=== PATIENT | male | born 1945 | race Caucasian/White ===

== ENCOUNTER 2023-01-01 09:47 | Outpatient (OUT) | payer MEDICARE, BC, SELFPAY ==
[2023-01-01 11:04] LABS: Estimated Average Glucose 189 mg/dL; Glycohemoglobin A1C 8.2 % (4.5-6.2)
== END 2023-01-01 09:48 | disposition home or self-care (01) ==
PROVIDERS: PCP Family Medicine; Visit Provider Family Medicine
DX: E11.65 Type 2 diabetes mellitus with hyperglycemia (principal)
CPT/HCPCS: 36415; 83036

== ENCOUNTER 2023-12-22 09:24 | Outpatient (OUT) | payer MEDICARE, BC, SELFPAY ==
[2023-12-22 10:10] LABS: Alanine Aminotransferase 32 U/L (16-63); Albumin Globulin Ratio 1.3; Albumin Level 3.8 g/dL (3.4-5.0); Alkaline Phosphatase 63 U/L (46-116); Anion Gap 9.4; Aspartate Amino Transferase 16 U/L (15-37); BUN Creatinine Ratio 19.5; Bilirubin Total 0.4 mg/dL (0.2-1.0); Calcium 9.7 mg/dL (8.5-10.1); Carbon Dioxide 29.4 mmol/L (21.0-32.0); Chloride 102 mmol/L (98-107); Chol HDL Ratio 2.7; Cholesterol 82 mg/dL (<=200); Estimated GFR (African America >60 (>=60); Estimated GFR (Non-African Ame >60 (>=60); Globulin 2.9 g/dL; Glucose 110 mg/dL (74-106); HDL Cholesterol 30 mg/dL (40-60); Potassium 4.8 mmol/L (3.5-5.1); Sodium 136 mmol/L (136-145); Total Protein 6.7 g/dL (6.4-8.2); Triglycerides 41 mg/dL (<=150); VLDL CHOLESTEROL 8.2 mg/dL
[2023-12-23 10:14] LABS: Vitamin B12 183 pg/mL (232-1245)
== END 2023-12-22 09:25 | disposition home or self-care (01) ==
LOC: LAB 09:26
PROVIDERS: PCP Family Medicine; Visit Provider Nurse Practitioner Family
DX: E11.65 Type 2 diabetes mellitus with hyperglycemia (principal); I10 Essential (primary) hypertension; E55.9 Vitamin D deficiency, unspecified; E11.42 Type 2 diabetes mellitus with diabetic polyneuropathy
CPT/HCPCS: 36415; 80053; 80061; 82306; 82607

== ENCOUNTER 2024-11-24 10:09 | Outpatient (OUT) | payer MEDICARE, BC, SELFPAY ==
--- OUTSIDE RECORDS SUMMARY | 2024-11-23 06:10 | XMS_ITS | Continuity of Care Document ---
Author Organization [facility] Address [address] [place] [phone] Phone Care Team Providers Care Health Administration Teacher Name Role Phone Dasha Hanna MD Primary Care Provider Ragini Mar APRN Attending Provider Dasha Hanna MD Attending Provider Angel Palencia APRN Attending Provider Care Teams Patient Care Team Team Status: Active Member Role Status Dates Dasha Hanna MD Primary Care Provider Active Visit Care Team Team Status: Inactive Member Role Status Dates Dasha Hanna MD Primary Care Provider Active Start: August 25, 2024 End: August 25, 2024 Ragini Mar APRN Attending Provider Active Start: August 25, 2024 End: August 25, 2024 Visit Care Team Team Status: Inactive Member Role Status Dates Dasha Hanna MD Primary Care Provider Active Start: September 17, 2024 End: September 17, 2024 Dasha Hanna MD Attending Provider Active St art: September 17, 2024 End: September 17, 2024 Visit Care Team Team Status: Inactive Member Role Status Dates Dasha Hanna MD Primary Care Provider Active Start: October 05, 2024 End: October 05, 2024 Angel Palencia APRN Attending Provider Active Start: October 05, 2024 End: October 05, 2024 Visit Care Team Team Status: Inactive Member Role Status Dates Dasha Hanna MD Primary Care Provider Active Start: October 27, 2024 End: October 27, 2024 Dasha Hanna MD Attending Provider Active St art: October 27, 2024 End: October 27, 2024 Patient Care Team Team Status: Inactive Member Role Status Dates Dasha Hanna MD Primary Care Provider Active Start: November 23, 2024 End: November 23, 2024 Angel Palencia APRN Attending Provider Active Start: November 23, 2024 End: November 23, 2024 Chief Complaint and Reason for Visit Chief Complaint Admit Date DM 3 month and August 25, 2024 10:19 am Sore Feet/Wants Diabetic Shoes August 11:14am 1 year follow up / Gerd October 05, 2024 9 :23am 3 mo f/u October 27, 2024 9:25 am 7wk Constipation/gerd November 23, 2024 9:38am Reason for Visit Admit Date BMI 25.0-25.9,adult August 25, 2024 10:19 am Dietary counseling and surveillance August 25, 2024 10:19am Essential (primary) hypertension July 10:19am Neuropathy August 25, 2024 10:19 am Type 2 diabetes mellitus with hyperglyce tana August 25, 2024 10:19am Vitamin D deficiency, unspecified August 252024 10:19am Vitamin B 12 deficiency August 25, 2024 1 0:19am Type 2 diabetes mellitus with diabetic p olyneuropathy September 17, 2024 11:14am Constipation October 05, 2024 9:23a m GERD (gastroesophageal reflux disease) J sabina 2024 9:23am Essential (primary) hypertension October 272024 9:25am Type 2 diabetes mellitus with diabetic p olyneuropathy October 27, 2024 9:25am Type 2 diabetes mellitus wit h other circulatory complications October 27, 2024 9:25am Type 2 diabetes mellitus with other spec ified complication October 27, 2024 9:25am Constipation November 23, 2024 9: 38am GERD (gastroesophageal reflux disease) A ugust 2024 9:38am Allergies, Adverse Reactions, Alerts Allergen Type Severity Reaction Last Updated Verified Status No Known Allergies Allergy Unknown October 27, 2024 9:35a m Yes Active Social History Smoking Status Status Start Date End Date Date of Observa tion Ex-smoker (finding) January 01, 2024 9:49am Observation Status Observation Response Date of Response Legal Sex Male (finding) Sex Assigned At Male [id number] Family History Relationship Condition Age at Onset Recorded Date/T [place] father Unknown Malignant neoplasm of brain Unknown Malignant neoplasm of stomach Unknown mother Diabetes mellitus Unknown Unknown Myocardial infarction Unknown Cerebrovascular accident (CVA) Unknown Hypertension Unknown brother Diabetes mellitus Unknown Problems Active Problems Medical Problem Onset Date Status Esophageal abnormality Unknown Active Finger dysfunction Unknown Active Arthritis of finger Unknown Active COVID-19 Unknown Active Medicare annual wellness visit, subsequent Unkno wn Active Trigger finger, right middle finger Unknown Active Trigger finger, right index finger Unknown Active Trigger finger, left index finger Unknown Active Type 2 diabetes mellitus with hyperglycemia Unkn own Active Type 2 diabetes mellitus with other specified co mplication Unknown Active Type 2 diabetes mellitus with diabetic polyneuro elo Unknown Active Diabetes Unknown Active Dietary counseling and surveillance Unknown Active Claudication Unknown Active Neuropathic pain of both feet Unknown Ac tive Neuropathy Unknown Active Essential (primary) hypertension Unknown Active Raynaud's syndrome without gangrene Unknown Active BMI 25.0-25.9,adult Unknown Active Type 2 diabetes mellitus with other circulatory complications Unknown Active Bilateral swelling of feet Unknown Activ e GERD (gastroesophageal reflux disease) Unknown Active Constipation Unknown Active Vitamin D deficiency, unspecified Unknown Active Medications Medication Status Dose Units Route Directions Qty Days St art Date Stop Date End Date Instructions Adherence Blood Sugar Diagnostic strip Active 0 .ROUTE .[facility] 100 July 29, 2023 4:46pm Glucose check one time daily Lancets mis [facility] July 30, 2023 4:31pm as directed, 1 x daily, defer to insurance preferred Blood-Gluco se Meter misc Active 0 .ROUTE .[facility] July 31, 2023 12:10p m as directed, defer to insurance preferred Gabapentin 600 mg tablet Discont inued 0 .ROUTE .COM[facility]X 180 August 13, 2023 12:38p m October 15, 2023 2:18p m TAKE 1 TABLET BY MOUTH TWICE DAILY Amlodipine 5 mg tablet Discont inued 5 MG PO Daily August 19, 2023 12:43p m June 23, 2024 10:07 am Atorvastati n 80 mg tablet Discont inued 80 MG PO Daily August 19, 2023 12:43p m June 23, 2024 10:07 am Gabapentin 600 mg tablet Discont inued 0 .ROUTE .COMPLEX 180 October 15, 2023 2:17pm Octob er 2023 12:39 pm TAKE 1 TABLET BY MOUTH TWICE DAILY Glipizide 10 mg tablet Discont inued 0 .ROUTE .COMPLEX 90 2023 1:20pm Septe mber 2023 8:00a m TAKE 1 TABLET BY MOUTH EVERY DAY Glipizide 5 mg tablet Discont inued 5 MG PO Daily Septem jeronimo 2023 12:00a m Octob er 2023 5:18p m Glipizide 5 mg tablet Discont inued 5 MG PO Daily Octobe r 2023 9:00am Octob er 2023 10:34 am Glipizide 5 mg tablet Discont inued 0 .ROUTE .COMPLEX 90 Octobe r 2023 10:34a m Octob er 2023 9:18a m TAKE 1 TABLET BY MOUTH DAILY Sitagliptin Phosphate (Januvia) 100 mg tablet Discont inued 100 MG .ROUTE .COMPLEX 90 Octobe r 2023 11:41a m Octob er 2023 12:38 pm once daily Sitagliptin Phosphate (Januvia) 100 mg tablet Discont inued 100 MG .ROUTE .COMPLEX 90 Octobe r 2023 12:37p m Febru [email or web address] 11:29 am once daily Empaglifloz in 25 mg tablet Discont inued 25 [facility] 8:[facility] Febru 2024 2:57p m Sitagliptin Phos-Metfor min (Janumet) 50-1,000 mg tablet Discont inued 1 TAB PO Twice daily June 16, 2024 5:01pm August 27, 2024 3:24p m Amlodipine 5 mg tablet Active 5 MG PO Daily June 23, 2024 10:07a m Complies with drug therapy Atorvastati n 80 mg tablet Active 80 MG PO Daily June 23, 2024 10:07a m Complies with drug therapy Gabapentin 800 mg tablet Active 800 MG PO Twice daily November 05, 2024 8:24am Complies with drug therapy Omeprazole 40 mg capsule,del ayed release(DR/ EC) Discont inued 40 MG PO Twice daily 60 August 21, 2023 12:00a m Janua ry 2024 10:09 am Amlodipine 5 mg tablet Discont inued 5 MG PO Daily July 01, 2023 12:00a m August 19, 2023 12:43 pm Gabapentin 600 mg tablet Discont inued 600 MG PO Twice daily July 01, 2023 12:00a m August 13, 2023 12:38 pm Glipizide 10 mg tablet Discont inued 10 MG PO Daily July 01, 2023 12:00a m October 21, 2023 7:48a m Sitagliptin Phos-Metfor min 50-1,000 mg tablet Discont inued 1 TAB PO Twice daily July 01, 2023 12:00a m October 21, 2023 7:48a m Latanoprost 0.005 % drops Active 1 DROPS OPHTHA LMIC Daily July 01, 2023 12:00a m Complies with drug therapy Losartan 50 mg tablet Active 50 MG PO Daily July 01, 2023 12:00a m Complies with drug therapy Glipizide 5 mg tablet Discont inued 10 MG .ROUTE .COMPLEX Octobe r 2023 9:17am Marua ry 2024 10:09 am 10 mg; Gabapentin 800 mg tablet Discont inued 800 MG PO Twice daily 180 Octobe r 2023 12:39p m Augus t 2024 8:24a m Atorvastati n 80 mg tablet Discont inued 80 MG PO Daily July 28, 2023 12:00a m August 19, 2023 12:43 pm Aspirin (Adult Aspirin Regimen) 81 mg tablet,robert yed release (DR/EC) Active 81 MG PO Daily July 28, 2023 12:00a m Complies with drug therapy Empaglifloz in (Jardiance) 10 mg tablet Discont inued 10 MG PO Every morning 90 90 July 28, 2023 12:00a m October 21, 2023 7:48a m Blood Sugar Diagnostic strip Discont inued 0 .ROUTE .[facility] 300 July 28, 2023 12:00a m July 29, 2023 4:47p m Glucose checks three times daily Lancets misc Discont inued 0 .ROUTE .[facility] 300 July 28, 2023 12:00a m July 30, 2023 4:33p m as directed, 3x day, defer to insurance preferred Blood-Gluco se Meter misc Discont inued 0 .ROUTE .[facility] 1 July 28, 2023 12:00a m July 31, 2023 12:10 pm as directed, defer to insurance preferred Glipizide 10 mg tablet Discont inued MG PO Novemb er 2023 1:00am 2024 11:40 am Glipizide 10 mg tablet Discont inued 5 MG PO .COMPLEX 2024 11:39a m 2024 11:43 am 5 mg orally with breakfast and 10mg daily with Supper; Glipizide 10 mg tablet Active 5 MG PO .COMPLEX 270 2024 11:40a m 5 mg orally with breakfast and 10mg daily with Supper; Complies with drug therapy Sitagliptin Phos-Metfor min (Janumet) 50-1,000 mg tablet Discont inued 1 TAB PO Twice daily 2024 1:00am June 16, 2024 5:02p m Cholecalcif ad (Vitamin D3) 50 mcg (2,000 unit) capsule Active 4000 UNIT PO Daily 2024 1:00am Complies with drug therapy Empaglifloz in 25 mg tablet Active 25 MG PO Every morning 90 90 2024 2:57pm Complies with drug therapy Polyethylen e Glycol 3350 (Miralax) 17 gram/dose powder Active 17 GM PO Daily November 23, 2024 12:00a m Complies with drug therapy probiotic Active PO November 23, 2024 12:00a m Unknown Sitagliptin Phos-Metfor min 50-1,000 mg tablet Discont inued 1 TAB PO Twice daily 180 October 21, 2023 7:46am 2024 10:10 am On Hold: stop metformin Empaglifloz in (Jardiance) 10 mg tablet Discont inued 10 MG PO Every morning 90 90 October 21, 2023 7:47am Novem jeronimo 2023 8:46a m Glipizide 5 mg tablet Discont inued 5 MG PO Daily 90 October 21, 2023 7:47am Septe mber 2023 1:20p m Glipizide 5 mg tablet Discont inued 10 MG PO Daily Octobe r 2023 2:07pm Octob er 2023 9:01a m Sitagliptin Phosphate (Januvia) 50 mg tablet Discont inued 50 MG PO Twice daily 180 Octobe r 2023 12:00a m Octob er 2023 11:42 am Cyanocobala min (Vitamin B-12) 1,000 mcg capsule Active 1000 MCG PO Daily 2024 1:00am Complies with drug therapy Magnesium Oxide 400 mg (241.3 mg magnesium) tablet Active 400 MG PO Daily 2024 1:00am Complies with drug therapy Blood-Gluco se Sensor (Dexcom G7 Sensor) device Active 0 .Route August 25, 2024 12:00a m As directed Blood-Gluco se,Head Of History ,Cont (Dexcom G7 Head Of History) misc Active 0 .Route August 25, 2024 12:00a m As directed Sitagliptin Phos-Metfor min (Janumet) 50-1,000 mg tablet Active 1 TAB PO Twice daily 180 August 27, 2024 3:24pm Complies with drug therapy Immunizations Immunization Event Date Not Given Reason Dose Number [employer] Lot Number Vaccine Information Statement (VIS) Detail Administration Location COVID-19 mRNA, Comirnaty ([employer]) July 24, 2020 COVID-19 mRNA, Comirnaty ([employer]) August 14, 2020 COVID-19 mRNA, Comirnaty ([employer]) March 20, 2021 COVID-19 mRNA Bivalent Booster ([employer]) February 04, 2022 influenza, unspecified formulation February 03, 2019 influenza, unspecified formulation February 13, 2021 Pneumococcal Polysacc. Vaccine, 23 valent December 10, 2012 Relevant Diagnostic Tests and/or Laboratory Data Laboratory Results Test Collection Date/Time Result Date/Time Result Interpretation Reference Range Result Comment Performing Site Bedside Glucose August 25, 2024 10:35am August 25, 2024 3:36pm 194 Bedside Hemoglobin A1c August 25, 2024 3:35pm August 25, 2024 3:36pm 6.5 % Vital Signs Vital Reading Result Reference Range Collection Date/Time Height 70 [in_i] August 25, 2024 10:32am Weight 77.00 kg August 25, 2024 10:32am Heart Rate 83 /min 60-100 August 25, 2024 10:32am Respiratory rate 18 /min 12-24 August 25, 2 025 10:32am Oxygen saturation by Pulse oximetry 97 % 95-100 August 25, 2024 10:32 am BP Systolic 115 mm[Hg] 100-140 August 25, 2024 10:32am BP Diastolic 71 mm[Hg] 60-100 August 25, 2024 10:32am BMI (Body Mass Index) 24.3 kg/m2 August 252024 10:32am Height 70 [in_i] September 17, 2024 11:18am Weight 77.11 kg September 17, 2024 11:18am Heart Rate 83 /min 60-100 September 17, 2024 11:18am BP Systolic 131 mm[Hg] 100-140 September 17, 2024 11:18am BP Diastolic 68 mm[Hg] 60-100 September 17, 2024 11:18am BMI (Body Mass Index) 24.3 kg/m2 August 302024 11:18am Height 70 [in_i] October 05, 2024 9:39am Weight 76.65 kg October 05, 2024 9:39am Heart Rate 75 /min 60-100 October 05, 2024 9:39am BP Systolic 123 mm[Hg] 100-140 October 05, 2024 9:39am BP Diastolic 65 mm[Hg] 60-100 October 05, 2024 9:39am BMI (Body Mass Index) 24.2 kg/m2 October 052024 9:39am Height 70 [in_i] October 27, 2024 9:27am Weight 76.20 kg October 27, 2024 9:27am Heart Rate 80 /min 60-100 October 27, 2024 9:27am BP Systolic 121 mm[Hg] 100-140 October 27, 2024 9:27am BP Diastolic 67 mm[Hg] 60-100 October 27, 2024 9:27am BMI (Body Mass Index) 24.0 kg/m2 September 302024 9:27am Height 70 [in_i] November 23 9:38am Weight 76.20 kg November 23 9:38am BMI (Body Mass Index) 24.0 kg/m2 November 23, 2024 9:38am Advance Directives Advance Directive Response Recorded Date/ Time Advance Directives No November 04 3:23pm Insurance Providers Guarantor Genny Peacock Address [address] [place] [phone] Contact Info. Home Phone: Payer Policy Id Subscriber's Name Subscriber Id Effectiv e Date Expiration Date [place] [employer]/[place] [id number] Genny Peacock [id number] Medicare [id number] Genny Peacock [id number] Encounters Encounter Location(s) Arrival/Admit Date Discharge/Depart Date Provider(s) Departed Physician/Prov ider Office Visit -[facility] August 25, 2024 10:19am August 25, 2024 11:20am Ragini Mar APRN Departed Physician/Prov ider Office Visit -[facility] September 17, 2024 11:14am September 17, 2024 11:43am Dasha Hanna MD Departed Physician/Prov ider Office Visit -[facility] October 05, 2024 9:23am October 05, 2024 9:59am Stephanie Talbert APRN Departed Physician/Prov ider Office Visit -[facility] October 27, 2024 9:25am October 27, 2024 10:12am Dasha Hanna MD Departed Physician/Prov ider Office Visit -[facility] November 23, 2024 9:38am November 23, 2024 10:08am Stephanie Talbert APRN Recent Diagnosis Onset Date Admit Date BMI 25.0-25.9,adult Unknown August 25 10:19am Dietary counseling and surveillance Unknown August 25, 2024 10:19am Essential (primary) hypertension Unknown August 25, 2024 10:19am Neuropathy Unknown August 25, 2024 1 0:19am Type 2 diabetes mellitus with hyperglycemia Unkn own August 25, 2024 10:19am Vitamin D deficiency, unspecified Unknown August 25, 2024 10:19am Vitamin B 12 deficiency Unknown July 10:19am Type 2 diabetes mellitus wit h diabetic polyneuropathy Unknown September 17, 2024 11:14am Constipation Unknown October 05, 2024 9 :23am GERD (gastroesophageal reflux disease) Unknown October 05, 2024 9:23am Essential (primary) hypertension Unknown October 27, 2024 9:25am Type 2 diabetes mellitus wit h diabetic polyneuropathy Unknown October 27, 2024 9:25am Type 2 diabetes mellitus wit h other circulatory complications Unknown October 27, 2024 9:25am Type 2 diabetes mellitus wit h other specified complication Unknown October 27, 2024 9:25am Constipation Unknown November 23 9:38am GERD (gastroesophageal reflux disease) Unknown November 23, 2024 9:38am Assessments Diagnosis Onset Date Resolution Status Admit Date BMI 25.0-25.9,adult acute July 302024 10:19am Dietary counseling and surveillance acute August 25, 2024 1 0:19am Essential (primary) hypertension acute August 25, 2024 1 0:19am Neuropathy acute August 25, 2024 10:19am Type 2 diabetes mellitus wit h hyperglycemia acute August 25, 2024 1 0:19am Vitamin D deficiency, unspecified acute August 25, 2024 1 0:19am Vitamin B 12 deficiency noneactive M 2024 10:19am Type 2 diabetes mellitus wit h diabetic polyneuropathy acute August 11:14am Constipation acute October 05 9:23am GERD (gastroesophageal reflu x disease) acute October 05, 2024 9 :23am Essential (primary) hypertension acute October 27, 2024 9:25am Type 2 diabetes mellitus wit h diabetic polyneuropathy acute September 9:25am Type 2 diabetes mellitus wit h other circulatory complications acute October 27, 2024 9:25am Type 2 diabetes mellitus wit h other specified complication acute Sep 9:25am Constipation acute November 23, 2024 9:38am GERD (gastroesophageal reflu x disease) acute November 23 9:38am Plan of Treatment Author Angel Palencia [facility] Authored November 01, 2024 8:5 9am An 79-year-old male patient with diagnosis of GERD, constipation Continue omeprazole 40 mg twice daily as patient dyspepsia/acid reflux has been well-controlled without alarm features Initiate MiraLAX titration, fiber supplementation twice daily, ensuring adequate water intake and initiation of probiotic for constipation. Bowel movements occurring 1-2 times per week Follow-up in this office in 8 weeks discuss treatment efficacy consider prescription agents if unable to receive relief of constipation with MiraLAX dosing Author Dasha Hanna [facility] Authored October 27, 2024 11:3 4am Take medication as prescribe d, keep follow up appointments, get any testing that's been ordered done in a timely fashion. Do not smoke. Call if any questions or problems.For Diabetes: Patient is advised to work on healthy diet choices and appropriate servings, weight control, regular exercise as directed, and reduce fat intake. Check home blood sugars as directed. Check feet regularly to be sure no sores or numbness are developing. Call if low sugar reactions occur, and be aware that lower sugars may happen with increased exercise. Author Angel Palencia [facility] Authored November 23, 2024 10 :01am An 79-year-old male patient with diagnosis of GERD, constipation Continue lifestyle management with regard to reflux complaints, patient has discontinued PPI and is negative for breakthrough or alarm features Continue MiraLAX titration, fiber supplementation twice daily, ensuring adequate water intake and initiation of probiotic for constipation. Bowel movements now occurring once daily without straining Follow-up in this office in 6 months as patient has maintained medication regimen and has good control of symptoms Author Ragini Mar [facility] Authored August 27, 2024 3:30p m AGP Dexcom 12 August through 25 Aug 2024, CGM active 99.8%, average glucose 148, GMI 6.9%, variability is 32.3%. Ranges: Greater than 250 is 3%, 181-250 is 23%, 70-100 80s 74%, below 69 is 0 0%. AGP Dexcom 12 May through 25 May 2024, CGM active 99.3%, missing days 12 through 14 of this month. Average glucose 152, GMI 7.0%, variability is 42.1%. Ranges: Greater than 250 is 8%, 181-250 is 28%, 70-180 is 60%, 54-69 is 3%, below 54 is 1%. Hx: Notable significant variability on CGM, significant hypoglycemia noted on , , 23 May as low as 41, 46 and 47 overnight, would constitute necessity for CGM surveillance despite insulin. This was a prolonged not consistent with compression lows. Unable to download meter, handwritten values between 03/30/2024 and 04/06/2024, 1 value per day, lowest 161 highest 461. Unable to download meter, handwritten values between 12/14 and 12/30/2023, highest blood glucose reading is 136 and lowest blood glucose reading is 102. Meter: Unable to download glucometer, handwritten 09/11-09/22 show once daily BG checks in AM- Patient is here for Type 2 Diabetes, diagnosed approximately 20 years Any hypoglycemic events: denies Regular physical activity: active, no formal exercise Nutrition: 2- 3 meals per day Patient concerns for today: blood glucose elevations since Covid Any recent hospitalizations: denies, but recent positive COVID non hospitalized, fatigue, improved Prescriptions needed: due MT 1. Uncontrolled, a Type 2 diabetes with A1c of 6.5% was 9.3% , 7.4, 7.9%, 8.2 %. GMI 6.9%% with variability Current diabetes medications: Janumet twice daily, Jardiance 25 mg daily, glipizide 10 mg with dinner and 5 mg with breakfast. Hx Januvia 100 mg daily (NOT JANUMET). Very averse to insulin therapy Hx: Rybelsus- tolerated but $1100. He is on statin and ARB 2. Blood glucose levels have likely improved AEB A1c Continue Janumet 50-1000 mg BID continue glipizide 10 mg with largest meal, 5 mg with breakfast -A-t-r-c-o-m- -a-m-g-n-e-r- -y-h-e-d-e-r- -z-v-h-c-e-d- -t-o- -l-e-f-t- -u-p-p-e-r- -a-r-m- -b-y- -d-b-v-v-i-d-e-r- -f-o-r- -f-n-j-t-e-r- -z-s-o-j-m-w-s-l-m-z-v-y-t-i-o-n- Dexcom G7 sensors to MSC, substantiating severe hypoglycemia, coverage obtained, benefiting and using appropriately B12 deficiency with oral replacement per PCP Continue Jardiance 25 mg po daily-- discussed holding when at risk for dehydration or NPO BP good today, discussed goal under 130/80 for kidney protection taking losartan and amlodipine UMIC hx mild elevation-- Lipids- on atorvastatin 80, yearly check due 11/2024, Yearly labs ordered avoid simple sugars, consider eliminating fruit juice, already eliminated regular soda- years ago 3 months could consider GLP1RA cost will likely be concern, hx toleration of Rybelsus-- cost issue-- HIGHLY RESISTANT TO INSULIN 3. Patient is alert, oriented and receptive to making changes or counseling. Notes: Seen for an assessment of current glucose pattern, changes in treatment plan, counseling and coordination of care related to diabetes, risks, and benefits of treatment, medications, side effects. Given handouts to reinforce concepts reviewed during counseling, see scanned notes. TOPICS REVIEWED: 1. Time was spent reviewing: a. Basic concepts of diabetes, progressive beta cell , concepts of basal/bolus/corrective insulin requirements. The goal is fasting blood glucose of 90-130mg. IF fasting blood glucose starts to run under 100mg 3x's/ week, decrease dose by 10%. The goal is to hold the blood glucose level steady meal to meal. If pt. is going to have increased physical activity after a meal, decrease the schedule meal dose prior to the activity by 30-50%. If pt. skips a meal do not take this dose. b. Nutrition: Concepts of healthy diet, encouraged to decrease saturated fat in diet and increase non-starchy vegetables and fruits in diet. BMI: Pt. needs to select one small change to decrease caloric intake or increase physical activity to help decrease weight. c. Correct treatment of hypoglycemia, carry a glucose source at all times on your person, in vehicles, and at bedside. Can use glucose tablets/4, four ounces of pop or juice equal to 15 G of carbohydrate. Blood glucose should be 100 mg/dl or higher when driving. d. ADA glucose goals for age and medical complexity reviewed e. Patient questions addressed 2. Activity/exercise: Encouraged to start any form of physical activity. Start low level and increase slowly to a minimal goal of 150 minutes/week. Limit activity to what is allowed by other issues such as cardiac, pulmonary or orthopedic restrictions. 3. Standards of care: Reminded to have an annual dilated eye exam, A1C every 3 months, urine testing for microalbumin once/year, check feet daily and report any cuts or sores that do not appear to be healing. 4. Meter: Plan to check blood glucose: Please check blood glucose levels 4 times/day. Back to back meals reveal effectiveness of bolus dosing. The blood glucose data is used to determine insulin doses and confirm symptoms for hypoglycemia and hyperglycemia. 5. [facility] as directed. Contact office if any issues or concerns with patterns of hypoglycemia, hyperglycemia, or diabetes medication issues. Author Dasha Hanna [facility] Authored September 28, 2024 1:05p m Will forward notes and order to [facility] for shoes. Future Tests Future scheduled test information is unavailable Pending Tests Test Name Ordered Date Scheduled Date Comprehensive Metabolic Panel August 25, 2024 11: 10am 2 Months Future Visits Future appointment information is unavailable Referrals to Other Providers Referral information is unavailable Future Procedures Procedure Name Ordered Date Scheduled Date Vitamin B12 August 25, 2024 11:10am 2 Months Lipid Panel August 25, 2024 11:10am 2 Months MicroAlb Creat Ratio,U August 25, 2024 11:10am 2 Months Vitamin D 25 Hydroxy Total August 25, 2024 11:10a m 2 Months Future Medications Future medication information is unavailable Patient Instructions Patient instructions are unavailable
--- OUTSIDE RECORDS SUMMARY | 2024-11-24 10:20 | XMS_ITS | Encounter Summary ---
Author Organization [facility] Address [address] [place] [address] Care Team Providers Care Roll Forming Machine Set Up Operator Name Role Phone Dasha Hanna MD Primary Care Provider [phone] Reason for Visit * Reason Comments Med Refill Encounter Details Date Type Department Care Team (Late st Contact Info) Description 06/05/2022 Refill [facility] Cardiology [address] [place] [id number] Maggie Morales, COMPRESSED GAS PLANT WORKER [address] [place] [address] Benign hypertensive heart disease without congestive heart failure Social History Tobacco Use Types Packs/Day Years Used Date Smoking Tobacco: Never Assessed Sex and Gender Information Value Date Recorded Sex Assigned at Male 10/24/2022 7:53 PM EDT Legal Sex Male 10:25 PM EDT Gender Identity Male 10/24/2022 7:53 PM EDT Sexual Orientation Heterosexual or Straight 09/29 7:53 PM EDT documented as of this encounter Plan of Treatment Not on file documented as of this encounter Visit Diagnoses Diagnosis Benign hypertensive heart disease without congestive heart failure Benign hypertensive heart disease without heart failure documented in this encounter Care Teams Roll Forming Machine Set Up Operator Relationship Specialty Start Date End Date Dasha Hanna MD [address] PCP - General 10/23/22 documented as of this encounter
--- OUTSIDE RECORDS SUMMARY | 2024-11-24 10:20 | XMS_ITS | Clinical Summary ---
Author Organization [facility] Address [address] [place] [address] Care Team Providers Care Windows Server Support Technician Name Role Phone Dasha Hanna MD Primary Care Provider [phone] Allergies No known active allergies Medications atorvastatin (Lipitor) 80 mg tabletIndication s:Coronary artery disease with angina pectoris, unspecified vessel or lesion type, unspecified whether [place] or transplanted heart TAKE 1 TABLET DAILY 90 tablet 2 06/07/19 23 Active amLODIPine (Norvasc) 5 mg tabletIndication s:Benign hypertensive heart disease without congestive heart failure TAKE 1 TABLET DAILY 90 tablet 2 06/07/19 23 Active aspirin 81 mg EC tablet Take 1 tablet by mouth in the morning. Active gabapentin (Neurontin) 600 mg tablet Take 1 tablet by mouth in the morning and at bedtime. 03/18/20 16 Active SITagliptin phos-metformin (Janumet) 50-1,000 mg tablet Take 1 tablet by mouth in the morning and at bedtime. 03/18/20 16 Active empagliflozin (Jardiance) 10 mg Take 10 mg by mouth in the morning. 07/28/19 24 Active omeprazole (PriLOSEC) [address] capsule Take 40 mg by mouth before breakfast and before evening meal. Do not crush or chew. Active magnesium, as gluconate, (Magonate) 27 mg magnesium (500 mg) tablet Take 27 mg by mouth two times daily. Active glipiZIDE (Glucotrol) 5 mg tablet Take 5 mg by mouth before breakfast and before evening meal. Active losartan (Cozaar) 50 mg tabletIndication s:Benign hypertensive heart disease without congestive heart failure TAKE 1 TABLET BY MOUTH DAILY 90 tablet 3 11/19/19 25 Active glipiZIDE (Glucotrol) 10 mg tablet Take 1 tablet by mouth in the morning. 025 Discontinued losartan (Cozaar) 50 mg tabletIndication s:Benign hypertensive heart disease without congestive heart failure TAKE 1 TABLET BY MOUTH DAILY 90 tablet 3 12/29/19 24 025 Discontinued Active Problems Problem Noted Date Diagnosed Date BMI 25.0-25.9,adult 10/09/2023 Esophageal abnormality 10/09/2023 Finger dysfunction 10/09/2023 Neuropathy 10/09/2023 Raynaud's syndrome without gangrene 10/09/2023 Type 2 diabetes mellitus with hyperglycemia 09/28 Vitamin D deficiency, unspecified 10/09/2023 BPH with urinary obstruction 10/24/2022 Diabetes 10/24/2022 10/24/2022 Dysuria 10/24/2022 10/24/2022 Frequency of urination 10/24/2022 Nocturia 10/24/2022 10/24/2022 Screening for prostate cancer 10/24/2022 Split urinary stream 10/24/2022 10/24/2022 Urge incontinence 10/24/2022 10/24/2022 Urinary retention 10/24/2022 10/24/2022 Fatigue 05/13/2018 10/24/2022 Status post transurethral resection of prostate 05/13/2018 10/24/2022 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 Cardiology [address] [place] [phone] Ubaldo Finley MD Benign hypertensive heart disease without congestive heart failure 10/29/2024 10:40 AM EDT Office Visit [place] [address] [place] [address] Prashant Sam, GREGG Coronary artery disease involving [place] coronary artery of [place] heart without angina pectoris (Primary Dx); Mixed hyperlipidemia; Essential hypertension; Diabetes mellitus type II, non insulin dependent ([facility]) from Last 3 Months Immunizations Immunization Administration Dates Next Due Covid ([employer]) Bivalent Booster =>12 YRS 022 Influenza, High-dose Seasona l, Quadrivalent, Preservative Free 02/04/2022,11/29/2019 Influenza, Seasonal, Quadrivalent, Adjuvanted Social History Tobacco Use Types Packs/Day Years Used Date Smoking Tobacco: Never Smokeless Tobacco: Never Tobacco Cessation:Counseling Given: Not Answered Alcohol Use Standard Drinks/Week Comments Not Currently 0 (1 standard drink = 0.6 oz pur e alcohol) [place] Safety & Environment Answer Date Rec orded Fear of Current or Ex-Partner Not on file Emotionally Abused Not on file 05/22/2023 Physically Abused Not on file 05/22/2023 Sexually Abused Not on file 05/22/2023 Physically or Sexually Abused Not on file Sex and Gender Information Value Date Recorded Sex Assigned at Male 10/24/2022 7:53 PM EDT Legal Sex Male 10:25 PM EDT Gender Identity Male 10/24/2022 7:53 PM EDT Sexual Orientation Heterosexual or Straight 09/29 7:53 PM EDT Last Filed Vital Signs Vital Sign Reading Time Taken Comments Blood Pressure 130/62 10/29/2024 10:35 AM EDT Pulse 73 10/29/2024 10:35 AM EDT Temperature - - Respiratory Rate 12 10/29/2024 10:35 AM EDT Oxygen Saturation 97% 10/29/2024 10:35 AM EDT Inhaled Oxygen Concentration - - Weight 76.3 kg (168 lb 3.2 oz) 10/29/2024 10:35 AM EDT Height 177.8 cm (5' 10 ) 10/29/2024 10:35 AM EDT Body Mass Index 24.13 10/29/2024 10:35 AM EDT Plan of Treatment Health Maintenance Due Date Last Done Comments Diabetes: Hemoglobin A1C 1945 Medicare Annual Wellness (AWV) 1945 Diabetes: Retinopathy Screening 1954 Depression Screening 1956 Diabetes: Urine Protein Screening 1963 Pneumococcal Vaccine: 50+ Years (1 of 2 - PCV) 1963 Adult Tetanus 1966 Zoster Vaccines (1 of 2) 1994 Fall Risk Screening 2009 COVID-19 Vaccine ( season) 2024 08/04/2024, 01/27/2024, 12/26/2022, Additional history exists Influenza Vaccine (#1) 2024 , 12/26/2022, 02/04/2022, Additional history exists HIB Vaccines Aged Out No longer eligi ble based on patient's age to complete this topic HPV Vaccines Aged Out No longer eligi ble based on patient's age to complete this topic IPV Vaccines Aged Out No longer eligi ble based on patient's age to complete this topic Meningococcal B Vaccine Aged Out No l onger eligible based on patient's age to complete this topic Meningococcal Vaccine Aged Out No preston roni eligible based on patient's age to complete this topic Rotavirus Vaccines Aged Out No longer eligible based on patient's age to complete this topic Insurance MEDICARE Member Subscriber Plan / Payer (Ef fective 2009-Present) Name:Cesar Begum Member ID:[id number] Relation to Subscriber:Self Name:Cesar Begum Subscriber ID:[id number] Payer ID:[id number] Group ID:Not on file Type:Medicare Address: [facility] [address] Care Teams Windows Server Support Technician Relationship Specialty Start Date End Date Dasha Hanna MD [facility] [facility] [address] PCP - General 10/23/22
--- OUTSIDE RECORDS SUMMARY | 2024-11-24 10:20 | XMS_ITS | Encounter Summary ---
Author Organization [facility] Address [address] [place] [address] Care Team Providers Care Turret Lathe Operator Name Role Phone Dasha Hanna MD Primary Care Provider [phone] Reason for Visit * Reason Comments Med Refill Encounter Details Date Type Department Care Team (Late st Contact Info) Description 11/17/2024 Refill [facility] Cardiology [address] [place] [address] Ubaldo Finley MD [address] [facility] [address] [place] [address] Benign hypertensive heart disease without congestive heart failure Social History Tobacco Use Types Packs/Day Years Used Date Smoking Tobacco: Never Smokeless Tobacco: Never Alcohol Use Standard Drinks/Week Comments Not Currently [...] failure documented in this encounter Care Teams Turret Lathe Operator Relationship Specialty Start Date End Date Dasha Hanna MD [address] PCP - General 10/23/22 documented as of this encounter
--- OUTSIDE RECORDS SUMMARY | 2024-11-24 10:20 | XMS_ITS | Encounter Summary ---
Author Organization [facility] Address [address] [place] [address] Care Team Providers Care Hedge Fund Accountant Name Role Phone Dasha Hanna MD Primary Care Provider [phone] Reason for Visit * Reason Comments Med Refill Encounter Details Date Type Department Care Team (Late st Contact Info) Description 02/12/2023 Refill [facility] Cardiology [address] [place] [phone] Ubaldo Finley MD [address] [facility] [address] [place] [address] Benign hypertensive heart disease without congestive heart failure; Coronary artery disease with angina pectoris, unspecified vessel or lesion type, unspecified whether [place] or transplanted heart Social History Tobacco Use Types Packs/Day Years Used Date Smoking Tobacco: Never Smokeless Tobacco: Never Alcohol Use Standard Drinks/Week Comments Not Currently 0 (1 standard drink = 0.6 oz pur e alcohol) Sex and Gender Information Value Date Recorded [...] Benign hypertensive heart disease without heart failure Coronary artery disease with angina pectoris, unspecified vessel or lesion type, unspecified whether [place] or transplanted heart documented in this encounter Care Teams Hedge Fund Accountant Relationship Specialty Start Date End Date Dasha Hanna MD [address] PCP - General 10/23/22 documented as of this encounter
--- OUTSIDE RECORDS SUMMARY | 2024-11-24 10:20 | XMS_ITS | Encounter Summary ---
Author Organization [facility] Address [address] [place] [address] Care Team Providers Care Vacuum Pan Tender Name Role Phone Dasha Hanna MD Primary Care Provider [phone] Reason for Visit * Reason Comments Med Refill Encounter Details Date Type Department Care Team (Late st Contact Info) Description 06/04/2022 Refill [facility] Cardiology [address] [place] [phone] Maggie Morales, AUTOMATIC RIVETING MACHINE OPERATOR [address] [place] [address] Coronary artery disease with angina pectoris, unspecified vessel or lesion type, unspecified whether [place] or transplanted heart Social History Tobacco Use [...] as of this encounter Visit Diagnoses Diagnosis Coronary artery disease with angina pectoris, unspecified vessel or lesion type, unspecified whether [place] or transplanted heart documented in this encounter Care Teams Vacuum Pan Tender Relationship Specialty Start Date End Date Dasha Hanna MD [address] PCP - General 10/23/22 documented as of this encounter
--- OUTSIDE RECORDS SUMMARY | 2024-11-24 10:28 | XMS_ITS | CCD ---
Author Organization [facility] Care Team Providers Care Senior Training Specialist Name Role Phone SIMONE HUANG Primary Care Physician [phone] TRESA RAMÍREZ Attending Unavailable HUANG, DR SIMONE Weber Admitting Unavailable HUANG, DR SIMONE Weber Attending Unavailable HUANG, DR SIMONE Weber Primary Care Unavailable HUANG, DR SIMONE Weber Admitting Unavailable HUANG, DR SIMONE Weber Attending Unavailable HUANG, DR SIMONE Weber Primary Care Unavailable HUANG, DR SIMONE Weber Consulting Unavailable SANCHEZ, WINCHA Consulting Unavailable HUANG, DR SIMONE Weber Admitting Unavailable HUANG, DR SIMONE Weber Attending Unavailable HUANG, DR SIMONE Weber Primary Care Unavailable HUAGN, DR SIMONE Weber Consulting Unavailable HUANG, DR SIMONE Weber Admitting Unavailable HUANG, DR SIMONE Weber Attending Unavailable HUANG, DR SIMONE Weber Primary Care Unavailable ZIEBER, DR LENA Villatoro Consulting Unavailable HUANG, DR SIMONE Weber Consulting Unavailable ENRIQUE SCHOFIELD, DR MORA Hollis Admitting Unavaildima e ENRIQUE SCHOFIELD, DR MORA Hollis Attending Unavailabl e HUANG, DR SIMONE Weber Primary Care Unavailable ENRIQUE SCHOFIELD, DR MORA Hollis Consulting Unavailabl e HUANG, DR SIMONE Weber Admitting Unavailable HUANG, DR SIMONE Weber Attending Unavailable HUANG, DR SIMONE Weber Primary Care Unavailable HUANG, DR SIMONE Weber Consulting Unavailable HUANG, DR SIMONE Weber Admitting Unavailable HUANG, DR SIMONE Weebr Attending Unavailable HUANG, DR SIMONE Weber Primary Care Unavailable HUANG, DR SIMONE Weber Consulting Unavailable Cyndi, Simone Unavailable MD Simone Huang Primary Care Provider [phone] MD David Solano Attending Provider [phone] MOISES Mar Attending Provider MD Simone Huang Primary Care Provider [phone] MD David Solano Attending Provider MD Simone Huang Primary Care Provider MD Simone Huang Attending Provider Simone Huang Primary Care Unavailable David Solano Admitting Unavailable David Solano Attending Unavailable Simone Huang Primary Care Unavailable Simone Huang Attending Unavailable Simone Huang Admitting Unavailable ScalRagini gonzales Admitting Unavailable Ragini Mar C Attending Unavailable Simone Huang Primary Care Unavailable David Solano Admitting Unavailable David Solano Attending Unavailable Simone Huang MD Primary Care Provider Simone Huang MD Attending Provider Simone Huang MD Primary Care Provider [phone] VIN JALLOH Attending Unavailable MARU WYMAN Attending Unavailable SIMONE HUANG Referring Unavailable Simone Huang MD Primary Care Provider Simone Huang MD Primary Care Provider Simone Huang MD Attending Provider Ragini Mar APRN Attending Provider Angel Palencia APRN Attending Provider Simone Huang MD Primary Care Provider Simone Huang MD Attending Provider LIZ CAMACHO Attending Unavailable Allergies Allergy Classification Reported Allergen(s) Allergy Type Date of Onset Reaction(s) Facility (1 source) No Known Medication Allergies; Translations: [No Known Medication Allergies] Propensity to adverse reactions (disorder) [facility] Repository (6 sources) Angiotensin-convert ing enzyme inhibitor agent Drug allergy Unknown [employer] Other (2 sources) HEBERT inhibitor use, contraindication Propensity to adverse reactions 07-22-19 15 Comment:other [employer] Other (2 sources) Allergies Reconciled Propensity to adverse reactions Unknown [employer] Other (2 sources) patient allergy list reviewed by nurse or physicia Propensity to adverse reactions 01-20-20 15 Comment:Done [employer] Other Medications Current Medications Medication Drug Class(es) Dates Sig (Normalized) Sig (Original) aspirin 81 mg delayed release oral tablet (20 sources) Platelet Aggregation Inhibitor, Nonsteroidal Anti-inflammatory Drug Start: 07-28-2023 take 1 tablet by mouth once daily Aspirin (Adult Aspirin Regimen) 81 mg tablet,delayed release (DR/EC) Active 81 MG PO Daily July 28, 2023 12:00am Complies with drug therapy Start: 12-17-2018 take 1 mg by mouth once daily aspirin 81 mg oral tablet mg tab(s), Oral, Daily, Refills(s) 0 Start Date: 12/17/18 Status: Ordered Blood Sugar Diagnostic (20 sources) Start: 07-29-2023 Blood Sugar Di agnostic Active 0 .ROUTE .MEDSUPPLY 100 July 29, 2023 4:46pm Glucose check one time daily Start: 07-28-2023 End: 07-29-2023 Blood Sugar Diagnostic Disco ntinued 0 .ROUTE .MEDSUPPLY 300 July 28, 2023 12:00am July 29, 2023 4:47pm Glucose checks three times daily Blood-Glucose Meter (20 sources) Start: 07-31-2023 Blood-Glucose Meter Active 0 .ROUTE .MEDSUPPLY July 31, 2023 12:10pm as directed, defer to insurance preferred Start: 07-28-2023 End: 07-31-2023 Blood-Glucose Meter Disconti nued 0 .ROUTE .MEDSUPPLY July 28, 2023 12:00am July 31, 2023 12:10pm as directed, defer to insurance preferred Blood-Glucose Meter misc (20 sources) Start: 07-31-2023 Blood-Glucose Meter misc Active 0 .ROUTE .MEDSUPPLY July 31, 2023 12:10pm as directed, defer to insurance preferred Start: 07-31-2023 Blood-Glucose Meter misc Active 0 .ROUTE .MEDSUPPLY July 31, 2023 11:10am as directed, defer to insurance preferred Start: 07-28-2023 End: 07-31-2023 Blood-Glucose Meter misc Dis continued 0 .ROUTE .MEDSUPPLY July 28, 2023 12:00am July 31, 2023 12:10pm as directed, defer to insurance preferred Start: 07-28-2023 End: 07-31-2023 Blood-Glucose Meter misc Dis continued 0 .ROUTE .MEDSUPPLY July 27, 2023 11:00pm July 31, 2023 11:10am as directed, defer to insurance preferred Blood-Glucose Sensor (Dexcom G7 Sensor) device (4 sources) Start: 08-25-2024 Blood-Glucose Sensor (Dexcom G7 Sensor) device Active 0 .Route August 25, 2024 12:00am As directed Start: 08-25-2024 Blood-Glucose Sensor (Dexcom G7 Sensor) device Active 0 .ROUTE August 25, 2024 12:00am As directed Blood-Glucose,Toy [employer] Train Repairer,Cont (Dexcom G7 Toy Electric Train Repairer) misc (4 sources) Start: 08-25-2024 Blood-Glucose,T[employer] Electric Train Repairer,Cont (Dexcom G7 Toy Electric Train Repairer) misc Active 0 .Route August 25, 2024 12:00am As directed Start: 08-25-2024 Blood-Glucose, [employer] Train Repairer,Cont (Dexcom G7 Toy Electric Train Repairer) misc Active 0 .ROUTE August 25, 2024 12:00am As directed cholecalciferol 0.05 mg oral capsule (6 sources) Vitamin D Start: 05-26-2024 take 1 capsule by mouth once daily Cholecalciferol (Vitamin D3) 50 mcg (2,000 unit) capsule Active 4000 UNIT PO Daily May 26, 2024 1:00am Complies with drug therapy empagliflozin 25 mg oral tablet (20 sources) Sodium-Glucose Cotransporter 2 Inhibitor Start: 02-17-2024 End: 05-28-2024 take 1 tablet by mouth once daily in the morning Empagliflozin 25 mg tablet Active 25 MG PO Every morning 90 May 28, 2024 2:57pm Complies with drug therapy Start: 07-28-2023 End: 02-17-2024 take 1 tablet by mouth once daily in the morning Empagliflozin (Jardiance) 10 mg tablet Discontinued 10 MG PO Every morning 90 October 21, 2023 7:47am February 17, 2024 8:46am gabapentin 800 mg oral tablet (20 sources) Anti-epileptic Agent Start: 01-12-2024 End: 11-05-2024 take 1 tablet by mouth twice daily Gabapentin 800 mg tablet Active 800 MG PO Twice daily 180 November 05, 2024 8:24am Complies with drug therapy Start: 10-22-2023 take 1 tablet by himanshu th in the morning gabapentin (Neurontin) 600 MG tablet Take 600 mg by mouth in the morning and 600 mg before bedtime. 10/22/2023 Active Start: 08-13-2023 End: 01-12-2024 take 1 tablet by mouth twice daily Gabapentin 600 mg tablet Discontinued 0 .ROUTE .COMPLEX 180 October 15, 2023 2:17pm January 12, 2024 12:39pm TAKE 1 TABLET BY MOUTH TWICE DAILY Start: 07-01-2023 End: 08-13-2023 take 1 tablet by mouth twice daily Gabapentin 600 mg tablet Discontinued 600 MG PO Twice daily July 01, 2023 12:00am August 13, 2023 12:38pm Start: 03-18-2016 take 1 tablet by himanshu th twice daily gabapentin 600 mg Tab 600 mg = 1 tab(s), Oral, BID, Neuropathy Start Date: 03/18/16 Status: Ordered glipiZIDE 10 mg oral tablet (20 sources) Sulfonylurea Start: 04-20-2024 End: 04-20-2024 take 5 mg by mouth at breakfast, then take 1 tablet by mouth once daily Glipizide 10 mg tablet Active 5 MG PO .COMPLEX 270 April 20, 2024 11:40am 5 mg orally with breakfast and 10mg daily with Supper; Complies with drug therapy Start: 02-10-2024 End: 04-20-2024 Glipizide 10 mg tablet Disco ntinued MG PO February 10, 2024 1:00am April 20, 2024 11:40am Start: 01-01-2024 End: 04-05-2024 Glipizide 5 mg tablet Discon tinued 10 MG .ROUTE .COMPLEX January 01, 2024 9:17am April 05, 2024 10:09am 10 mg; Start: 01-01-2024 Glipizide Acti ve 10 MG .ROUTE .COMPLEX January 01, 2024 9:17am 10 mg; Start: 12-31-2023 End: 01-01-2024 take 1 tablet by mouth once daily Glipizide 5 mg tablet Discontinued 0 .ROUTE .COMPLEX 90 December 31, 2023 10:34am January 01, 2024 9:18am TAKE 1 TABLET BY MOUTH DAILY Start: 12-30-2023 End: 12-31-2023 take 2 tablets by mouth once daily Glipizide 5 mg tablet Discontinued 10 MG PO Daily December 30, 2023 2:07pm December 31, 2023 9:01am Start: 12-30-2023 End: 12-31-2023 take 10 mg by mouth once daily Glipizide Discontinued 10 MG PO Daily December 30, 2023 2:07pm December 31, 2023 9:01am Start: 12-29-2023 End: 12-31-2023 take 1 tablet by mouth once daily Glipizide 5 mg tablet Discontinued 5 MG PO Daily December 31, 2023 9:00am December 31, 2023 10:34am Start: 12-24-2023 End: 12-29-2023 take 1 tablet by mouth once daily Glipizide 10 mg tablet Discontinued 0 .ROUTE .COMPLEX December 24, 2023 1:20pm December 29, 2023 8:00am TAKE 1 TABLET BY MOUTH EVERY DAY Start: 10-21-2023 End: 12-24-2023 take 1 tablet by mouth once daily Glipizide 5 mg tablet Discontinued 5 MG PO Daily October 21, 2023 7:47am December 24, 2023 1:20pm Start: 07-01-2023 End: 10-21-2023 take 1 tablet by mouth once daily Glipizide 10 mg tablet Discontinued 10 MG PO Daily July 01, 2023 12:00am October 21, 2023 7:48am latanoprost 0.05 mg/ml ophthalmic solution (20 sources) Prostaglandin Analog Start: 12-16-[address] (Xalatan) 0.005 % ophthalmic solution 12/16/2023 Active Start: 07-01-2023 take 1 drop(s) into the eye(s) once daily Latanoprost 0.005 % drops Active 1 DROPS OPHTHALMIC Daily July 01, 2023 12:00am Complies with drug therapy Start: 07-01-2023 take 1 drop(s) into the eye(s) once daily Latanoprost Active 1 DROPS OPHTHALMIC Daily July 01, 2023 12:00am Start: 07-01-2023 Latanoprost Ac tive 1 DROPS OPHTHALMIC July 01, 2023 12:00am Start: 03-18-2016 latanoprost Op th 0.005% Kimberlyn 1 drop(s), OPTH, Once a day (at bedtime) Start Date: 03/18/16 Status: Ordered Latanoprost 0.00 5 % as directed Ophthalmic Once a day Active losartan potassium 50 mg oral tablet (20 sources) Angiotensin 2 Receptor Kev Start: 02-14-2023 take 1 tablet by mouth once daily Losartan 50 mg tablet Active 50 MG PO Daily July 01, 2023 12:00am Complies with drug therapy Start: 03-18-2016 take 2 tablets by mo [facility] once daily losartan 25 mg Tab 50 mg = 2 tab(s), Oral, Daily, High blood pressure Start Date: 03/18/16 Status: Ordered take 1 tablet by himanshu th every twenty-four hours Losartan Potassium 50 MG 1 tablet Orally Once a day Active magnesium oxide 400 mg oral tablet (8 sources) Start: 04-06-2024 take 1 tablet by mouth once daily Magnesium Oxide 400 mg (241.3 mg magnesium) tablet Active 400 MG PO Daily April 06, 2024 1:00am Complies with drug therapy polyethylene glycol 3350 50013 mg powder for oral solution (1 source) Osmotic Laxative Start: 11-23-2024 Polyethylene Glycol 3350 (Miralax) 17 gram/dose powder Active 17 GM PO Daily November 23, 2024 12:00am Complies with drug therapy probiotic (1 source) Start: 11-23-2024 semaglutide 3 mg oral tablet (1 source) Rybelsus 3 MG 1 tablet at least 30 minutes before first food, beverage or other oral medicine of the day Orally Once a day for 30 days Active Suprep Bowel Prep Kit 17.5-3.13-1.6 GM/180ML (2 sources) Start: 09-13-2016 vitamin b12 1 mg oral capsule (8 sources) Vitamin B12 Start: 04-06-2024 take 1 capsule by mouth once daily Cyanocobalamin (Vitamin B-12) 1,000 mcg capsule Active 1000 MCG PO Daily April 06, 2024 1:00am Complies with drug therapy Completed/Discontinued Medications Medication Drug Class(es) Dates Sig (Normalized) Sig (Original) amLODIPine 5 mg oral tablet (20 sources) Dihydropyridine Calcium Channel Kev Start: 07-01-2023 End: 06-23-2024 take 1 tablet by mouth once daily Amlodipine 5 mg tablet Discontinued 5 MG PO Daily 90 August 19, 2023 12:43pm June 23, 2024 10:07am Start: 03-18-2016 take 1 tablet by himanshu th once daily amLODIPine 5 mg Tab 5 mg = 1 tab(s), Oral, Daily, High blood pressure Start Date: 03/18/16 Status: Ordered atorvastatin 80 mg oral tablet (20 sources) HMG-CoA Reductase Inhibitor Start: 07-28-2023 End: 06-23-2024 take 1 tablet by mouth once daily Atorvastatin 80 mg tablet Discontinued 80 MG PO Daily 90 August 19, 2023 12:43pm June 23, 2024 10:07am Start: 03-18-2016 take 1 tablet by himanshu th once daily atorvastatin 80 mg Tab 80 mg = 1 tab(s), Oral, Daily, High cholesterol Start Date: 03/18/16 Status: Ordered metFORMIN hydrochloride 1000 mg / SITagliptin 50 mg oral tablet (20 sources) Biguanide, Dipeptidyl Peptidase 4 Inhibitor Start: 05-26-2024 End: 08-27-2024 take 1 tablet by mouth twice daily Sitagliptin Phos-Metformin (Janumet) 50-1,000 mg tablet Discontinued 1 TAB PO Twice daily 180 June 16, 2024 5:01pm August 27, 2024 3:24pm Start: 07-01-2023 End: 04-05-2024 take 1 tablet by mouth twice daily Sitagliptin Phos-Metformin 50-1,000 mg tablet Discontinued 1 TAB PO Twice daily 180 October 21, 2023 7:46am April 05, 2024 10:10am On Hold: stop metformin Start: 03-18-2016 take 1 tablet by himanshu th twice daily Janumet 50 mg/1000 mg oral tablet 1 tab(s), Oral, BID, High blood sugar Start Date: 03/18/16 Status: Ordered omeprazole 40 mg delayed release oral capsule (20 sources) Proton Pump Inhibitor Start: 08-21-2023 End: 04-05-2024 take 1 capsule by mouth twice daily Omeprazole 40 mg capsule,delayed release(DR/EC) Discontinued 40 MG PO Twice daily 60 August 21, 2023 12:00am April 05, 2024 10:09am SITagliptin 100 mg oral tablet (20 sources) Dipeptidyl Peptidase 4 Inhibitor Start: 01-14-2024 End: 05-26-2024 Sitagliptin Phosphate (Januvia) 100 mg tablet Discontinued 100 MG .ROUTE .COMPLEX 90 January 14, 2024 12:37pm May 26, 2024 11:29am once daily Start: 01-13-2024 End: 01-14-2024 take 1 tablet by mouth twice daily Sitagliptin Phosphate (Januvia) 50 mg tablet Discontinued 50 MG PO Twice daily 180 January 13, 2024 12:00am January 14, 2024 11:42am Problems Active Problems Problem Classification Problem Date Documented Da te Episodic/Chronic Administrative/social admission (20 sources) Patient encounter status; Translations: [Dietary counseling and surveillance] 07-28-2023 Episodic Coronary atherosclerosis and other heart disease (5 sources) Coronary arteriosclerosis; Translations: [Coronary atherosclerosis] Onset: 5 10-10-2018 Chronic Diabetes mellitus with complications (20 sources) Type 2 diabetes mellitus with hyperglycemia; Translations: [Type 2 diabetes mellitus] Onset: 4 Chronic Diabetes mellitus without complication (20 sources) Diabetes mellitus; Translations: [Type 2 diabetes mellitus without complication] Onset: 5 10-10-2018 Chronic Disorders of lipid metabolism (20 sources) Hyperlipidemia, unspecified; Translations: [Mixed hyperlipidemia] Onset: 2 Chronic Esophageal disorders (7 sources) Gastroesophageal reflux disease; Translations: [Gastro-esophageal reflux disease without esophagitis] 10-05-2024 Chronic Esophageal disorders (20 sources) Disorder of esophagus; Translations: [Disease of esophagus, unspecified] 07-02-2023 Episodic Essential hypertension (20 sources) Hypertensive disorder; Translations: [Essential (primary) hypertension] Onset: 2 10-10-2018 Chronic Fracture of lower limb (2 sources) Closed fracture of tibia and fibula, shaft; Translations: [Closed fracture of shaft of fibula with tibia] Episodic Gastrointestinal hemorrhage (6 sources) Blood-tinged feces; Translations: [Melena] Episodic Genitourinary symptoms and ill-defined conditions (1 source) Urge incontinence of urine 10-10-2018 Chronic Genitourinary symptoms and ill-defined conditions (6 sources) Splitting of urinary stream; Translations: [Splitting of urinary stream] Onset: 3 Episodic Glaucoma (2 sources) Glaucoma; Translations: [Unspecified glaucoma] Chronic Hemorrhoids (2 sources) Hemorrhoids; Translations: [Unspecified hemorrhoids] Episodic Hyperplasia of prostate (11 sources) Benign prostatic hypertrophy with outflow obstruction; Translations: [Benign prostatic hyperplasia with lower urinary tract symptoms] Onset: Chronic Immunizations and screening for infectious disease (3 sources) Vaccination given; Translations: [Encounter for immunization] 02-10-2024 Episodic Nutritional deficiencies (20 sources) Vitamin D deficiency; Translations: [Vitamin D deficiency, unspecified] Onset: 4 07-28-2023 Chronic Nutritional deficiencies (12 sources) Deficiency of other specified B group vitamins; Translations: [Other B-complex deficiencies] 12-30-2023 Episodic Osteoarthritis (20 sources) Arthritis of hand; Translations: [Primary osteoarthritis, unspecified hand] 11-05-2023 Chronic Other circulatory disease (20 sources) Raynaud's disease; Translations: [Raynaud's syndrome without gangrene] 07-01-2023 Chronic Other circulatory disease (2 sources) Elevated blood-pressure reading without diagnosis of hypertension; Translations: [Elevated blood-pressure reading, without diagnosis of hypertension] Episodic Other connective tissue disease (2 sources) Pain in left lower limb; Translations: [Pain in left leg] Episodic Other connective tissue disease (20 sources) Disorder of finger; Translations: [Other symptoms and signs involving the musculoskeletal system] 07-02-2023 Episodic Other connective tissue disease (8 sources) Other symptoms and signs involving the musculoskeletal system; Translations: [Other musculoskeletal symptoms referable to limbs] 07-02-2023 Episodic Other connective tissue disease (20 sources) Triggering of digit; Translations: [Trigger finger, right middle finger] 11-05-2023 Episodic Other connective tissue disease (12 sources) Trigger finger, left index finger; Translations: [Trigger finger (acquired)] 11-05-2023 Episodic Other connective tissue disease (12 sources) Trigger finger, right index finger; Translations: [Trigger finger (acquired)] 11-05-2023 Episodic Other connective tissue disease (12 sources) Trigger finger, right middle finger; Translations: [Trigger finger (acquired)] 11-05-2023 Episodic Other connective tissue disease (15 sources) Swelling of bilateral feet; Translations: [Other specified soft tissue disorders] 12-03-2023 Episodic Other connective tissue disease (1 source) Other specified soft tissue disorders; Translations: [Other specified soft tissue disorders] Onset: 4 Episodic Other connective tissue disease (2 sources) Pain in right foot; Translations: [Pain in right foot] 12-22-2023 Episodic Other connective tissue disease (2 sources) Pain in left foot; Translations: [Pain in left foot] 12-22-2023 Episodic Other connective tissue disease (2 sources) Cramp in foot; Translations: [Cramp and spasm] 12-28-2023 Episodic Other diseases of kidney and ureters (1 source) Urinary tract obstruction; Translations: [Other obstructive and reflux uropathy] Onset: 3 Episodic Other gastrointestinal disorders (7 sources) Constipation; Translations: [Constipation, unspecified] 10-05-2024 Episodic Other injuries and conditions due to external causes (2 sources) History of fall; Translations: [History of falling] Episodic Other nervous system disorders (2 sources) Polyneuropathy; Translations: [Polyneuropathy, unspecified] Onset: 4 Chronic Other nervous system disorders (20 sources) Neuropathy; Translations: [Polyneuropathy, unspecified] Onset: 4 07-28-2023 Chronic Other nervous system disorders (20 sources) Polyneuropathy, unspecified; Translations: [Mononeuritis of unspecified site] Onset: 4 07-28-2023 Chronic Other nervous system disorders (15 sources) Foot pain; Translations: [Unspecified mononeuropathy of bilateral lower limbs] 12-03-2023 Chronic Other nervous system disorders (5 sources) Unspecified mononeuropathy of bilateral lower limbs; Translations: [Unspecified hereditary and idiopathic peripheral neuropathy] Onset: 4 01-01-2024 Chronic Other nervous system disorders (2 sources) Nervous system and sense organ diseases; Translations: [Other disorders of nervous system and sense organs] Episodic Other nervous system disorders (2 sources) Paresthesia; Translations: [Paresthesia of skin] 03-02-2024 Episodic Other non-traumatic joint disorders (4 sources) Shoulder joint pain; Translations: [Pain in joint, shoulder region] Onset: 3 Episodic Other nutritional; endocrine; and metabolic disorders (20 sources) Overweight in adulthood with body mass index of 25 or more but less than 30; Translations: [Body mass index (BMI) 25.0-25.9, adult] 07-28-2023 Episodic Other nutritional; endocrine; and metabolic disorders (19 sources) Body mass index (BMI) 25.0-25.9, adult; Translations: [Body Mass Index 25.0-25.9, adult] 07-28-2023 Episodic Other screening for suspected conditions (not mental disorders or infectious disease) (1 source) Encounter for screening for malignant neoplasm of prostate; Translations: [Screening for malignant neoplasm done] Onset: 3 Episodic Other skin disorders (2 sources) Callosity; Translations: [Corns and callosities] 12-28-2023 Episodic Peripheral and visceral atherosclerosis (20 sources) Intermittent claudication; Translations: [Peripheral vascular disease, unspecified] Onset: 2 01-12-2024 Chronic Spondylosis; intervertebral disc disorders; other back problems (8 sources) Radiculopathy, cervical region; Translations: [Neck pain] Onset: 2 Episodic Unclassified (1 source) Patient encounter status 04-03-2022 Unclassified (2 sources) CONTACT W/AND (SUSP) EXPOS COVID-19; Translations: [CONTACT W/AND (SUSP) EXPOS COVID-19] Onset: 2 Viral infection (12 sources) Disease caused by 2019-nCoV; Translations: [COVID-19] 02-10-2024 Episodic Viral infection (3 sources) COVID-19; Translations: [Disease caused by 2019-nCoV] Onset: 2 Past or Other Problems Problem Classification Problem Date Documented Da te Episodic/Chronic Other connective tissue disease (4 sources) Pain in left leg; Translations: [PAIN IN LEFT LEG] Onset: 10-22-2021 Episodic Other connective tissue disease (2 sources) Nontraumatic rupture of muscle; Translations: [Rupture of muscle, nontraumatic] Onset: 11-11-2014 Episodic Other gastrointestinal disorders (1 source) Dysphagia, unspecified; Translations: [Dysphagia, unspecified] Onset: 09-30-2023 Episodic Other non-traumatic joint disorders (2 sources) Arthralgia of the lower leg; Translations: [Pain in joint, lower leg] Onset: 02-04-2017 Episodic Pleurisy; pneumothorax; pulmonary collapse (2 sources) 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; Translations: [Empyema without mention of fistula] Onset: 10-15-2012 Episodic Poisoning by other medications and drugs (2 sources) Poisoning by drug AND/OR medicinal substance; Translations: [Poisoning by unspecified drug or medicinal substance] Onset: 05-27-2013 Episodic Unclassified (1 source) CONTACT W/AND (SUSP) EXPOS COVID-19; Translations: [CONTACT W/AND (SUSP) EXPOS COVID-19] Onset: 01-08-2022 Results Test Name Value Interpretation Reference Range Facility Office Visiton 10-29-2024 Follow-up visit [id number] Dillon Stephenson 1945 M Date Provider Department Center 10/29/2024 [id number] BRIDG[facility] Family History Family history unknown: Yes Level of Service:80886 [place] OFFICE/OUTPATIENT ESTABLISHED MOD MDM 30 MIN Reason for Visit and Comments: Follow-up [763688] Normal [facility] HbA1c HPLC (Bld) [Mass fract ion]on 08-25-2024 HbA1c (Bld) [Mass fraction] 6.5 % [facility] No Panel Informationon 08-25 Bedside Glucose 194 [facility] No Panel Informationon 05-26 Bedside Glucose 204 [facility] HbA1c HPLC (Bld) [Mass fract ion]on 04-06-2024 HbA1c (Bld) [Mass fraction] Hemoglobin A1c/Hemoglobin.total in Blood by HPLC [facility] No Panel Informationon 04-06 Bedside Glucose 308 [facility] Influenza virus A and B and SARS-CoV-2 (COVID-19) RNA panel - Respiratory system specon 02-10-2024 Influenza virus A and B RNA and SARS-CoV-2 (COVID-19) N gene panel ANN-MARIE+probe (Resp) Influenza virus A and B and SARS-CoV-2 (COVID-19) RNA panel - Respiratory system spec [facility] Laboratory - Microbiology an d Antimicrobial susceptibilityon 02-10-2024 SARS-CoV-2 (COVID-19) RNA ANN-MARIE+probe Ql (Unsp spec) Positive [facility] No Panel Informationon 02-09 POC Influenza B (ANN-MARIE) Negative [facility] US arterial pvr rest Saige US arterial pvr rest LE [facility] Main [place] [id number] Ultrasound Report Signed Patient: Dillon Stephenson MR#: [id number] : 1945 Acct:[id number] Age/Sex: 78 / M ADM Date: 01/26/24 Loc: Room: Type: [facility] Attending Dr: Simone Huang MD Ordering Provider: Simone Huang MD Date of Service: 01/26/24 US/US arterial pvr rest LE: I73.9 - Peripheral vascular disease, unspecified Copies to: Simone Huang MD LOWER EXTREMITY SEGMENTAL ARTERIAL DOPSCAN (PVR) INDICATION: Leg pain PROCEDURE: Right arm blood pressure is 141 , left is 144 . Pressures throughout the right leg are 206 at the low thigh, 209 at the calf, 181 at the ankle using the posterior tibial artery, and 168 at the ankle using the dorsalis pedis artery with ankle-brachial index of 1.26 1.17 . Pressures throughout the left leg are 190 at the low thigh, 189 at the calf and 166 at the ankle using the posterior tibial artery, and 124 at the ankle using the dorsalis pedis artery with ankle-brachial index of 1.15 0.86 . Wave forms by plethysmography are normal. US/US arterial pvr rest LE IMPRESSION: NO HEMODYNAMICALLY SIGNIFICANT PERIPHERAL VASCULAR OCCLUSIVE DISEASE AT REST IN EITHER LOWER EXTREMITY. Impression dictated by: Reinier Jimenez M.D.01/27/2024 10:45 AM Dictation Location: [place] [address] Tech: Mary Kearney Transcribed By: MAGALYS 01/27/24 1045 Dictated By: Reinier Jimenez MD 01/27/24 104 Signed By: 01/27/24 1045 Normal [facility] HbA1c HPLC (Bld) [Mass fract ion]on 12-30-2023 HbA1c (Bld) [Mass fraction] 7.4 % [facility] HbA1c (Bld) [Mass fraction] Hemoglobin A1c/Hemoglobin.total in Blood by HPLC [facility] No Panel Informationon 12-29 Bedside Glucose 102 [facility] Cholesterol in LDL Calc [Mas s/Vol]on 12-22-2023 Cholesterol in LDL [Mass/Vol] 44.0 mg/dL [facility] Comment on above: <100 mg/dl [id number] 0-129 mg/dl NEAR OR ABOVE [id number] mg/dl BORDERLINE [id number] mg/dl HIGH>190 mg/dl VERY HIGH Cholesterol in LDL [Mass/Vol] Cholesterol in LDL [Mass/volume] in Serum or Plasma by calculation [facility] Comment on above: <100 mg/dl [id number] 0-129 mg/dl NEAR OR ABOVE [id number] mg/dl BORDERLINE [id number] mg/dl HIGH>190 mg/dl VERY HIGH Cholesterol in VLDL Calc [Ma ss/Vol]on 12-22-2023 Cholesterol in VLDL [Mass/Vol] 8.2 mg/dL [facility] Cholesterol in VLDL [Mass/Vol] Cholesterol in VLDL [Mass/volume] in Serum or Plasma by calculation [facility] Estimated glomerular filtrat ion rate (GFR) non- Americanon 12-22-2023 GFR/1.73 sq M.predicted among non-blacks MDRD (S/P/Bld) [Vol rate/Area] mL/min/{1.73_m2} >=60 [facility] GFR/1.73 sq M.predicted among non-blacks MDRD (S/P/Bld) [Vol rate/Area] Estimated glomerular filtration rate (GFR) non- >=60 [facility] Globulin Calc (S) [Mass/Vol] on 12-22-2023 Globulin (S) [Mass/Vol] 2.9 g/dL [facility] Globulin (S) [Mass/Vol] Serum globulin measurement by calculation (mass/volume) [facility] Laboratory - Chemistry and C hemistry - challengeon 12-22-2023 Albumin [Mass/Vol] 3.8 g/dL 3.4-5.0 [facility] ALP [Catalytic activity/Vol] 63 U/L 46-116 [facility] ALT [Catalytic activity/Vol] 32 U/L 16-63 [facility] AST [Catalytic activity/Vol] 16 U/L 15-37 [facility] Bilirubin [Mass/Vol] 0.4 mg/dL 0.2-1.0 [facility] Calcium [Mass/Vol] 9.7 mg/dL 8.5-10.1 [facility] Chloride [Moles/Vol] 102 mmol/L 98-107 [facility] Cholesterol [Mass/Vol] 82 mg/dL <=200 [facility] Cholesterol in HDL [Mass/Vol] 30 mg/dL Low 40-60 [facility] Comment on above: > or =60 mg/dl - LOW CARDIOVASCULAR RISK<40 mg/dl - HIGH CARDIOVASCULAR RISK CO2 [Moles/Vol] 29.4 mmol/L 21.0-32.0 [facility] Cobalamin (Vitamin B12) [Mass/Vol] 183 pg/mL Abnormal 232-1245 [facility] Comment on above: Performed at: [facility] [employer] [address] [id number] Director: Ramos Wade PhD, Phone: [phone] Creatinine [Mass/Vol] 1.13 mg/dL 0.70-1.30 [facility] GFR/1.73 sq M.predicted MDRD (S/P/Bld) [Vol rate/Area] mL/min/{1.73_m2} >=60 [facility] Glucose [Mass/Vol] 110 mg/dL High 74-106 [facility] Potassium [Moles/Vol] 4.8 mmol/L 3.5-5.1 [facility] Protein [Mass/Vol] 6.7 g/dL 6.4-8.2 [facility] Sodium [Moles/Vol] 136 mmol/L 136-145 [facility] Triglyceride [Mass/Vol] 41 mg/dL <=150 [facility] Urea nitrogen [Mass/Vol] 22.0 mg/dL High 7.0-18.0 [facility] Urea nitrogen/Creatinine [Mass ratio] 19.5 mg/mg [facility] No Panel Informationon 12-21 25-Hydroxy Vitamin D Total 20.4 ng/mL [facility] Comment on above: <20 ng/mL Vit D defi cient20-<30 ng/mL Vit D gvbqulurvelr81-292 ng/mL Vit D sufficient>100 ng/mL Potential Toxicity Serum or plasma albumin/glob ulin mass ratioon 12-22-2023 Albumin/Globulin [Mass ratio] 1.3 {ratio} [facility] Albumin/Globulin [Mass ratio] Serum or plasma albumin/globulin mass ratio [facility] Serum or plasma anion gap de terminationon 12-22-2023 Anion gap [Moles/Vol] 9.4 mmol/L [facility] Anion gap [Moles/Vol] Serum or plasma an ion gap determination [facility] Serum or plasma total choles terol/high density lipoprotein (HDL) cholesterol mass lefty 12-22-2023 Cholesterol.total/Cho lesterol in HDL [Mass ratio] 2.7 {ratio} [facility] Comment on above: 3.3 - 4.4 LOW RISK4. 4 - 7.1 AVERAGE RISK7.1 - 11.0 MODERATE RISK>11.0 HIGH RISK Cholesterol.total/Cho lesterol in HDL [Mass ratio] Serum or plasma total cholesterol/high density lipoprotein (HDL) cholesterol mass rat [facility] Comment on above: 3.3 - 4.4 LOW RISK4. 4 - 7.1 AVERAGE RISK7.1 - 11.0 MODERATE RISK>11.0 HIGH RISK Capillary blood glucose gunnar urement by glucometer (mass/volume)Ordered By: David Solano on 09-30-2023 Glucose [Mass/Vol] 145 mg/dL Normal [facility] Comment on above: Random Glucose Refer ence Range is dependent on time and content of last meal. Glucose of more than 200 mg/dL in a nonstressed, ambulatory subject supports the diagnosis of Diabetes Mellitus. Result Comment: [place] Glucose Reference Range is dependent on time and content of last meal. Glucose of more than 200 mg/dL in a nonstressed, ambulatory subject supports the diagnosis of Diabetes Mellitus. PERFORMED BY: [facility] [address] [place] [address] PATHOLOGIST ULTRASOUND TESTER VAMSI COONEY M.D. Performed By: #### G LUANA #### Point of Care testing , Creatinine [Mass/volume] in UrineOrdered By: Ragini Mar on 09-23-2023 Creatinine (U) [Mass/Vol] 26.00 mg/dL [facility] Comment on above: No reference range e stablished MicroAlb Creat Ratio,Uon Creatinine, Urine (Random) 26.00 mg/dL Normal [facility] Comment on above: Result Comment: No r eference range established Performed By: #### U RMACRERAT #### [address] Microalbumin/Creatini ne Ratio 38.5 mg/g High 0.0-30.0 [facility] Comment on above: Result Comment: 30-3 00 mg/g indicates an increased risk for diabetic nephropathy. Greater than 300 mg/g is consistent with clinical nephropathy. (Am. J. Kidney Disease 1994, 25:107) PERFORMED BY: [place] [address] PATHOLOGIST ULTRASOUND TESTER VAMSI COONEY M.D. Performed By: #### U RMACRERAT #### [address] Microalbumin [Mass/volume] i n UrineOrdered By: Ragnii Mar on 09-23-2023 Albumin DL <= 20 mg/L (U) [Mass/Vol] 1.0 mg/dL Normal 0.0-1.8 [facility] Comment on above: Performed By: #### U RMACRERAT #### [address] No Panel Informationon 09-22 Bedside Glucose 143 [facility] Urine microalbumin/creatinin e mass ratioOrdered By: Ragini Mar on 09-23-2023 Albumin/Creatinine DL <= 20 mg/L (U) [Mass ratio] 38.5 mg/g High 0.0-30.0 [facility] Comment on above: 30-300 mg/g indicate s an increased risk for diabetic nephropathy. Greater than 300 mg/g is consistent with clinical nephropathy. (Am. J. Kidney Disease 1994, 25:107) Capillary blood glucose gunnar urement by glucometer (mass/volume)Ordered By: David Solano on 08-21-2023 Glucose [Mass/Vol] 133 mg/dL Normal [facility] Comment on above: Random Glucose Refer ence Range is dependent on time and content of last meal. Glucose of more than 200 mg/dL in a nonstressed, ambulatory subject supports the diagnosis of Diabetes Mellitus. Result Comment: [place] om Glucose Reference Range is dependent on time and content of last meal. Glucose of more than 200 mg/dL in a nonstressed, ambulatory subject supports the diagnosis of Diabetes Mellitus. Performed By: #### G LULS #### Point of Care testing , Glucose Poct Glucometerson 0 08-21-2023 Commemt1 Glu2: Cleaned Meter Normal [facility] Comment on above: Result Comment: PERF ORMED BY: [facility] [address] [place] [address] PATHOLOGIST ULTRASOUND TESTER VAMSI COONEY M.D. Performed By: #### G LULS #### Point of Care testing , Bill 08-21-2023 L Specimen: [id number] Received: 08/21/23 Status: SOUT Req Num: [id number] Spec Type: Surgical Subm Dr: David Solano MD Tissues: A Esophagus Biopsy (ESOPHAGEAL LESION) Procedures: HE/2, Gross/Micro L4 Age/ Patient Sex Location Account Attending Physician Dillon Stephenson 78/M [id number] David Solano MD SPEC NUM: [id number] RECD: 08/21/23 STATUS: SOUT RE NUM: [id number] DANIELLA: 08/21/23- SUBM DR: David Solano MD ENTERED: 08/21/23 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 -No evidence of malignancy, or any obvious or significant squamous dysplasia -In addition, mild eosinophilic exocytosis are also noted at the papillomatosis epithelial surface, focally counting to at least 10 eosinophils per 1 high-power field, per nonspecific irritative change or chronic inflammation of the lesion -There is also only occasional eosinophilic exocytosis in the surrounding squamous mucosal surface, otherwise also requiring clinical and endoscopic correlations for possibility of the underlying minor superimposed eosinophilic esophagitis Clinical Information Dysphagia Gross Description Received in formalin labeled with the patient's name, date of and esophageal lesion BX is a 0.8 x 0.7 x 0.3 cm ureña mucosal tissue fragment. The specimen is inked blue along its resection margin, trisected and entirely submitted in A1. ---- Specimen: [id number] Received: 08/21/23 Status: ATUL Villafuerte Num: [id number] Spec Type: Surgical Subm Dr: David Solano MD Tissues: A Esophagus Biopsy (ESOPHAGEAL LESION) Procedures: HE/2, Gross/Micro L4 ---- Patient: Dillon Stephenson [id number] (Continued) ---- Specimen: [id number] Received: 08/21/23 (Continued) Signed (signature on file) Argelia Agarwal MD 08/23/23 1509 ---- Specimen: [id number] Received: 08/21/23 Status: ATUL Villafuerte Num: [id number] Spec Type: Surgical Subm Dr: David Solano MD Tissues: A Esophagus Biopsy (ESOPHAGEAL LESION) Procedures: /Elana, Gross/Micro L4 ---- Patient: Dillon Stephenson [id number] (Continued) ---- Specimen: [id number] Received: 08/21/23 (Continued) CPT Codes 88892 ---- ---- Specimen: [id number] Received: 08/21/23 Status: ATUL Villafuerte Num: [id number] Spec Type: Surgical Subm Dr: David Solano MD Tissues: A Esophagus Biopsy (ESOPHAGEAL LESION) Procedures: HE/2, Gross/Micro L4 ---- Patient: Dillon Stephenson [id number] (Continued) ---- Signed (signature on file) Argelia Agarwal MD 08/23/23 9573 Normal [facility] No Panel InformationOrdered By: David Solano on 08-21-2023 Bedside Glucose Comment Glu2: cleaned meter [facility] HbA1c HPLC (Bld) [Mass fract ion]on 07-28-2023 HbA1c (Bld) [Mass fraction] 7.9 % [facility] No Panel Informationon 07-27 Bedside Glucose 192 [facility] CBC AUTO DIFFon 04-16-2022 BASO # 0.1 103/ul Normal 0.0-0.1 [facility] Comment on above: Performed By: #### C BC #### [facility] [address] [place] [address] Dr. Calin Agarwal Basophils/100 WBC (Bld) 1.2 % Normal 0.2-2.0 [facility] Comment on above: Performed By: #### C BC #### [facility] [address] [place] [address] Dr. Calin Agarwal EO # 0.3 103/ul Normal 0.0-0.7 [facility] Comment on above: Performed By: #### C BC #### [facility] [address] [place] [address] Dr. Calin Agarwal Eosinophils/100 WBC (Bld) 3.8 % Normal 0.9-7.0 [facility] Comment on above: Performed By: #### C BC #### [facility] [address] [place] [address] Dr. Calin Agarwal Erythrocyte distribution width (RBC) [Ratio] 13.1 % Normal 11.0-15.0 [facility] Comment on above: Performed By: #### C BC #### [facility] [address] [place] [address] Dr. Calin Agarwal Hematocrit (Bld) [Volume fraction] 43.6 % Normal 42.0-54.0 [facility] Comment on above: Performed By: #### C BC #### [facility] [address] [place] [address] Dr. Calin Agarwal Hemoglobin (Bld) [Mass/Vol] 14.4 g/dL Normal 14.0-18.0 [facility] Comment on above: Performed By: #### C BC #### [facility] [address] [place] [address] Dr. Calin Agarwal IG # 0.02 10e3/ul Normal 0.00-0.03 [facility] Comment on above: Performed By: #### C BC #### [facility] [address] [place] [address] Dr. Calin Agarwal IG % 0.3 % Normal 0.0-0.5 [facility] Comment on above: Performed By: #### C BC #### [facility] [address] [place] [address] Dr. Calin Agarwal LYMPH # 1.8 103/ul Normal 1.2-3.8 [facility] Comment on above: Performed By: #### C BC #### [facility] [address] [place] [address] Dr. Calin Agarwal Lymphocytes/100 WBC (Bld) 26.9 % Normal 20.5-60.0 [facility] Comment on above: Performed By: #### C BC #### [facility] [address] [place] [address] Dr. Calin Agarwal MANUAL DIFF REQ NO Normal [facility] Comment on above: Performed By: #### C BC #### [facility] [address] [place] [address] Dr. Calin Agarwal MCH (RBC) [Entitic mass] 29.4 pg Normal 25.9-34.0 [facility] Comment on above: Performed By: #### C BC #### [facility] [address] [place] [address] Dr. Calin Agarwal MCHC (RBC) [Mass/Vol] 33.0 g/dL Normal 29.9-35.2 [facility] Comment on above: Performed By: #### C BC #### [facility] [address] [place] [address] Dr. Calin Agarwal MCV (RBC) [Entitic vol] 89.2 fL Normal 80.0-94.0 [facility] Comment on above: Performed By: #### C BC #### [facility] [address] [place] [address] Dr. Calin Agarwal MONO # 0.5 103/ul Normal 0.3-0.8 [facility] Comment on above: Performed By: #### C BC #### [facility] [address] [place] [address] Dr. Calin Agarwal Monocytes/100 WBC (Bld) 6.9 % Normal 1.7-12.0 [facility] Comment on above: Performed By: #### C BC #### [facility] [address] [place] [address] Dr. Calin Agarwal NEUT # 4.1 103/ul Normal 1.4-6.5 [facility] Comment on above: Performed By: #### C BC #### [facility] [address] [place] [address] Dr. Calin Agarwal Neutrophils/100 WBC (Bld) 60.9 % Normal 43.0-75.0 [facility] Comment on above: Performed By: #### C BC #### [facility] [address] [place] [address] Dr. Calin Agarwal Platelet mean volume (Bld) [Entitic vol] 10.0 fL Normal 9.5-13.5 [facility] Comment on above: Performed By: #### C BC #### [facility] [address] [place] [address] Dr. Calin Agarwal PLT 213 103/ul Normal 150-450 [facility] Comment on above: Performed By: #### C BC #### [facility] [address] [place] [address] Dr. Calin Agarwal RBC 4.89 106/ul Normal 4.70-6.10 [facility] Comment on above: Performed By: #### C BC #### [facility] [address] [place] [address] Dr. Calin Agarwal WBC 6.8 103/ul Normal 4.0-11.0 [facility] Comment on above: Performed By: #### C BC #### [facility] [address] [place] [address] Dr. Calin Agarwal GLYCOHEMOGLOBIN A1Con 2022 ADA RECOMMENDATION SEE BELOW Normal [facility] Comment on above: Result Comment: ADA RECOMMENDED LIMIT 4.0 - 6.0 ADA THERAPEUTIC TARGET < 7.0 ACTION SUGGESTED > 7.0 Performed By: #### A 1C #### [facility] [address] [place] [address] Dr. Calin Agarwal Glucose [Mass/Vol] 163 mg/dL Normal [facility] Comment on above: Performed By: #### A 1C #### [facility] [address] [place] [address] [address] Calin Agarwal HbA1c (Bld) [Mass fraction] 7.3 % Critically high 4.5-6.2 [facility] Comment on above: Performed By: #### A 1C #### [facility] [address] [place] [address] [address] Calin Agarwal LIPID PROFILEon 04-16-2022 CHOL-HDL RATIO NORM SEE BELOW Normal [facility] Comment on above: Result Comment: 3.3 - 4.4 LOW RISK 4.4 - 7.1 AVERAGE RISK 7.1 - 11.0 MODERATE RISK >11.0 HIGH RISK Performed By: #### L IPID, CMP #### [facility] [address] [place] [address] Dr. Calin Agarwal Cholesterol [Mass/Vol] 85 mg/dL Normal <=200 [facility] Comment on above: Performed By: #### L IPID, CMP #### [facility] [address] [place] [address] [address] Calin Agarwal Cholesterol in HDL [Mass/Vol] 26 mg/dL Critically low 40-60 [facility] Comment on above: Performed By: #### L IPID, CMP #### [facility] [address] [place] [address] [address] Calin Agarwal Cholesterol in LDL [Mass/Vol] 47.4 mg/dL Normal [facility] Comment on above: Performed By: #### L IPID, CMP #### [facility] [address] [place] [address] [address] Calin Agarwal Cholesterol.total/Cho lesterol in HDL [Mass ratio] 3.3 {ratio} Normal [facility] Comment on above: Performed By: #### L IPID, CMP #### [facility] [address] [place] [address] [address] Calin Agarwal HDL NORMAL > or = 60 mg/dl - LO W CARDIOVASCULAR RISK <40 mg/dl - HIGH CARDIOVASCULAR RISK Normal [facility] Comment on above: Performed By: #### L IPID, CMP #### [facility] [address] [place] [address] [address] Calin Agarwal LDL CALC NORMAL SEE BELOW Normal [facility] Comment on above: Result Comment: <100 mg/dl OPTIMAL 100 - 129 mg/dl NEAR OR ABOVE OPTIMAL 130 - 159 mg/dl BORDERLINE HIGH 160 - 189 mg/dl HIGH >190 mg/dl VERY HIGH Performed By: #### L IPID, CMP #### [facility] [address] [place] [address] [address] Calin Agarwal Triglyceride [Mass/Vol] 58 mg/dL Normal <=150 [facility] Comment on above: Performed By: #### L IPID, CMP #### [facility] [address] [place] [address] [address] Calin Agarwal VLDL CALC 11.6 mg/dL Normal [facility] Comment on above: Performed By: #### L IPID, CMP #### [facility] [address] [place] [address] Dr. Calin Agarwal MICROALBUMIN, RAND URon 03-31 mALB 2.5 mg/L Normal <=30.0 [facility] Comment on above: Performed By: #### L IPID, CMP #### [facility] [address] [place] [address] Dr. Calin Agarwal PROF 14(COMP METB)on 023 Albumin [Mass/Vol] 4.0 g/dL Normal 3.4-5.0 [facility] Comment on above: Performed By: #### L IPID, CMP #### [facility] [address] [place] [address] Dr. Calin Agarwal Albumin/Globulin [Mass ratio] 1.3 {ratio} Normal [facility] Comment on above: Performed By: #### L IPID, CMP #### [facility] [address] [place] [address] Dr. Calin Agarwal ALP [Catalytic activity/Vol] 72 U/L Normal 46-116 [facility] Comment on above: Performed By: #### L IPID, CMP #### [facility] [address] [place] [address] [address] Calin Agarwal ALT [Catalytic activity/Vol] 26 U/L Normal 16-63 [facility] Comment on above: Performed By: #### L IPID, CMP #### [facility] [address] [place] [address] [address] Calin Agarwal Anion gap [Moles/Vol] 11.7 mmol/L Normal [facility] Comment on above: Performed By: #### L IPID, CMP #### [facility] [address] [place] [address] [address] Calin Agarwal AST [Catalytic activity/Vol] 16 U/L Normal 15-37 [facility] Comment on above: Performed By: #### L IPID, CMP #### [facility] [address] [place] [address] Dr. Calin Agarwal Bilirubin [Mass/Vol] 0.4 mg/dL Normal 0.2-1.0 [facility] Comment on above: Performed By: #### L IPID, CMP #### [facility] [address] [place] [address] [address] Calin Agarwal Calcium [Mass/Vol] 9.6 mg/dL Normal 8.5-10.1 [facility] Comment on above: Performed By: #### L IPID, CMP #### [facility] [address] [place] [address] Dr. Calin Agarwal Chloride [Moles/Vol] 102 mmol/L Normal 98-107 [facility] Comment on above: Performed By: #### L IPID, CMP #### [facility] [address] [address] [address] Calin Agarwal CO2 [Moles/Vol] 29.1 mmol/L Normal 21.0-32.0 [facility] Comment on above: Performed By: #### L IPID, CMP #### [facility] [address] [address] [address] Calin Agarwal Creatinine [Mass/Vol] 0.88 mg/dL Normal 0.70-1.30 [facility] Comment on above: Performed By: #### L IPID, CMP #### [facility] [address] [address] [address] Calin Agarwal EGFR-AF CHINESE >60 Normal >=60 [facility] Comment on above: Performed By: #### L IPID, CMP #### [facility] [address] [address] [address] Calin Agarwal EGFR-NON AF CHINESE >60 Normal >=60 [facility] Comment on above: Performed By: #### L IPID, CMP #### [facility] [address] [address] [address] Calin Agarwal Globulin (S) [Mass/Vol] 3.2 g/dL Normal [facility] Comment on above: Performed By: #### L IPID, CMP #### [facility] [address] [address] [address] Calin Agarwal Glucose [Mass/Vol] 168 mg/dL Critically high 74-106 [facility] Comment on above: Performed By: #### L IPID, CMP #### [facility] [address] [address] [address] Calin Agarwal Potassium [Moles/Vol] 4.8 mmol/L Normal 3.5-5.1 [facility] Comment on above: Performed By: #### L IPID, CMP #### [facility] [address] [address] [address] Calin Agarwal Protein [Mass/Vol] 7.2 g/dL Normal 6.4-8.[address] [facility] Comment on above: Performed By: #### L IPID, CMP #### [facility] [address] [address] [address] Calin Agarwal Sodium [Moles/Vol] 138 mmol/L Normal 136-145 [facility] [place] [facility] Comment on above: Performed By: #### L IPID, CMP #### [facility] [address] [address] [address] Calin Agarwal Urea nitrogen [Mass/Vol] 19.0 mg/dL Critically high 7.0-18.0 [facility] Comment on above: Performed By: #### L IPID, CMP #### [facility] [address], [place] [address] Dr. Calin Agarwal Urea nitrogen/Creatinine [Mass ratio] 21.6 mg/mg Normal [facility] Comment on above: Performed By: #### L IPID, CMP #### [facility] [address], [place] [address] Dr. Calin Agarwal Screenson 04-04-2022 Screens [id number] 0CD:127 Normal [facility] Screens [id number] 0CD:127 Normal [facility] Urology Office/Clinic Noteon 04-04-2022 Urology Office/Clinic Note Chief Complaint 1 year with PSA HPI Staff Pt is here for 1 year f/u with PSA. 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 Current PSA done 03/11/2022 is 2.90 and previous done 11/03/2018 was 1.97. IPSS score today is 6. Dysuria: no Incomplete bladder emptying: Less than 1 in 5 per IPSS Hematuria: no Frequency: less than half of the time per IPSS Urgency: no Nocturia: 1x Stream: weak less than 1 in 5x and no straining Leaking: no Post void dripping: once in a while Wearing pads/ Depends: no Urge incontinence: no Stress incontinence: no Incontinence without Sensory Awareness: no Abdominal pain: no Flank pain: no Sexual complaints: no History of Present Illness staff HPI reviewed and agree. Review of Systems PHQ Score Initial Depression Screen Score: 0 no fever, chills, malaise, myalgia. no rash/lesions. no chest pain, palpitations, or SOB. no abdominal pain, nausea, vomiting. no unilateral calf swelling, redness, pain Physical Exam Vitals & Measurements HR: 77(Peripheral) RR: 16 BP: 127/60 HT: 70 in HT: 177.8 cm WT: 78.3 kg WT: 172.26 lb BMI: 24.77 General: nontoxic, NAD Mouth: moist mucosa Lungs: normal respiratory effort Cardio: regular rate, good distal perfusion Abdomen: nondistended, no suprapubic distention or tenderness, no CVA tenderness Neurologic: Grossly normal Skin: No rashes or suspicious lesions Assessment/Plan 1. BPH with urinary obstruction (N40.1: Benign prostatic hyperplasia with lower urinary tract symptoms) IPSS - 6. Stable. Pt not on any medications for BPH at this time. Pt denies any bothersome urinary sxs at this time. UA today shows trace ketones and trace protein. 2. 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 Pt to call our office if this worsens. 3. Screening for prostate cancer (Z12.5: Encounter for screening for malignant neoplasm of prostate) PSA 03/11/22 - 2.90 11/02/18 - 1.95 Other obstructive and reflux uropathy (N13.8: Other obstructive and reflux uropathy) PSA is within normal range. pt is 76 and does not wish to continue prostate cancer screening. has minimal BPH sx and does not find them bothersome. wishes to f/u PRN. Follow-up With When Contact Information DESIREE SMITH, TRESA Weber, URL [address] [place] [address] [phone] Additional Instructions: PRN Patient Education Benign Prostatic Hyperplasia Documentation recorded by the mila Levy_ accurately reflects the services(s) I performed and decisions made by me. Authenticated by Tresa Ramírez PA-C on 04/03/2022 23:20:40. IOlivia, personally scribed for Tresa Ramírez on 04/03/2022 14:41:59. . Problem List/Past Medical History Ongoing BPH with urinary obstruction Coronary artery disease Diabetes Dysuria Frequency of urination Hypertension Nocturia Screening for prostate cancer Split urinary stream Urge incontinence Urinary retention Historical No qualifying data Procedure/Surgical History TURP - Transurethral resection of prostate (04/12/2017), Cystoscopy (03/15/2017), Extraction with IOL placement / iStent - OS. (03/19/2016), Colonoscopy, Placement of stent in cardiac conduit. Medications amLODIPine 5 mg Tab, 5 mg= 1 tab(s), Oral, Daily aspirin 81 mg oral tablet, Oral, Daily atorvastatin 80 mg Tab, 80 mg= 1 tab(s), Oral, Daily gabapentin 600 mg Tab, 600 mg= 1 tab(s), Oral, BID Janumet 50 mg/1000 mg oral tablet, 1 tab(s), Oral, BID latanoprost Opth 0.005% Kimberlyn, 1 drop(s), OPTH, Once a day (at bedtime) losartan 25 mg Tab, 50 mg= 2 tab(s), Oral, Daily Allergies No Known Medication Allergies Social History Tobacco - Denies Tobacco Use, 01/23/2021 Former smoker, quit more than 30 days ago Tobacco Use:. Never Smokeless Tobacco Use:., 12/17/2018 Family History Diabetes mellitus type 1: Mother. Hypertension: Mother and Father. Primary malignant neoplasm of brain: Father. Lab Results Ambulatory Point of Care Results Bilirubin Urine Dipstick: Negative (04/03/22 14:07:00) Blood Urine Dipstick: Negative (04/03/22 14:07:00) Glucose Urine Dipstick: Negative (04/03/22 14:07:00) Ketones Urine Dipstick: Trace - 5 mg/dl (04/03/22 14:07:00) Leukocytes Urine Dipstick: Negative (04/03/22 14:07:00) Nitrite Urine Dipstick: Negative (04/03/22 14:07:00) Protein Urine Dipstick: Trace (04/03/22 14:07:00) Specific [place] Urine Dipstick: 1.025 (04/03/22 14:07:00) Urine Appearance Urine Dipstick: Clear (04/03/22 14:07:00) Urine Color Urine Dipstick: Yellow (04/03/22 14:07:00) Urobilinogen Urine Dipstick: Normal 0.2-1 EU/dl (04/03/22 14:07:00) pH Urine Dipstick: 6 (04/03/22 14:07:00) Normal [facility] Comment on above: Result Comment: Elec tronically Signed By: TRESA RAMÍREZ PA-C\.br\Date and Time Signed: 04/03/22 23:20 EST\.br\Electronically Co-Signed By: Olivia Levy\Date and Time Co-Signed: 04/03/22 14:42 EST Ambulatory Visit Summaryon 0 04-03-2022 Ambulatory Visit Summary DILLON STEPHENSON :1945 Visit Date:04/03/2022 Ambulatory Visit Instructions Your Diagnosis 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 Screening for prostate cancer Other obstructive and reflux uropathy Tests Performed Urnls Dip Stick Auto w/o Microscopy POC 41988 Your Care Team Attending Physician - TRESA RAMÍREZ PA-C Primary Care Physician - SIMONE HUANG MD This Is Your Medications List Contact prescribing physician if questions or concerns amlodipine (amLODIPine 5 mg Tab) aspirin (aspirin 81 mg oral tablet) atorvastatin (atorvastatin 80 mg Tab) gabapentin (gabapentin 600 mg Tab) latanoprost ophthalmic (latanoprost Opth 0.005% Kimberlyn) losartan (losartan 25 mg Tab) metformin-sitagliptin (Janumet 50 mg/1000 mg oral tablet) Procedures Performed TURP - Transurethral resection of prostate (04/12/2017), Cystoscopy (03/15/2017), Extraction with IOL placement / iStent - OS. (03/19/2016), Colonoscopy, Placement of stent in cardiac conduit. Discharge Vitals Heart Rate (Peripheral) 77 Respiratory Rate 16 Blood Pressure 127/60 Height 177.8 cm Height 70 in Weight 78.3 kg Weight 172.26 lb BMI 24.77 What to do next You Need to Schedule the Following Appointments Follow Up with TRESA RAMÍREZ PA-C, URL When: Comments: PRN Where: [address] [place] [address] [phone] Medications What How Much When Instructions Unchanged amlodipine (amLODIPine 5 mg Tab) 1 Tablets By Mouth Every day Contact prescribing physician if questions or concerns Unchanged aspirin (aspirin 81 mg oral tablet) By Mouth Every day Contact prescribing physician if questions or concerns Unchanged atorvastatin (atorvastatin 80 mg Tab) 1 Tablets By Mouth Every day Contact prescribing physician if questions or concerns Unchanged gabapentin (gabapentin 600 mg Tab) 1 Tablets By Mouth 2 times a day Contact prescribing physician if questions or concerns Unchanged latanoprost ophthalmic (latanoprost Opth 0.005% Kimberlyn) 1 Drops Ophthalmic Once a day (at bedtime) Contact prescribing physician if questions or concerns Unchanged losartan (losartan 25 mg Tab) 2 Tablets By Mouth Every day Contact prescribing physician if questions or concerns Unchanged metformin-sitagliptin (Janumet 50 mg/ 1000 mg oral tablet) 1 Tablets By Mouth 2 times a day Contact prescribing physician if questions or concerns Test Results Urnls Dip Stick Auto w/o Microscopy POC 44928 (04/03/2022) Bilirubin Urine Dipstick - Negative Blood Urine Dipstick - Negative Glucose Urine Dipstick - Negative Ketones Urine Dipstick - Trace - 5 mg/dl Leukocytes Urine Dipstick - Negative Nitrite Urine Dipstick - Negative Protein Urine Dipstick - Trace Specific [place] Urine Dipstick - 1.025 Urine Appearance Urine Dipstick - Clear Urine Color Urine Dipstick - Yellow Urobilinogen Urine Dipstick - Normal 0.2-1 EU/dl pH Urine Dipstick - 6 Allergies No Known Medication Allergies Problems Ongoing - Any problem that you are currently receiving treatment for. BPH with urinary obstruction Coronary artery disease Diabetes Dysuria Frequency of urination Hypertension Nocturia Screening for prostate cancer Split urinary stream Urge incontinence Urinary retention Education Materials Benign Prostatic Hyperplasia Benign prostatic hyperplasia (BPH) is an enlarged prostate gland that is caused by the normal aging process and not by cancer. The prostate is a walnut-sized gland that is involved in the production of semen. It is located in front of the rectum and below the bladder. The bladder stores urine and the urethra is the tube that carries the urine out of the body. The prostate may get bigger as a man gets older. An enlarged prostate can press on the urethra. This can make it harder to pass urine. The build-up of urine in the bladder can cause infection. Back pressure and infection may progress to bladder damage and kidney (renal) failure. What are the causes? This condition is part of a normal aging process. However, not all men develop problems from this condition. If the prostate enlarges away from the urethra, urine flow will not be blocked. If it enlarges toward the urethra and compresses it, there will be problems passing urine. What increases the risk? This condition is more likely to develop in men over the age of 50 years. What are the signs or symptoms? Symptoms of this condition include: ? Getting up often during the night to urinate. ? Needing to urinate frequently during the day. ? Difficulty starting urine flow. ? Decrease in size and strength of your urine stream. ? Leaking (dribbling) after urinating. ? Inability to pass urine. This needs immediate treatment. ? Inability to completely empty your bladder. ? Pain when you pass urine. This is more common if there is also an infection. ? Urinary (more content not included)... Normal [facility] Patient Educationon 04-03-19 Patient Education Urology Benign Prostatic Hyperplasia Benign prostatic hyperplasia (BPH) is an enlarged prostate gland that is caused by the normal aging process and not by cancer. The prostate is a walnut-sized gland that is involved in the production of semen. It is located in front of the rectum and below the bladder. The bladder stores urine and the urethra is the tube that carries the urine out of the body. The prostate may get bigger as a man gets older. An enlarged prostate can press on the urethra. This can make it harder to pass urine. The build-up of urine in the bladder can cause infection. Back pressure and infection may progress to bladder damage and kidney (renal) failure. What are the causes? This condition is part of a normal aging process. However, not all men develop problems from this condition. If the prostate enlarges away from the urethra, urine flow will not be blocked. If it enlarges toward the urethra and compresses it, there will be problems passing urine. What increases the risk? This condition is more likely to develop in men over the age of 50 years. What are the signs or symptoms? Symptoms of this condition include: ? Getting up often during the night to urinate. ? Needing to urinate frequently during the day. ? Difficulty starting urine flow. ? Decrease in size and strength of your urine stream. ? Leaking (dribbling) after urinating. ? Inability to pass urine. This needs immediate treatment. ? Inability to completely empty your bladder. ? Pain when you pass urine. This is more common if there is also an infection. ? Urinary tract infection (UTI). How is this diagnosed? This condition is diagnosed based on your medical history, a physical exam, and your symptoms. Tests will also be done, such as: ? A post-void bladder scan. This measures any amount of urine that may remain in your bladder after you finish urinating. ? A digital rectal exam. In a rectal exam, your health care provider checks your prostate by putting a lubricated, gloved finger into your rectum to feel the back of your prostate gland. This exam detects the size of your gland and any abnormal lumps or growths. ? An exam of your urine (urinalysis). ? A prostate specific antigen (PSA) screening. This is a blood test used to screen for prostate cancer. ? An ultrasound. This test uses sound waves to electronically produce a picture of your prostate gland. Your health care provider may refer you to a specialist in kidney and prostate diseases (urologist). How is this treated? Once symptoms begin, your health care provider will monitor your condition (active surveillance or watchful waiting). Treatment for this condition will depend on the severity of your condition. Treatment may include: ? Observation and yearly exams. This may be the only treatment needed if your condition and symptoms are mild. ? Medicines to relieve your symptoms, including: ? Medicines to shrink the prostate. ? Medicines to relax the muscle of the prostate. ? Surgery in severe cases. Surgery may include: ? Prostatectomy. In this procedure, the prostate tissue is removed completely through an open incision or with a laparoscope or robotics. ? Transurethral resection of the prostate (TURP). In this procedure, a tool is inserted through the opening at the tip of the penis (urethra). It is used to cut away tissue of the inner core of the prostate. The pieces are removed through the same opening of the penis. This removes the blockage. ? Transurethral incision (TUIP). In this procedure, small cuts are made in the prostate. This lessens the prostate's pressure on the urethra. ? Transurethral microwave thermotherapy (TUMT). This procedure uses microwaves to create heat. The heat destroys and removes a small amount of prostate tissue. ? Transurethral needle ablation (TUNA). This procedure uses radio frequencies to destroy and remove a small amount of prostate tissue. ? Interstitial laser coagulation (ILC). This procedure uses a laser to destroy and remove a small amount of prostate tissue. ? Transurethral electrovaporization (TUVP). This procedure uses electrodes to destroy and remove a small amount of prostate tissue. ? Prostatic urethral lift. This procedure inserts an implant to push the lobes of the prostate away from the urethra. Follow these instructions at home: ? Take [id number]-[id number] and prescription medicines only as told by your health care provider. ? Monitor your symptoms for any changes. Contact your health care provider with any changes. ? Avoid drinking large amounts of liquid before going to bed or out in public. ? Avoid or reduce how much caffeine or alcohol you drink. ? Give yourself time when you urinate. ? Keep all follow-up visits as told by your health care provider. This is important. Contact a health care provider if: ? You have unexplained back pain. ? Your symptoms do not get better with treatment. ? You d (more content not included)... Normal [facility] Lab Reportson 03-14-2022 Lab Reports [id number] 0CD:127 Normal [facility] XR CSPINE 2_3 VIEWSon 2021 XR CSPINE 2_3 VIEWS EXAMINATION: XR CSPI NE 2_3 VIEWS HISTORY: Cervical radiculopathy COMPARISON: No relevant comparison available. FINDINGS: BONES: Slight reversal of normal lordotic curvature involving the lower cervical spine. No fracture or significant spondylolisthesis. Multilevel mild degenerative facet arthropathy. DISC SPACES: Moderate narrowing C3-C4, C5-C6. Mild narrowing C6-C7. PARASPINOUS: Negative. No paraspinous abnormality is seen. OTHER: Negative. IMPRESSION: 1. No appreciable acute abnormality. 2. Moderate degenerative changes of cervical spine. Electronically authenticated by: LENA MCKEON Date: 2022-02-06 10:08 Normal [facility] Covid-19 PCR (CVDTB)on 12-29 SARS-CoV-2 (COVID-19) RNA ANN-MARIE+probe Ql (Unsp spec) Detected Critically abnormal NOT DETECTED [facility] Comment on above: Result Comment: This test is not yet approved or cleared by the [place] FDA. When there are no FDA-approved or cleared tests available, and other criteria are met, FDA can make tests available under an emergency access mechanism called an Emergency Use Authorization (EUA). The EUA for this test is supported by the Handkerchief Presser of Health and Human Service's (HHS's) declaration that circumstances exist to justify the emergency use of in vitro diagnostics for the detection and/or diagnosis of the virus that causes COVID-19. This EUA will remain in effect (meaning this test can be used) for the duration of the COVID-19 declaration justifying emergency of IVDs, unless it is terminated or revoked by FDA (after which the test may no longer be used). Performed By: #### C VDTBH #### [facility] [address] [place] [address] Dr. Calin Agarwal D-DIMERon 10-22-2021 D-DIMER 0.64 mg/L FEU Critically high <=0.[address] [facility] Comment on above: Performed By: #### D DIM #### [facility] [address] [place] [address] Dr. Calin Agarwal D-DIMER COMMENTS SEE BELOW Normal [facility] Comment on above: Result Comment: Incr eases in D-Dimer concentration observed with thromboembolic events can be variable due to localization, size, and age of the thrombus. Therefore, a thromboembolic event cannot be diagnosed with certainty on the basis of the reference range. D-Dimers may also be elevated for a variety of disorders including: advanced age, , coronary disease, cancer, liver disease, infection, inflammation, hematoma, DIC, trauma, post-surgery, diabetes, thrombolytic or anticoagulant therapy, stress, and generalized hospitalization. Performed By: #### D DIM #### [facility] [address] [place] [address] Dr. Calin Agarwal GLYCOHEMOGLOBIN A1Con 2021 ADA RECOMMENDATION SEE BELOW Normal [facility] Comment on above: Result Comment: ADA RECOMMENDED LIMIT 4.0 - 6.0 ADA THERAPEUTIC TARGET < 7.0 ACTION SUGGESTED > 7.0 Performed By: #### L IPID, CMP #### [facility] [address] [place] [address] Dr. Calin Agarwal Glucose [Mass/Vol] 163 mg/dL Normal [facility] Comment on above: Performed By: #### L IPID, CMP #### [facility] [address] [place] [address] Dr. Calin Agarwal HbA1c (Bld) [Mass fraction] 7.3 % Critically high 4.5-6.2 [facility] Comment on above: Performed By: #### L IPID, CMP #### [facility] [address] [place] [address] Dr. Calin Agarwal PROF CHEM 8 (BAS METB)on Anion gap [Moles/Vol] 12.5 mmol/L Normal [facility] Comment on above: Performed By: #### L IPID, CMP #### [facility] [address] [place] [address] Dr. Calin Agarwal Calcium [Mass/Vol] 9.5 mg/dL Normal 8.5-10.1 [facility] [place] [facility] Comment on above: Performed By: #### L IPID, CMP #### [facility] [address] [place] [address] Dr. Calin Agarwal Chloride [Moles/Vol] 104 mmol/L Normal 98-107 [facility] Comment on above: Performed By: #### L IPID, CMP #### [facility] [address] [place] [address] Dr. Calin Agarwal CO2 [Moles/Vol] 27.0 mmol/L Normal 21.0-32.0 [facility] Comment on above: Performed By: #### L IPID, CMP #### [facility] [address] [place] [address] Dr. Calin Agarwal Creatinine [Mass/Vol] 1.11 mg/dL Normal 0.70-1.30 [facility] Comment on above: Performed By: #### L IPID, CMP #### [facility] [address] [place] [address] Dr. Calin Agarwal EGFR-AF CHINESE >60 Normal >=60 [facility] Comment on above: Performed By: #### L IPID, CMP #### [facility] [address] [place] [address] Dr. Calin Agarwal EGFR-NON AF CHINESE >60 Normal >=60 [facility] Comment on above: Performed By: #### L IPID, CMP #### [facility] [address] [place] [address] Dr. Calin Agarwal Glucose [Mass/Vol] 231 mg/dL Critically high 74-106 [facility] Comment on above: Performed By: #### L IPID, CMP #### [facility] [address] [address] [address] Calin Agarwal Potassium [Moles/Vol] 5.5 mmol/L Critically high 3.5-5.1 [facility] Comment on above: Performed By: #### L IPID, CMP #### [facility] [address] [address] [address] Calin Agarwal Sodium [Moles/Vol] 138 mmol/L Normal 136-145 [facility] Comment on above: Performed By: #### L IPID, CMP #### [facility] [address] [address] [address] Calin Agarwal Urea nitrogen [Mass/Vol] 17.0 mg/dL Normal 7.0-18.0 [facility] Comment on above: Performed By: #### L IPID, CMP #### [facility] [address] [address] [address] Calin Agarwal Urea nitrogen/Creatinine [Mass ratio] 15.3 mg/mg Normal [facility] Comment on above: Performed By: #### L IPID, CMP #### [facility] [address] [address] [address] Calin Agarwal US JONH DOP LEG LTon 10-23-19 22 US JONH DOP LEG LT Ultrasound venous duplex scan left lower extremity CLINICAL: Left leg pain for one month. TECHNIQUE: Poole-scale, color Doppler and Duplex examination of the left lower extremity was performed with and without provocative maneuvers. FINDINGS: Comparison: None. Sonographic examination of the left lower extremity deep venous system to include the common femoral, superficial femoral and popliteal veins, demonstrates normal compressibility, color-flow, respiratory variation, and augmentation. The origin of the greater saphenous vein demonstrates normal compression, and there is normal color-flow in the proximal profunda femoral vein. Normal compression of the greater saphenous vein and small saphenous vein. There is normal compression of the peroneal, posterior tibial, and anterior tibial veins. IMPRESSION: 1. No deep venous thrombosis or superficial venous thrombus in the left lower extremity. Electronically authenticated by: SEJAL SANCHEZ Date: 2021-10-22 14:37 Normal [facility] CBC AUTO DIFFon 04-28-2021 BASO # 0.1 103/ul Normal 0.0-0.1 [facility] Comment on above: Performed By: #### L IPID, CMP #### [facility] [address] [place] [address] Dr. Calin Agarwal Basophils/100 WBC (Bld) 0.8 % Normal 0.2-2.0 [facility] Comment on above: Performed By: #### L IPID, CMP #### [facility] [address] [place] [address] Dr. Calin Agawral EO # 0.2 103/ul Normal 0.0-0.7 [facility] Comment on above: Performed By: #### L IPID, CMP #### [facility] [address] [place] [address] Dr. Calin Agarwal Eosinophils/100 WBC (Bld) 2.8 % Normal 0.9-7.0 [facility] Comment on above: Performed By: #### L IPID, CMP #### [facility] [address] [place] [address] Dr. Calin Agarwal Erythrocyte distribution width (RBC) [Ratio] 13.2 % Normal 11.0-15.0 [facility] Comment on above: Performed By: #### L IPID, CMP #### [facility] [address] [place] [address] Dr. Calin Agarwal Hematocrit (Bld) [Volume fraction] 44.9 % Normal 42.0-54.0 [facility] Comment on above: Performed By: #### L IPID, CMP #### [facility] [address] [place] [address] Dr. Calin Agarwal Hemoglobin (Bld) [Mass/Vol] 14.8 g/dL Normal 14.0-18.0 [facility] Comment on above: Performed By: #### L IPID, CMP #### [facility] [address] [place] [address] Dr. Calin Agarwal IG # 0.04 10e3/ul Critically high 0.00-0.03 [facility] Comment on above: Performed By: #### L IPID, CMP #### [facility] [address] [address] [address] Calin Agarwal IG % 0.6 % Critically high 0.0-0.5 [facility] Comment on above: Performed By: #### L IPID, CMP #### [facility] [address] [address] [address] Calin Agarwal LYMPH # 1.7 103/ul Normal 1.2-3.8 [facility] Comment on above: Performed By: #### L IPID, CMP #### [facility] [address] [address] [address] Calin Agarwal Lymphocytes/100 WBC (Bld) 26.3 % Normal 20.5-60.0 [facility] Comment on above: Performed By: #### L IPID, CMP #### [facility] [address] [place] [address] Dr. Calin Agarwal MANUAL DIFF REQ NO Normal [facility] Comment on above: Performed By: #### L IPID, CMP #### [facility] [address] [address] [address] Calin Agarwal MCH (RBC) [Entitic mass] 30.3 pg Normal 25.9-34.0 [facility] Comment on above: Performed By: #### L IPID, CMP #### [facility] [address] [address] [address] Calin Agarwal MCHC (RBC) [Mass/Vol] 33.0 g/dL Normal 29.9-35.2 [facility] Comment on above: Performed By: #### L IPID, CMP #### [facility] [address] [address] [address] Calin Agarwal MCV (RBC) [Entitic vol] 91.8 fL Normal 80.0-94.0 [facility] Comment on above: Performed By: #### L IPID, CMP #### [facility] [address] [address] [address] Calin Agarwal MONO # 0.4 103/ul Normal 0.3-0.8 [facility] Comment on above: Performed By: #### L IPID, CMP #### [facility] [address] [address] [address] Calin Agarwal Monocytes/100 WBC (Bld) 6.6 % Normal 1.7-12.0 [facility] Comment on above: Performed By: #### L IPID, CMP #### [facility] [address] [place] [address] Dr. Calin Agarwal NEUT # 4.0 103/ul Normal 1.4-6.5 [facility] Comment on above: Performed By: #### L IPID, CMP #### [facility] [address] [place] [address] Dr. Calin Agarwal Neutrophils/100 WBC (Bld) 62.9 % Normal 43.0-75.0 [facility] Comment on above: Performed By: #### L IPID, CMP #### [facility] [address] [place] [address] Dr. Calin Agarwal Platelet mean volume (Bld) [Entitic vol] 10.6 fL Normal 9.5-13.5 [facility] Comment on above: Performed By: #### L IPID, CMP #### [facility] [address] [place] [address] Dr. Calin Agarwal PLT 206 103/ul Normal 150-450 [facility] Comment on above: Performed By: #### L IPID, CMP #### [facility] [address] [place] [address] Dr. Calin Agarwal RBC 4.89 106/ul Normal 4.70-6.10 [facility] Comment on above: Performed By: #### L IPID, CMP #### [facility] [address] [place] [address] Dr. Calin Agarwal WBC 6.4 103/ul Normal 4.0-11.0 [facility] Comment on above: Performed By: #### L IPID, CMP #### [facility] [address] [place] [address] Dr. Calin Agarwal GLYCOHEMOGLOBIN A1Con 01-29- 2022 ADA RECOMMENDATION ADA THERAPEUTIC TARG ET 6.0 - 7.0 ACTION SUGGESTED > 7.0 Normal [facility] Comment on above: Performed By: #### A 1C #### [facility] [address] [place] [address] Dr. Calin Agarwal Glucose [Mass/Vol] 160 mg/dL Normal [facility] [place] [facility] Comment on above: Performed By: #### A 1C #### [facility] [address] [address] [address] Calin Agarwal HbA1c (Bld) [Mass fraction] 7.2 % Critically high <=6.0 [facility] Comment on above: Performed By: #### A 1C #### [facility] [address] [place] [address] Dr. Calin Agarwal LIPID PROFILEon 04-28-2021 CHOL-HDL RATIO NORM SEE BELOW Normal [facility] Comment on above: Result Comment: 3.3 - 4.4 LOW RISK 4.4 - 7.1 AVERAGE RISK 7.1 - 11.0 MODERATE RISK >11.0 HIGH RISK Performed By: #### L IPID, CMP #### [facility] [address] [place] [address] Dr. Calin Agarwal Cholesterol [Mass/Vol] 84 mg/dL Normal <=200 [facility] Comment on above: Performed By: #### L IPID, CMP #### [facility] [address] [place] [address] Dr. Calin Agarwal Cholesterol in HDL [Mass/Vol] 26 mg/dL Normal [facility] Comment on above: Performed By: #### L IPID, CMP #### [facility] [address] [address] [address] Calin Agarwal Cholesterol in LDL [Mass/Vol] 47.6 mg/dL Normal [facility] Comment on above: Performed By: #### L IPID, CMP #### [facility] [address] [place] [address] Dr. Calin Agarwal Cholesterol.total/Cho lesterol in HDL [Mass ratio] 3.2 {ratio} Normal [facility] Comment on above: Performed By: #### L IPID, CMP #### [facility] [address] [address] [address] Cailn Agarwal HDL NORMAL > or = 60 mg/dl - LO W CARDIOVASCULAR RISK <40 mg/dl - HIGH CARDIOVASCULAR RISK Normal [facility] Comment on above: Performed By: #### L IPID, CMP #### [facility] [address] [place] [address] Dr. Calin Agarwal LDL CALC NORMAL SEE BELOW Normal [facility] Comment on above: Result Comment: <100 mg/dl OPTIMAL 100 - 129 mg/dl NEAR OR ABOVE OPTIMAL 130 - 159 mg/dl BORDERLINE HIGH 160 - 189 mg/dl HIGH >190 mg/dl VERY HIGH Performed By: #### L IPID, CMP #### [facility] [address] [place] [address] Dr. Calin Agarwal Triglyceride [Mass/Vol] 52 mg/dL Normal <=150 [facility] Comment on above: Performed By: #### L IPID, CMP #### [facility] [address] [address] [address] Calin Agarwal VLDL CALC 10.4 mg/dL Normal [facility] Comment on above: Performed By: #### L IPID, CMP #### [facility] [address] [place] [address] Dr. Calin Agarwal MICROALBUMIN, RAND URon 04-01 mALB 2.7 mg/L Normal <=30.0 [facility] Comment on above: Performed By: #### M ALBR #### [facility] [address] [place] [address] Dr. Calin Agarwal PROF 14(COMP METB)on 022 Albumin [Mass/Vol] 4.3 g/dL Normal 3.5-5.0 [facility] [place] [facility] Comment on above: Performed By: #### L IPID, CMP #### [facility] [address] [place] [address] Dr. Calin Agarwal Albumin/Globulin [Mass ratio] 1.3 {ratio} Normal [facility] Comment on above: Performed By: #### L IPID, CMP #### [facility] [address] [address] [address] Calin Agarwal ALP [Catalytic activity/Vol] 67 U/L Normal 38-126 [facility] Comment on above: Performed By: #### L IPID, CMP #### [facility] [address] [address] [address] Calin Agarwal ALT [Catalytic activity/Vol] 34 U/L Normal 21-72 [facility] Comment on above: Performed By: #### L IPID, CMP #### [facility] [address] [address] [address] Calin Agarwal Anion gap [Moles/Vol] 12.4 mmol/L Normal [facility] Comment on above: Performed By: #### L IPID, CMP #### [facility] [address] [place] [address] Dr. Calin Agarwal AST [Catalytic activity/Vol] 16 U/L Critically low 17-59 [facility] Comment on above: Performed By: #### L IPID, CMP #### [facility] [address] [place] [address] Dr. Calin Agarwal Bilirubin [Mass/Vol] 0.4 mg/dL Normal 0.2-1.3 [facility] Comment on above: Performed By: #### L IPID, CMP #### [facility] [address] [place] [address] Dr. Calin Agarwal Calcium [Mass/Vol] 9.6 mg/dL Normal 8.4-10.2 [facility] Comment on above: Performed By: #### L IPID, CMP #### [facility] [address] [place] [address] Dr. Calin Agarwal Chloride [Moles/Vol] 104 mmol/L Normal 98-107 [facility] Comment on above: Performed By: #### L IPID, CMP #### [facility] [address] [place] [address] Dr. Calin Agarwal CO2 [Moles/Vol] 28.7 mmol/L Normal 22.0-30.0 [facility] Comment on above: Performed By: #### L IPID, CMP #### [facility] [address] [address] [address] Calin Agarwal Creatinine [Mass/Vol] 0.96 mg/dL Normal 0.66-1.25 [facility] Comment on above: Performed By: #### L IPID, CMP #### [facility] [address] [address] [address] Calin Agarwal EGFR-AF CHINESE >60 Normal >=60 [facility] Comment on above: Performed By: #### L IPID, CMP #### [facility] [address] [address] [address] Calin Agarwal EGFR-NON AF CHINESE >60 Normal >=60 [facility] Comment on above: Performed By: #### L IPID, CMP #### [facility] [address] [address] [address] Calin Agarwal Globulin (S) [Mass/Vol] 3.2 g/dL Normal [facility] Comment on above: Performed By: #### L IPID, CMP #### [facility] [address] [address] [address] Calin Agarwal Glucose [Mass/Vol] 164 mg/dL Critically high 74-106 [facility] Comment on above: Performed By: #### L IPID, CMP #### [facility] [address] [address] [address] Calin Agarwal Potassium [Moles/Vol] 5.1 mmol/L Critically high 3.4-5.0 [facility] Comment on above: Performed By: #### L IPID, CMP #### [facility] [address] [address] [address] Calin Agarwal Protein [Mass/Vol] 7.5 g/dL Normal 6.1-8.[address] [facility] Comment on above: Performed By: #### L IPID, CMP #### [facility] [address] [address] [address] Calin Agarwal Sodium [Moles/Vol] 140 mmol/L Normal 137-[address] [facility] Comment on above: Performed By: #### L IPID, CMP #### [facility] [address], [place] [address] Dr. Calin Agarwal Urea nitrogen [Mass/Vol] 17.0 mg/dL Normal 9.0-20.0 [facility] Comment on above: Performed By: #### L IPID, CMP #### [facility] [address], [place] [address] Dr. Calin Agarwal Urea nitrogen/Creatinine [Mass ratio] 17.7 mg/mg Normal [facility] Comment on above: Performed By: #### L IPID, CMP #### [facility] [address], [place] [address] Dr. Calin Agarwal Vital Signs Date Time Vital Sign Value Performing Clinician Yoditi wilton 11-23-2024 09:38-0400 Body height 177.8 cm Simone Huang MD Work Phone: [facility] 11-23-2024 09:38-0400 Body mass index (BMI) [Ratio] 24 kg/m2 Simone Huang MD Work Phone: [facility] 11-23-2024 09:38-0400 Body weight 76.2 kg Simone Huang MD Work Phone: [facility] 10-27-2024 09:27-0400 Body height 177.8 cm Simone Huang MD Work Phone: [facility] 10-27-2024 09:27-0400 Body mass index (BMI) [Ratio] 24 kg/m2 Simone Huang MD Work Phone: [facility] 10-27-2024 09:27-0400 Body weight 76.2 kg Simone Huang MD Work Phone: [facility] 10-27-2024 09:27-0400 Diastolic blood pressure 67 mm[Hg] Simone Huang MD Work Phone: [facility] 10-27-2024 09:27-0400 Heart rate 80 /min Simone Huang MD Work Phone: [facility] 10-27-2024 09:27-0400 Systolic blood pressure 121 mm[Hg] Simone Huang MD Work Phone: [facility] 10-05-2024 09:39-0400 Body height 177.8 cm Simone Huang MD Work Phone: [facility] 10-05-2024 09:39-0400 Body mass index (BMI) [Ratio] 24.2 kg/m2 Simone Huang MD Work Phone: [facility] 10-05-2024 09:39-0400 Body weight 76.65 kg Simone Huang MD Work Phone: [facility] 10-05-2024 09:39-0400 Diastolic blood pressure 65 mm[Hg] Simone Huang MD Work Phone: [facility] 10-05-2024 09:39-0400 Heart rate 75 /min Simone Huang MD Work Phone: [facility] 10-05-2024 09:39-0400 Systolic blood pressure 123 mm[Hg] Simone Huang MD Work Phone: [facility] 09-17-2024 11:18-0400 Body height 177.8 cm Simone Huang MD Work Phone: [facility] 09-17-2024 11:18-0400 Body mass index (BMI) [Ratio] 24.3 kg/m2 Simone Huang MD Work Phone: [facility] 09-17-2024 11:18-0400 Body weight 77.11 kg Simone Huang MD Work Phone: [facility] 09-17-2024 11:18-0400 Diastolic blood pressure 68 mm[Hg] Simone Huang MD Work Phone: [facility] 09-17-2024 11:18-0400 Heart rate 83 /min Simone Huang MD Work Phone: [facility] 09-17-2024 11:18-0400 Systolic blood pressure 131 mm[Hg] Simone Huang MD Work Phone: [facility] 08-25-2024 10:32-0400 Body height 177.8 cm [facility] 08-25-2024 10:32-0400 Body mass index (BMI) [Ratio] 24.3 kg/m2 [facility] 08-25-2024 10:32-0400 Body weight 77 kg [facility] 08-25-2024 10:32-0400 Diastolic blood pressure 71 mm[Hg] [facility] 08-25-2024 10:32-0400 Heart rate 83 /min [facility] 08-25-2024 10:32-0400 Respiratory rate 18 /min [facility] 08-25-2024 10:32-0400 SaO2% (BldA) [Mass fraction] 97 % [facility] 08-25-2024 10:32-0400 Systolic blood pressure 115 mm[Hg] [facility] 07-09-2024 09:28-0400 Body height 177.8 cm [facility] 07-09-2024 09:28-0400 Body mass index (BMI) [Ratio] 24.2 kg/m2 [facility] 07-09-2024 09:28-0400 Body weight 76.65 kg [facility] 07-09-2024 09:28-0400 Diastolic blood pressure 73 mm[Hg] [facility] 07-09-2024 09:28-0400 Heart rate 77 /min [facility] 07-09-2024 09:28-0400 Respiratory rate 12 /min [facility] 07-09-2024 09:28-0400 SaO2% (BldA) [Mass fraction] 98 % [facility] 07-09-2024 09:28-0400 Systolic blood pressure 132 mm[Hg] [facility] 05-26-2024 10:27-0500 Body height 177.8 cm [facility] 05-26-2024 10:27-0500 Body mass index (BMI) [Ratio] 24.3 kg/m2 [facility] 05-26-2024 10:27-0500 Body weight 77.1 kg [facility] 05-26-2024 10:27-0500 Diastolic blood pressure 73 mm[Hg] [facility] 05-26-2024 10:27-0500 Heart rate 93 /min [facility] 05-26-2024 10:27-0500 Respiratory rate 18 /min [facility] 05-26-2024 10:27-0500 SaO2% (BldA) [Mass fraction] 97 % [facility] 05-26-2024 10:27-0500 Systolic blood pressure 138 mm[Hg] [facility] 04-06-2024 13:03-0500 Body height 177.8 cm Simone Huang MD Work Phone: [facility] 04-06-2024 13:03-0500 Body mass index (BMI) [Ratio] 25 kg/m2 Simone Huang MD Work Phone: [facility] 04-06-2024 13:03-0500 Body weight 79.12 kg Simone Huang MD Work Phone: [facility] 04-06-2024 13:03-0500 Diastolic blood pressure 74 mm[Hg] Simone Huang MD Work Phone: [facility] 04-06-2024 13:03-0500 Heart rate 83 /min Simone Huang MD Work Phone: [facility] 04-06-2024 13:03-0500 Respiratory rate 18 /min Simone Huang MD Work Phone: [facility] 04-06-2024 13:03-0500 SaO2% (BldA) [Mass fraction] 95 % Simone Huang MD Work Phone: [facility] 04-06-2024 13:03-0500 Systolic blood pressure 131 mm[Hg] Simone Huang MD Work Phone: [facility] 04-05-2024 08:59-0500 Body height 177.8 cm Simone Huang MD Work Phone: [facility] 04-05-2024 08:59-0500 Body mass index (BMI) [Ratio] 24 kg/m2 Simone Huang MD Work Phone: [facility] 04-05-2024 08:59-0500 Body weight 76.2 kg Simone Huang MD Work Phone: [facility] 04-05-2024 08:59-0500 Diastolic blood pressure 67 mm[Hg] Simone Huang MD Work Phone: [facility] 04-05-2024 08:59-0500 Heart rate 76 /min Simone Huang MD Work Phone: [facility] 04-05-2024 08:59-0500 Systolic blood pressure 111 mm[Hg] Simone Huang MD Work Phone: [facility] 03-02-2024 14:47-0500 Diastolic blood pressure 68 mm[Hg] Christopher Zamzam DO Work Phone: [facility] 03-02-2024 14:47-0500 Heart rate 66 /min Christopher Zamzam DO Work Phone: [facility] 03-02-2024 14:47-0500 SaO2% (BldA) [Mass fraction] 97 % Christopher Zamzam DO Work Phone: [facility] 03-02-2024 14:47-0500 Systolic blood pressure 144 mm[Hg] Christopher Zamzam DO Work Phone: [facility] 02-10-2024 14:58-0500 Body height 177.8 cm Simone Huang MD Work Phone: [facility] 02-10-2024 14:58-0500 Body mass index (BMI) [Ratio] 24 kg/m2 Simone Huang MD Work Phone: [facility] 02-10-2024 14:58-0500 Body temperature 98 [degF] Simone Huang MD Work Phone: [facility] 02-10-2024 14:58-0500 Body weight 75.92 kg Simone Huang MD Work Phone: [facility] 02-10-2024 14:58-0500 Diastolic blood pressure 70 mm[Hg] Simone Huang MD Work Phone: [facility] 02-10-2024 14:58-0500 Heart rate 89 /min Simone Huang MD Work Phone: [facility] 02-10-2024 14:58-0500 Respiratory rate 17 /min Simone Huang MD Work Phone: [facility] 02-10-2024 14:58-0500 SaO2% (BldA) [Mass fraction] 98 % Simone Huang MD Work Phone: [facility] 02-10-2024 14:58-0500 Systolic blood pressure 108 mm[Hg] Simone Huang MD Work Phone: [facility] 01-01-2024 09:00-0400 Body height 177.8 cm [facility] 01-01-2024 09:00-0400 Body mass index (BMI) [Ratio] 23.5 kg/m2 [facility] 01-01-2024 09:00-0400 Body weight 74.44 kg [facility] 01-01-2024 09:00-0400 Diastolic blood pressure 62 mm[Hg] [facility] 01-01-2024 09:00-0400 Heart rate 64 /min [facility] 01-01-2024 09:00-0400 Respiratory rate 14 /min [facility] 01-01-2024 09:00-0400 SaO2% (BldA) [Mass fraction] 98 % [facility] 01-01-2024 09:00-0400 Systolic blood pressure 110 mm[Hg] [facility] 12-30-2023 13:03-0400 Body height 177.8 cm [facility] 12-30-2023 13:03-0400 Body mass index (BMI) [Ratio] 23.7 kg/m2 [facility] 12-30-2023 13:03-0400 Body weight 74.92 kg [facility] 12-30-2023 13:03-0400 Diastolic blood pressure 63 mm[Hg] [facility] 12-30-2023 13:03-0400 Heart rate 86 /min [facility] 12-30-2023 13:03-0400 Respiratory rate 18 /min [facility] 12-30-2023 13:03-0400 SaO2% (BldA) [Mass fraction] 97 % [facility] 12-30-2023 13:03-0400 Systolic blood pressure 111 mm[Hg] [facility] 11-05-2023 15:33-0400 Body height 177.8 cm MD Simone Huang Work Phone: [facility] 11-05-2023 15:33-0400 Body mass index (BMI) [Ratio] 24.2 kg/m2 MD Simone Huang Work Phone: [facility] 11-05-2023 15:33-0400 Body weight 76.65 kg MD Simone Huang Work Phone: [facility] 09-30-2023 13:51-0400 Diastolic blood pressure 59 mm[Hg] MD Simone Huang Work Phone: [facility] 09-30-2023 13:51-0400 Heart rate 64 /min MD Simone Huang Work Phone: [facility] 09-30-2023 13:51-0400 Respiratory rate 18 /min MD Simone Huang Work Phone: [facility] 09-30-2023 13:51-0400 SaO2% (BldA) [Mass fraction] 98 % MD Simone Huang Work Phone: [facility] 09-30-2023 13:51-0400 Systolic blood pressure 152 mm[Hg] MD Simone Huang Work Phone: [facility] 09-30-2023 12:21-0400 Body height 177.8 cm MD Simone Huang Work Phone: [facility] [facility] 09-30-2023 12:21-0400 Body weight 77.11 kg MD Simone Huang Work Phone: [facility] 09-23-2023 13:02-0400 Body height 175.26 cm MD Simone Huang Work Phone: [facility] 09-23-2023 13:02-0400 Body mass index (BMI) [Ratio] 24.8 kg/m2 MD Simone Huang Work Phone: [facility] 09-23-2023 13:02-0400 Body weight 76.31 kg MD Simone Huang Work Phone: [facility] 09-23-2023 13:02-0400 Diastolic blood pressure 76 mm[Hg] MD Simone Huang Work Phone: [facility] 09-23-2023 13:02-0400 Heart rate 82 /min MD Simone Huang Work Phone: [facility] 09-23-2023 13:02-0400 Respiratory rate 16 /min MD Simone Huang Work Phone: [facility] 09-23-2023 13:02-0400 SaO2% (BldA) [Mass fraction] 98 % MD Simone Huang Work Phone: [facility] 09-23-2023 13:02-0400 Systolic blood pressure 143 mm[Hg] MD Simone Huang Work Phone: [facility] 08-21-2023 12:06-0400 Diastolic blood pressure 70 mm[Hg] MD Simone Huang Work Phone: [facility] 08-21-2023 12:06-0400 Heart rate 64 /min MD Simone Huang Work Phone: [facility] 08-21-2023 12:06-0400 Respiratory rate 16 /min MD Simone Huang Work Phone: [facility] 08-21-2023 12:06-0400 SaO2% (BldA) [Mass fraction] 100 % MD Simone Huang Work Phone: [facility] 08-21-2023 12:06-0400 Systolic blood pressure 138 mm[Hg] MD Simone Huang Work Phone: [facility] 08-21-2023 09:29-0400 Body height 177.8 cm MD Simone Huang Work Phone: [facility] 08-21-2023 09:29-0400 Body weight 77.11 kg MD Simone Huang Work Phone: [facility] 07-28-2023 11:32-0400 Body height 175.26 cm [facility] 07-28-2023 11:32-0400 Body mass index (BMI) [Ratio] 25 kg/m2 [facility] 07-28-2023 11:32-0400 Body weight 76.88 kg [facility] 07-28-2023 11:32-0400 Diastolic blood pressure 83 mm[Hg] [facility] 07-28-2023 11:32-0400 Heart rate 80 /min [facility] 07-28-2023 11:32-0400 Respiratory rate 18 /min [facility] 07-28-2023 11:32-0400 SaO2% (BldA) [Mass fraction] 98 % [facility] 07-28-2023 11:32-0400 Systolic blood pressure 125 mm[Hg] [facility] 07-02-2023 09:02-0400 Body height 173.99 cm [facility] 07-02-2023 09:02-0400 Body mass index (BMI) [Ratio] 25.4 kg/m2 [facility] 07-02-2023 09:02-0400 Body weight 77.11 kg [facility] 07-02-2023 09:02-0400 Diastolic blood pressure 70 mm[Hg] [facility] 07-02-2023 09:02-0400 Heart rate 77 /min [facility] 07-02-2023 09:02-0400 Systolic blood pressure 146 mm[Hg] [facility] 12-31-2022 09:15-0400 Body height 173.99 cm Simone Huang Other [employer] Other 12-31-2022 09:15-0400 Body mass index (BMI) [Ratio] 25.92 kg/m2 Simone Huang Other [employer] Other 12-31-2022 09:15-0400 Body weight 78.47 kg Simone Huang Other [employer] Other 12-31-2022 09:15-0400 Diastolic blood pressure 73 mm[Hg] Simone Huang Other [employer] Other 12-31-2022 09:15-0400 Systolic blood pressure 145 mm[Hg] Simone Huang Other [employer] Other 07-01-2022 10:15-0400 Body height 173.99 cm Simone Huang Other [employer] Other 07-01-2022 10:15-0400 Body mass index (BMI) [Ratio] 25.92 kg/m2 Simone Huang Other [employer] Other 07-01-2022 10:15-0400 Body weight 78.47 kg Simone Huang Other [employer] Other 07-01-2022 10:15-0400 Diastolic blood pressure 60 mm[Hg] Simone Huang Other [employer] Other 07-01-2022 10:15-0400 SaO2% (BldA) [Mass fraction] 97 % Simone Huang Other [employer] Other 07-01-2022 10:15-0400 Systolic blood pressure 100 mm[Hg] Simone Huang Other [employer] Other 04-03-2022 14:00-0500 Blood Pressure Location TRESA DESIREE [facility] 04-03-2022 14:00-0500 Diastolic blood pressure 60 mm[Hg] TRESA DESIREE [facility] 04-03-2022 14:00-0500 Heart rate 77 /min TRESA DESIREE [facility] 04-03-2022 14:00-0500 Respiratory rate 16 /min TRESA DESIREE [facility] 04-03-2022 14:00-0500 Systolic blood pressure 127 mm[Hg] TRESA DESIREE [facility] 04-02-2022 10:00-0500 Body height 177.8 cm Simone Huang Other [employer] Other 04-02-2022 10:00-0500 Body mass index (BMI) [Ratio] 24.68 kg/m2 Simone Huang Other [employer] Other 04-02-2022 10:00-0500 Body weight 78.02 kg Simone Huang Other [employer] Other 04-02-2022 10:00-0500 Diastolic blood pressure 62 mm[Hg] Simone Huang Other [employer] Other 04-02-2022 10:00-0500 SaO2% (BldA) [Mass fraction] 95 % Simone Huang Other [employer] Other 04-02-2022 10:00-0500 Systolic blood pressure 136 mm[Hg] Simone Huang Other [employer] Other Encounters Encounter Date Encounter Type Care Provider Facility Start: 11-23-2024 End: 11-23-2024 ambulatory Simone Huang MD Work Phone: [facility] Work Phone: Start: 11-23-2024 End: 11-23-2024 Patient encounter procedure Angel [facility] Work Phone: Start: 10-29-2024 End: 10-29-2024 ambulatory [facility] Start: 10-27-2024 End: 10-27-2024 ambulatory Simone Huang MD Work Phone: [facility] Work Phone: Start: 10-27-2024 End: 10-27-2024 Patient encounter procedure Simone Huang MD -[facility] Work Phone: Start: 10-05-2024 End: 10-05-2024 ambulatory Simone Huang MD Work Phone: [facility] Work Phone: Start: 10-05-2024 End: 10-05-2024 Patient encounter procedure Angel Brown [facility] Work Phone: Start: 09-17-2024 End: 09-17-2024 Patient encounter procedure Simone Huang MD -[facility] Work Phone: Start: 08-25-2024 End: 08-25-2024 ambulatory [facility] Work Phone: Start: 08-25-2024 End: 08-25-2024 Patient encounter procedure [facility] Work Phone: Start: 07-09-2024 End: 07-09-2024 ambulatory [facility] Work Phone: Start: 07-09-2024 End: 07-09-2024 Patient encounter procedure [facility] Work Phone: Start: 05-26-2024 End: 05-26-2024 ambulatory [facility] Work Phone: Start: 05-26-2024 End: 05-26-2024 Patient encounter procedure [facility] Work Phone: Start: 04-20-2024 End: 04-20-2024 ambulatory Simone Huang MD Work Phone: [facility] Work Phone: Start: 04-20-2024 End: 04-20-2024 Patient encounter procedure Simone Huang MD Work Phone: [facility] Work Phone: Start: 04-06-2024 End: 04-06-2024 ambulatory Simone Huang MD Work Phone: [facility] Work Phone: Start: 04-06-2024 End: 04-06-2024 Patient encounter procedure Simone Huang MD Work Phone: [facility] Work Phone: Start: 04-05-2024 End: 04-05-2024 ambulatory Simone Huang MD Work Phone: [facility] Work Phone: Start: 04-05-2024 End: 04-05-2024 Patient encounter procedure Simone Huang MD Work Phone: [facility] Work Phone: Start: 03-02-2024 End: 03-02-2024 Office outpatient new 30 minutes Maru Wyman DO Work Phone: [facility] [address] Comment on above: Paresthesia (Primary Dx) Start: 03-02-2024 End: 03-02-2024 ambulatory MARU WYMAN Not Available Start: 03-02-2024 End: 03-02-2024 Bamboo flowsheet Maru Wyman DO Work Phone: [facility] Start: 03-02-2024 End: 03-02-2024 Bamboo flowsheet Codysaba Duttonett DO Work Phone: [facility] Start: 02-10-2024 End: 02-10-2024 ambulatory Simone Huang MD Work Phone: [facility] Work Phone: Start: 02-10-2024 End: 02-10-2024 Patient encounter procedure Simone Huang MD Work Phone: [facility] Work Phone: Start: 01-26-2024 End: 01-26-2024 Patient encounter procedure MD Simone Huang Work Phone: [facility] [place] Work Phone: Start: 01-26-2024 End: 01-26-2024 ambulatory MD Simone Huang Work Phone: [facility] Work Phone: Start: 01-01-2024 Non-patient / Non-visit MD Simone Huang Work Phone: [facility] Work Phone: Start: 01-01-2024 End: 01-01-2024 ambulatory [facility] Work Phone: Start: 01-01-2024 End: 01-01-2024 Patient encounter procedure [facility] Work Phone: Start: 12-30-2023 End: 12-30-2023 ambulatory [facility] Work Phone: Start: 12-30-2023 End: 12-30-2023 Patient encounter procedure [facility] Work Phone: Start: 12-22-2023 End: 12-22-2023 ambulatory VIN JALLOH Not Available Start: 12-22-2023 End: 12-22-2023 Office outpatient new 30 minutes Vin Jalloh DPM Work Phone: [facility] Comment on above: Pain of right foot ( Primary Dx); Pain of left foot; Type 2 diabetes mellitus with diabetic neuropathy, unspecified whether snf insulin use ([facility]); Cramping of feet; Weakness of both lower extremities; Pre-ulcerative calluses; Peripheral arterial disease ([facility]) Start: 12-22-2023 End: 12-22-2023 Bamboo flowsheet Vin Jalloh DPM Work Phone: [facility] Start: 12-22-2023 End: 12-22-2023 Bamboo flowsheet Vin Jalloh DPM Work Phone: [facility] Start: 12-22-2023 Non-patient / Non-visit MD Simone Huang Work Phone: [facility] Work Phone: Start: 12-03-2023 End: 12-03-2023 ambulatory MD Simone Huang Work Phone: [facility] Work Phone: Start: 12-03-2023 End: 12-03-2023 Patient encounter procedure MD Simone Huang Work Phone: [facility] Work Phone: Start: 11-05-2023 End: 11-05-2023 ambulatory MD Simone Huang Work Phone: [facility] Work Phone: Start: 11-05-2023 End: 11-05-2023 Patient encounter procedure MD Simone Huang Work Phone: [facility] [place] [facility] Work Phone: Start: 09-30-2023 Non-patient / Non-visit MD Simone Huang Work Phone: [facility] Work Phone: Start: 09-30-2023 End: 09-30-2023 Admission to same day surgery center MD Simone Huang Work Phone: [facility] Work Phone: Start: 09-30-2023 End: 09-30-2023 ambulatory MD Simone Huang Work Phone: [facility] Work Phone: Start: 09-23-2023 End: 09-23-2023 ambulatory MD Simone Huang Work Phone: [facility] Work Phone: Start: 09-23-2023 End: 09-23-2023 Departed Referred MD Simone Huang Work Phone: [facility] Work Phone: Start: 09-23-2023 End: 09-23-2023 ambulatory MD Simone Huang Work Phone: [facility] Work Phone: Start: 09-23-2023 End: 09-23-2023 Patient encounter procedure MD Simone Huang Work Phone: [facility] Work Phone: Start: 08-21-2023 Non-patient / Non-visit MD Simone Huang Work Phone: [facility] Work Phone: Start: 08-21-2023 End: 08-21-2023 Admission to same day surgery center MD Simone Huang Work Phone: [facility] Work Phone: Start: 08-21-2023 End: 08-21-2023 ambulatory MD Simone Huang Work Phone: [facility] Work Phone: Start: 07-28-2023 End: 07-28-2023 ambulatory [facility] Work Phone: Start: 07-28-2023 End: 07-28-2023 Patient encounter procedure [facility] Work Phone: Start: 07-09-2023 Patient encounter procedure [facility] Start: 07-02-2023 End: 07-02-2023 ambulatory [facility] Work Phone: Start: 07-02-2023 End: 07-02-2023 Patient encounter procedure [facility] Work Phone: Start: 01-08-2023 End: 01-08-2023 ambulatory Simone Huang Other [employer] Other Start: 01-08-2023 Telephone encounter Simone Huang [facility] Start: 12-31-2022 End: 12-31-2022 ambulatory Simone Huang Other [employer] Other Start: 12-31-2022 Office outpatient visit [address] [facility] Start: 10-16-2022 End: 10-16-2022 ambulatory Simone Huang Other [employer] Other Start: 10-16-2022 Telephone encounter Simone Huang [facility] Start: 07-01-2022 End: 07-01-2022 ambulatory Simone Huang Other [employer] Other Start: 07-01-2022 Office outpatient visit [address] [facility] Start: 04-16-2022 End: 04-17-[address] SIMONE HUANG Facility: Start: 04-08-2022 End: 04-08-2022 ambulatory Simone Huang Other [employer] Other Start: 04-08-2022 Telephone encounter Simone Huang [facility] Start: 04-03-2022 End: 04-04-2022 ambulatory TRESA RAMÍREZ Facility:[facility] Start: 04-03-2022 End: 04-03-2022 Patient encounter procedure TRESA RAMÍREZ [facility] Start: 04-02-2022 End: 04-02-2022 ambulatory Simone Huang Other [employer] Other Start: 04-02-2022 Office outpatient visit [address] [facility] Start: 04-02-2022 Patient encounter procedure Simone Huang [facility] Start: 03-11-2022 End: 03-12-[address] MORA NUNEZ Facility: Start: 02-12-2022 End: 03-01-[address] SIMONE HUANG Facility:[facility] Start: 02-05-2022 End: 02-06-[address] SIMONE HUANG Facility:[facility] Start: 02-05-2022 Adult health examination Simone Huang Other [employer] Other Start: 02-05-2022 Problem, abnormal examination Simone Huang Other [employer] Other Start: 01-08-2022 End: 01-08-[address] SIMONE HUANG Facility:[facility] Start: 10-22-2021 End: 10-23-[address] SIMONE HUANG Facility:[facility] Start: 04-28-2021 End: 04-29-[address] SIMONE HUANG Facility:[facility] Procedures Date Procedure Procedure Detail Performing Clinician Start: 01-26-2024 Pulse volume recorder pneumoplethysmography Simone Huang MD Work Phone: Start: 09-30-2023 Esophagogastroduodenoscopy MD Simone Cook un Work Phone: Start: 08-21-2023 Esophagogastroduodenoscopy MD Simone Cook un Work Phone: Start: 03-11-[address] SIMONE HUANG Comment on above: Performed By: #### LIPID, CMP #### [facility] [address] [address] [address] Calin Agarwal Start: 05-13-2018 History of transurethral prostatectomy Status post transurethral resection of prostate Vin Jalloh DPM Work Phone: Start: 04-12-2017 Transurethral prostatectomy TRESA LOGAN GRACE Start: 03-15-2017 Cystoscopy TRESA RAMÍREZ Comment on above: Evacuation of clots/fulgeration of bladd er Start: 03-19-2016 Extraction with IOL placement / iStent - OS. TRESA DESIREE Colonoscopy TRESA RAMÍREZ Placement of stent i n cardiac conduit TRESA RAMÍREZ Plan of Treatment Date Care Activity Detail Author Start: 12-01-2024 End: 12-01-2024 Patient encounter procedure 12/01/2024 9:15 AM EDT Office Visit [facility] [address] [place] [id number] Vin Jalloh DPM [address] [place] [address] [facility] Start: 03-02-2024 End: 03-02-2024 Patient encounter procedure 03/02/2024 3:00 PM EST Office Visit [facility] [address] [place] [address] Maru Wyman, [address] [place] [address] [facility] Comment on above: Arrived Start: 01-26-2024 Pulse volume recorder pneumoplethysmography US arterial pvr rest LE [facility] Start: 12-03-2023 Patient referral [facility] Work Phone: Start: 11-30-2023 Influenza vaccination Influenza Vaccine (#1) [facility] Start: 09-30-2023 [facility] Start: 08-21-2023 [facility] Start: 07-02-2023 Patient referral [facility] Work Phone: Start: 12-10-2013 Pneumococcal Vaccine: 65+ Years (2 of 2 - PCV) Pneumococcal Vaccine: 65+ Years (2 of 2 - PCV) [facility] metabo lic 1999 panel - Serum or Plasma [facility] Comprehensive metabo lic 1999 panel - Serum or Plasma [facility] Patient Education [facility] Work Phone: Patient referral [facility] Work Phone: [facility] [place] Immunizations Immunization Date Immunization Notes Care Provider Fa [facility] 12-26-2022 influenza virus vaccine, unspecified formulation Vin Jalloh DPM Work Phone: [facility] 02-04-2022 COVID-19 Pfizer (bivalent) Simone Huang Other [facility] 03-20-2021 COVID-19 Vaccine Pfi zer - Documentation Purposes Only Simone Huang Other [facility] 02-13-2021 influenza virus vaccine, split virus (incl. purified surface antigen) Simone Hunag Other [employer] [facility] [employer] Other 02-13-2021 influenza virus vaccine, unspecified formulation [facility] 08-14-2020 COVID-19 Vaccine Pfi zer - Documentation Purposes Only Simone Huang Other [facility] 07-24-2020 COVID-19 Vaccine Pfi zer - Documentation Purposes Only Simone Huang Other [facility] 02-03-2019 influenza virus vaccine, split virus (incl. purified surface antigen) Simone Huang Other [employer] Other 02-03-2019 influenza virus vaccine, unspecified formulation [facility] 12-10-2012 pneumococcal Conjuga te, unspecified formulation; Translations: [Need for prophylactic vaccination against Streptococcus pneumoniae (pneumococcus)] Simone Huang Other [employer] Other 12-10-2012 pneumococcal polysaccharide vaccine, 23 valent Simone Huang Other [facility] Payers Date Payer Category Payer Self-pay 2012 [facility] BCBS [id number] 2012 Unknown [facility] [id number] 2012-Present [phone] [place], [place] [address] [id number] 2009 Medicare [id number] 1959 Medicare [id number] 1959 Unknown [id number] 1944 Unknown [id number] 9.2.727 1944 Unknown [id number] 9.2.593 1944 Unknown [id number] 9.2.593 1944 Unknown [id number] 9.2.593 1944 Unknown [id number] 9.2.593 1944 Unknown [id number] 9.2.593 1944 Unknown [id number] [id number] 9.2.593 1944 Unknown [id number] 9.2.593 1944 Unknown [id number] 9.2.1259 1944 Unknown [id number] 9.2.1259 Blue Cross Blue Shield [id number] Unknown [id number] 9.2.531 Unknown [id number] 9.2.531 Unknown [id number] 9.2.531 Unknown [id number] 9.2.531 Social History Date Type Detail Facility Start: 12-17-2018 End: 01-01-2024 Tobacco smoking status Ex-smoker (finding) [facility] Tobacco smoking status Never [facility] Start: 12-22-2023 End: 03-02-2024 Sex Assigned At Male [facility] Start: 1945 Sex Assigned At Male [facility] Start: 02-10-2024 End: 08-25-2024 Sex Male (finding) [facility] History of tobacco use Current smoker [facility] History of tobacco use Cigarette Smoker [facility] Start: 12-22-2023 Tobacco use and exposure Smokeless tobacco non-user [facility] Start: 12-22-2023 End: 03-02-2024 Alcoholic beverage intake Current drinker of alcohol (finding) [facility] Start: 12-22-2023 End: 03-02-2024 Alcoholic beverage intake [facility] Start: 1945 Sex assigned at Not on file [facility] Tobacco smoking stat [facility] Tobacco smoking consumption unknown [facility] Medical Equipment Procedure Code Equipment Code Equipment Origin al Text Equipment Identifier Dates Lancets Start: 07-30-2023 Lancets Start: 07-28-2023 End: 07-30-2023 Lancets Start: 07-30-2023 Lancets Start: 07-28-2023 End: 07-30-2023 Lancets Start: 07-30-2023 Lancets Start: 07-28-2023 End: 07-30-2023 Lancets Start: 07-30-2023 Lancets Start: 07-28-2023 End: 07-30-2023 Lancets Start: 07-30-2023 Lancets Start: 07-28-2023 End: 07-30-2023 Lancets Start: 07-30-2023 Lancets Start: 07-28-2023 End: 07-30-2023 Lancets Start: 07-30-2023 Lancets Start: 07-28-2023 End: 07-30-2023 Lancets Start: 07-30-2023 Lancets Start: 07-28-2023 End: 07-30-2023 Lancets Start: 07-30-2023 Lancets Start: 07-28-2023 End: 07-30-2023 Lancets Start: 07-30-2023 Lancets Start: 07-28-2023 End: 07-30-2023 Blood Sugar Diagnostic strip Start: 07-29-2023 Lancets misc Start: 07-30-2023 Blood Sugar Diagnostic strip Start: 07-28-2023 End: 07-29-2023 Lancets misc Start: 07-28-2023 End: 07-30-2023 Blood Sugar Diagnostic strip Start: 07-29-2023 Lancets misc Start: 07-30-2023 Blood Sugar Diagnostic strip Start: 07-28-2023 End: 07-29-2023 Lancets misc Start: 07-28-2023 End: 07-30-2023 Blood Sugar Diagnostic strip Start: 07-29-2023 Lancets misc Start: 07-30-2023 Blood Sugar Diagnostic strip Start: 07-28-2023 End: 07-29-2023 Lancets misc Start: 07-28-2023 End: 07-30-2023 Blood Sugar Diagnostic strip Start: 07-29-2023 Lancets misc Start: 07-30-2023 Blood Sugar Diagnostic strip Start: 07-28-2023 End: 07-29-2023 Lancets misc Start: 07-28-2023 End: 07-30-2023 Blood Sugar Diagnostic strip Start: 07-29-2023 Lancets misc Start: 07-30-2023 Blood Sugar Diagnostic strip Start: 07-28-2023 End: 07-29-2023 Lancets misc Start: 07-28-2023 End: 07-30-2023 Blood Sugar Diagnostic strip Start: 07-29-2023 Lancets misc Start: 07-30-2023 Blood Sugar Diagnostic strip Start: 07-28-2023 End: 07-29-2023 Lancets misc Start: 07-28-2023 End: 07-30-2023 Blood Sugar Diagnostic strip Start: 07-29-2023 Lancets misc Start: 07-30-2023 Blood Sugar Diagnostic strip Start: 07-28-2023 End: 07-29-2023 Lancets misc Start: 07-28-2023 End: 07-30-2023 Blood Sugar Diagnostic strip Start: 07-29-2023 Lancets misc Start: 07-30-2023 Blood Sugar Diagnostic strip Start: 07-28-2023 End: 07-29-2023 Lancets misc Start: 07-28-2023 End: 07-30-2023 Blood Sugar Diagnostic strip Start: 07-29-2023 Lancets misc Start: 07-30-2023 Blood Sugar Diagnostic strip Start: 07-28-2023 End: 07-29-2023 Lancets misc Start: 07-28-2023 End: 07-30-2023 Blood Sugar Diagnostic strip Start: 07-29-2023 [facility] Start: 07-30-2023 Blood Sugar Diagnostic strip Start: 07-28-2023 End: 07[facility]-2023 [facility] Start: 07-28-2023 End: 07-30-2023 Goals Date Patient Goal Desired Activity /State Functional Status Date Assessment Result Facility 04-03-2022 Functional Status N/A [facility] Clinical Notes 04-02-2022 to 10-29-2024 Note Date & Type Note Facility 10-29-2024 Note SUBJECTIVE Reason for Visit: Dillon Stephenson is a 79 y.o. year old male patient being seen for 1 year follow up visit. HPI: Dillon Stephenson is a 79 y.o. year old male with significant medical history of f coronary artery disease status post PCI in 2007, hypertension, hyperlipidemia, and type 2 diabetes mellitus seen in follow-up. 10/29/2024 office visit: Patient was seen and evaluated in the office today for a routine 1-year follow-up. He reports feeling well overall and has no current concerns. He denies chest pain, shortness of breath, palpitations, lightheadedness, dizziness, or lower extremity edema. His functional status remains stable; he is able to perform light yard work but requires rest afterward. He had no specific questions during the visit. He brought a current list of medications, which I have reviewed and confirmed he is taking as prescribed. 10/09/2023 office visit (Dr. Ross): Patient here for 1 year follow up CAD, hypertension, and hyperlipidemia. Doing very well from cardiac prospective. Patient adamantly denies any cardiac complaints or concerns. Patient denies any chest pain or shortness of breath. Patient denies any lower extremity edema, orthopnea, or proximal nocturnal dyspnea. No near-syncope or syncope. No dizziness or lightheadedness. Medical History[1] Surgical History[2] Problem List[3] Family history is unknown by patient. Social History[4] OBJECTIVE Visit Vitals Smoking Status Never Physical Exam Constitutional: General Appearance: well-developed, appears stated age. Level of Distress: no acute distress. Neck: Jugular Veins: normal jugular venous pressure. Lungs: Auscultation: no rales or rhonchi and normal breath sounds. Cardiovascular: Rate And Rhythm: regular Heart Sounds: normal S1 and s2; Systolic Murmur: not heard. Diastolic Murmur: not heard. Extremities: no edema Peripheral Pulses: Pulses: full and equal in all extremities except if noted. Abdomen: Inspection and Palpation: non distended or tender and soft. Musculoskeletal: Inspection: no joint tenderness or swelling. Neurologic: Gait: normal gait. Psychiatric: Mental Status: alert and normal affect. Skin: Inspection and Palpation: warm and dry. Allergies: Allergies[5] Outpatient Medications: Current Outpatient Medications Medication Instructions amLODIPine (Norvasc) 5 mg tablet TAKE 1 TABLET DAILY aspirin 81 mg EC tablet 1 tablet, oral, Every morning atorvastatin (Lipitor) 80 mg tablet TAKE 1 TABLET DAILY empagliflozin (JARDIANCE) 10 mg, oral, Daily gabapentin (Neurontin) 600 mg tablet 1 tablet, oral, 2 times daily glipiZIDE (Glucotrol) 10 mg tablet 1 tablet, oral, Daily losartan (COZAAR) 50 mg, oral, Daily omeprazole (PRILOSEC) 40 mg, oral, 2 times daily before meals, Do not crush or chew. SITagliptin phos-metformin (Janumet) 50-1,000 mg tablet 1 tablet, oral, 2 times daily Recent Labs: No visits with results within 2 Month(s) from this visit. Latest known visit with results is: No results found for any previous visit. I have personally reviewed and anaylzed the following laboratory results above. These findings have been analyzed in the context of the patient's clinical presentation. Cardiovascular Diagnostic Studies: Coronary angiogram 05/28/2007: Labs 04/16/2022: WBC 6.8, hemoglobin 14.4, hematocrit 43.6, platelets 213 Sodium 138, potassium 4.8, CO2 29.1, BUN 19, serum creatinine 0.88, estimated GFR greater than 60% Total cholesterol 85, HDL 26, triglycerides 58, LDL 47.4 Hemoglobin A1c 7.3% Imaging and other tests Echo: Global left ventricular systolic function is hyperdynamic. No significant wall motion abnormalities. The left atrium is normal in size. The right ventricle is normal in size and systolic function. No significant valvular abnormalities. 12 Lead ECG: No results found for this or any previous visit (from the past 4464 hours). I have personally reviewed and analyzed all available cardiac diagnostic tests and imaging reports. Findings have been analyzed in the context of the patient's clinical status. Assessment and Plan #CAD Denies chest pain Remote heart cath 05/28/2007; severe single-vessel coronary artery disease successful angioplasty and stent placement in the left anterior descending coronary artery. Stable coronary artery disease without anginal symptoms. He is maintained on aspirin 81 mg and atorvastatin 80 mg. Continue current regimen GDMT: - Continue aspirin 81 mg daily - Continue atorvastatin 80 mg daily - Continue amlodipine 5 mg daily - Continue losartan 50 mg daily #HTN Blood pressure today is 130/62, heart rate 73 Stable Unsure what medications he is taking, nothing found on dispense report. He does have a written list of his medications that I have reviewed. - Continue amlodipine 5 mg daily - Continue losartan 50 mg daily #HLD No recent lipid panel per record (more content not included)... 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 M ay 2024 10:19am Type 2 diabetes mellitus with diabetic polyneuropathy acute September 17, 2024 11:14am Constipation acute October 05 9:23am GERD (gastroesophageal reflux disease) acute October 05, 2024 9:23am [facility] Work Phone: 1(352) 121-962405-28-2025 Evaluation note* Diagnosis Onset Date Resolution Status Admit Date [...] 0:19am Vitamin B 12 deficiency noneactive M ay 2024 10:19am Type 2 diabetes mellitus wit [...] reflu x disease) acute November 23 9:38am [facility] Work Phone: 1(141) 546-611504-11-2025 Evaluation note* Diagnosis Onset Date Resolution Status Admit Date Essential (primary) hypertension acute July 09, 2024 9:27am Type 2 diabetes mellitus wit h diabetic polyneuropathy acute July 092024 9:27am Type 2 diabetes mellitus wit h other circulatory complications acute July 09, 2024 9:27am Type 2 diabetes mellitus wit h other specified complication acute Jun 9:27am BMI 25.0-25.9,adult acute July 302024 10:19am Dietary counseling and surveillance acute August 25, 2024 10:19am Essential (primary) hypertension acute August 25, 2024 10:19am Neuropathy acute August 25, 2024 10:19am Type 2 diabetes mellitus wit h hyperglycemia acute August 25, 2024 10:19am Vitamin D deficiency, unspecified acute August 25, 2024 10:19am Vitamin B 12 deficiency noneactive M 2024 10:19am [facility] Work Phone: 1(646) 483-223104-11-2025 Evaluation note* Diagnosis Onset Date Resolution Status Admit Date Essential (primary) hypertension acute July 09, 2024 9:27am Type 2 diabetes mellitus wit h diabetic polyneuropathy acute July 092024 9:27am Type 2 diabetes mellitus wit h other circulatory complications acute July 09, 2024 9:27am Type 2 diabetes mellitus wit h other specified complication acute Jun 9:27am BMI 25.0-25.9,adult acute July 302024 10:19am Dietary counseling and surveillance acute August 25, 2024 10:19am Essential (primary) hypertension acute August 25, 2024 10:19am Neuropathy acute August 25, 2024 10:19am Type 2 diabetes mellitus wit h hyperglycemia acute August 25, 2024 10:19am Vitamin D deficiency, unspecified acute August 25, 2024 10:19am Vitamin B 12 deficiency noneactive M ay 2024 10:19am Type 2 diabetes mellitus wit h diabetic polyneuropathy acute August 11:14am Constipation acute October 05 9:23am GERD (gastroesophageal reflu x disease) acute October 05, 2024 9 :23am [facility] Work Phone: 1(459) 365-199601-21-2025 Evaluation note* Diagnosis Onset Date Resolution Status Admit Date Type 2 diabetes mellitus wit h hyperglycemia acute April 20 9:02am BMI 25.0-25.9,adult acute Febru violeta2024 10:14am Dietary counseling and surveillance acute May 26 10:14am Essential (primary) hypertension acute May 26 10:14am Neuropathy acute May 26, 2024 10:14am Type 2 diabetes mellitus wit h hyperglycemia acute May 26 10:14am Vitamin D deficiency, unspecified acute May 26 10:14am Vitamin B 12 deficiency noneactive F ebruary 2024 10:14am [facility] Work Phone: 1(902) 691-344801-06-2025 Evaluation note* Diagnosis Onset Date Resolution Status Admit Date Essential (primary) hypertension acute April 05 8:57am Neuropathic pain of both feet acute April 05, 2024 8:57am Type 2 diabetes mellitus wit h hyperglycemia acute April 05 8:57am BMI 25.0-25.9,adult acute 2024 12:55pm Dietary counseling and surveillance acute April 06 12:55pm Essential (primary) hypertension acute April 06 12:55pm Neuropathy acute April 06 12:55pm Type 2 diabetes mellitus wit h hyperglycemia acute April 06 12:55pm Vitamin D deficiency, unspecified acute April 06 12:55pm Vitamin B 12 deficiency noneactive J anuary 2024 12:55pm Type 2 diabetes mellitus wit h hyperglycemia acute April 20 9:02am BMI 25.0-25.9,adult acute Febru violeta 2024 10:14am Dietary counseling and surveillance acute May 26 10:14am Essential (primary) hypertension acute May 26 10:14am Neuropathy acute May 26, 2024 10:14am Type 2 diabetes mellitus wit h hyperglycemia acute May 26 10:14am Vitamin D deficiency, unspecified acute May 26 10:14am Vitamin B 12 deficiency noneactive F ebruary 2024 10:14am [facility] Work Phone: 1(641) 587-772512-03-2024 History of Present illness Narrative* Maru Wyman, DO - 03/02/2024 3:00 PM EST Images from the original note were not included. Chief complaint: Paresthesia Subjective Dillon Royal Shy, 78 y.o., male Dillon presents today for a neurologic consult at the request of Dr. Simone Huang for mononeuropathy of bilateral lower limbs. Patient is a diabetic. He states his diabetes is not currently under control. He had covid recently and states since then his sugar has been between 200-300 on average. He states he went to bed one night and woke up with cramps in his feet. This then went all the way up to his thighs and groin area. This was intermittent only at night. Patient states he went to see a sole cementer who suggested foot inserts which he states seemed to help. He reports he has not had any cramping in about two weeks. Patient states he has not had an EMG done before. Patient is currently on 600 mg BID. He is unsure if this is helpful or not. He reports numbness and tingling in bilateral feet. He thinks this is constant but he states he has had this for so many years he is unaware of this at times. Patient reports some imbalance but denies any falls. Review of Systems Constitutional: Negative for appetite change, fatigue and fever. Respiratory: Negative for cough, shortness of breath and wheezing. Cardiovascular: Negative for chest pain, palpitations and leg swelling. Gastrointestinal: Negative for abdominal pain, constipation, diarrhea and nausea. Musculoskeletal: Positive for gait problem. Negative for arthralgias and myalgias. Neurological: Positive for numbness. Negative for dizziness, tremors and headaches. Past Medical History: Diagnosis Date Coronary artery disease (CMS/HCC) Diabetes (CMS/HCC) High cholesterol (CMS/HCC) Hypertension (CMS/HCC) Past Surgical History: Procedure Laterality Date ANKLE FRACTURE SURGERY Left CORONARY ANGIOPLASTY WITH STENT PLACEMENT RENAL ARTERY STENT TIBIA FRACTURE SURGERY Left Family History Problem Relation Name Age of Onset Heart disease Mother Hypertension Mother Stroke Mother Cancer Father Heart disease Sister Hypertension Sister Social History Tobacco Use Smoking status: Former Types: Cigarettes Smokeless tobacco: Never Substance Use Topics Alcohol use: Yes Alcohol/week: 1.0 standard drink of alcohol Types: 1 Cans of beer per week Allergies: Patient has no known allergies. Vitals: 03/02/24 1447 BP: 144/68 Pulse: 66 SpO2: 97% There is no height or weight on file to calculate BMI. Neurologic exam: Mental status: Awake, alert to person, place and time. Recent and remote memory are intact. Language is fluent without aphasia. Attention and concentration are normal. Fund of knowledge is appropriate for level of education. Cranial nerves: CN II: Visual acuity is normal. Visual vaughn full to confrontation. CN III, IV, : pupils equal round and reactive to light. Extraocular movements intact. No ptosis present. CN V: Facial sensation is normal. CN VII: Full and symmetric facial movement. CN VIII: Hearing is normal to finger rub bilaterally: CN IX and X: Palate elevates symmetrically. CN XI: Shoulder shrug is normal bilaterally. CN XII: Tongue is midline without atrophy or fasciculation. Motor: RUE Strength deltoid, , biceps , triceps , wrist extensors , wrist flexor , orthodontic treatment coordinator strength 5/5. LUE Strength deltoid , biceps , triceps , wrist extensors , wrist flexor , orthodontic treatment coordinator strength 5/5. RLE Strength illopsoas, quadriceps, tibialis anterior, and gastrocnemius strength 5/5. LLE Strength illopsoas, quadriceps, tibialis anterior, and gastrocnemius strength 5/5. Normal tone x4 extremities. Bulk is normal. Sensory: Sensation is intact to light touch throughout Four extremities. Reflexes: RUE biceps reflex 1+ brachioradialis reflex 2+ . LUE biceps reflex 1+ brachioradialis reflex 2+ . RLE knee reflex 0 . LLE knee reflex 0. Cobb's sign negative. Coordination: [id number] testing and rapid alternating movements are normal Gait: Normal Review and summary of old records: Arterial Doppler scan on 01/26/2024: No hemodynamically significant peripheral vascular occlusive disease at rest in either lower extremity Assessment/Plan Diagnoses and all orders for this visit: Paresthesia It is my impression that the patient had cramping and paresthesias in the bilateral upper extremities that was quite severe over a period of 2-3 weeks. He states that this has recently gotten significantly better. He does have a history of diabetes but what he describes seem to be pain radiating downward from his back and create and cramping in his thighs and in the backs of his legs. He also relates that he has recently been diagnosed with and gotten over COVID-19 infection. I wonder if the infection led to the cramping and the viral syndrome led to the sensation of pain in his legs. He did have an arterial Doppler scan in late December which was unremarkable. His neurologic exam today is unremarkable. His symptoms are reasonably well controlled and he does have a known history of neuropathy for which he takes gabapentin. Plan: Continue gabapentin 600 mg p.o. b.I.d. for neuropathy The patient can follow up with us as needed. If symptoms return we can consider physical therapy, electrodiagnostic testing or imaging as appropriate The patient understands and is agreeable to the plan. Pt has been fully educated on their diagnosis, treatment options, follow up plan, and return instructions documented in this encounterShriners Hospitals for [id number] Evaluation note* Diagnosis Onset Date Resolution Status Admit Date COVID-19 acute February 10, 2024 2:49pm [facility] Work Phone: 1(902) 144-566911-12-2024 Evaluation note* Diagnosis Onset Date Resolution Status Admit Date COVID-19 acute February 10, 2024 2:49pm BMI 25.0-25.9,adult acute Jan2024 12:55pm Dietary counseling and surveillance acute April 06 12:55pm Essential (primary) hypertension acute April 06 12:55pm Neuropathy acute April 06 025 12:55pm Type 2 diabetes mellitus wit h hyperglycemia acute April 06 12:55pm Vitamin D deficiency, unspecified acute April 06 12:55pm Vitamin B 12 deficiency noneactive J anuary 2024 12:55pm [facility] Work Phone: 1(443) 589-992511-12-2024 Evaluation note* Diagnosis Onset Date Resolution Status Admit Date COVID-19 acute February 10, 2024 2:49pm Essential (primary) hypertension acute April 05 8:57am Neuropathic pain of both feet acute April 05, 2024 8:57am Type 2 diabetes mellitus wit h hyperglycemia acute April 05 8:57am BMI 25.0-25.9,adult acute 2024 12:55pm Dietary counseling and surveillance April 06 12:55pm Essential (primary) hypertension April 06 12:55pm Neuropathy acute April 06 12:55pm Type 2 diabetes mellitus wit h hyperglycemia acute April 06 12:55pm Vitamin D deficiency, unspecified acute April 06 12:55pm Vitamin B 12 deficiency noneactive J anuary 2024 12:55pm Type 2 diabetes mellitus wit h hyperglycemia acute April 20 9:02am [facility] Work Phone: 1(918) 410-848509-23-2024 History of Present illness Narrative* Vin Jalloh, DP - 12/22/2023 3:30 PM EDT Reason for Visit: NEW PATIENT: Bilateral foot Pain Second Complaint: Annual Comprehensive Diabetic Foot Examination HPI NEW PATIENT presents for bilateral foot pain. He states that the pain is from his heels to the tipsof the toes. Patient has neuropathy. Patient states that his worst pain is at night and will wake him up at night. Patient states that the pain will cause severe pain and cramping all along the bottom of his feet. Patient states that the symptoms started several days after starting Aleve for hand pain. Patient stopped the Aleve and continues to have pain. Patient states that pain is increased if he is barefoot. Second Complaint: Annual Comprehensive Diabetic Foot Examination. AM glucose: 119. Review of Systems General: Chills denies. Fatigue denies. Fever denies. Night sweats denies. Endocrine: Diabetes denies. Hyperpigmentation denies. Weakness denies. Cardiovascular: Chest pain denies. Shortness of breath denies. Gastrointestinal: Constipation denies. Diarrhea denies. Nausea denies. Vomiting denies. Hematology: Anemia denies. Bleeding problems denies. Easy bruising denies. Musculoskeletal: Bone/joint symptoms denies. Leg cramps denies. Peripheral Vascular: Edema denies. Raynaud's denies. Rest pain denies. Varicose veins denies. Skin: Nail changes denies. Rash denies. Skin lesion(s) denies. Ulceration admits. Neurologic: Dizziness denies. Gait abnormality denies. Headache denies. Tingling/Numbness denies. Examination General Examination: GENERAL EXAMINATION: awake, aware of surroundings, in no acute distress. Vascular: DORSALIS PEDIS PULSE: Barely palpable bilateral: 1/4. POSTERIOR TIBIAL PULSE: barely palpable bilateral: 1/4. TEMPERATURE GRADIENT: warm to cool. EDEMA: minimal bilateral lower extremity CAPILLARY FILLING TIME(sec): less than 2 seconds bilateral. Ankle / Foot: MUSCLE STRENGTH: 5 minus/5 to the major muscle groups. However, single leg stance is significantly weakened patient has risk for falls due to neuropathy as well as weakness. Neurologic: VIBRATORY: Inconsistent lower extremity bilaterally SEMMES-MIHIR 5.07 MONOFILAMENT: inconsistent bilateral lower extremity NEUROLOGIC: peripheral neuropathy bilateral lower extremity Dermatologic: SKIN FINDINGS: skin is thin, dry, poorly hydrated, poor skin turgor, no sign of infection. HYPERKERATOSIS: none NAIL PATHOLOGY: Intact toenails to 1-5 bilaterally. Orthopedic: JOINT RANGE OF MOTION: normal. DEFORMITIES no gross deformities ORTHOPEDIC: no gross deformities PAIN ON PALPATION: PAIN ON ROM: SHOE GEAR EVALUATION: athletic shoes bilateral foot. Note: No cramping was appreciated on today's date/visit the tests were performed see if that can beaggravated to assist with possible diagnosis / find etiology. Imaging: Deferred. Assessments Cramping bilateral foot Bilateral foot pain -neuropathic in nature Diabetes mellitus type 2 with neuropathy Peripheral arterial disease Weakness bilateral lower extremity especially single leg stance - patient is a high fall risk. Pre-ulcerative callus left foot plantar medial 1st metatarsophalangeal joint Plan New patient seen today for bilateral foot cramping /pain. Physical examination was performed the patient was not require any radiographic imaging at this time. Patient was advised of the benefits of activity modification and the need to avoid activities that aggravate the injured anatomy, i.e. prolonged weightbearing/standing, bending, kneeling, squatting, climbing steps/stairs/ladders, and exercising. Patient voiced understanding. Patient was advised that he does have a component of weakness with neuropathy and peripheral arterial disease compounded with diabetes which make him a fall risk. He was advised about need for physical therapy and home exercise program for fall preventive measures. He did not wish to make a decision at this point I advised I would be glad to write a prescription to send him up with physical therapy to teach him what exercises to be performed at home as well. He would reconsider. Patient was advised that further evaluation of noninvasive vascular studies/ CHESTER / PVR should be obtained with digital toe pressures as that could be a source of his pathology of symptoms of burning and pain as well as possible ischemic pain. We will contact PCP to see if we are able to increase gabapentin for patient's neurological symptoms and inform patient appropriately. For cramping: Patient was advised about need for calf stretching, increasing his foot intrinsic muscular strength, appropriate shoe gear with possible inserts with calluses and neuropathy patient should qualify for diabetic shoes through Medicare part B we will check for insurance appropriately. Patient was also advised to begin drinking tonic water throughout the day to see if this reduces cramping. If cavernous not improve further evaluation medically including lab work and urinalysis could be obtained. He was advised to continue oral multivitamin daily as well as to consider orally 1 banana a day. Reappoint p.r.n. Diabetes mellitus with neuropathy 1. NEW patient seen today for examination and Annual Comprehensive Diabetic Foot Examination was performed. 2. Patient advised to always maintain proper diabetic control. 3. Patient advised to wash and dry bilateral foot once daily and apply a good moisturizing cream tobilateral lower extremity, except for in between toes, post bathing to keep skin from becoming too dry. 4. Patient advised to perform daily foot inspections and observe for any signs of skin breakdown. documented in this encounterShriners Hospitals for [id number] Evaluation note* Diagnosis Onset Date Resolution Status Admit Date Arthritis of finger acute Septe mber 2023 9:24am Trigger finger, left index finger acute December 02 9:24am Trigger finger, right index finger acute December 02 9:24am Trigger finger, right middle finger acute December 02 9:24am BMI 25.0-25.9,adult acute Octob er 2023 12:55pm Dietary counseling and surveillance acute December 29 12:55pm Essential (primary) hypertension acute December 29 12:55pm Neuropathy acute December 29 12:55pm Type 2 diabetes mellitus with hyperglycemia acute December 30, 2023 12:55pm Vitamin D deficiency, unspecified acute December 29 12:55pm Vitamin B 12 deficiency noneactive O ctober 2023 12:55pm Claudication acute January 01, 2024 8:58am Neuropathic pain of both feet acute December 31 8:58am Neuropathy acute December 31 8:58am Contact with and (suspected) exposure to covid-19 noneactive February 092023 2:49pm [facility] Work Phone: 1(781) 348-894207-02-2024 [facility] History and physical note Author David Solano [facility] August 21, 2023 10:46am Note Date/Time August 21, 2023 10:46 am [facility] [address] [place] [address] Gastroenterology H&P Signed Patient: Dillon Stephenson MR#: [id number] : 1945 Acct:[id number] Age/Sex: 78 / M Adm Date: 4 Loc: Room: Type: [facility] Attending Dr: David Solano MD Copies to: MD Simone Lockwood MD~ Date of Service: 08/21/2023 HISTORY & PHYSICAL: Patient's history with special attention to the cardiovascular, pulmonary systems and the current problem was reviewed with the patient immediately prior to the procedure. Present medications and doses reviewed in the EMR. Allergies and pertinent laboratory tests were also reviewedat this time in the EMR. The physical examination, as below, was then performed. Indication, assessment and HPI: 78-year-old male presents for EGD to evaluate dysphagia to solids. Denies heartburn. Family history of GI malignancy? No PHYSICAL EXAMINATION Mouth and Pharynx : Moist mucus membranes, normal dentition Cardiac: Regular rate, regular rhythm Pulmonary: Clear to auscultation bilaterally, no wheezing Neurological: Alert and oriented x3, no focal deficits noted Abdomen: Abdomen soft, non-tender REVIEW OF SYSTEMS Constitutional: Denies malaise, fevers Cardiovascular: Denies chest pain, palpitations Respiratory: Denies shortness of breath, wheezing Gastrointestinal: Per HPI Genitourinary: Denies dysuria, polyuria Musculoskeletal: Denies joint swelling, joint stiffness Neurological: Denies numbness, tingling Integumentary: Denies rashes, skin lesions Endocrine: Denies fatigue, weight loss Written informed consent obtained from the patient. Risks (including but not limited to perforation, infection, bloating, bleeding, need for emergent surgeryand loss of life), benefits and alternatives explained and questions answered. The patient verbalized understanding. Based on history patient is an appropriate candidate for the procedure. David Solano MD Documented By: David Solano MD 08/21/23 1034 Signed By: <Electronically signed by David Solano MD> 08/21/23 1046 [facility] Work Phone: [phone] 645-340305-23-2024 [facility]* Encounter Date Diagnosis Assessment Notes Treatment Notes Treatment Clinical Notes Dec, Type 2 diabetes mellitus with hyperglycemia (ICD-10 - E11.65) Healthy diet and exercise encouraged. Weight loss helps to reduce blood sugars and A1C. Wear supportive shoes, avoid open toed shoes. Check feet daily. Yearly eye exam is extremely important A1C in the next week. Enforced the importance of meal content and meal timing. Patient to snack at bedtime to avoid Hypoglycemic episodes. Increase exercise regimen and remain active. Goal is between 6.5 - 7.5. Continue with above medication and we will continue to monitor every 3 months. Dec, Essential (primary) hypertension (ICD-10 - I10) Blood pressure remains well controlled at this time. Denies cardiac symptoms. Shows no signs or symptoms or poor control. Patient to continue with above medication and we will continue to monitor. Advised to pay attention to body and symptoms. Any developing patterns. Stay well hydrated. [employer] Other 04-03-2023 Evaluation note* Encounter Date Diagnosis Assessment Notes Treatment Notes Treatment Clinical Notes Jun, Essential (primary) hypertension (ICD-10 - I10) chronic, stable on present med Jun, Type 2 diabetes mellitus with hyperglycemia, without long-term current use of insulin (ICD-10 - E11.65) chronic, stable on present med Jun, Mixed hyperlipidemia (ICD-10 - E78.2) chronic, stable on present med [employer] Other 01-04-2023 Hospital Discharge instructions Patient Education 04/03/2022 14:39:51 Benign Prostatic Hyperplasia Benign Prostatic Hyperplasia Benign prostatic hyperplasia (BPH) is an enlarged prostate gland that is caused by the normal agingprocess and not by cancer. The prostate is a walnut-sized gland that is involved in the production of semen. It is located in front of the rectum and below the bladder. The bladder stores urine and the urethra is the tube that carries the urine out of the body. The prostate may get bigger as a man gets older. An enlarged prostate can press on the urethra. This can make it harder to pass urine. The build-up of urine in the bladder can cause infection. Back pressure and infection may progress to bladder damage and kidney (renal) failure. What are the causes? This condition is part of a normal aging process. However, not all men develop problems from this condition. If the prostate enlarges away from the urethra, urine flow will not be blocked. If it enlarges toward the urethra and compresses it, there will be problems passing urine. What increases the risk? This condition is more likely to develop in men over the age of 50 years. What are the signs or symptoms? Symptoms of this condition include: Getting up often during the night to urinate. Needing to urinate frequently during the day. Difficulty starting urine flow. Decrease in size and strength of your urine stream. Leaking (dribbling) after urinating. Inability to pass urine. This needs immediate treatment. Inability to completely empty your bladder. Pain when you pass urine. This is more common if there is also an infection. Urinary tract infection (UTI). How is this diagnosed? This condition is diagnosed based on your medical history, a physical exam, and your symptoms. Tests will also be done, such as: A post-void bladder scan. This measures any amount of urine that may remain in your bladder after you finish urinating. A digital rectal exam. In a rectal exam, your health care provider checks your prostate by putting a lubricated, gloved finger into your rectum to feel the back of your prostate gland. This exam detects the size of your gland and any abnormal lumps or growths. An exam of your urine (urinalysis). A prostate specific antigen (PSA) screening. This is a blood test used to screen for prostate cancer. An ultrasound. This test uses sound waves to electronically produce a picture of your prostate gland. Your health care provider may refer you to a specialist in kidney and prostate diseases (urologist). How is this treated? Once symptoms begin, your health care provider will monitor your condition (active surveillance or watchful waiting). Treatment for this condition will depend on the severity of your condition. Treatment may include: Observation and yearly exams. This may be the only treatment needed if your condition and symptoms are mild. Medicines to relieve your symptoms, including: ?Medicines to shrink the prostate. ?Medicines to relax the muscle of the prostate. Surgery in severe cases. Surgery may include: ?Prostatectomy. In this procedure, the prostate tissue is removed completely through an open incision or with a laparoscope or robotics. ?Transurethral resection of the prostate (TURP). In this procedure, a tool is inserted through the opening at the tip of the penis (urethra). It is used to cut away tissue of the inner core of the prostate. The pieces are removed through the same opening of the penis. This removes the blockage. ?Transurethral incision (TUIP). In this procedure, small cuts are made in the prostate. This lessens the prostate's pressure on the urethra. ?Transurethral microwave thermotherapy (TUMT). This procedure uses microwaves to create heat. The heat destroys and removes a small amount of prostate tissue. ?Transurethral needle ablation (TUNA). This procedure uses radio frequencies to destroy and remove a small amount of prostate tissue. ?Interstitial laser coagulation (ILC). This procedure uses a laser to destroy and remove a small amount of prostate tissue. ?Transurethral electrovaporization (TUVP). This procedure uses electrodes to destroy and remove a small amount of prostate tissue. ?Prostatic urethral lift. This procedure inserts an implant to push the lobes of the prostate away from the urethra. Follow these instructions at home: Take [id number] and prescription medicines only as told by your health care provider. Monitor your symptoms for any changes. Contact your health care provider with any changes. Avoid drinking large amounts of liquid before going to bed or out in public. Avoid or reduce how much caffeine or alcohol you drink. Give yourself time when you urinate. Keep all follow-up visits as told by your health care provider. This is important. Contact a health care provider if: You have unexplained back pain. Your symptoms do not get better with treatment. You develop side effects from the medicine you are taking. Your urine becomes very dark or has a bad smell. Your lower abdomen becomes distended and you have trouble passing your urine. Get help right away if: You have a fever or chills. You suddenly cannot urinate. You feel lightheaded, or very dizzy, or you faint. There are large amounts of blood or clots in the urine. Your urinary problems become hard to manage. You develop moderate to severe low back or flank pain. The flank is the side of your body between the ribs and the hip. These symptoms may represent a serious problem that is an emergency. Do not wait to see if the symptoms will go away. Get medical help right away. Call your local emergency services (911 in the [place] Do not drive yourself to the hospital. Summary Benign prostatic hyperplasia (BPH) is an enlarged prostate that is caused by the normal aging process and not by cancer. An enlarged prostate can press on the urethra. This can make it hard to pass urine. This condition is part of a normal aging process and is more likely to develop in men over the age of 50 years. Get help right away if you suddenly cannot urinate. This information is not intended to replace advice given to you by your health care provider. Make sure you discuss any questions you have with your health care provider. Document Released: 03/17/2006 Document Revised: 02/09/2019 Document Reviewed: 04/21/2017 [employer] Patient Education 2020 [employer]. Follow Up Care 01/23/2021 12:33:33 With:TRESA RAMÍREZ PA-C, URL Address: [address] [place] [address] [phone] When: Unknown Comments:KARINA [facility] 01-03-2023 Evaluation note* Encounter Date Diagnosis Assessment Notes Treatment Notes Treatment Clinical Notes Mar, Essential (primary) hypertension (ICD-10 - I10) stable on present dose Mar, Type 2 diabetes mellitus with hyperglycemia, without long-term current use of insulin (ICD-10 - E11.65) will continue present doses. states that his glucose has been stable. Will assess with lab later this month. Mar, Mixed hyperlipidemia (ICD-10 - E78.2) Will assess lipid panel later this month. Encouraged healthy diet and exercise. Lipid panel reviewed at length with the patient. LDL, HDL and trig''s reviewed along with recommended goals. Treatment options discussed including convervative measures with diet and exercise vs. rx options Mar, Annual physical exam (ICD-10 - Z00.00) [employer] Other chief complaint+Reason for visit Narrative* Chief Complaint Medicare Wellness Referral Simone Huang/New DMN/ meter Reason for Visit Esophageal abnormali ty Finger dysfunction Medicare annual wellness visit, subsequent Type 2 diabetes mellitus with hyperglycemia Type 2 diabetes mellitus with hyperglycemia Vitamin D deficiency, unspecified [facility] Work Phone: chief complaint+Reason for visit Narrative* Chief Complaint Medicare Wellness Referral Simone Huang/New DMN/ meter Dysphagia Dysphagia Reason for Visit Esophageal abnormali ty Finger dysfunction Medicare annual wellness visit, subsequent Type 2 diabetes mellitus with hyperglycemia BMI 25.0-25.9,adult Dietary counseling and surveillance Essential (primary) hypertension Neuropathy Type 2 diabetes mellitus with hyperglycemia Vitamin D deficiency, unspecified [facility] Work Phone: chief complaint+Reason for visit Narrative* Chief Complaint Medicare Wellness Referral Simone Huang/New DMN/ meter Dysphagia Dysphagia DMN f/u-Meter Reason for Visit Esophageal abnormali ty Finger dysfunction Medicare annual wellness visit, subsequent Type 2 diabetes mellitus with hyperglycemia BMI 25.0-25.9,adult Dietary counseling and surveillance Essential (primary) hypertension Neuropathy Type 2 diabetes mellitus with hyperglycemia Vitamin D deficiency, unspecified BMI 25.0-25.9,adult Dietary counseling and surveillance Essential (primary) hypertension Neuropathy Type 2 diabetes mellitus with hyperglycemia Vitamin D deficiency, unspecified [facility] Work Phone: Chief complaint+Reason for visit Narrative* Chief Complaint Medicare Wellness Referral Simone Huang/Dewayne DMN/ meter Dysphagia Dysphagia DMN f/u-Meter Vitamin D deficiency Neuropathy Encounter for diet Reason for Visit Esophageal abnormali ty Finger dysfunction Medicare annual wellness visit, subsequent Type 2 diabetes mellitus with hyperglycemia BMI 25.0-25.9,adult Dietary counseling and surveillance Essential (primary) hypertension Neuropathy Type 2 diabetes mellitus with hyperglycemia Vitamin D deficiency, unspecified BMI 25.0-25.9,adult Dietary counseling and surveillance Essential (primary) hypertension Neuropathy Type 2 diabetes mellitus with hyperglycemia Vitamin D deficiency, unspecified [facility] Work Phone: Chief complaint+Reason for visit Narrative* Chief Complaint Medicare Wellness Referral Simone Huang/Dewayne DMN/ meter Dysphagia Dysphagia DMN f/u-Meter E55.9 G62.9 Z71.3 Z68.25 E11.65 I10 esophageal stricture esophageal stricture Reason for Visit Esophageal abnormali ty Finger dysfunction Medicare annual wellness visit, subsequent Type 2 diabetes mellitus with hyperglycemia BMI 25.0-25.9,adult Dietary counseling and surveillance Essential (primary) hypertension Neuropathy Type 2 diabetes mellitus with hyperglycemia Vitamin D deficiency, unspecified BMI 25.0-25.9,adult Dietary counseling and surveillance Essential (primary) hypertension Neuropathy Type 2 diabetes mellitus with hyperglycemia Vitamin D deficiency, unspecified [facility] Work Phone: Evaluation + Plan note No data available for this section [facility] evaluation noteNo [facility] [employer] Other Evaluation note* Diagnosis Onset Date Resolution Status Esophageal abnormality acute Finger dysfunction acute Type 2 diabetes mellitus with hyperglycemia acute [facility] Work Phone: Evaluation note* Diagnosis Onset Date Resolution Status Esophageal abnormality acute Finger dysfunction acute Medicare annual wellness visit, subsequent acute Type 2 diabetes mellitus with hyperglycemia acute Type 2 diabetes mellitus with hyperglycemia acute Vitamin D deficiency, unspecified acute [facility] Work Phone: evaluation note* Diagnosis Onset Date Resolution Status Esophageal abnormality acute Finger dysfunction acute Medicare annual wellness visit, subsequent acute Type 2 diabetes mellitus with hyperglycemia acute BMI 25.0-25.9,adult acute Dietary counseling and surveillance acute Essential (primary) hypertension acute Neuropathy acute Type 2 diabetes mellitus with hyperglycemia acute Vitamin D deficiency, unspecified acute [facility] Work Phone: evaluation note* Diagnosis Onset Date Resolution Status Esophageal abnormality acute Finger dysfunction acute Medicare annual wellness visit, subsequent acute Type 2 diabetes mellitus with hyperglycemia acute BMI 25.0-25.9,adult acute Dietary counseling and surveillance acute Essential (primary) hypertension acute Neuropathy acute Type 2 diabetes mellitus with hyperglycemia acute Vitamin D deficiency, unspecified acute BMI 25.0-25.9,adult acute Dietary counseling and surveillance acute Essential (primary) hypertension acute Neuropathy acute Type 2 diabetes mellitus with hyperglycemia acute Vitamin D deficiency, unspecified acute [facility] Work Phone: evaluzcojk note* Diagnosis Onset Date Resolution Status BMI 25.0-25.9,adult acute Dietary counseling and surveillance acute Essential (primary) hypertension acute Neuropathy acute Type 2 diabetes mellitus with hyperglycemia acute Vitamin D deficiency, unspecified acute Arthritis of finger acute Trigger finger, left index finger acute Trigger finger, right index finger acute Trigger finger, right middle finger acute [facility] Work Phone: evaluation note* Diagnosis Onset Date Resolution Status BMI 25.0-25.9,adult acute Dietary counseling and surveillance acute Essential (primary) hypertension acute Neuropathy acute Type 2 diabetes mellitus with hyperglycemia acute Vitamin D deficiency, unspecified acute Arthritis of finger acute Trigger finger, left index finger acute Trigger finger, right index finger acute Trigger finger, right middle finger acute Arthritis of finger acute Trigger finger, left index finger acute Trigger finger, right index finger acute Trigger finger, right middle finger acute [facility] Work Phone: evaluation note* Diagnosis Onset Date Resolution Status Arthritis of finger acute Trigger finger, left index finger acute Trigger finger, right index finger acute Trigger finger, right middle finger acute Arthritis of finger acute Trigger finger, left index finger acute Trigger finger, right index finger acute Trigger finger, right middle finger acute [facility] Work Phone: evaluation note* Diagnosis Onset Date Resolution Status Arthritis of finger acute Trigger finger, left index finger acute Trigger finger, right index finger acute Trigger finger, right middle finger acute Arthritis of finger acute Trigger finger, left index finger acute Trigger finger, right index finger acute Trigger finger, right middle finger acute BMI 25.0-25.9,adult acute Dietary counseling and surveillance acute Essential (primary) hypertension acute Neuropathy acute Type 2 diabetes mellitus with hyperglycemia acute Vitamin D deficiency, unspecified acute [facility] Work Phone: Evaluation note* Diagnosis Onset Date Resolution Status Arthritis of finger acute Trigger finger, left index finger acute Trigger finger, right index finger acute Trigger finger, right middle finger acute Arthritis of finger acute Trigger finger, left index finger acute Trigger finger, right index finger acute Trigger finger, right middle finger acute BMI 25.0-25.9,adult acute Dietary counseling and surveillance acute Essential (primary) hypertension acute Neuropathy acute Type 2 diabetes mellitus with hyperglycemia acute Vitamin D deficiency, unspecified acute Vitamin B 12 deficiency none active [facility] Work Phone: evaluation note* Diagnosis Onset Date Resolution Status Arthritis of finger acute Trigger finger, left index finger acute Trigger finger, right index finger acute Trigger finger, right middle finger acute Arthritis of finger acute Trigger finger, left index finger acute Trigger finger, right index finger acute Trigger finger, right middle finger acute BMI 25.0-25.9,adult acute Dietary counseling and surveillance acute Essential (primary) hypertension acute Neuropathy acute Type 2 diabetes mellitus with hyperglycemia acute Vitamin D deficiency, unspecified acute Vitamin B 12 deficiency none active Claudication acute Neuropathic pain of both feet acute Neuropathy acute [facility] Work Phone: evaluation note* Diagnosis Paresthesia- Primary Disturbance of skin sensation documented [facility] this encounter [facility] Diagnosis Pain of right foot- Primary Pain of left foot Type 2 diabetes mellitus with diabetic neuropathy, unspecified whether termite exterminator insulin use (CMS/HCC) Cramping of feet Cramp of limb Weakness of both lower extremities Pre-ulcerative calluses Peripheral arterial disease (CMS/HCC) Unspecified peripheral vascular disease documented in this encounter [facility] Author David Solano [facility] September 30, 2023 1:13pm Note Date/Time September 30, 2023 1:13p m [facility] [address] [place] [address] Gastroenterology H&P Signed Patient: Dillon Stephenson MR#: [id number] : 1945 Acct:[id number] Age/Sex: 78 / M Adm Date: 4 Loc: Room: Type: [facility] Attending Dr: David Solano MD Copies to: MD Simone Lockwood MD~ Date of Service: 09/30/2023 HISTORY & PHYSICAL: Patient's history with special attention to the cardiovascular, pulmonary systems and the current problem was reviewed with the patient immediately prior to the procedure. Present medications and doses reviewed in the EMR. Allergies and pertinent laboratory tests were also reviewedat this time in the EMR. The physical examination, as below, was then performed. Indication, assessment and HPI: 78 -year-old male who presents for follow-up fordysphagia, GERD with esophagitis, history of squamous papilloma Family history of GI malignancy? no PHYSICAL EXAMINATION Mouth and Pharynx : moist mucus membranes, normal dentition Cardiac: regular rate, regular rhythm Pulmonary: normal respiratory effort, able to speak in complete sentences Neurological: alert and oriented x3, no focal deficits noted Abdomen: Abdomen soft, non-tender REVIEW OF SYSTEMS Constitutional: Denies malaise, fevers Cardiovascular: Denies chest pain, palpitations Respiratory: Denies shortness of breath, wheezing Gastrointestinal: Per HPI Genitourinary: Denies dysuria, polyuria Musculoskeletal: Denies joint swelling, joint stiffness Neurological: Denies numbness, tingling Integumentary: Denies rashes, skin lesions Endocrine: Denies fatigue, weight loss Written informed consent obtained from the patient. Risks (including but not limited to perforation, infection, bloating, bleeding, need for emergent surgeryand loss of life), benefits and alternatives explained and questions answered. The patient verbalized understanding. Based on history patient is an appropriate candidate for the procedure. David Solano MD Documented By: David Solano MD 09/30/23 1313 Signed By: <Electronically signed by David Solano MD> 09/30/23 9353 [facility] Work Phone: History general Narrative - Reported* Type Description Date Medical History diabetes Surgical History left leg surgeries Surgical History prostate surgery Hospitalization History see above [employer] Other Hospital Discharge instructionsAmbulatory Orders* Referral to Diabetes Management Time Frame: 07/02/23, Location: None Selected * Referral to Gastroenterology Time Frame: 07/02/23, Location: None Selected * Referral to Orthopedics Time Frame: 07/02/23, Location: None Selected [facility] Work Phone: Hospital Discharge instructionsAmbulatory Orders* Referral to Podiatry Time Frame: 12/03/23, Location: None Selected [facility] Work Phone: Progress note No data available for this section [facility] reason for referral (narrative)No reason for referral information availableS[facility] Work Phone: Reason for visit Narrative* Consultation (Routine) - Closed Specialty Diagnoses / Procedures Referred By Contac t Referred To Contact Neurology Diagnoses Unspecified mononeuropathy of bilateral lower limbs Procedures [place] OFFICE/OUTPATIENT [facility] 30 MINUTES Simone Huang MD [address] [place] [address] Phone: tel: fax: Lena Ervin MD [address] [place] [address] Phone: tel: fax: Referral ID Status Reason Start Date Expiration Date V isits Requested Visits Authorized [id number] Closed Consult and Treat 02/03/2024 08/01/2024 1 1 [facility] Healthcare Summary Purpose Family History Relationship Condition Age at Onset Recorded Date/T [place] father Unknown Not Specified Diabetes mellitus Unknown Unknown Relationship Condition Age at Onset Recorded Date/T [place] father Unknown Not Specified Diabetes mellitus Unknown Unknown brother Diabetes mellitus Unknown Relationship Condition Age at Onset Recorded Date/T [place] father Unknown Malignant neoplasm of brain Unknown Malignant neoplasm of stomach Unknown Not Specified Diabetes mellitus Unknown Unknown Myocardial infarction Unknown Cerebrovascular accident (CVA) Unknown Hypertension Unknown brother Diabetes mellitus Unknown Relationship Condition Age at Onset Recorded Date/[place] father Unknown Malignant neoplasm of brain Unknown Malignant neoplasm of stomach Unknown mother Diabetes mellitus Unknown Unknown Myocardial infarction Unknown Cerebrovascular accident (CVA) Unknown Hypertension Unknown brother Diabetes mellitus Unknown Advance Directives Advance Directive Response Recorded Date/ Time Advance Directives No 2023 11:08am Advance Directive Response Recorded Date/ Time Advance Directives No August 14 11:05am Advance Directive Response Recorded Date/ Time Advance Directives No November 04 3:23pm Advance Directive Response Recorded Date/ Time Advance Directives No January 01, 2024 9:49am Advance Directive Response Recorded Date/ Time Advance Directives No January 01, 2024 8:49am Advance Directive Response Recorded Date/ Time Advance Directives No November 04 2:23pm Chief Complaint and Reason for Visit Chief Complaint Medicare Wellness Reason for Visit Esophageal abnormali ty Finger dysfunction Type 2 diabetes mellitus with hyperglycemia Chief Complaint Dysphagia Dysphagia DMN f/u-Meter E55.9 G62.9 Z71.3 Z68.25 E11.65 I10 esophageal stricture esophageal stricture CONSULT DR SIMONE HUANG Reason for Visit BMI 25.0-25.9,adult Dietary counseling and surveillance Essential (primary) hypertension Neuropathy Type 2 diabetes mellitus with hyperglycemia Vitamin D deficiency, unspecified Arthritis of finger Trigger finger, left index finger Trigger finger, right index finger Trigger finger, right middle finger Chief Complaint DMN f/u-Meter E55.9 G62.9 Z71.3 Z68.25 E11.65 I10 esophageal stricture esophageal stricture CONSULT DR SIMONE HUANG 4 WEEKS Reason for Visit BMI 25.0-25.9,adult Dietary counseling and surveillance Essential (primary) hypertension Neuropathy Type 2 diabetes mellitus with hyperglycemia Vitamin D deficiency, unspecified Arthritis of finger Trigger finger, left index finger Trigger finger, right index finger Trigger finger, right middle finger Arthritis of finger Trigger finger, left index finger Trigger finger, right index finger Trigger finger, right middle finger Chief Complaint esophageal stricture esophageal stricture CONSULT DR SIMONE HUANG 4 WEEKS Reason for Visit Arthritis of finger Trigger finger, left index finger Trigger finger, right index finger Trigger finger, right middle finger Arthritis of finger Trigger finger, left index finger Trigger finger, right index finger Trigger finger, right middle finger Chief Complaint CONSULT DR SIMONE COKER 4 WEEKS 3 month f/u DMN f/u Reason for Visit Arthritis of finger Trigger finger, left index finger Trigger finger, right index finger Trigger finger, right middle finger Arthritis of finger Trigger finger, left index finger Trigger finger, right index finger Trigger finger, right middle finger BMI 25.0-25.9,adult Dietary counseling and surveillance Essential (primary) hypertension Neuropathy Type 2 diabetes mellitus with hyperglycemia Vitamin D deficiency, unspecified Chief Complaint CONSULT DR SIMONE COKER 4 WEEKS 3 month f/u DMN f/u 6 month follow up Reason for Visit Arthritis of finger Trigger finger, left index finger Trigger finger, right index finger Trigger finger, right middle finger Arthritis of finger Trigger finger, left index finger Trigger finger, right index finger Trigger finger, right middle finger BMI 25.0-25.9,adult Dietary counseling and surveillance Essential (primary) hypertension Neuropathy Type 2 diabetes mellitus with hyperglycemia Vitamin D deficiency, unspecified Vitamin B 12 deficiency Chief Complaint CONSULT DR SIMONE COKER 4 WEEKS 3 month f/u DMN f/u 6 month follow up CC Adult Risk Stratification i73.9 Reason for Visit Arthritis of finger Trigger finger, left index finger Trigger finger, right index finger Trigger finger, right middle finger Arthritis of finger Trigger finger, left index finger Trigger finger, right index finger Trigger finger, right middle finger BMI 25.0-25.9,adult Dietary counseling and surveillance Essential (primary) hypertension Neuropathy Type 2 diabetes mellitus with hyperglycemia Vitamin D deficiency, unspecified Vitamin B 12 deficiency Claudication Neuropathic pain of both feet Neuropathy Chief Complaint Admit Date 4 WEEKS December 03, 2023 9:24am 3 month f/u DMN f/u December 30, 2023 12 :55pm 6 month follow up January 01, 2024 8: 58am CC Adult Risk Stratification December 12:25pm i73.9 January 26, 2024 9 :27am covid test, tired, weak February 09, 2 024 2:49pm Reason for Visit Admit Date Arthritis of finger December 03, 2023 9:24am Trigger finger, left index finger 2023 9:24am Trigger finger, right index finger Septe mb2023 9:24am Trigger finger, right middle finger Sept ember 2023 9:24am BMI 25.0-25.9,adult December 30, 2023 12 :55pm Dietary counseling and surveillance Octo 2023 12:55pm Essential (primary) hypertension December 30, 2023 12:55pm Neuropathy December 30, 2023 12 :55pm Type 2 diabetes mellitus with hyperglyce tana December 30, 2023 12:55pm Vitamin D deficiency, unspecified Octobe 2023 12:55pm Vitamin B 12 deficiency December 29 12:55pm Claudication January 01, 2024 8: 58am Neuropathic pain of both feet December 8:58am Neuropathy January 01, 2024 8: 58am Contact with and (suspected) exposure to covid-February 10, 2024 2:49pm Chief Complaint Admit Date i73.9 January 26, 2024 9 :27am covid test, tired, weak February 09, 2 024 2:49pm 3 month f/u April 05, 2024 8: 57am Reason for Visit Admit Date COVID-February 10, 2024 2:49pm Chief Complaint Admit Date i73.9 January 26, 2024 9 :27am covid test, tired, weak February 09, 2 024 2:49pm 3 month f/u April 05, 2024 8: 57am 3 month-DMN f/u / meter April 06 12:55pm Reason for Visit Admit Date COVID-February 10, 2024 2:49pm BMI 25.0-25.9,adult April 06, 2024 12 :55pm Dietary counseling and surveillance Jamir mcdaniel 2024 12:55pm Essential (primary) hypertension April 06, 2024 12:55pm Neuropathy April 06, 2024 12 :55pm Type 2 diabetes mellitus with hyperglyce tana April 06, 2024 12:55pm Vitamin D deficiency, unspecified Januar y 2024 12:55pm Vitamin B 12 deficiency April 06 12:55pm Chief Complaint Admit Date i73.9 January 26, 2024 9 :27am covid test, tired, weak February 09, 2 024 2:49pm 3 month f/u April 05, 2024 8: 57am 3 month-DMN f/u / meter April 06 12:55pm 2 week April 20, 2024 9 :02am Reason for Visit Admit Date COVID-February 10, 2024 2:49pm Essential (primary) hypertension April 05, 2024 8:57am Neuropathic pain of both feet March 8:57am Type 2 diabetes mellitus with hyperglyce tana April 05, 2024 8:57am BMI 25.0-25.9,adult April 06, 2024 12 :55pm Dietary counseling and surveillance Jamir mcdaniel 2024 12:55pm Essential (primary) hypertension April 06, 2024 12:55pm Neuropathy April 06, 2024 12 :55pm Type 2 diabetes mellitus with hyperglyce tana April 06, 2024 12:55pm Vitamin D deficiency, unspecified Maruar 2024 12:55pm Vitamin B 12 deficiency April 06 12:55pm Type 2 diabetes mellitus with hyperglyce tana April 20, 2024 9:02am Chief Complaint Admit Date 3 month f/u April 05, 2024 8: 57am 3 month-DMN f/u / meter April 06 12:55pm 2 week April 20, 2024 9 :02am DMN f/u / meters May 26, 2024 10:14am Reason for Visit Admit Date Essential (primary) hypertension April 05, 2024 8:57am Neuropathic pain of both feet March 8:57am Type 2 diabetes mellitus with hyperglyce tana April 05, 2024 8:57am BMI 25.0-25.9,adult April 06, 2024 12 :55pm Dietary counseling and surveillance Jamir mcdaniel 2024 12:55pm Essential (primary) hypertension April 06, 2024 12:55pm Neuropathy April 06, 2024 12 :55pm Type 2 diabetes mellitus with hyperglyce tana April 06, 2024 12:55pm Vitamin D deficiency, unspecified Maruar 2024 12:55pm Vitamin B 12 deficiency April 06 12:55pm Type 2 diabetes mellitus with hyperglyce tana April 20, 2024 9:02am BMI 25.0-25.9,adult May 26, 2024 10:14am Dietary counseling and surveillance [facility] uary 2024 10:14am Essential (primary) hypertension r y 2024 10:14am Neuropathy May 26, 2024 10:14am Type 2 diabetes mellitus with hyperglyce tana May 26, 2024 10:14am Vitamin D deficiency, unspecified Februa ry 2024 10:14am Vitamin B 12 deficiency May 26 025 10:14am Chief Complaint Admit Date 2 week April 20, 2024 9 :02am DMN f/u / meters May 26, 2024 10:14am 3 month f/u July 09, 2024 9:2 7am Reason for Visit Admit Date Type 2 diabetes mellitus with hyperglyce tana April 20, 2024 9:02am BMI 25.0-25.9,adult May 26, 2024 10:14am Dietary counseling and surveillance Febr uary 2024 10:14am Essential (primary) hypertension 2024 10:14am Neuropathy May 26, 2024 10:14am Type 2 diabetes mellitus with hyperglyce tana May 26, 2024 10:14am Vitamin D deficiency, unspecified ua ry 2024 10:14am Vitamin B 12 deficiency May 26 10:14am Chief Complaint Admit Date 3 month f/u July 09, 2024 9:2 7am DM 3 month and August 25, 2024 10:19 am Reason for Visit Admit Date Essential (primary) hypertension June 292024 9:27am Type 2 diabetes mellitus with diabetic p olyneuropathy July 09, 2024 9:27am Type 2 diabetes mellitus with other circ ulatory complications July 09, 2024 9:27am Type 2 diabetes mellitus with other spec ified complication July 09, 2024 9:27am BMI 25.0-25.9,adult August 25, 2024 10:19 am Dietary counseling and surveillance August 25, 2024 10:19am Essential (primary) hypertension July 10:19am Neuropathy August 25, 2024 10:19 am Type 2 diabetes mellitus with hyperglyce [facility] August 25, 2024 10:19am Vitamin D deficiency, unspecified August 252024 10:19am Vitamin B 12 deficiency August 25, 2024 1 0:19am Chief Complaint Admit Date 3 month f/u July 09, 2024 9:2 7am DM 3 month and August 25, 2024 10:19 am Sore Feet/Wants Diabetic Shoes August 11:14am 1 year follow up / Gerd October 05, 2024 9 :23am Reason for Visit Admit Date Essential (primary) hypertension June 292024 9:27am Type 2 diabetes mellitus with diabetic p olyneuropathy July 09, 2024 9:27am Type 2 diabetes mellitus with other circ ulatory complications July 09, 2024 9:27am Type 2 diabetes mellitus with other spec ified complication July 09, 2024 9:27am BMI 25.0-25.9,adult August 25, 2024 10:19 am [...] 2024 9:23a m GERD (gastroesophageal reflux disease) William sabina 2024 9:23am Chief Complaint Admit Date DM 3 month and August 25, 2024 10:19 am Sore Feet/Wants Diabetic Shoes August 11:14am 1 year follow up / Gerd October 05, 2024 9 :23am 3 mo f/u October 27, 2024 9:25 am Reason for Visit Admit Date BMI 25.0-25.9,adult [...] 2024 9:23a m GERD (gastroesophageal reflux disease) William kilgorey 2024 9:23am Chief Complaint Admit Date DM 3 month [...] 9:23a m GERD (gastroesophageal reflux disease) J sabina2024 9:23am Essential (primary) hypertension October 272024 9:25am Type 2 diabetes mellitus with diabetic p olyneuropathy October 27, 2024 9:25am Type 2 diabetes mellitus wit h other circulatory complications October 27, 2024 9:25am Type 2 diabetes mellitus with other spec ified complication October 27, 2024 9:25am Constipation November 23, 2024 9: 38am GERD (gastroesophageal reflux disease) A ugust 2024 9:38am Additional Source Comments Patient Care team informatio n (unrecognized section and content) Team Status: Active Member Role Status Dates Simone Huang MD Primary Care Provider Active Team Status: Inactive Member Role Status Dates Simone Huang MD Primary Care Provide r, Attending Provider Active Start: July 02, 2023 End: July 02, 2023 Team Status: Inactive Member Role Status Dates Simone Huang MD Primary Care Provider Active Start: July 28, 2023 End: July 28, 2023 Ragini Mar APRN Attending Provider Active Start: July 28, 2023 End: July 28, 2023 Team Status: Inactive Member Role Status Dates Simone Huang MD Primary Care Provider Active Start: August 21, 2023 End: August 21, 2023 David Solano MD Attending Provider Active S tart: August 21, 2023 End: August 21, 2023 Team Status: Active Member Role Status Dates Simone Huang MD Primary Care Provider Active Start: August 21, 2023 David Solano MD Attending Provider, Other Provide r Active Start: August 21, 2023 Team Status: Inactive Member Role Status Dates Simone Huang MD Primary Care Provider Active Start: September 23, 2023 End: September 23, 2023 Ragini Mar APRN Attending Provider Active Start: September 23, 2023 End: September 23, 2023 Team Status: Inactive Member Role Status Dates Ragini Mar APRN Attending Provider Active Start: September 23, 2023 End: September 23, 2023 Team Status: Inactive Member Role Status Dates Simone Huang MD Primary Care Provider Active Start: September 30, 2023 End: September 30, 2023 David Solano MD Attending Provider Active S tart: September 30, 2023 End: September 30, 2023 Team Status: Active Member Role Status Dates Simone Huang MD Primary Care Provider Active Start: September 30, 2023 David Solano MD Attending Provider, Other Provide r Active Start: September 30, 2023 Team Status: Inactive Member Role Status Dates Simone Huang MD Primary Care Provider Active Start: November 05, 2023 End: November 05, 2023 Siri Coleman MD Attending Provider Active Start: November 05, 2023 End: November 05, 2023 Team Status: Inactive Member Role Status Dates Simone Huang MD Primary Care Provider Active Start: December 03, 2023 End: December 03, 2023 Siri Coleman MD Attending Provider Active Start: December 03, 2023 End: December 03, 2023 Team Status: Active Member Role Status Dates Simone Huang MD Primary Care Provider Active Start: December 22, 2023 Ragini Mar APRN Attending Provider Active Start: December 22, 2023 Team Status: Inactive Member Role Status Dates Simone Huang MD Primary Care Provider Active Start: December 30, 2023 End: December 30, 2023 Ragini Mar APRN Attending Provider Active Start: December 30, 2023 End: December 30, 2023 Team Status: Inactive Member Role Status Dates Simone Huang MD Primary Care Provide r, Attending Provider Active Start: January 01, 2024 End: January 01, 2024 Team Status: Active Member Role Status Dates Simone Huang MD Primary Care Provide r, Attending Provider Active Start: January 01, 2024 Team Status: Inactive Member Role Status Dates Simone Huang MD Primary Care Provide r, Attending Provider Active Start: January 26, 2024 End: January 26, 2024 Team Status: Inactive Member Role Status Dates Simone Huang MD Primary Care Provider Active Start: February 10, 2024 End: February 10, 2024 Luma Ackerman APRN Attending Provider Active Start: February 10, 2024 End: February 10, 2024 Senior Training Specialist Relationship Specialty Start Date End Date Simone Huang MD [address] [facility] [place] [id number] PCP - General Family Medicine 02/03/24 Senior Training Specialist Relationship Specialty Start Date End Date Simone Huang MD [address] [facility] [place] [address] PCP - General Family Medicine 02/03/24 Senior Training Specialist Relationship Specialty Start Date End Date Simone Huang MD [address] [facility] [place] [id number] PCP - General Family Medicine 12/22/23 Senior Training Specialist Relationship Specialty Start Date End Date Simone Huang MD [address] [facility] [place] [address] PCP - General Family Medicine 12/22/23 Team Status: Inactive Member Role Status Dates Simone Huang MD Primary Care Provide r, Attending Provider Active Start: April 05, 2024 End: April 05, 2024 Team Status: Inactive Member Role Status Dates Simone Huang MD Primary Care Provider Active Start: April 06, 2024 End: April 06, 2024 Ragini Mar APRN Attending Provider Active Start: April 06, 2024 End: April 06, 2024 Team Status: Inactive Member Role Status Dates Simone Huang MD Primary Care Provider Active Start: April 20, 2024 End: April 20, 2024 Sherri Medina RN Active Star t: April 20, 2024 End: April 20, 2024 Ragini Mar , MOISES Active Star t: April 20, 2024 End: April 20, 2024 Lan Crowe RN Attending Provider Active St art: April 20, 2024 End: April 20, 2024 Team Status: Inactive Member Role Status Dates Simone Huang MD Primary Care Provider Active Start: May 26, 2024 End: May 26, 2024 Ragini Mar APRN Attending Provider Active Start: May 26, 2024 End: May 26, 2024 Team Status: Inactive Member Role Status Dates Simone Huang MD Primary Care Provide r, Attending Provider Active Start: July 09, 2024 End: July 09, 2024 Team Status: Inactive Member Role Status Dates Simone Huang MD Primary Care Provider Active Start: August 25, 2024 End: August 25, 2024 Ragini Mar , MOISES Attending Provider Active Start: August 25, 2024 End: August 25, 2024 Team Status: Inactive Member Role Status Dates Simone Huang MD Primary Care Provider Active Start: July 09, 2024 End: July 09, 2024 Simone Huang MD Attending Provider Active St art: July 09, 2024 End: July 09, 2024 Team Status: Inactive Member Role Status Dates Simone Huang MD Primary Care Provider Active Start: September 17, 2024 End: September 17, 2024 Simone Huang MD Attending Provider Active St art: September 17, 2024 End: September 17, 2024 Team Status: Inactive Member Role Status Dates Simone Huang MD Primary Care Provider Active Start: October 05, 2024 End: October 05, 2024 Angel Palencia APRN Attending Provider Active Start: October 05, 2024 End: October 05, 2024 Team Status: Inactive Member Role Status Dates Simone Huang MD Primary Care Provider Active Start: October 27, 2024 End: October 27, 2024 Simone Huang MD Attending Provider Active St art: October 27, 2024 End: October 27, 2024 Team Status: Inactive Member Role Status Dates Simone Huang MD Primary Care Provider Active Start: November 23, 2024 End: November 23, 2024 Angel Palencia APRN Attending Provider Active Start: November 23, 2024 End: November 23, 2024 (unrecognized sect ion and content) No Status Records FoundNo Status Records FoundNo Status Records FoundNo Status Records FoundNo Status Records Found INFORMATION SOURCE (unrecogn ized section and content) DATE CREATED AUTHOR 04/10/2022 [facility] DATE CREATED AUTHOR AUTHOR'S ORGANIZ ATION 04/17/2022 [facility] DATE CREATED AUTHOR AUTHOR'S ORGANIZ ATION 01/28/2024 [facility] DATE CREATED AUTHOR AUTHOR'S ORGANIZ ATION 03/04/2024 [facility] DATE CREATED AUTHOR AUTHOR'S ORGANIZ ATION 10/31/2024 [facility] REASON FOR VISIT (unrecogniz ed section and content) 6 month Follow upprescriptio n refill3 month Follow upRefill6 month Follow upelevated A1C Goals (unrecognized section and content) Goals may be documented in a n alternate section FOR RECORDS PERTAINING TO PATIENTS WHO ARE OR HAVE BEEN ENROLLED IN A CHEMICAL DEPENDENCY/SUBSTANCEABUSE PROGRAM, SOME INFORMATION MAY BE OMITTED. This clinical summary was aggregated from multiple sources. Caution should be exercised in using it in the provision of clinical care. This summary normalizes information from multiple sources, and as a consequence, information in this document may materially change the coding, format and clinical context of patient data. In addition, data may be omitted in some cases. CLINICAL DECISIONS SHOULD BE BASED ON THE PRIMARY CLINICAL RECORDS. [facility]. provides no warranty or guarantee of the accuracy or completeness of information in this document.
[2024-11-24 10:54] LABS: Hematocrit 46.3 % (42.0-54.0); Hemoglobin 15.6 g/dL (14.0-18.0); Immature Granulocytes Abs Auto 0.03 10^3/uL (0.00-0.03); Immature Granulocytes Pct Auto 0.5 % (0.0-0.5); Lymphocytes Absolute Auto 1.6 10^3/uL (1.2-3.8); Mean Corpuscular HGB Conc 33.7 g/dL (29.9-35.2); Mean Corpuscular Hemoglobin 30.8 pg (25.9-34.0); Mean Corpuscular Volume 91.5 fL (80.0-94.0); Platelet Count 196 10^3/uL (150-450); Red Blood Count 5.06 10^6/uL (4.70-6.10); White Blood Count 6.1 10^3/uL (4.0-11.0)
[2024-11-24 10:57] LABS: Alanine Aminotransferase 31 U/L (16-63); Albumin Globulin Ratio 1.3; Albumin Level 4.3 g/dL (3.4-5.0); Alkaline Phosphatase 68 U/L (46-116); Anion Gap 13.9; Aspartate Amino Transferase 15 U/L (15-37); Blood Urea Nitrogen 23.0 mg/dL (7.0-18.0); Calcium 9.4 mg/dL (8.5-10.1); Carbon Dioxide 25.8 mmol/L (21.0-32.0); Chloride 104 mmol/L (98-107); Cholesterol 75 mg/dL (<=200); Estimated GFR (African America >60 (>=60 mL/min/1.73m^2); Estimated GFR (Non-African Ame >60 (>=60 mL/min/1.73m^2); Globulin 3.2 g/dL; Glucose 97 mg/dL (74-106); HDL Cholesterol 25 mg/dL (40-60); Potassium 4.7 mmol/L (3.5-5.1); Sodium 139 mmol/L (136-145); Total Protein 7.5 g/dL (6.4-8.2); Triglycerides 37 mg/dL (<=150); VLDL CHOLESTEROL 7.4 mg/dL
== END 2024-11-24 10:10 | disposition home or self-care (01) ==
PROVIDERS: PCP Family Medicine
DX: I25.10 Atherosclerotic heart disease of native coronary artery without angina pectoris (principal); I10 Essential (primary) hypertension; E78.2 Mixed hyperlipidemia; E11.9 Type 2 diabetes mellitus without complications
CPT/HCPCS: 36415; 80053; 80061; 83036; 85025

== ENCOUNTER 2025-03-02 09:56 | Outpatient (OUT) | payer MEDICARE, BC, SELFPAY ==
--- OUTSIDE RECORDS SUMMARY | 2025-03-02 10:09 | XMS_ITS | Clinical Summary ---
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 Role Phone Dasha Hanna MD Primary Care Provider [phone] Allergies No known active allergies Medications MedicationSigDispense QuantityRefillsLast FilledStart DateEnd DateStatus atorvastatin (Lipitor) 80 mg tablet Indications:Coronary artery disease with angina pectoris, unspecified vessel or lesion type, unspecified whether [place] or transplanted heartTAKE 1 TABLET DAILY 90 tablet ctive amLODIPine (Norvasc) 5 mg tablet Indications:Benign hypertensive heart disease without congestive heart failure TAKE 1 TABLET DAILY 90 tablet ctive aspirin 81 mg EC tablet Take 1 tablet by mouth in the morning.Active gabapentin (Neurontin) 600 mg tablet Take 1 tablet by mouth in the morning and at bedtime.03/18/2016Active SITagliptin phos-metformin (Janumet) 50-1,000 mg tablet Take 1 tablet by mouth in the morning and at bedtime.03/18/2016Active empagliflozin (Jardiance) 10 mg Take 10 mg by mouth in the morning.07/28/2023ctive omeprazole (PriLOSEC) [address] capsule Take 40 mg by mouth before breakfast and before evening meal. Do not crush or chew.Active magnesium, as gluconate, (Magonate) 27 mg magnesium (500 mg) tablet Take 27 mg by mouth two times daily.Active glipiZIDE (Glucotrol) 5 mg tablet Take 5 mg by mouth before breakfast and before evening meal.Active losartan (Cozaar) 50 mg tablet Indications:Benign hypertensive heart disease without congestive heart failure TAKE 1 TABLET BY MOUTH DAILY 90 tablet 5Active Active Problems ProblemNoted DateDiagnosed DateBMI 25.0-25.9,adult10/09/2023Esophageal vuslkaakrow99/11/2024Finger shmvjznsrol88/11/9157Awkisoakps16/11/2024aynaud's syndrome without tiqyoihk83/11/2024Type 2 diabetes mellitus with hyperglycemia 10/09/2023Vitamin D deficiency, bgjyqeagtsj22/11/2024PH with urinary kjgaavhpcog00iabetesysuria10/24/2022 10/24/2022Frequency of rumwrfmhp61Nocturia Screening for prostate gwolwl13Split urinary rfnrgq7510/24/2022 10/24/2022Urge lgxeelkqroog93Urinary lznupaqrf58/27/2023 10/24/20221751Nhevxcs26Status post transurethral resection of iaohjbfo99ell's palsyoronary paxflnhptfbmbvpn12 Overview (10/24/2022): RENAL DUPLEX NEG 2011 Xsjuzrxhcfbtxj14Essential fnfsfsizzaoc53Type 2 diabetes mellitus without rlgkhubhingf02 Immunizations ImmunizationAdministration DatesNext DueCovid (Pfizer) Bivalent Booster =>12 YRS 02/04/2022Influenza, High-dose Seasonal, Quadrivalent, Preservative Free 02/04/2022,11/29/2019Influenza, Seasonal, Quadrivalent, Ebmlngnhle90/16/2021 Social History Tobacco UseTypesPacks/DayYears UsedDateSmoking Tobacco: NeverSmokeless Tobacco: Never Tobacco Cessation:Counseling Given: Not Answered Alcohol UseStandard Drinks/WeekCommentsNot Currently0 (1 standard drink = 0.6 oz pure alcohol)UT Safety & EnvironmentAnswerDate RecordedFear of Current or Ex-PartnerNot on file05/22/2023Emotionally AbusedNot on file05/22/2023hysically AbusedNot on file05/22/2023Sexually AbusedNot on file05/22/2023hysically or Sexually AbusedNot on file05/22/2023Sex and Gender InformationValueDate Recorded Sex Assigned at ZsjzjQbyz20/27/2023 7:53 PM EDTLegal OktOmgm8809/26/2021 10:25 PM EDTGender LwmgjbopElnv51/27/2023 7:53 PM EDTSexual OrientationHeterosexual or Vfvlmfdn47/27/2023 7:53 PM EDT Last Filed Vital Signs Vital SignReadingTime TakenCommentsBlood Jddxhndn506/6208 10:35 AM EDT Ncwuv938010/29/2024 10:35 AM EDTTemperature--Respiratory Slcs617710/29/2024 10:35 AM EDTOxygen Bcxdnweequ28%10/29/2024 10:35 AM EDTInhaled Oxygen Concentration-- Gdvsfk60.3 kg (168 lb 3.2 oz)10/29/2024 10:35 AM NPEHqkhbr747.8 cm (5' 10 ) 10/29/2024 10:35 AM EDTBody Mass Index24.1308 10:35 AM EDT Plan of Treatment Health MaintenanceDue DateLast DoneCommentsDiabetes: Hemoglobin A1C1944 Medicare Annual Wellness (AWV)1944Diabetes: Retinopathy Screening 1954Depression Akorzpgkg48/23/1957Diabetes: Urine Protein Screening 1963Pneumococcal Vaccine: 50+ Years (1 of 2 - PCV)1963Adult Tetanus 1966Zoster Vaccines (1 of 2)1994Fall Risk Arelgnpta07/23/2010COVID- 19 Vaccine (2024- season)/09/2024, 01/27/2024, 12/26/2022, Additional history existsInfluenza Vaccine (#1), 12/26/2022, 02/04/2022, Additional history existsHIB VaccinesAged OutNo longer eligible based on patient's age to complete this topicHPV VaccinesAged OutNo longer eligible based on patient's age to complete this topicIPV VaccinesAged OutNo longer eligible based on patient's age to complete this topicMeningococcal B VaccineAged OutNo longer eligible based on patient's age to complete this topic Meningococcal VaccineAged OutNo longer eligible based on patient's age to complete this topicRotavirus VaccinesAged OutNo longer eligible based on patient's age to complete this topic Insurance * Guarantor: Cesar Begum TypeRelation to PatientDate of BirthPhone Billing AddressPersonal/JvtuppGkpw51/23/1946 [address] [address] Care Teams Team MemberRelationshipSpecialtyStart DateEnd Date Dasha Hanna MD [address] [facility] [address] [facility]10/23/22
--- OUTSIDE RECORDS SUMMARY | 2025-03-02 10:35 | XMS_ITS | CCD ---
Author Organization [facility] Care Team Providers Care Sleeping Car Porter Name Role Phone SIMONE HUANG Primary Care Physician TRESA ALAS Attending Unavailable HUANG, DR SIMONE Weber Admitting Unavailable HUANG, DR SIMONE Weber Attending Unavailable HUANG, DR SIMONE Weber Primary Care Unavailable HUANG, DR SIMONE Weber Admitting Unavailable HUANG, DR SIMONE Weber Attending Unavailable HUANG, DR ISMONE Weber Primary Care Unavailable HUANG, DR SIMONE [...] Unavailable MD Simone Huang Primary Care Provider MD David Solano Attending Provider MOISES Mar Attending Provider MD Simone Huang Primary Care Provider MD David Solano Attending Provider MD Simone Huang Primary Care Provider MD Simone Huang Attending Provider [phone] Simone Huang Primary Care Unavailable David Solano Admitting Unavailable David Solano Attending Unavailable Simone Huang Primary Care Unavailable Simone Huang Attending Unavailable Simone Huang Admitting Unavailable Ragini Mar Admitting Unavailable Ragini Mar Attending Unavailable Simone Huang Primary Care Unavailable [...] Care Provider Simone Huang MD Attending Provider PRASHANT CAMACHO Attending Unavailable Simone Huang MD Primary Care Provider Cecy MARIE-CPrashant Attending Provider Ragini Mar APRN Attending Provider Simone Huang MD Primary Care Provider [phone] KUABI VIN R Attending Unavailable ELENA LEXII L Attending Unavailable KUBITZ, VIN R Referring Unavailable KOURTNEYTERSDIYA ANDERSON Attending Unavailable KUBITZ, VIN R Referring Unavailable ELENA, LEXII L Attending Unavailable KUBITZ, VIN R Referring Unavailable KOURTNEYTERSDIYA ANDERSON Attending Unavailable KUBITZ, VIN R Referring Unavailable ELENA, LEXII L Attending Unavailable KUBITZ, VIN R Referring Unavailable MARU WYMAN Attending Unavailable SIMONE HUANG Referring Unavailable ELENALEXII Attending Unavailable KUBITZ, VIN R Referring Unavailable ELENA, LEXII L Attending Unavailable KUBITZ, VIN R Referring Unavailable Simone Huang MD Primary Care Provider [phone] Simone Huang MD Attending Provider [phone] Angel Palencia APRN Attending Provider Allergies Allergy ClassificationReported Allergen(s)Allergy TypeDate of OnsetReaction(s) Facility (1 source)No Known Medication Allergies; Translations: [No Known Medication Allergies]Propensity to adverse reactions (disorder)[facility] Repository (6 sources)Angiotensin-converting enzyme inhibitor agentDrug allergyUnkLucidMedia Other (2 sources)HEBERT inhibitor use, contraindicationPropensity to adverse reactions 95-73-8291Nvokzjp:[facility] Other (2 sources)Allergies ReconciledPropensity to adverse reactionsMiravista Behavioral Health CenterLucidMedia Other (2 sources)patient allergy list reviewed by nurse or physiciaPropensity to adverse bcanfudzb00-58-0137Tzydcxw:[employer] Other Medications Current Medications MedicationDrug Class(es)DatesSig (Normalized)Sig (Original)aspirin 81 mg delayed release oral tablet (20 sources)Platelet Aggregation Inhibitor, Nonsteroidal Anti-inflammatory Drug Start: 56-31-6697rfoe 1 tablet by mouth once dailyAspirin (Adult Aspirin Regimen) 81 mg tablet,delayed release (DR/EC) Active 81 MG PO Daily July 28, 2023 12:00am Complies with drug therapyStart: 01-23-0097bswg 1 mg by mouth once dailyaspirin 81 mg oral tablet mg tab(s), Oral, Daily, Refills(s) 0 Start Date: 12/17/18 Status: OrderedBlood Sugar Diagnostic (20 sources)Start: 85-62-2953Okezy Sugar Diagnostic Active 0 .ROUTE .MEDSUPPLY 100 July 29, 2023 4:46pm Glucose check one time dailyStart: 07-28-2023 End: 96-46-2527Lobqw Sugar Diagnostic Discontinued 0 .ROUTE .MEDSUPPLY 300 July 28, 2023 12:00am July 29, 2023 4:47pm Glucose checks three times daily Blood-Glucose Meter (20 sources)Start: 76-21-4841Ovkaw-Glucose Meter Active 0 .ROUTE .MEDSUPPLY July 31, 2023 12:10pm as directed, defer to insurance preferredStart: 07-28-2023 End: 51-66-3254Numui-Glucose Meter Discontinued 0 .ROUTE .MEDSUPPLY July 28, 2023 12:00am July 31, 2023 12:10pm as directed, defer to insurance preferredBlood-Glucose Meter misc (20 sources)Start: 11-65-6810Rbxlx-Glucose Meter misc Active 0 .ROUTE .MEDSUPPLY July 31, 2023 12:10pm as directed, defer to insurance preferredStart: 04-10-0271Vtuvo-Glucose Meter misc Active 0 .ROUTE .MEDSUPPLY July 31, 2023 11:10am as directed, defer to insurance preferredStart: 07-28-2023 End: 40-20-4655Rpbyb-Glucose Meter misc Discontinued 0 .ROUTE .MEDSUPPLY July 28, 2023 12:00am July 31, 2023 12:10pm as directed, defer to insurance preferredStart: 07-28-2023 End: 15-25-7316Wuzpq-Glucose Meter misc Discontinued 0 .ROUTE .MEDSUPPLY July 27, 2023 11:00pm July 31, 2023 11:10am as directed, defer to insurance preferredBlood-Glucose Sensor (Dexcom G7 Sensor) device (6 sources)Start: 07-89-2475Krkno-Glucose Sensor (Dexcom G7 Sensor) device Active 0 .Route August 25, 2024 12:00am As directedStart: 78-62-8365Mphgh-Glucose Sensor (Dexcom G7 Sensor) device Active 0 .ROUTE August 25, 2024 12:00am As directedBlood-Glucose,Paediatrician,Cont (Dexcom G7 Paediatrician) misc (6 sources)Start: 33-68-1011Rlagl-Glucose,Paediatrician,Cont (Dexcom G7 Paediatrician) misc Active 0 .Route August 25, 2024 12:00am As directedStart: 72-21-2885Jxsqt- Glucose,Paediatrician,Cont (Dexcom G7 Paediatrician) misc Active 0 .ROUTE August 25, 2024 12:00am As directedcholecalciferol 0.05 mg oral capsule (8 sources)Vitamin DStart: 20-26-6782wbjn 1 capsule by mouth once daily Cholecalciferol (Vitamin D3) 50 mcg (2,000 unit) capsule Active 4000 UNIT PO Daily May 26, 2024 1:00am Complies with drug therapyempagliflozin 25 mg oral tablet (20 sources)Sodium-Glucose Cotransporter 2 InhibitorStart: 02-17-2024 End: 69-64-5693ocua 1 tablet by mouth once daily in the morningEmpagliflozin 25 mg tablet Active 25 MG PO Every morning 90 90 December 01, 2024 12:21pm Complieswith drug therapyStart: 07-28-2023 End: 40-74-5380ckkq 1 tablet by mouth once daily in the morningEmpagliflozin (Jardiance) 10 mg tablet Discontinued 10 MG PO Every morning 90 90 October 21, 2023 7:47am February 17, 2024 8:46amgabapentin 800 mg oral tablet (20 sources)Anti-epileptic AgentStart: 01-12-2024 End: 38-50-3275fhqn 1 tablet by mouth twice dailyGabapentin 800 mg tablet Active 800 MG PO Twice daily 180 November 05, 2024 8:24am Complies with drug therapy Start: 43-28-9017hxei 1 tablet by mouth in the morninggabapentin (Neurontin) 600 MG tablet Take 600 mg by mouth in the morning and 600 mg before bedtime. 10/22/2023 ActiveStart: 08-13-2023 End: 13-93-0646vsng 1 tablet by mouth twice dailyGabapentin 600 mg tablet Discontinued 0 .ROUTE .COMPLEX 180 October 15, 2023 2:17pm January 12, 2024 12:39pm TAKE 1 TABLET BY MOUTH TWICE DAILYStart: 07-01-2023 End: 91-88-4394icrg 1 tablet by mouth twice dailyGabapentin 600 mg tablet Discontinued 600 MG PO Twice daily July 01, 2023 12:00am August 13, 2023 1 2:38pmStart: 21-04-5967qfjm 1 tablet by mouth twice dailygabapentin 600 mg Tab 600 mg = 1 tab(s), Oral, BID, Neuropathy Start Date: 03/18/16 Status: Ordered glipiZIDE 10 mg oral tablet (20 sources)SulfonylureaStart: 04-20-2024 End: 61-97-7466tqze 5 mg by mouth at breakfast, then take 5 mg by mouth once dailyGlipizide 10 mg tablet Active 5 MG PO .COMPLEX 180 December 01, 2024 12:19pm 5 mg orally with breakfast and 5 mg daily with Supper; Complies with drug therapyStart: 02-10-2024 End: 87-24-7764Arawekxzl 10 mg tablet Discontinued MG PO February 10, 2024 1:00am April 20, 2024 11:40amStart: 01-01-2024 End: 32-51-5357Ejbshjefv 5 mg tablet Discontinued 10 MG .ROUTE .COMPLEX January 01, 2024 9:17am April 050:09am 10 mg;Start: 30-17-6926Yqnnwfyzn Active 10 MG .ROUTE .COMPLEX January 01, 2024 9:17am 10 mg;Start: 12-31-2023 End: 79-06-8956ownk 1 tablet by mouth once dailyGlipizide 5 mg tablet Discontinued 0 .ROUTE .COMPLEX 90 December 31, 2023 10:34am January 01, 2024 9:18am TAKE 1 TABLET BY MOUTH DAILYStart: 12-30-2023 End: 81-44-4463kokq 2 tablets by mouth once dailyGlipizide 5 mg tablet Discontinued 10 MG PO Daily December 30, 2023 2:07pm December 31, 2023 9:01am Start: 12-30-2023 End: 86-88-4688liby 10 mg by mouth once dailyGlipizide Discontinued 10 MG PO Daily December 30, 2023 2:07pm December 31, 2023 9:01amStart: 12-29-2023 End: 99-83-2484deuw 1 tablet by mouth once dailyGlipizide 5 mg tablet Discontinued 5 MG PO Daily December 31, 2023 9:00am December 31, 2023 10:34am Start: 12-24-2023 End: 66-64-7438wixb 1 tablet by mouth once dailyGlipizide 10 mg tablet Discontinued 0 .ROUTE .COMPLEX 90 December 24, 2023 1:20pm December 29, 2023 8:00am TAKE 1 TABLET BY MOUTH EVERY DAYStart: 10-21-2023 End: 06-03-7389djia 1 tablet by mouth once dailyGlipizide 5 mg tablet Discontinued 5 MG PO Daily October 21, 2023 7:47am December 24, 2023 1:20pm Start: 07-01-2023 End: 51-78-9450pmem 1 tablet by mouth once dailyGlipizide 10 mg tablet Discontinued 10 MG PO Daily July 01, 2023 12:00am October 21, 2023 7:48am latanoprost 0.05 mg/ml ophthalmic solution (20 sources)Prostaglandin AnalogStart: 40-91-3650viwqlhuzacu (Xalatan) 0.005 % ophthalmic solution 12/16/2023 ActiveStart: 69-65-6674tggs 1 drop(s) into the eye(s) once dailyLatanoprost 0.005 % drops Active 1 DROPS OPHTHALMIC Daily July 01, 2023 12:00am Complies with drug therapyStart: 81-53-4783lmmj 1 drop(s) into the eye(s) once dailyLatanoprost Active 1 DROPS OPHTHALMIC Daily July 01, 2023 12:00amStart: 13-31-2062Zzoplsxwymc Active 1 DROPS OPHTHALMIC July 01, 2023 12:00amStart: 12-57-8300ttbnknapokz Opth 0.005% Kimberlyn 1 drop(s), OPTH, Once a day (at bedtime) Start Date: 03/18/16 Status: OrderedLatanoprost 0.005 % as directed Ophthalmic Once a day Activelosartan potassium 50 mg oral tablet (20 sources)Angiotensin 2 Receptor BlockerStart: 97-27-1648yhmk 1 tablet by mouth once dailyLosartan 50 mg tablet Active 50 MG PO Daily July 01, 2023 12:00am Complies with drug therapyStart: 22-34-1827belg 2 tablets by mouth once dailylosartan 25 mg Tab 50 mg = 2 tab(s), Oral, Daily, High blood pressure Start Date: 03/18/16 Status: Orderedtake 1 tablet by mouth every twenty-four hours Losartan Potassium 50 MG 1 tablet Orally Once a day ActiveMAGNESIUM GLUCONATE (16 sources)take 1 tablet by mouth once dailyMagnesium Gluconate (MAGNESIUM 27 PO) Take 1 tablet by mouth Daily Activemagnesium oxide 400 mg oral tablet (10 sources)Start: 01-73-8461vplv 1 tablet by mouth once dailyMagnesium Oxide 400 mg (241.3 mg magnesium) tablet Active 400 MG PO Daily April 06, 2024 1:00am Complies with drug therapymetFORMIN hydrochloride 1000 mg / SITagliptin 50 mg oral tablet (20 sources)Biguanide, Dipeptidyl Peptidase 4 InhibitorStart: 07-01-2023 End: 54-18-0507kewk 1 tablet by mouth twice dailySitagliptin Phos-Metformin (Janumet) 50-1,000 mg tablet Active 1 TAB PO Twice daily 180 December 01, 2024 12:21pm Complies with drug therapyStart: 49-06-5936pwwx 1 tablet by mouth twice dailyJanumet 50 mg/1000 mg oral tablet 1 tab(s), Oral, BID, High blood sugar Start Date: 03/18/16 Status: Orderedpolyethylene glycol 3350 30957 mg powder for oral solution (20 sources)Osmotic LaxativeStart: 11-23-2024 End: 69-02-5398Hflmrlpqpngs Glycol 3350 (Miralax) 17 gram/dose powder Active 17 GM PO Daily as needed December 01, 2024 11:37am Complies with drug therapy probiotic (3 sources)Start: 50-61-6938hqtsxvnar Active PO November 23, 2024 12:00am Complies with drug therapyStart: 11-42-5055rkfzsmfgycw 3 mg oral tablet (1 source)Rybelsus 3 MG 1 tablet at least 30 minutes before first food, beverage or other oral medicine of the day Orally Once a day for 30 days ActiveSuprep Bowel Prep Kit 17.5-3.13-1.6 GM/180ML (2 sources)Start: 57-63-1575yxdynco b12 1 mg oral capsule (10 sources)Vitamin W42Tuurk: 45-06-1435azbv 1 capsule by mouth once daily Cyanocobalamin (Vitamin B-12) 1,000 mcg capsule Active 1000 MCG PO Daily April 06, 2024 1:00am Complies with drug therapy Completed/Discontinued Medications MedicationDrug Class(es)DatesSig (Normalized)Sig (Original)amLODIPine 5 mg oral tablet (20 sources)Dihydropyridine Calcium Channel BlockerStart: 07-01-2023 End: 74-70-8460ypvj 1 tablet by mouth once dailyAmlodipine 5 mg tablet Discontinued 5 MG PO Daily August 19, 2023 12:43pm June 23, 2024 10:07am Start: 68-92-3162gbzm 1 tablet by mouth once dailyamLODIPine 5 mg Tab 5 mg = 1 tab(s), Oral, Daily, High blood pressure Start Date: 03/18/16 Status: Ordered atorvastatin 80 mg oral tablet (20 sources)HMG-CoA Reductase InhibitorStart: 07-28-2023 End: 99-47-8745lwrt 1 tablet by mouth once dailyAtorvastatin 80 mg tablet Discontinued 80 MG PO Daily August 19, 2023 12:43pm June 23, 2024 10:07am Start: 18-37-7271zgyk 1 tablet by mouth once dailyatorvastatin 80 mg Tab 80 mg = 1 tab(s), Oral, Daily, High cholesterol Start Date: 03/18/16 Status:Ordered omeprazole 40 mg delayed release oral capsule (20 sources)Proton Pump InhibitorStart: 08-21-2023 End: 58-27-2172uebm 1 capsule by mouth twice dailyOmeprazole 40 mg capsule,delayed release(DR/EC) Discontinued 40 MG PO Twice daily August 202:00am April 05, 2024 10:09amSITagliptin 100 mg oral tablet (20 sources)Dipeptidyl Peptidase 4 InhibitorStart: 01-14-2024 End: 59-05-9051Gcqbdjfkdia Phosphate (Januvia) 100 mg tablet Discontinued 100 MG .ROUTE .COMPLEX January 14, 2024 12:37pm May 26, 2024 11:29am once dailyStart: 01-13-2024 End: 29-85-0775antb 1 tablet by mouth twice dailySitagliptin Phosphate (Januvia) 50 mg tablet Discontinued 50 MG PO Twice daily January 13, 2024 12:00am January 14, 2024 11:42am Problems Active Problems Problem ClassificationProblemDateDocumented DateEpisodic/Chronic Administrative/social admission (20 sources)Patient encounter status; Translations: [Dietary counseling and surveillance]37-98-7640PnbdulwpXkidsisw atherosclerosis and other heart disease (5 sources)Coronary arteriosclerosis; Translations: [Coronary atherosclerosis] Onset: 708580-83-3830ZshcibxDjajbhrg mellitus with complications (20 sources)Type 2 diabetes mellitus with hyperglycemia; Translations: [Type 2 diabetes mellitus]Onset: 15-43-0157DipsvaoEpxszusl mellitus without complication (20 sources)Diabetes mellitus; Translations: [Type 2 diabetes mellitus without complication]Onset: 648086-18-0450AjbpvnvEgorecnai of lipid metabolism (20 sources)Hyperlipidemia, unspecified; Translations: [Mixed hyperlipidemia] Onset: 56-50-2709WuhnvrcUvdfgpvond disorders (12 sources)Gastroesophageal reflux disease; Translations: [Gastro-esophageal reflux disease without esophagitis]50-98-4801AcezkopDxhvzwgach disorders (20 sources)Disorder of esophagus; Translations: [Disease of esophagus, unspecified]53-88-3010QbgslfsgSznqsaltq hypertension (20 sources)Hypertensive disorder; Translations: [Essential (primary) hypertension]Onset: 080052-71-4338LctcgwpWorfbssm of lower limb (2 sources)Closed fracture of tibia and fibula, shaft; Translations: [Closed fracture of shaft of fibula with tibia]EpisodicGastrointestinal hemorrhage (6 sources)Blood-tinged feces; Translations: [Melena]EpisodicGenitourinary symptoms and ill-defined conditions (1 source)Urge incontinence of ycwqk32-72-6383EqkptfxMvtudojcwswdg symptoms and ill-defined conditions (6 sources)Splitting of urinary stream; Translations: [Splitting of urinary stream]Onset: 05-26-3361MqrddxwgXoawmiof (2 sources)Glaucoma; Translations: [Unspecified glaucoma]ChronicHemorrhoids (2 sources)Hemorrhoids; Translations: [Unspecified hemorrhoids]Episodic Hyperplasia of prostate (20 sources)Benign prostatic hypertrophy with outflow obstruction; Translations: [Benign prostatic hyperplasia with lower urinary tract symptoms]Onset: 13-94-7569NuwqdgjWzsbguozcatde and screening for infectious disease (3 sources)Vaccination given; Translations: [Encounter for immunization] 09-91-5747LbhysowqDoxvzvxkhuo deficiencies (20 sources)Vitamin D deficiency; Translations: [Vitamin D deficiency, unspecified]Onset: 763159-04-5702VnhecztNqoiwlxhocl deficiencies (14 sources)Deficiency of other specified B group vitamins; Translations: [Other B-complex deficiencies]30-55-9861HeepldzyOuvskufjvwjlri (20 sources)Arthritis of hand; Translations: [Primary osteoarthritis, unspecified hand]01-19-9556SftzgytNwvvw circulatory disease (20 sources)Raynaud's disease; Translations: [Raynaud's syndrome without gangrene]68-34-1704KcppkohVempc circulatory disease (2 sources)Elevated blood-pressure reading without diagnosis of hypertension; Translations: [Elevated blood-pressure reading, without diagnosis of hypertension]EpisodicOther connective tissue disease (2 sources)Pain in left lower limb; Translations: [Pain in left leg]Episodic Other connective tissue disease (20 sources)Disorder of finger; Translations: [Other symptoms and signs involving the musculoskeletal system]65-78-9255VtqgpujuHrzpx connective tissue disease (10 sources)Other symptoms and signs involving the musculoskeletal system; Translations: [Other musculoskeletalsymptoms referable to limbs]07-02-2023 EpisodicOther connective tissue disease (20 sources)Triggering of digit; Translations: [Trigger finger, right middle finger]38-65-6047RsxratyeYfnhy connective tissue disease (12 sources)Trigger finger, left index finger; Translations: [Trigger finger (acquired)]89-10-1871RqxzeqzsQxomr connective tissue disease (12 sources)Trigger finger, right index finger; Translations: [Trigger finger (acquired)]94-80-4249TshmxwcbLzrbc connective tissue disease (12 sources)Trigger finger, right middle finger; Translations: [Trigger finger (acquired)]30-90-8940QmjjnpgaJovjr connective tissue disease (17 sources)Swelling of bilateral feet; Translations: [Other specified soft tissue disorders]02-34-2350TjtsiskcGbxcs connective tissue disease (1 source)Other specified soft tissue disorders; Translations: [Other specified soft tissue disorders]Onset: 38-54-9830UjpghlwtUndvj connective tissue disease (2 sources)Pain in right foot; Translations: [Pain in right foot]12-22-2023 EpisodicOther connective tissue disease (2 sources)Pain in left foot; Translations: [Pain in left foot]12-22-2023 EpisodicOther connective tissue disease (2 sources)Cramp in foot; Translations: [Cramp and spasm]07-80-8888LaroyvyrPbvuf diseases of kidney and ureters (1 source)Urinary tract obstruction; Translations: [Other obstructive and reflux uropathy]Onset: 55-93-8374PfaoifhcRiasv gastrointestinal disorders (12 sources)Constipation; Translations: [Constipation, unspecified]10-05-2024 EpisodicOther injuries and conditions due to external causes (2 sources)History of fall; Translations: [History of falling]EpisodicOther injuries and conditions due to external causes (2 sources)At high risk for fall; Translations: [History of falling]12-06-2024 EpisodicOther nervous system disorders (2 sources)Polyneuropathy; Translations: [Polyneuropathy, unspecified]Onset: 47-70-7941RcxaofxSqsxy nervous system disorders (20 sources)Neuropathy; Translations: [Polyneuropathy, unspecified]Onset: 656018-07-6668LfucwqyJyquc nervous system disorders (20 sources)Polyneuropathy, unspecified; Translations: [Mononeuritis of unspecified site]Onset: 130278-13-0746WnkcqurJzocz nervous system disorders (17 sources)Foot pain; Translations: [Unspecified mononeuropathy of bilateral lower limbs]64-72-9281YxrgafxWzvmm nervous system disorders (5 sources)Unspecified mononeuropathy of bilateral lower limbs; Translations: [Unspecified hereditary and idiopathic peripheral neuropathy]Onset: 01-26-2024 46-98-7476HkucusnKlpuy nervous system disorders (2 sources)Nervous system and sense organ diseases; Translations: [Other disorders of nervous system and senseorgans]EpisodicOther nervous system disorders (2 sources)Paresthesia; Translations: [Paresthesia of skin]21-78-0548Lkhzviyo Other nervous system disorders (20 sources)Impairment of balance; Translations: [Other abnormalities of gait and mobility]Onset: 749447-38-9525GiheniaeIdnhz non-traumatic joint disorders (4 sources)Shoulder joint pain; Translations: [Pain in joint, shoulder region] Onset: 02-78-2207PclqkuchIhbpa nutritional; endocrine; and metabolic disorders (20 sources)Overweight in adulthood with body mass index of 25 or more but less than 30; Translations: [Body mass index (BMI) 25.0-25.9, adult]07-28-2023 EpisodicOther nutritional; endocrine; and metabolic disorders (19 sources)Body mass index (BMI) 25.0-25.9, adult; Translations: [Body Mass Index 25.0-25.9, adult]58-79-9460HgddhdjpPpeni screening for suspected conditions (not mental disorders or infectious disease) (1 source)Encounter for screening for malignant neoplasm of prostate; Translations: [Screening for malignant neoplasm done]Onset: 91-69-2274Qrrqnfok Other skin disorders (2 sources)Callosity; Translations: [Corns and callosities]32-98-8891Iufynizu Peripheral and visceral atherosclerosis (20 sources)Intermittent claudication; Translations: [Peripheral vascular disease, unspecified]Onset: 041029-21-1970JcakwueYjvwxsehplx; intervertebral disc disorders; other back problems (8 sources)Radiculopathy, cervical region; Translations: [Neck pain]Onset: 17-69-5089BgehvblqQjlpeuktchum (1 source)Patient encounter uafmfo13-41-6029Oidiwcrqgpqz (2 sources)CONTACT W/AND (SUSP) EXPOS COVID-19; Translations: [CONTACT W/AND (SUSP) EXPOS COVID-19]Onset: 98-80-2482Fqgqn infection (14 sources)Disease caused by 2019-nCoV; Translations: [COVID-19]02-10-2024 EpisodicViral infection (3 sources)COVID-19; Translations: [Disease caused by 2019-nCoV]Onset: 01-10-2022 Past or Other Problems Problem ClassificationProblemDateDocumented DateEpisodic/ChronicOther connective tissue disease (4 sources)Pain in left leg; Translations: [PAIN IN LEFT LEG]Onset: 10-22-2021 EpisodicOther connective tissue disease (2 sources)Nontraumatic rupture of muscle; Translations: [Rupture of muscle, nontraumatic]Onset: 03-12-3505NsrabfbpDvbrm gastrointestinal disorders (1 source)Dysphagia, unspecified; Translations: [Dysphagia, unspecified]Onset: 98-67-3250KomtofdlHouxl non-traumatic joint disorders (2 sources)Arthralgia of the lower leg; Translations: [Pain in joint, lower leg] Onset: 61-94-7752VwnfofvlKvftrywk; pneumothorax; pulmonary collapse (2 sources)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; Translations: [Empyema without mention of fistula]Onset: 53-29-1352JzhgovwlXuvneedph by other medications and drugs (2 sources)Poisoning by drug AND/OR medicinal substance; Translations: [Poisoning by unspecified drug or medicinal substance]Onset: 24-23-2312Fotseyha Unclassified (1 source)CONTACT W/AND (SUSP) EXPOS COVID-19; Translations: [CONTACT W/AND (SUSP) EXPOS COVID-19]Onset: 01-08-2022 Results Test NameValueInterpretationReference PczvrFsbixxfvZhS9a HPLC (Bld) [Mass fraction]Ordered By: Ragini Mar on 53-73-7036YwV0l (Bld) [Mass fraction]6.6 %[facility]ullNo Panel InformationOrdered By: Ragini Mar on 61-68-4650Vpwyztx Kjkiqdi627PiozroqarSelect Medical Specialty Hospital - TrumbullBasophils Auto (Bld) [#/Vol]Ordered By: Prashant Camacho on 44-71-9675Krcarheul (Bld) [#/Vol]0.1 10 3/uL0.0-0.1FCommunity Memorial HospitalBasophils/100 WBC Auto (Bld)Ordered By: Prashant Camacho on 31-99-3379Dzywbglih/100 WBC (Bld)1.0 %0.2-2.0[facility] TrumbullCholesterol in LDL Calc [Mass/Vol]Ordered By: Ragini Mar on 91-76-0950Kdtzandtubj in LDL [Mass/Vol]43.0 mg/dLSelect Medical Specialty Hospital - TrumbullComment on above:<100 mg/dl YXWMSCE377-185 mg/dl NEAR OR ABOVE RDEHDUJ333-508 mg/dl BORDERLINE XLQT610-931 mg/dl HIGH>190 mg/dl VERY HIGH Cholesterol in VLDL Calc [Mass/Vol]Ordered By: Ragini Mar on 11-24-2024 Cholesterol in VLDL [Mass/Vol]7.4 mg/dLSelect Medical Specialty Hospital - [facility] Eosinophils/100 WBC Auto (Bld)Ordered By: Prashant Camacho on 11-24-2024 Eosinophils/100 WBC (Bld)4.8 %0.9-7.0[facility] Erythrocyte distribution width Auto (RBC) [Ratio]Ordered By: Prashant Camacho on 00-70-0682Qeuepzieutu distribution width (RBC) [Ratio]13.2 %11.0-15.0[facility] TrumbullGlobulin Calc (S) [Mass/Vol]Ordered By: Prashant Camacho on 51-68-8687Unftitlp (S) [Mass/Vol]3.2 g/dLSelect Medical Specialty Hospital - [facility]ull Glomerular filtration rate (GFR) estimation in non- AmericanOrdered By: Prashant Camacho on 24-10-6000QUO/1.73 sq M.predicted among non-blacks MDRD (S/P/Bld) [Vol rate/Area]mL/min/{1.73_m2}>=60 mL/min/1.73m 2FCommunity Memorial HospitalGlucose mean value [Mass/volume] in Blood Estimated from glycated hemoglobinOrdered By: Prashant Camacho on 19-33-6854Ackxldm glucose Estimated from glycated hemoglobin (Bld) [Mass/Vol]143 mg/dLSelect Medical Specialty Hospital - Trumbull Hematocrit Auto (Bld) [Volume fraction]Ordered By: Prashant Camacho on 11-24-2024 Hematocrit (Bld) [Volume fraction]46.3 %42.0-54.0[facility] TrumbullHemoglobin A1c percentageOrdered By: Prashant Camacho on 83-23-1802QtU4e (Bld) [Mass fraction]6.6 %High4.5-6.2FCommunity Memorial HospitalComment on above:ADA RECOMMENDED LIMIT 4.0 - 6.0ADA THERAPEUTIC TARGET < 7.0ACTION SUGGESTED> 7.0Hemoglobin [Mass/volume] in BloodOrdered By: Prashant Camacho on 07-38-6597Kheiymvgjk (Bld) [Mass/Vol]15.6 g/dL14.0-18.0[facility]ullLaboratory - Chemistry and Chemistry - challengeOrdered By: Prashant Camacho on 72-99-5649Kihzqtg [Mass/Vol]4.3 g/dL3.4-5.0[facility] TrumbullALP [Catalytic activity/Vol]68 U/G29-685GopmstkssSelect Medical Specialty Hospital - Trumbull ALT [Catalytic activity/Vol]31 U/E03-04WmaiktqmzSelect Medical Specialty Hospital - TrumbullAST [Catalytic activity/Vol]15 U/Q79-81NksuvudbgSelect Medical Specialty Hospital - TrumbullBilirubin [Mass/Vol]0.4 mg/dL0.2-1.0[facility] TrumbullCalcium [Mass/Vol]9.4 mg/dL8.5-10.1FCommunity Memorial HospitalChloride [Moles/Vol]104 mmol/L 98-107[facility] TrumbullCO2 [Moles/Vol]25.8 mmol/L21.0-32.0 [facility] TrumbullCreatinine [Mass/Vol]0.97 mg/dL0.70-1.30 [facility] TrumbullGFR/1.73 sq M.predicted MDRD (S/P/Bld) [Vol rate/Area]mL/min/{1.73_m2}>=60 mL/min/1.73m 2FCommunity Memorial Hospital Glucose [Mass/Vol]97 mg/lQ15-785UilxcipyuSelect Medical Specialty Hospital - TrumbullPotassium [Moles/Vol]4.7 mmol/L3.5-5.1FCommunity Memorial HospitalProtein [Mass/Vol] 7.5 g/dL6.4-8.2FProMedica Toledo Hospitalodium [Moles/Vol]139 mmol/L 136-145[facility] TrumbullUrea nitrogen [Mass/Vol]23.0 mg/dLHigh 7.0-18.0[facility] TrumbullUrea nitrogen/Creatinine [Mass ratio] 23.7 mg/mgSelect Medical Specialty Hospital - TrumbullLaboratory - Chemistry and Chemistry - challengeOrdered By: Ragini Mar on 16-92-4858Utxbgmufibw [Mass/Vol]75 mg/dL<=200[facility]ullCholesterol in HDL [Mass/Vol]25 mg/dL Gkk13-38DmnygvhaqSelect Medical Specialty Hospital - TrumbullComment on above:> or =60 mg/dl - LOW CARDIOVASCULAR RISK<40 mg/dl - HIGH CARDIOVASCULAR RISKTriglyceride [Mass/Vol]37 mg/dL<=150[facility]ullLaboratory - Hematology and Cell countsOrdered By: Prashant Camacho on 24-11-8259Ijwavlzv granulocytes/100 WBC (Bld) 0.5 %0.0-0.5FCommunity Memorial HospitalLeukocytes [#/volume] corrected for nucleated erythrocytes in Blood by Automated counOrdered By: Prashant Camacho on 32-77-6645WBA corrected for nucl RBC Auto (Bld) [#/Vol]6.1 10 3/uL4.0-11.0 [facility] TrumbullLymphocytes Auto (Bld) [#/Vol]Ordered By: Prashant Camacho on 39-70-1951Fgycqmlynfn (Bld) [#/Vol]1.6 10 3/uL1.2-3.8[facility] TrumbullLymphocytes/100 WBC Auto (Bld)Ordered By: Prashant Camacho on 90-71-7869Umamzsnafvs/100 WBC (Bld)26.3 %20.5-60.0Mercy HospitalH Auto (RBC) [Entitic mass]Ordered By: Prashant Camacho on 82-67-0345VTL (RBC) [Entitic mass]30.8 pg25.9-34.0[facility] TrumbullMCHC Auto (RBC) [Mass/Vol]Ordered By: Prashant Camacho on 99-61-7869OFMB (RBC) [Mass/Vol]33.7 g/dL29.9-35.2FCommunity Memorial HospitalMCV Auto (RBC) [Entitic vol] Ordered By: Prashant Camacho on 25-18-9288SQX (RBC) [Entitic vol]91.5 fL80.0-94.0 [facility] TrumbullMonocytes Auto (Bld) [#/Vol]Ordered By: Prashant Camacho on 81-10-7862Eherwycjs (Bld) [#/Vol]0.4 10 3/uL0.3-0.8[facility] TrumbullMonocytes/100 WBC Auto (Bld)Ordered By: Prashant Camacho on 11-24-2024 Monocytes/100 WBC (Bld)6.4 %1.7-12.0[facility] TrumbullNeutrophils Auto (Bld) [#/Vol]Ordered By: Prashant Camacho on 03-17-1043Agrjzbgmmmn (Bld) [#/Vol]3.7 10 3/uL1.4-6.5FCommunity Memorial HospitalNeutrophils/100 WBC Auto (Bld)Ordered By: Prashant Camacho on 14-35-5586Wciqfrsjjvo/100 WBC (Bld)61.0 % 43.0-75.0[facility] TrumbullNo Panel InformationOrdered By: Prashant Camacho on 60-90-7092Vfpzpupeqmq # (Auto)0.3 10 3/uL0.0-0.7FCommunity Memorial HospitalImmature Granulocyte # (Auto)0.03 10 3/uL0.00-0.03[facility] TrumbullPlatelet mean volume Auto (Bld) [Entitic vol]Ordered By: Prashant Camacho on 71-88-1479Dkskorqb mean volume (Bld) [Entitic vol]10.6 fL9.5-13.5 [facility] TrumbullPlatelets Auto (Bld) [#/Vol]Ordered By: Prashant Camacho on 16-11-6100Qsctetgne (Bld) [#/Vol]196 10 3/mL592-474TvqtszcdqSelect Medical Specialty Hospital - TrumbullRBC Auto (Bld) [#/Vol]Ordered By: Prashant Camacho on 39-13-9006SXJ (Bld) [#/Vol]5.06 10 6/uL4.70-6.10Fort Hamilton Hospitalerum or plasma albumin/globulin mass ratioOrdered By: Prashant Camacho on 11-24-2024 Albumin/Globulin [Mass ratio]1.3 {ratio}Fort Hamilton Hospitalerum or plasma anion gap determinationOrdered By: Prashant Camacho on 56-24-9039Ryvrv gap [Moles/Vol]13.9 mmol/LFProMedica Toledo Hospitalerum or plasma total cholesterol/high density lipoprotein (HDL) cholesterol mass ratOrdered By: Ragini Mar on 63-58-6913Yrbzbtzyutx.total/Cholesterol in HDL [Mass ratio]3.0 {ratio}[facility] TrumbullComment on above:3.3 - 4.4 LOW RISK4.4 - 7.1 AVERAGE RISK7.1 - 11.0 MODERATE RISK>11.0 HIGH RISKOffice Visiton 10-29-2024 Follow-up [id number] Dillon Stephenson 1945 M Date Provider Department Center 10/29/2024 [id number]-VMCPBTPRASHANT BRIDGES ELIGIO Sanders Family History Family history unknown: Yes Level of Service:11488 [place] OFFICE/OUTPATIENT ESTABLISHED MOD MDM 30 MIN Reason for Visit and Comments: Follow-up [019646][facility] CenterHbA1c HPLC (Bld) [Mass fraction]on 05-70-5678RyG0i (Bld) [Mass fraction]6.5 %[facility] TrumbullNo Panel Informationon 41-57-3490Ridpzzt Glphuls841KnecwphzoSelect Medical Specialty Hospital - TrumbullNo Panel Informationon 40-01-3152Rddwglz Aqjdora710 [facility] TrumbullHbA1c HPLC (Bld) [Mass fraction]on 04-06-2024 HbA1c (Bld) [Mass fraction]Hemoglobin A1c/Hemoglobin.total in Blood by HPLC [facility] TrumbullNo Panel Informationon 04-40-8063Zznvfec Udnhvhc996DiunglnxkSelect Medical Specialty Hospital - TrumbullInfluenza virus A and B and SARS-CoV-2 (COVID-19) RNA panel - Respiratory system specon 43-71-0200Kkrbcpruf virus A and B RNA and SARS-CoV-2 (COVID-19) N gene panel ANN-MARIE+probe (Resp) Influenza virus A and B and SARS-CoV-2 (COVID-19) RNA panel - Respiratory system specSelect Medical Specialty Hospital - TrumbullLaboratory - Microbiology and Antimicrobial susceptibilityon 65-93-9441BZOD-CoV-2 (COVID-19) RNA ANN-MARIE+probe Ql (Unsp spec) PositiveSelect Medical Specialty Hospital - TrumbullNo Panel Informationon 57-26-6096VDF Influenza B (ANN-MARIE)NegativeSelect Medical Specialty Hospital - TrumbullUS arterial pvr rest Saige 23-00-0420PL arterial pvr rest [facility] [place] [address] Ultrasound Report Signed Patient: Dillon Stephenson MR#: [id number] : 1945 Acct:[id number] Age/Sex: 78 / M ADM Date: 01/26/24 Loc: Room: Type: [facility] Attending Dr: Simone Huang MD Ordering Provider: [...] Reinier Jimenez M.D.01/27/2024 10:45 AM Dictation Location: [place] [address] Tech: Mary Kearney Transcribed By: MAGALYS 01/27/24 1045 Dictated By: Reinier Jimenez MD 01/27/24 1043 Signed By: 01/27/24 1045[facility] Physician RimqsVrJ1c HPLC (Bld) [Mass fraction] on 17-33-7879PqB4o (Bld) [Mass fraction]7.4 %[facility] HbA1c (Bld) [Mass fraction]Hemoglobin A1c/Hemoglobin.total in Blood by HPLC [facility] TrumbullNo Panel Informationon 07-18-3408Fudabjw Qlouihh260DvqjkmrwlSelect Medical Specialty Hospital - TrumbullCholesterol in LDL Calc [Mass/Vol]on 69-55-1508Ibtxyhgovst in LDL [Mass/Vol]44.0 mg/dLSelect Medical Specialty Hospital - TrumbullComment on above:<100 mg/dl FIVFVPG743-762 mg/dl NEAR OR ABOVE DFDJVVI401- 159 mg/dl BORDERLINE FQRX953-834 mg/dl HIGH>190 mg/dl VERY HIGHCholesterol in LDL [Mass/Vol]Cholesterol in LDL [Mass/volume] in Serum or Plasma by calculation [facility] TrumbullComment on above:<100 mg/dl NIRBFRM023-643 mg/dl NEAR OR ABOVE NEYZASX899-308 mg/dl BORDERLINE DWLH576-788 mg/dl HIGH>190 mg/dl VERY HIGHCholesterol in VLDL Calc [Mass/Vol]on 13-17-1828Mbpqcrkyunr in VLDL [Mass/Vol]8.2 mg/dLSelect Medical Specialty Hospital - TrumbullCholesterol in VLDL [Mass/Vol]Cholesterol in VLDL [Mass/volume] in Serum or Plasma by calculation [facility] TrumbullEstimated glomerular filtration rate (GFR) non- Americanon 53-70-0165KRE/1.73 sq M.predicted among non-blacks MDRD (S/P/Bld) [Vol rate/Area]mL/min/{1.73_m2}>=60[facility] GFR/1.73 sq M.predicted among non-blacks MDRD (S/P/Bld) [Vol rate/Area]Estimated glomerular filtration rate (GFR) non->=60[facility] TrumbullGlobulin Calc (S) [Mass/Vol]on 53-32-0133Rtpjlzwc (S) [Mass/Vol] 2.9 g/dLSelect Medical Specialty Hospital - TrumbullGlobulin (S) [Mass/Vol]Serum globulin measurement by calculation (mass/volume)[facility] Laboratory - Chemistry and Chemistry - challengeon 93-86-3090Uqbgkgi [Mass/Vol] 3.8 g/dL3.4-5.0[facility] TrumbullALP [Catalytic activity/Vol]63 U/J09-167MxwzzikjfSelect Medical Specialty Hospital - TrumbullALT [Catalytic activity/Vol]32 U/L 16-63[facility] TrumbullAST [Catalytic activity/Vol]16 U/L15-37 [facility] TrumbullBilirubin [Mass/Vol]0.4 mg/dL0.2-1.0[facility] TrumbullCalcium [Mass/Vol]9.7 mg/dL8.5-10.1FCommunity Memorial HospitalChloride [Moles/Vol]102 mmol/K50-165ZskrnsbdiSelect Medical Specialty Hospital - TrumbullCholesterol [Mass/Vol]82 mg/dL<=200[facility] Cholesterol in HDL [Mass/Vol]30 mg/qXZid81-63XlkfoscjySelect Medical Specialty Hospital - [facility]umbull Comment on above:> or =60 mg/dl - LOW CARDIOVASCULAR RISK<40 mg/dl - HIGH CARDIOVASCULAR RISKCO2 [Moles/Vol]29.4 mmol/L21.0-32.0[facility] - TrumbullCobalamin (Vitamin B12) [Mass/Vol]183 pg/yQQbleciid139-4242BlrjobfvySelect Medical Specialty Hospital - TrumbullComment on above:Performed at: - [facility] [id number] Director: Ramos Wade PhD, Phone: [phone] [Mass/Vol]1.13 mg/dL0.70-1.30[facility] TrumbullGFR/1.73 sq M.predicted MDRD (S/P/Bld) [Vol rate/Area]mL/min/{1.73_m2}>=60 [facility] TrumbullGlucose [Mass/Vol]110 mg/dKZjwj74-872GklvuupdzSelect Medical Specialty Hospital - TrumbullPotassium [Moles/Vol]4.8 mmol/L3.5-5.1FCommunity Memorial HospitalProtein [Mass/Vol]6.7 g/dL6.4-8.2FCommunity Memorial Hospital Sodium [Moles/Vol]136 mmol/G697-945HfndzouadSelect Medical Specialty Hospital - TrumbullTriglyceride [Mass/Vol]41 mg/dL<=150[facility] TrumbullUrea nitrogen [Mass/Vol]22.0 mg/dLHigh7.0-18.0[facility] - TrumbullUrea nitrogen/Creatinine [Mass ratio]19.5 mg/mgSelect Medical Specialty Hospital - TrumbullNo Panel Informationon 488340-Gbtxjyv Vitamin D Total20.4 ng/mLSelect Medical Specialty Hospital - TrumbullComment on above:<20 ng/mL Vit D rueaicste18-<30 ng/mL Vit D avjiisysitkp81-161 ng/mL Vit D sufficient>100 ng/mL Potential Toxicity Serum or plasma albumin/globulin mass ratioon 39-08-6765Wnfbpyk/Globulin [Mass ratio]1.3 {ratio}[facility] - TrumbullAlbumin/Globulin [Mass ratio] Serum or plasma albumin/globulin mass ratioSelect Medical Specialty Hospital - Trumbull Serum or plasma anion gap determinationon 31-11-5387Jgywu gap [Moles/Vol]9.4 mmol/LFCommunity Memorial HospitalAnion gap [Moles/Vol]Serum or plasma anion gap determinationFort Hamilton Hospitalerum or plasma total cholesterol/high density lipoprotein (HDL) cholesterol mass lefty 12-22-2023 Cholesterol.total/Cholesterol in HDL [Mass ratio]2.7 {ratio}[facility] TrumbullComment on above:3.3 - 4.4 LOW RISK4.4 - 7.1 AVERAGE RISK7.1 - 11.0 MODERATE RISK>11.0 HIGH RISKCholesterol.total/Cholesterol in HDL [Mass ratio]Serum or plasma total cholesterol/high density lipoprotein (HDL) cholesterol mass CentervilleComment on above:3.3 - 4.4 LOW RISK4.4 - 7.1 AVERAGE RISK7.1 - 11.0 MODERATE RISK>11.0 HIGH RISKCapillary blood glucose measurement by glucometer (mass/volume)Ordered By: David Solano on 80-04-3412Vorytej [Mass/Vol]145 mg/dLNoGrant Hospital Comment on above:Random Glucose Reference Range is dependent on time and content of last meal. Glucose of more than 200 mg/dL in a nonstressed, ambulatory subject supports the diagnosis of Diabetes Mellitus.Result Comment: Random Glucose Reference Range is dependent on time and content of last meal. Glucose of more than 200 mg/dL in a nonstressed, ambulatory subject supports the diagnosis of Diabetes Mellitus. PERFORMED BY: [address] [place] [address] PATHOLOGIST ANIMAL SKINNER VAMSI COONEY M.D.Performed By: #### GLULS #### Point of Care testing ,Creatinine [Mass/volume] in UrineOrdered By: Ragini Mar on 09-23-2023 Creatinine (U) [Mass/Vol]26.00 mg/dLSelect Medical Specialty Hospital - TrumbullComment on above:No reference range establishedMicroAlb Creat Ratio,Uon 09-23-2023 Creatinine, Urine (Random)26.00 mg/dLNoUNC Medical Center Physician GroupComment on above:Result Comment: No reference range establishedPerformed By: #### URMACRERAT #### [facility] [address] [place] [address] USAMicroalbumin/Creatinine Ratio38.5 mg/gHigh0.0-30.0[facility] Physician GroupComment on above:Result Comment: 30-300 mg/g indicates an increased risk for diabetic nephropathy. Greater than 300 mg/g is consistent with clinical nephropathy. (Am. J. Kidney Disease 1995, 25:107) PERFORMED BY: [facility] [address] [place] [id number] PATHOLOGIST ANIMAL SKINNER VAMSI COONEY M.D.Performed By: #### URMACRERAT #### [facility] [address] [place] [id number] USAMicroalbumin [Mass/volume] in UrineOrdered By: Ragini Mar on 04-82-5513Cpenwod DL <= 20 mg/L (U) [Mass/Vol]1.0 mg/dLNormal0.0-1.8 [facility] - TrumbullComment on above:Performed By: #### URMACRERAT #### [facility] [address] [place] [address] USANo Panel Informationon 05-29-8508Ffakgfm Aamteol499 [facility] - TrumbullUrine microalbumin/creatinine mass ratioOrdered By: Ragini Mar on 91-05-0206Cdpckde/Creatinine DL <= 20 mg/L (U) [Mass ratio]38.5 mg/gHigh0.0-30.0[facility] TrumbullComment on above:30- 300 mg/g indicates an increased risk for diabetic nephropathy. Greater than 300 mg/g is consistent with clinical nephropathy. (Am. J. Kidney Disease 1995, 25:107)Capillary blood glucose measurement by glucometer (mass/volume)Ordered By: David Solano on 67-56-8850Spebjuw [Mass/Vol]133 mg/dLNoGrant HospitalComment on above:Random Glucose Reference Range is dependent on time and content of last meal. Glucose of more than 200 mg/dL in a nonstressed, ambulatory subject supports the diagnosis of Diabetes Mellitus. Result Comment: Random Glucose Reference Range is dependent on time and content of last meal. Glucose of more than 200 mg/dL in a nonstressed, ambulatory subject supports the diagnosis of Diabetes Mellitus.Performed By: #### GLULS #### Point of Care testing ,Glucose Poct Glucometerson 10-27-3422Eveetac6Nje7: Cleaned MeterNormBaptist Health Doctors Hospital Physician GroupComment on above:Result Comment: PERFORMED BY: [facility] [place] [address] PATHOLOGIST ANIMAL SKINNER VAMSI COONEY M.D.Performed By: #### GLULS #### Point of Care testing ,Bill 50-60-9727RPpajimdo: [id number] Received: 08/21/23 Status: ATUL Req Num: [id number] Spec Type: Surgical Subm Dr: David Solano MD Tissues: A Esophagus Biopsy (ESOPHAGEAL LESION) Procedures: HE/2, Gross/Micro L4 Age/ Patient Sex Location Account Attending Physician Dillon Stephenson /M [id number] David Solano MD SPEC NUM: [id number] RECD: 08/21/23 STATUS: SOUNestor REQ NUM: [id number] DANIELLA: 08/21/23- SUBM DR: David Solano MD ENTERED: 08/21/23 [facility] DR: SPEC TYPE: Surgical DEPT: S [...] margin, trisected and entirely submitted in A1. Specimen: [id number] Received: 08/21/23 Status: ATUL Villafuerte Num: [id number] Spec Type: Surgical Subm Dr: David Solano MD Tissues: A Esophagus Biopsy (ESOPHAGEAL LESION) Procedures: HE/2, Gross/Micro L4 Patient: Dillon Stephenson [id number] (Continued) Specimen: [id number] Received: 08/21/23 (Continued) Signed (signature on file) Argelia Agarwal MD 08/23/23 1509 Specimen: [id number] Received: 08/21/23 Status: ATUL Villafuerte Num: [id number] Spec Type: Surgical Subm Dr: David Solano MD Tissues: A Esophagus Biopsy (ESOPHAGEAL LESION) Procedures: HE/2, Gross/Micro L4 Patient: SachinDillon [id number] (Continued) Specimen: [id number] Received: 08/21/23 (Continued) CPT Codes 65547 Specimen: [id number] Received: 08/21/23 Status: ATUL Villafuerte Num: [id number] Spec Type: Surgical Subm Dr: David Solano MD Tissues: A Esophagus Biopsy (ESOPHAGEAL LESION) Procedures: HE/2, Gross/Micro L4 Patient: Dillon Stephenson [id number] (Continued) Signed (signature on file) Argelia Agarwal MD 08/23/[address] [place] [address] Physician GroupNo Panel InformationOrdered By: David Solano on 37-51-1023Hkjmgex Glucose CommentGlu2: cleaned [facility]omerene HospitalHbA1c HPLC (Bld) [Mass fraction]on 22-63-2168HoF2b (Bld) [Mass fraction]7.9 %[facility] TrumbullNo Panel Informationon 07-28-2023 [address] [place], [place] [address]CBC AUTO DIFFon 04-16-2022 BASO #0.1 103/ulNormal0.0-0.1The [facility] Lorain HospitalComment on above:Performed By: #### CBC #### [facility] [address] [place] [address] [address] Calin AgarwalBasophils/100 WBC (Bld)1.2 %Normal0.2-2.0The [facility] Comment on above:Performed By: #### CBC #### [facility] [address] [place] [address] Dr. Calin David #0.3 103/ulNormal0.0-0.7The [facility] HospitalComment on above: Performed By: #### CBC #### [facility] [address] [place] [address] Dr. Calin Liebermanosinophils/100 WBC (Bld)3.8 %Normal0.9-7.0The [facility] Comment on above:Performed By: #### CBC #### [facility] [address] [place] [address] Dr. Calin Liebermanrythrocyte distribution width (RBC) [Ratio]13.1 %Blbojo24.0-15.0 The [facility] HospitalComment on above:Performed By: #### CBC #### [facility] [address] [place] [address] Dr. Calin AgarwalHematocrit (Bld) [Volume fraction]43.6 %Emaega35.0-54.0The [facility] HospitalComment on above:Performed By: #### CBC #### [facility] [address] [place] [address] Dr. Calin AgarwalHemoglobin (Bld) [Mass/Vol]14.4 g/hQStaxei63.0-18.0The [facility] HospitalComment on above:Performed By: #### CBC #### [facility] [address] [place] [address] Dr. Calin Rogel #0.02 10e3/ulNormal0.00-0.03The [facility] HospitalComment on above:Performed By: #### CBC #### [facility] [address] [place] [address] Dr. Calin Rogel %0.3 %Normal0.0-0.5The [facility] HospitalComment on above: Performed By: #### CBC #### [facility] [address] [place] [address] Dr. Calin Ashton #1.8 103/ulNormal1.2-3.8The [facility] HospitalComment on above:Performed By: #### CBC #### [facility] [address] [place] [address] Dr. Calin Branchmphocytes/100 WBC (Bld)26.9 %Kkcixy38.5-60.0The [facility] HospitalComment on above:Performed By: #### CBC #### [facility] [address] [place] [address] Dr. Calin Giraldo DIFF REQNONormalThe [facility] HospitalComment on above: Performed By: #### CBC #### [facility] [address] [place] [address] Dr. Calin Nicholas (RBC) [Entitic mass]29.4 tkDmwvrh59.9-34.0The [facility] HospitalComment on above:Performed By: #### CBC #### [facility] [address] [place] [address] Dr. Calin Nicholas (RBC) [Mass/Vol]33.0 g/cEPqqevw99.9-35.2The [facility] HospitalComment on above:Performed By: #### CBC #### [facility] [address] [place] [address] Dr. Calin Pandey (RBC) [Entitic vol]89.2 lBBxphim45.0-94.0The [facility] HospitalComment on above:Performed By: #### CBC #### [facility] [address] [place] [address] Dr. Calin Flores #0.5 103/ulNormal0.3-0.8The [facility] HospitalComment on above:Performed By: #### CBC #### [facility] [address] [place] [address] Dr. Calin Ariasocytes/100 WBC (Bld)6.9 %Normal1.7-12.0The [facility] Comment on above:Performed By: #### CBC #### [facility] [address] [place] [address] Dr. Calin Staples #4.1 103/ulNormal1.4-6.5The [facility] HospitalComment on above:Performed By: #### CBC #### [facility] [address] [place] [address] Dr. Calin Castorenautrophils/100 WBC (Bld)60.9 %Bzfsyt12.0-75.0[address] HospitalComment on above:Performed By: #### CBC #### [facility] [address] [place] [address] Dr. Calin AgarwalPlatelet mean volume (Bld) [Entitic vol]10.0 fLNormal9.5-13.5The [facility] HospitalComment on above:Performed By: #### CBC #### [facility] [address] [place] [address] Dr. Calin AgarwalPLT213 103/ymUbdyao119-590Pdz [facility] HospitalCommymichigan medical center on above: Performed By: #### CBC #### [facility] [address] [place] [address] Dr. Calin AgarwalRBC4.89 106/ulNormal4.70-6.10The [facility] HospitalComment on above:Performed By: #### CBC #### [facility] [address] [place] [address] Dr. Calin AgarwalWBC6.8 103/ulNormal4.0-11.0[address] HospitalCommymichigan medical center on above: Performed By: #### CBC #### [facility] [address] [place] [address] Dr. Calin AgarwalGLYCOHEMOGLOBIN A1Con 15-92-1346CCT RECOMMENDATIONSEE BELOWNormal Wilson Street HospitalCommymichigan medical center on above:Result Comment: ADA RECOMMENDED LIMIT 4.0 - 6.0 ADA THERAPEUTIC TARGET < 7.0 ACTION SUGGESTED > 7.0Performed By: #### A1C #### [facility] [address] [place] [address] Dr. Calin AgarwalGlucose [Mass/Vol]163 mg/dLNormalThSouthview Medical CenterComment on above:Performed By: #### A1C #### [facility] [address] [place] [address] [address] Calin AgarwalHbA1c (Bld) [Mass fraction]7.3 %Critically high4.5-6.2The [facility] HospitalComment on above:Performed By: #### A1C #### [facility] [address] [place] [address] Dr. Calin LizamaID PROFILEon [id number]-HDL RATIO NORMSEE BELOWUniversity Hospitals Cleveland Medical CenterComment on above:Result Comment: 3.3 - 4.4 LOW RISK 4.4 - 7.1 AVERAGE RISK 7.1 - 11.0 MODERATE RISK >11.0 HIGH RISKPerformed By: #### LIPID, CMP #### [facility] [address] [place] [address] Dr. Calin Zuletaesterol [Mass/Vol]85 mg/dLNormal<=200The [facility] Comment on above:Performed By: #### LIPID, CMP #### [facility] [address] [address] [address] Calin Zuletaesterol in HDL [Mass/Vol]26 mg/dLCritically usy78-48Ecy [facility] HospitalComment on above:Performed By: #### LIPID, CMP #### [facility] [address] [place] [address] Dr. Calin Zuletaesterol in LDL [Mass/Vol]47.4 mg/dLUniversity Hospitals Cleveland Medical CenterComment on above:Performed By: #### LIPID, CMP #### [facility] [address] [address] [address] Calin Brooks.total/Cholesterol in HDL [Mass ratio]3.3 {ratio} NormalThe [facility] HospitalComment on above:Performed By: #### LIPID, CMP #### [facility] [address] [place] [address] Dr. Calin Morillo NORMAL> or = 60 mg/dl - LOW CARDIOVASCULAR RISK <40 mg/dl - HIGH CARDIOVASCULAR RISKUniversity Hospitals Cleveland Medical CenterComment on above:Performed By: #### LIPID, CMP #### [facility] [address] [place] [address] Dr. Calin Richard CALC NORMALSEE BELOWNoMercy Health St. Vincent Medical CenterComment on above:Result Comment: <100 mg/dl OPTIMAL 100 - 129 mg/dl NEAR OR ABOVE OPTIMAL 130 - 159 mg/dl BORDERLINE HIGH 160 - 189 mg/dl HIGH >190 mg/dl VERY HIGH Performed By: #### LIPID, CMP #### [facility] [address] [address] [address] Calin AgarwalTriglyceride [Mass/Vol]58 mg/dLNormal<=150The [facility] Comment on above:Performed By: #### LIPID, CMP #### [facility] [address] [address] [address] Calin AgarwalVLDL CALC11.6 mg/dLNoMercy Health St. Vincent Medical CenterComment on above: Performed By: #### LIPID, CMP #### [facility] [address] [place] [address] Dr. Calin ColonALBUMIN, RAND URon 41-67-2871eYHK3.5 mg/LNormal<=30.0The [facility] HospitalComment on above:Performed By: #### LIPID, CMP #### [facility] [address] [place] [address] Dr. Calin Justice 14(COMP METB)on [id number] [Mass/Vol]4.0 g/dLNormal 3.4-5.0The [facility] HospitalComment on above:Performed By: #### LIPID, CMP #### [facility] [address] [place] [address] Dr. Calin AgarwalAlbumin/Globulin [Mass ratio]1.3 {ratio}NormalThe [facility] HospitalComment on above:Performed By: #### LIPID, CMP #### [facility] [address] [place] [address] Dr. Calin Villaseñor [Catalytic activity/Vol]72 U/TBaihiu25-686Lwr [facility] HospitalComment on above:Performed By: #### LIPID, CMP #### [facility] [address] [place] [address] Dr. Yilan ChangALT [Catalytic activity/Vol]26 U/ENffnxv99-54Uel [facility] HospitalComment on above:Performed By: #### LIPID, CMP #### [facility] [address] [place] [address] Dr. Calin Tejedaon gap [Moles/Vol]11.7 mmol/LNormalWilson [address] [facility] Comment on above:Performed By: #### LIPID, CMP #### [facility] [address] [place] [address] Dr. Calin AgarwalAST [Catalytic activity/Vol]16 U/HVodxpz88-74Gmx [facility] HospitalComment on above:Performed By: #### LIPID, CMP #### [facility] [address] [place] [address] Dr. Calin AgarwalBilirubin [Mass/Vol]0.4 mg/dLNormal0.2-1.0[facility] Comment on above:Performed By: #### LIPID, CMP #### [facility] [address] [place] [address] Dr. Calin AgarwalCalcium [Mass/Vol]9.6 mg/dLNormal8.5-10.1[facility] Comment on above:Performed By: #### LIPID, CMP #### [facility] [address] [place] [address] Dr. Calin AgarwalChloride [Moles/Vol]102 mmol/QOazutm57-930PxaWilson [address] Hospital Comment on above:Performed By: #### LIPID, CMP #### [facility] [address] [place] [address] Dr. Calin AgarwalCO2 [Moles/Vol]29.1 mmol/VHueoiw56.0-32.0The [facility] Comment on above:Performed By: #### LIPID, CMP #### [facility] [address] [place] [address] Dr. Calin AgarwalCreatinine [Mass/Vol]0.88 mg/dLNormal0.70-1.30The [facility] HospitalComment on above:Performed By: #### LIPID, CMP #### [facility] [address] [place] [address] Dr. Calin LiebermanGFR-AF COMORAN>60Normal>=60The [facility] HospitalComment on above:Performed By: #### LIPID, CMP #### [facility] [address] [place] [address] Dr. Calin LiebermanGFR-NON AF COMORAN>60Normal>=60The [facility] HospitalComment on above:Performed By: #### LIPID, CMP #### [facility] [address] [address] [address] Calin AgarwalGlobulin (S) [Mass/Vol]3.2 g/dLNormalThe [facility] HospitalComment on above:Performed By: #### LIPID, CMP #### [facility] [address] [place] [address] Dr. Calin AgarwalGlucose [Mass/Vol]168 mg/dLCritically kwqs98-150Mda [facility] HospitalComment on above:Performed By: #### LIPID, CMP #### [facility] [address] [place] [address] Dr. Calin AgarwalPotassium [Moles/Vol]4.8 mmol/LNormal3.5-5.1The [facility] Comment on above:Performed By: #### LIPID, CMP #### [facility] [address] [place] [address] Dr. Calin AgarwalProtein [Mass/Vol]7.2 g/dLNormal6.4-8.2[facility] Comment on above:Performed By: #### LIPID, CMP #### [facility] [address] [place] [address] Dr. Calin AgarwalSodium [Moles/Vol]138 mmol/VKdvpir578-315Pcj [facility] Comment on above:Performed By: #### LIPID, CMP #### [facility] [address] [place] [address] Dr. Calin AgarwalUrea nitrogen [Mass/Vol]19.0 mg/dLCritically high7.0-18.0The [facility] HospitalComment on above:Performed By: #### LIPID, CMP #### [facility] [address] [place] [address] Dr. Calin AgarwalUrea nitrogen/Creatinine [Mass ratio]21.6 mg/mgUniversity Hospitals Cleveland Medical CenterComment on above:Performed By: #### LIPID, CMP #### [facility] [address] [address] [address] Calin AgarwalScreenson [id number] [id number]#1.00CD:127[facility] [id number]#1.00CD:127[facility] AdministrationUrology Office/Clinic Noteon [id number] Office/Clinic NoteChief Complaint 1 year with PSA HPI Staff [...] f/u PRN. Follow-up With When Contact Information TRESA ALAS PA-C, URL [address] [place] [address] [phone] Additional Instructions: PRN Patient Education Benign Prostatic Hyperplasia Documentation recorded by the scribe Olivia Levy_ accurately reflects the services(s) I performed and decisions made by me. Authenticated by Tresa Alas PA-C on 04/03/2022 23:20:40. IOlivia, personally scribed for Tresa Alas on 04/03/2022 14:41:59. . Problem List/Past Medical [...] Protein Urine Dipstick: Trace (04/03/22 14:07:00) Specific Cope Urine Dipstick: 1.025 (04/03/22 14:07:00) Urine Appearance Urine Dipstick: Clear (04/03/22 14:07:00) Urine Color Urine Dipstick: Yellow (04/03/22 14:07:00) Urobilinogen Urine Dipstick: Normal 0.2-1 EU/dl (04/03/22 14:07:00) pH Urine Dipstick: 6 (04/03/22 14:07:00)NormalMartins Ferry HospitalComment on above:Result Comment: Electronically Signed By: TRESA ALAS PA-C\.br\Date and Time Signed: 04/03/2322:20 EST\.br\Electronically Co-Signed By: Olivia Levy.br\Date and Time Co-Signed: 01/04/23 14:42 ESTAmbulatory Visit Summaryon [id number] Visit Summary DILLON STEPHENSON :1945 Visit Date:04/03/2022 Ambulatory Visit Instructions Your Diagnosis 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 Screening for prostate cancer Other obstructive and reflux uropathy Tests Performed Urnls Dip Stick Auto w/o Microscopy POC 37804 Your Care Team Attending Physician - TRESA ALAS PA-C Primary Care Physician - SIMONE HUANG [...] the Following Appointments Follow Up with TRESA ALAS PA-C, ROSSY When: Comments: PRN Where: [address] [place] [address] [phone] Medications What How Much When Instructions Unchanged [...] Urnls Dip Stick Auto w/o Microscopy POC 38650 (04/03/2022) Bilirubin Urine Dipstick - Negative Blood Urine Dipstick - Negative Glucose Urine Dipstick - Negative Ketones Urine Dipstick - Trace - 5 mg/dl Leukocytes Urine Dipstick - Negative Nitrite Urine Dipstick - Negative Protein Urine Dipstick - Trace Specific Cope Urine Dipstick - 1.025 Urine Appearance Urine [...] an infection. ? Urinary (more content not included)...[facility] Educationon 95-55-9900Lsmnaqx EducationUrology Benign Prostatic Hyperplasia Benign prostatic hyperplasia (BPH) [...] urine that may remain in your bladder afteryou finish urinating. ? A digital rectal exam. [...] this procedure, a tool is inserted through theopening at the tip of the penis (urethra). [...] procedure uses radio frequencies to destroy and removea small amount of prostate tissue. ? Interstitial laser coagulation (ILC). This procedure uses a laser to destroy and remove a small amount of prostate tissue. ? Transurethral electrovaporization (TUVP). This procedure uses electrodes to destroy and remove a small amount of prostate tissue. ? Prostatic urethral lift. This procedure inserts an implant to push the lobes of the prostate awayfrom the urethra. Follow these instructions at home: ? Take gjdr-med-fvwqmtz and prescription medicines only as told by [...] treatment. ? You d (more content not included)...[facility] AdministrationLab Reportson [id number] Reports [id number]#1.00CD:127NormalMartins Ferry HospitalXR CSPINE 2_3 VIEWSon 53-69-7219PY CSPINE 2_3 VIEWSEXAMINATION: XR CSPINE 2_3 VIEWS HISTORY: Cervical radiculopathy COMPARISON: No [...] Electronically authenticated by: LENA MCKEON Date: 2022-02-06 10:08[facility] Medical CenterCovid-19 PCR (CVDTBH)on [id number]-CoV-2 (COVID-19) RNA ANN-MARIE+probe Ql (Unsp spec)DetectedCritically abnormalNOT DETECTEDThe [facility] HospitalComment on above:Result Comment: This test is not yet approved or cleared by the [place] FDA. When there are no FDA-approved or cleared tests available, and other criteria are met, FDA can make tests available under an emergency access mechanism called an Emergency Use Authorization (EUA). The EUA for this test is supported by the [place] of Health and Human Service's (HHS's) declaration [...] no longer be used). Performed By: #### CVDTBH #### [facility] [address] [place] [address] Dr. Calin Torres-DIMERon 62-71-5928J-DIMER0.64 mg/L FEUCritically high<=0.59The [facility] – Jacksonment on above:Performed By: #### DDIM #### [facility] [address] [place] [address] Dr. Calin Torres-DIMER COMMENTSSEE [facility] CenterCommymichigan medical center on above:Result Comment: Increases in D-Dimer concentration observed with thromboembolic events [...] stress, and generalized hospitalization. Performed By: #### DDIM #### [facility] [address] [place] [address] Dr. Calin AgarwalGLYCOHEMOGLOBIN A1Con [id number] RECOMMENDATIONSEE BELOWNormtn The [facility] HospitalCommymichigan medical center on above:Result Comment: ADA RECOMMENDED LIMIT 4.0 - 6.0 ADA THERAPEUTIC TARGET < 7.0 ACTION SUGGESTED > 7.0Performed By: #### LIPID, CMP #### [facility] [address] [place] [address] Dr. Calin AgarwalGlucose [Mass/Vol]163 mg/dLUniversity Hospitals Cleveland Medical CenterCommymichigan medical center on above:Performed By: #### LIPID, CMP #### [facility] [address] [place] [address] Dr. Calin AgarwalHbA1c (Bld) [Mass fraction]7.3 %Critically high4.5-6.2The [facility] on above:Performed By: #### LIPID, CMP #### [facility] [address] [address] [address] Calin AgarwalPROF CHEM 8 (BAS METB)on 06-26-6497Twchq gap [Moles/Vol]12.5 mmol/LNormalWilson Street HospitalComment on above:Performed By: #### LIPID, CMP #### [facility] [address] [address] [address] Calin AgarwalCalcium [Mass/Vol]9.5 mg/dLNormal8.5-10.1The [facility] Comment on above:Performed By: #### LIPID, CMP #### [facility] [address] [address] [address] Calin AgarwalChloride [Moles/Vol]104 mmol/QEpmzfj90-279Rpl [facility] Comment on above:Performed By: #### LIPID, CMP #### [facility] [address] [address] [address] Calin AgarwalCO2 [Moles/Vol]27.0 mmol/VTwzvbv93.0-32.0[facility] Comment on above:Performed By: #### LIPID, CMP #### [facility] [address] [address] [address] Calin AgarwalCreatinine [Mass/Vol]1.11 mg/dLNormal0.70-1.30The [facility] HospitalComment on above:Performed By: #### LIPID, CMP #### [facility] [address] [address] [address] Calin LiebermanGFR-AF COMORAN>60Normal>=60The [facility] HospitalComment on above:Performed By: #### LIPID, CMP #### [facility] [address] [address] [address] Calin LiebermanGFR-NON AF COMORAN>60Normal>=60The [facility] HospitalComment on above:Performed By: #### LIPID, CMP #### [facility] [address] [address] [address] Calin AgarwalGlucose [Mass/Vol]231 mg/dLCritically djbu11-418Wws Mont Alto HospitalComment on above:Performed By: #### LIPID, CMP #### [facility] [address] [address] [address] Calin AgarwalPotassium [Moles/Vol]5.5 mmol/LCritically high3.5-5.1The [facility] HospitalComment on above:Performed By: #### LIPID, CMP #### [facility] [address] [address] [address] Calin AgarwalSodium [Moles/Vol]138 mmol/RXuuerz679-989Spq [facility] Comment on above:Performed By: #### LIPID, CMP #### [facility] [address] [address] [address] Calin AgarwalUrea nitrogen [Mass/Vol]17.0 mg/dLNormal7.0-18.0The [facility] HospitalComment on above:Performed By: #### LIPID, CMP #### [facility] [address] [address] [address] Calin Soler nitrogen/Creatinine [Mass ratio]15.3 mg/mgNormalThe [facility] HospitalComment on above:Performed By: #### LIPID, CMP #### [facility] [address] [address] [address] Calin Mitchell JONH DOP LEG LTon 31-27-2750VY JONH DOP LEG LTUltrasound venous duplex scan left lower extremity CLINICAL: [...] Electronically authenticated by: SEJAL SANCHEZ Date: 2021-10-22 14:37No[address] [facility] [address] AUTO DIFFon [id number] #0.1 103/ulNormal0.0-0.1The [facility] HospitalComment on above:Performed By: #### LIPID, CMP #### [facility] [address] [place] [address] Dr. Calin AgarwalBasophils/100 WBC (Bld)0.8 %Normal0.2-2.0[facility] Comment on above:Performed By: #### LIPID, CMP #### [facility] [address] [address] [address] Calin David #0.2 103/ulNormal0.0-0.7The [facility] HospitalComment on above: Performed By: #### LIPID, CMP #### [facility] [address] [place] [address] Dr. Calin Liebermanosinophils/100 WBC (Bld)2.8 %Normal0.9-7.0The [facility] Comment on above:Performed By: #### LIPID, CMP #### [facility] [address] [place] [address] Dr. Calin Liebermanrythrocyte distribution width (RBC) [Ratio]13.2 %Pqayoe86.0-15.0 The [facility] HospitalComment on above:Performed By: #### LIPID, CMP #### [facility] [address] [place] [address] Dr. Calin AgarwalHematocrit (Bld) [Volume fraction]44.9 %Gfzkks13.0-54.0[address] HospitalComment on above:Performed By: #### LIPID, CMP #### [facility] [address] [place] [address] Dr. Calin AgarwalHemoglobin (Bld) [Mass/Vol]14.8 g/lVSnepwv00.0-18.0[address] HospitalComment on above:Performed By: #### LIPID, CMP #### [facility] [address] [place] [address] Dr. Calin Rogel #0.04 10e3/ulCritically high0.00-0.03The [facility] Comment on above:Performed By: #### LIPID, CMP #### [facility] [address] [place] [address] Dr. Calin Rogel %0.6 %Critically high0.0-0.5The [facility] HospitalComment on above:Performed By: #### LIPID, CMP #### [facility] [address] [place] [address] Dr. Calin Ashton #1.7 103/ulNormal1.2-3.8The [facility] HospitalComment on above:Performed By: #### LIPID, CMP #### [facility] [address] [place] [address] Dr. Calin Nortonhocytes/100 WBC (Bld)26.3 %Hvrbxn59.5-60.0The [facility] HospitalComment on above:Performed By: #### LIPID, CMP #### [facility] [address] [place] [address] Dr. Calin TrevinoUAL DIFF REQNONormalThe [facility] HospitalComment on above: Performed By: #### LIPID, CMP #### [facility] [address] [place] [address] Dr. Calin Benito (RBC) [Entitic mass]30.3 mbHyreuo39.9-34.0The [facility] HospitalComment on above:Performed By: #### LIPID, CMP #### [facility] [address] [place] [address] Dr. Calin Nicholas (RBC) [Mass/Vol]33.0 g/dHEjqzfm02.9-35.2The [facility] HospitalComment on above:Performed By: #### LIPID, CMP #### [facility] [address] [place] [address] Dr. Calin Nicholas (RBC) [Entitic vol]91.8 wRJkdrjn21.0-94.0The [facility] HospitalComment on above:Performed By: #### LIPID, CMP #### [facility] [address] [place] [address] Dr. Calin Flores #0.4 103/ulNormal0.3-0.8The [facility] HospitalComment on above:Performed By: #### LIPID, CMP #### [facility] [address] [place] [address] Dr. Calin Ariasocytes/100 WBC (Bld)6.6 %Normal1.7-12.0The [facility] Comment on above:Performed By: #### LIPID, CMP #### [facility] [address] [place] [address] Dr. Calin Staples #4.0 103/ulNormal1.4-6.5The [facility] HospitalComment on above:Performed By: #### LIPID, CMP #### [facility] [address] [place] [address] Dr. Calin Castorenautrophils/100 WBC (Bld)62.9 %Bsbasb72.0-75.0The [facility] HospitalComment on above:Performed By: #### LIPID, CMP #### [facility] [address] [place] [address] Dr. Calin Urbinalet mean volume (Bld) [Entitic vol]10.6 fLNormal9.5-13.5The [facility] HospitalComment on above:Performed By: #### LIPID, CMP #### [facility] [address] [place] [address] Dr. Calin AgarwalPLT206 103/nrLfgvih850-581Jcz [facility] HospitalComment on above: Performed By: #### LIPID, CMP #### [facility] [address] [place] [address] Dr. Calin AgarwalRBC4.89 106/ulNormal4.70-6.10The [facility] HospitalComment on above:Performed By: #### LIPID, CMP #### [facility] [address] [place] [address] Dr. Calin AgarwalWBC6.4 103/ulNormal4.0-11.0The [facility] HospitalComment on above: Performed By: #### LIPID, CMP #### [facility] [address] [address] [address] aClin AgarwalGLYCOHEMOGLOBIN A1Con 48-35-6700UFT RECOMMENDATIONADA THERAPEUTIC TARGET 6.0 - 7.0 ACTION SUGGESTED > 7.0[facility] CenterComment on above:Performed By: #### A1C #### [facility] [address] [address] [address] Calin AgarwalGlucose [Mass/Vol]160 mg/dLNoMercy Health St. Vincent Medical CenterComment on above:Performed By: #### A1C #### [facility] [address] [address] [address] Calin AgarwalHbA1c (Bld) [Mass fraction]7.2 %Critically high<=6.0The [facility] HospitalComment on above:Performed By: #### A1C #### [facility] [address] [place] [address] Dr. Calin LizamaID PROFILEon 73-06-9760LRZR-HDL RATIO NORMSEE BELOWUniversity Hospitals Cleveland Medical CenterComment on above:Result Comment: 3.3 - 4.4 LOW RISK 4.4 - 7.1 AVERAGE RISK 7.1 - 11.0 MODERATE RISK >11.0 HIGH RISKPerformed By: #### LIPID, CMP #### [facility] [address] [place] [address] Dr. Calin AgarwalCholesterol [Mass/Vol]84 mg/dLNormal<=200[facility] Comment on above:Performed By: #### LIPID, CMP #### [facility] [address] [place] [address] Dr. Calin AgarwalCholesterol in HDL [Mass/Vol]26 mg/dLUniversity [facility]als [facility] Center Comment on above:Performed By: #### LIPID, CMP #### [facility] [address] [place] [address] Dr. Calin Zuletaesterol in LDL [Mass/Vol]47.6 mg/dLUniversity Hospitals Cleveland Medical CenterComment on above:Performed By: #### LIPID, CMP #### [facility] [address] [place] [address] Dr. Calin AgarwalCholesterol.total/Cholesterol in HDL [Mass ratio]3.2 {ratio} NormalWilson Street HospitalComment on above:Performed By: #### LIPID, CMP #### [facility] [address] [address] [address] Calin Morillo NORMAL> or = 60 mg/dl - LOW CARDIOVASCULAR RISK <40 mg/dl - HIGH CARDIOVASCULAR RISKUniversity Hospitals Cleveland Medical CenterComment on above:Performed By: #### LIPID, CMP #### [facility] [address] [place] [address] Dr. Calin AgarwalLDL CALC NORMALSEE BELOWUniversity Hospitals Cleveland Medical CenterComment on above:Result Comment: <100 mg/dl OPTIMAL 100 - 129 mg/dl NEAR OR ABOVE OPTIMAL 130 - 159 mg/dl BORDERLINE HIGH 160 - 189 mg/dl HIGH >190 mg/dl VERY HIGH Performed By: #### LIPID, CMP #### [facility] [address] [place] [address] Dr. Calin AgarwalTriglyceride [Mass/Vol]52 mg/dLNormal<=150The [facility] Comment on above:Performed By: #### LIPID, CMP #### [facility] [address] [place] [address] Dr. Calin HouserLDL CALC10.4 mg/dLNoMercy Health St. Vincent Medical CenterComment on above: Performed By: #### LIPID, CMP #### [facility] [address] [place] [address] Dr. Calin AgarwalMICROALBUMIN, RAND URon 55-43-3075eDDH4.7 mg/LNormal<=30.0The [facility] HospitalComment on above:Performed By: #### MALBR #### [facility] [address] [place] [address] Dr. Calin AgarwalPROLuiz 14(COMP METB)on 57-76-5394Bpfjshz [Mass/Vol]4.3 g/dLNormal 3.5-5.0The [facility] HospitalComment on above:Performed By: #### LIPID, CMP #### [facility] [address] [place] [address] Dr. Calin AgarwalAlbumin/Globulin [Mass ratio]1.3 {ratio}NormalParkview Healthment on above:Performed By: #### LIPID, CMP #### [facility] [address] [address] [address] Calin ShirleyP [Catalytic activity/Vol]67 U/PQzodrf46-464Ajr [facility] HospitalComment on above:Performed By: #### LIPID, CMP #### [facility] [address] [address] [address] Calin ShirleyT [Catalytic activity/Vol]34 U/DLekqcg04-20Jwi [facility] HospitalComment on above:Performed By: #### LIPID, CMP #### [facility] [address] [place] [address] Dr. Calin Tejedaon gap [Moles/Vol]12.4 mmol/LNormalThe [facility] Comment on above:Performed By: #### LIPID, CMP #### [facility] [address] [place] [address] Dr. Calin AgarwalAST [Catalytic activity/Vol]16 U/LCritically lft73-14Kbh [facility]ment on above:Performed By: #### LIPID, CMP #### [facility] [address] [place] [address] Dr. Calin AgarwalBilirubin [Mass/Vol]0.4 mg/dLNormal0.2-1.3The [facility] Comment on above:Performed By: #### LIPID, CMP #### [facility] [address] [place] [address] Dr. Calin AgarwalCalcium [Mass/Vol]9.6 mg/dLNormal8.4-10.2[facility] Comment on above:Performed By: #### LIPID, CMP #### [facility] [address] [place] [address] Dr. Calin AgarwalChloride [Moles/Vol]104 mmol/VOjjgme62-481Jhf [facility] Comment on above:Performed By: #### LIPID, CMP #### [facility] [address] [place] [address] Dr. Calin AgarwalCO2 [Moles/Vol]28.7 mmol/RMydwod87.0-30.0The [facility] Comment on above:Performed By: #### LIPID, CMP #### [facility] [address] [address] [address] Calin AgarwalCreatinine [Mass/Vol]0.96 mg/dLNormal0.66-1.25The [facility] HospitalComment on above:Performed By: #### LIPID, CMP #### [facility] [address] [address] [address] Calin LiebermanGFR-AF COMORAN>60Normal>=60The [facility] HospitalComment on above:Performed By: #### LIPID, CMP #### [facility] [address] [address] [address] Calin LiebermanGFR-NON AF COMORAN>60Normal>=60The [facility] HospitalComment on above:Performed By: #### LIPID, CMP #### [facility] [address] [address] [address] Calin AgarwalGlobulin (S) [Mass/Vol]3.2 g/dLNormalThe [facility] HospitalComment on above:Performed By: #### LIPID, CMP #### [facility] [address] [address] [address] Calin AgarwalGlucose [Mass/Vol]164 mg/dLCritically ypda18-772Kqh [facility] HospitalComment on above:Performed By: #### LIPID, CMP #### [facility] [address] [address] [address] Calin AgarwalPotassium [Moles/Vol]5.1 mmol/LCritically high3.4-5.0The [facility] HospitalComment on above:Performed By: #### LIPID, CMP #### [facility] [address] [address] [address] Calin AgarwalProtein [Mass/Vol]7.5 g/dLNormal6.1-8.2The [facility] Comment on above:Performed By: #### LIPID, CMP #### [facility] [address] [place], [place] [address] Dr. Calin AgarwalSodium [Moles/Vol]140 mmol/ESwkjhq157-139Edh [facility] Comment on above:Performed By: #### LIPID, CMP #### [facility] [address] [address] [address] Calin AgarwalUrea nitrogen [Mass/Vol]17.0 mg/dLNormal9.0-20.0The [facility] HospitalComment on above:Performed By: #### LIPID, CMP #### [facility] [address] [place], [place] [address] Dr. Calin Soler nitrogen/Creatinine [Mass ratio]17.7 mg/mgNoalThe [facility] HospitalComment on above:Performed By: #### LIPID, CMP #### [facility] [address] [address] [address] Calin Agarwal Vital Signs Date TimeVital SignValuePerforming WdtdgeswxXoymvibr30-58-8116 09:33-0400Body mqsupl517.8 cmSimone Huang MD Work Phone: 1(037)027-[address] [place], [place] 8535610-13-2025 09:33-0400 Body mass index (BMI) [Ratio]24.2 kg/l3ZlyuszSimone Huang MD Work Phone: 1(265)708-[address] [place], [place] 8535610-13-2025 09:33-0400 Body ceaytt57.65 kgSimone Huang MD Work Phone: [phone]10-13-2025 09:33-0400 Diastolic blood ohxtfeut05 mm[Hg]Simone Huang MD Work Phone: 1(156)026-[address] [place], [place] 8535610-13-2025 09:33-0400 Heart rate80 /minSimone Huang MD Work Phone: [phone]10-13-2025 09:33-0400 Systolic blood ecprztat637 mm[Hg]Simone Huang MD Work Phone: 1(405)090-[address] [place], [place] 8535609-03-2025 11:17-0400 Body cdispz056.8 cmSimone Huang MD Work Phone: 1(419)[address]09-03-2025 11:17-0400 Body mass index (BMI) [Ratio]24.3 kg/n7VnyfvmSimone Huang MD Work Phone: 1(072)[address] [place], [place] 4307409-03-2025 11:17-0400 Body .7 kgSimone Huang MD Work Phone: 1(077)[address] [place], [place] 4307409-03-2025 11:17-0400 Diastolic blood ikkaedlo82 mm[Hg]Simone Huang MD Work Phone: 1(308)[address] [place], [place] 4307409-03-2025 11:17-0400 Heart rate78 /Nirmala Huang MD Work Phone: 1(569)[address] [place], [place] 4307409-03-2025 11:17-0400 Respiratory rate18 /Nirmala Huang MD Work Phone: 1(027)[address] [place], [place] 4307409-03-2025 11:17-0400 SaO2% (BldA) [Mass fraction]97 %Simone Huang MD Work Phone: 1(243)[address] [place], [place] 4307409-03-2025 11:17-0400 Systolic blood xiifkgsk950 mm[Hg]Simone Huang MD Work Phone: 1(852)[address] [place], [place] 4307408-26-2025 09:38-0400 Body hfrigg698.8 cmSimone Huang MD Work Phone: 1(501)[address] [place], [place] 4307408-26-2025 09:38-0400 Body mass index (BMI) [Ratio]24 kg/f9UaspgxSimone Huang MD Work Phone: 1(290)[address]08-26-2025 09:38-0400 Body tgyuug37.2 kgSimone Huang MD Work Phone: 1(458)[address] [place], [place] 4307407-30-2025 09:27-0400 Body qyxdzk268.8 cmSimone Huang MD Work Phone: 1(042)[address] [place], [place] 4307407-30-2025 09:27-0400 Body mass index (BMI) [Ratio]24 kg/l8NjuoruSimone Huang MD Work Phone: 1(571)[address]07-30-2025 09:27-0400 Body .2 kgSimone Huang MD Work Phone: 1(084)[address]07-30-2025 09:27-0400 Diastolic blood gpnhbixs16 mm[Hg]Simone Huang MD Work Phone: 1(908)[address]502 [address]07-30-2025 09:27-0400 Heart rate80 /Nirmala Huang MD Work Phone: 1(911)[address]07-30-2025 09:27-0400 Systolic blood gqsscoxc526 mm[Hg]Simone Huang MD Work Phone: 1(255)[address] [place], [place] 4307407-08-2025 09:39-0400 Body .8 cmSimone Huang MD Work Phone: 1(611)[address] [place], [place] 4307407-08-2025 09:39-0400 Body mass index (BMI) [Ratio]24.2 kg/j0MphhmsSimone Huang MD Work Phone: 1(505)[address]07-08-2025 09:39-0400 Body pubzdg19.65 kgSimone Huang MD Work Phone: 1(548)[address] [place], [place] 4307407-08-2025 09:39-0400 Diastolic blood hgramuti03 mm[Hg]Simone Huang MD Work Phone: 1(254)[address] [place], [place] 4307407-08-2025 09:39-0400 Heart rate75 /Nirmala Huang MD Work Phone: 1(257)[address]07-08-2025 09:39-0400 Systolic blood gskocyis260 mm[Hg]Simone Huang MD Work Phone: 1(777)[address] [place], [place] 4307406-20-2025 11:18-0400 Body tqijfj260.8 cmSimone Huang MD Work Phone: 1(642)[address] [place], [place] 4307406-20-2025 11:18-0400 Body mass index (BMI) [Ratio]24.3 kg/n0DbspvvSimone Huang MD Work Phone: [facility]06-20-2025 11:18-0400 Body .11 Umberto Huang MD Work Phone: [facility]06-20-2025 11:18-0400 Diastolic blood ohlolzoi16 mm[Hg]Simone Huang MD Work Phone: [facility]06-20-2025 11:18-0400 Heart rate83 /Nirmala Huang MD Work Phone: [facility]06-20-2025 11:18-0400 Systolic blood gnawirse209 mm[Hg]Simone Huang MD Work Phone: [facility]05-28-2025 10:32-0400 Body .8 cm[facility]05-28-2025 10:32-0400Body mass index (BMI) [Ratio]24.3 kg/m3UdfoipqyhSelect [facility]05-28-2025 10:32-0400Body xavmgp57 [facility]05-28-2025 10:32-0400 Diastolic blood tgnywwdy02 mm[Hg][facility]05-28-2025 10:32-0400Heart rate83 /[facility]05-28-2025 10:32-0400Respiratory rate18 /[facility]05-28-2025 10:32-2518CvJ6% (BldA) [Mass fraction]97 %[facility] 08-25-2024 10:32-0400Systolic blood mm[Hg][facility]04-11-2025 09:28-0400Body khucnd436.8 cm[facility] 07-09-2024 09:28-0400Body mass index (BMI) [Ratio]24.2 kg/d9NteneeazaSelect Medical [facility]ty [facility]04-11-2025 09:28-0400Body egkeyx98.65 kgSelect [facility]04-11-2025 09:28-0400Diastolic blood fikcvhba40 mm[Hg][facility]04-11-2025 09:28-0400Heart rate77 /[facility]04-11-2025 09:28-0400Respiratory rate12 /minSelect [facility]04-11-2025 09:28-9947ClH2% (BldA) [Mass fraction]98 %[facility]04-11-2025 09:28-0400Systolic blood grhibmnf342 mm[Hg][facility]02-26-2025 10:27-0500Body nsrzpy397.8 cmSelect [facility]02-26-2025 10:27-0500Body mass index (BMI) [Ratio]24.3 kg/r0BtellmofySelect [facility]02-26-2025 10:27-0500Body owqoor91.1 kg [facility]02-26-2025 10:27-0500Diastolic blood jibrdjck46 mm[Hg][facility]02-26-2025 10:27-0500Heart rate93 /min [facility]02-26-2025 10:27-0500Respiratory rate18 /min [facility]02-26-2025 10:27-7959IjA0% (BldA) [Mass fraction]97 %[facility]02-26-2025 10:27-0500Systolic blood mm[Hg][facility]01-07-2025 13:03-0500 Body acwuqq218.8 cmSimone Huang MD Work Phone: [facility]01-07-2025 13:03-0500 Body mass index (BMI) [Ratio]25 kg/g1ZfbrepSimone Huang MD Work Phone: [facility]01-07-2025 13:03-0500 Body yzmkrj50.12 kgSimone Huang MD Work Phone: [facility]01-07-2025 13:03-0500 Diastolic blood durbqfxt69 mm[Hg]Simone Huang MD Work Phone: [facility]01-07-2025 13:03-0500 Heart rate83 /minSimone Huang MD Work Phone: 1(295)[address] [place], [place] 4307401-07-2025 13:03-0500 Respiratory rate18 /Nirmala Huang MD Work Phone: 1(355)[address] [place], [place] 4307401-07-2025 13:03-0500 SaO2% (BldA) [Mass fraction]95 %Simone Huang MD Work Phone: 1(391)[address] [place], [place] 4307401-07-2025 13:03-0500 Systolic blood vrlwoprg114 mm[Hg]Simone Huang MD Work Phone: 1(598)[address] [place], [place] 4307401-06-2025 08:59-0500 Body qniwio896.8 cmSimone Huang MD Work Phone: 1(170)[address] [place], [place] 4307401-06-2025 08:59-0500 Body mass index (BMI) [Ratio]24 kg/t0IwvtivSimone Huang MD Work Phone: 1(934)[address] [place], [place] 4307401-06-2025 08:59-0500 Body fuppqb03.2 kgSimone Huang MD Work Phone: 1(148)[address] [place], [place] 4307401-06-2025 08:59-0500 Diastolic blood ciasiqzi99 mm[Hg]Simone Huang MD Work Phone: 1(375)[address] [place], [place] 4307401-06-2025 08:59-0500 Heart rate76 /Nirmala Huang MD Work Phone: 1(447)[address] [place], [place] 4307401-06-2025 08:59-0500 Systolic blood mjsnpeiu479 mm[Hg]Simone Huang MD Work Phone: 1(920)[address] [place], [place] 4307412-03-2024 14:47-0500 Diastolic blood yyvakehi70 mm[Hg]Maru Wyman DO Work Phone: [facility]Uszvlhctsg96[facility]99-2866 14:47-0500Heart rate66 /min Maru Wyman DO Work Phone: [facility] SystemYdoncljuex85-47-8642 14:47-6525ChR1% (BldA) [Mass fraction]97 %Maru Wyman DO Work Phone: [facility] SystemPieskabvyt35-42-1029 14:47-0500Systolic blood zgxsulxm072 mm[Hg]Maru Wyman DO Work Phone: [facility] SystemTfhmslltld92-38-6401 14:58-0500Body lvziaq096.8 cmSimone Huang MD Work Phone: 1(987)[address]11-12-2024 14:58-0500 Body mass index (BMI) [Ratio]24 kg/y6PrnjkbSimone Huang MD Work Phone: 1(407)[address] [place], [place] 4307411-12-2024 14:58-0500 Body mzjqxeptxmy28 [degF]Simone Huang MD Work Phone: 1(254)[address] [place], [place] 4307411-12-2024 14:58-0500 Body .92 kgSimone Huang MD Work Phone: 1(520)[address] [place], [place] 4307411-12-2024 14:58-0500 Diastolic blood zehzupfm20 mm[Hg]Simone Huang MD Work Phone: 1(986)[address] [place], [place] 4307411-12-2024 14:58-0500 Heart rate89 /Nirmala Huang MD Work Phone: 1(848)[address] [place], [place] 4307411-12-2024 14:58-0500 Respiratory rate17 /Nirmala Huang MD Work Phone: 1(647)[address] [place], [place] 4307411-12-2024 14:58-0500 SaO2% (BldA) [Mass fraction]98 %Simone Huang MD Work Phone: 1(359)[address] [place], [place] 4307411-12-2024 14:58-0500 Systolic blood dvgjkjuk857 mm[Hg]Simone Huang MD Work Phone: 1(329)[address] [place], [place] 4307410-03-2024 09:00-0400 Body pianah376.8 cm[facility]10-03-2024 09:00-0400Body mass index (BMI) [Ratio]23.5 kg/u5UibzhrbgbSelect Medical Specialty [facility]10-03-2024 09:00-0400Body thitmg97.44 kgSelect [facility]10-03-2024 09:00-0400Diastolic blood jxypizsj85 mm[Hg][facility] 01-01-2024 09:00-0400Heart rate64 /[facility] 01-01-2024 09:00-0400Respiratory rate14 /[facility] 01-01-2024 09:00-4723UfJ3% (BldA) [Mass fraction]98 %[facility]10-03-2024 09:00-0400Systolic blood odtehppr511 mm[Hg][facility]10-01-2024 13:03-0400Body uyhuqu687.8 cmSelect [facility]10-01-2024 13:03-0400Body mass index (BMI) [Ratio]23.7 kg/y4PystzyxtlSelect Medical Specialty Hospital [facility]10-01-2024 13:03-0400Body tzvdot57.92 kgSelect [facility]10-01-2024 13:03-0400Diastolic blood nquyhnye37 mm[Hg] [facility]10-01-2024 13:03-0400Heart rate86 /[facility]10-01-2024 13:03-0400Respiratory rate18 /[facility]10-01-2024 13:03-4148IcV6% (BldA) [Mass fraction]97 % [facility]10-01-2024 13:03-0400Systolic blood rylxjfuo754 mm[Hg][facility]08-07-2024 15:33-0400Body rayjhu299.8 cm MD Simone Huang Work Phone: [facility]08-07-2024 15:33-0400 Body mass index (BMI) [Ratio]24.2 kg/m2MD Simone Huang Work Phone: [facility]08-07-2024 15:33-0400 Body plpubr83.65 kgMD Simone Huang Work Phone: [facility]07-02-2024 13:51-0400 Diastolic blood mm[Hg]MD Simone uHang Work Phone: [phone]07-02-2024 13:51-0400 Heart rate64 /minMD Simone Huang Work Phone: 1(673)727[facility]11[facility]07-02-2024 13:51-0400 Respiratory rate18 /minMD Simone Huang Work Phone: 1(505)[address]02 [address]07-02-2024 13:51-0400 SaO2% (BldA) [Mass fraction]98 %MD Simone Huang Work Phone: 1(365)[address]07-02-2024 13:51-0400 Systolic blood pmzvgict243 mm[Hg]MD Simone Huang Work Phone: 1(846)[address]07-02-2024 12:21-0400 Body sbazns100.8 cmMD Simone Huang Work Phone: 1(612)[address]07-02-2024 12:21-0400 Body eniqkb43.11 kgMD Simone Huang Work Phone: 1(281)[address]002 [address]06-25-2024 13:02-0400 Body .26 cmMD Simone Huang Work Phone: 1(711)[address]102 [address]06-25-2024 13:02-0400 Body mass index (BMI) [Ratio]24.8 kg/m2MD Simone Huang Work Phone: 1(870)[address]802 [address]06-25-2024 13:02-0400 Body diijtn21.31 kgMD Simone Huang Work Phone: 1(236)638[facility]60[facility]06-25-2024 13:02-0400 Diastolic blood jrhimsvj61 mm[Hg]MD Simone Huang Work Phone: 1(205)905-[address] [place], [place] 8535606-25-2024 13:02-0400 Heart rate82 /minMD Simone Huang Work Phone: 1(465)263-[address] [place], [place] 8535606-25-2024 13:02-0400 Respiratory rate16 /minMD Simone Huang Work Phone: [facility]06-25-2024 13:02-0400 SaO2% (BldA) [Mass fraction]98 %MD Simone Huang Work Phone: [phone]06-25-2024 13:02-0400 Systolic blood yrwmmlpx651 mm[Hg]MD Simone Huang Work Phone: 1(783)[address]05-23-2024 12:06-0400 Diastolic blood phqavkqv36 mm[Hg]MD Simone Huang Work Phone: 1(646)[address]602 [address]05-23-2024 12:06-0400 Heart rate64 /minMD Simone Huang Work Phone: 1(031)[address]05-23-2024 12:06-0400 Respiratory rate16 /minMD Simone Huang Work Phone: 1(561)[address]05-23-2024 12:06-0400 SaO2% (BldA) [Mass fraction]100 %MD Simone Huang Work Phone: 1(589)19802 [address]05-23-2024 12:06-0400 Systolic blood nvexdzqs542 mm[Hg]MD Simone Huang Work Phone: 1(641)[address]05-23-2024 09:29-0400 Body uvbefq301.8 cmMD Simone Huang Work Phone: 1(548)[address]02 [address]05-23-2024 09:29-0400 Body jligsu84.11 kgMD Simone Huang Work Phone: 1(211)[address]04-29-2024 11:32-0400 Body topodl714.26 cmSelect [facility]04-29-2024 11:32-0400Body mass index (BMI) [Ratio]25 kg/t3MsxvsoiprSelect Medical Specialty Hospital [facility]04-29-2024 11:32-0400Body czhdmo80.88 kgSelect [facility]04-29-2024 11:32-0400Diastolic blood sxqdqpip13 mm[Hg][facility] 07-28-2023 11:32-0400Heart rate80 /[facility] 07-28-2023 11:32-0400Respiratory rate18 /[facility] 07-28-2023 11:32-4959PzX5% (BldA) [Mass fraction]98 %[facility]04-29-2024 11:32-0400Systolic blood tnmhzrom846 mm[Hg][facility]04-03-2024 09:02-0400Body fujiem951.99 cmSelect [facility]04-03-2024 09:02-0400Body mass index (BMI) [Ratio]25.4 kg/m2 [facility]04-03-2024 09:02-0400Body pwogfy63.11 kg [facility]04-03-2024 09:02-0400Diastolic blood pghpekkr85 mm[Hg][facility]04-03-2024 09:02-0400Heart rate77 /min [facility]04-03-2024 09:02-0400Systolic blood bjnxehzp195 mm[Hg][facility]10-03-2023 09:15-0400Body bossxt464.99 cmSimone Huang Other [employer] Other 10-03-2023 09:15-0400Body mass index (BMI) [Ratio] 25.92 kg/h4IlnsyjSimone Huang Other [employer] Other 10-03-2023 09:15-0400Body awnhrr18.47 kgSimone Huang Other [employer] Other 10-03-2023 09:15-0400Diastolic blood gvcastad30 mm[Hg] Simone Huang Other [employer] Other 10-03-2023 09:15-0400Systolic blood mlzesppl374 mm[Hg] Simone Huang Other [employer] Other 04-03-2023 10:15-0400Body jdedef654.99 cmSimone Cyndi Other [employer] Other 04-03-2023 10:15-0400Body mass index (BMI) [Ratio] 25.92 kg/f2Jryndg Cyndi Other [employer] Other 04-03-2023 10:15-0400Body .47 kgSimone Cyndi Other [employer] Other 04-03-2023 10:15-0400Diastolic blood mm[Hg] Simone Huang Other [employer] Other 04-03-2023 10:15-3112CyU9% (BldA) [Mass fraction]97 % Simone Huang Other [employer] [facility] [employer] Other 04-03-2023 10:15-0400Systolic blood bfzjrnuz914 mm[Hg] Simone Huang Other [employer] Other 01-04-2023 14:00-0500Blood Pressure LocationJENNIFER DESIREE [facility]01-04-2023 14:00-0500Diastolic blood rvkcidhp91 mm[Hg]TRESA DESIREE [facility]01-04-2023 14:00-0500Heart rate77 /minJENNIFER DESIREE [facility]01-04-2023 14:00-0500Respiratory rate16 /minJENNIFER DESIREE [facility]01-04-2023 14:00-0500Systolic blood mm[Hg]TRESA ALAS [facility]01-03-2023 10:00-0500Body gniszx116.8 cmSimone Huang Other [employer] Other 01-03-2023 10:00-0500Body mass index (BMI) [Ratio] 24.68 kg/p2PfffslSimone Huang Other [employer] Other 01-03-2023 10:00-0500Body aksoyr28.02 kgSimone Huang Other [employer] Other 01-03-2023 10:00-0500Diastolic blood ismpbwlf11 mm[Hg] Simone Huang Other [employer] Other 01-03-2023 10:00-3076OcZ4% (BldA) [Mass fraction]95 % Simone Huang Other [employer] Other 01-03-2023 10:00-0500Systolic blood kdeqrzdh581 mm[Hg] Simone Huang Other [employer] Other Encounters Encounter DateEncounter TypeCare ProviderFacilityStart: 01-10-2025 End: 15-27-0844yvcbepldpkClgstv E Braun MD Work Phone: [facility] Work Phone: Start: 01-10-2025 End: 98-53-0690Vrsjlhg encounter procedureSimone Huang MD-[facility] Work Phone: Start: 12-31-2024 End: 27-89-8509Uwljpi flowsMorales Elena Work Phone: [facility] MedicineStart: 12-31-2024 End: 86-74-9895Sibign flowsheetAmber L Elena PT Work Phone: [facility] MedicineStart: 12-31-2024 End: 28-82-2032yvwwqmdmclFrcmw L Elena PT Work Phone: [facility] MedicineComment on above: Impairment of balance (Primary Dx)Start: 12-29-2024 End: 64-01-4925Gozgrv flowsheetAmber L Elena PT Work Phone: [facility] MedicineStart: 12-29-2024 End: 24-16-8930Xndlot flowsheetAmber L Elena PT Work Phone: [facility] MedicineStart: 12-29-2024 End: 31-57-6844auegnrvqxuIfzuu L Elena PT Work Phone: [facility] MedicineComment on above: Impairment of balance (Primary Dx)Start: 12-23-2024 End: 51-37-2116Mnbeyb flowsheetAmber L Elena PT Work Phone: [facility] [place] [facility] MedicineStart: 12-23-2024 End: 55-18-6004Njnhmo flowsheetAmber L Elena PT Work Phone: [facility] MedicineStart: 12-23-2024 End: 00-39-2646talkuziuvoCuxie L Elena PT Work Phone: [facility] MedicineComment on above: Impairment of balance (Primary Dx)Start: 12-20-2024 End: 91-51-2169Ixiudc flowsheetMariah Tattersall PTANOMS [facility] MedicineStart: 12-20-2024 End: 31-59-2084Ieltsm flowsheetMariah Tattersall PTANOMS [place] [facility] MedicineStart: 12-20-2024 End: 49-27-4656zolavonqsjBzdnwb Tattersall PTANOMS [place] [facility]ational MedicineComment on above:Impairment of balance (Primary Dx)Start: 12-16-2024 End: 37-79-4989Aauszb flowsheetAmber L Elena PT Work Phone: [facility] MedicineStart: 12-16-2024 End: 55-03-6393Imjgsg flowsheetAmber L Elena PT Work Phone: [facility] MedicineStart: 12-16-2024 End: 87-11-9573zgyqfbhrkqFblgp L Elena PT Work Phone: [facility] MedicineComment on above: Impairment of balance (Primary Dx)Start: 12-13-2024 End: 69-02-0137Nnxjcm flowsheetDiya [facility] MedicineStart: 12-13-2024 End: 10-51-5321Yhmjql flowsheetMarjanis [facility] MedicineStart: 12-13-2024 End: 67-09-9407wckirtvbhfUnxppf Tatlalitha [facility] MedicineComment on above:Impairment of balance (Primary Dx)Start: 12-07-2024 End: 66-99-0328Frfkuq flowsheetAmber L Elena PT Work Phone: [facility] MedicineStart: 12-07-2024 End: 08-45-1570Wkrtpd flowsheetAmber L Elena PT Work Phone: [facility]ational MedicineStart: 12-07-2024 End: 03-90-1763espqqouibgXnlqf L Elena PT Work Phone: [facility] Occupational MedicineComment on above: Impairment of balance (Primary Dx)Start: 12-06-2024 End: 33-97-7467Jbojyl flowsheetEugene R Kubitz DPM Work Phone: [facility]Start: 12-06-2024 End: 22-30-1483Sdyvzi flowsheetEugene R Kubitz DPM Work Phone: [facility]ryStart: 12-06-2024 End: 55-23-6860Uhborw outpatient visit 15 minutesVin Ba DPM Work Phone: [facility] PodiatryComment on above:Weakness of both lower extremities (Primary Dx); Type 2 diabetes mellitus with diabetic neuropathy, unspecified whether lobsterman insulin use (HCC); Peripheral arterial disease; At maximum risk for fallStart: 12-06-2024 End: 09-58-4714otlfbtjholFYLBOL R KUMIGUEL Aot AvailableStart: 12-01-2024 End: 87-52-1639dltbrmjwxhFtrwax E Braun MD Work Phone: [facility] Work Phone: Start: 12-01-2024 End: 48-51-0383Roktnpm encounter procedureRagini Mar [facility] Work Phone: Start: 62-21-3640Qeg-patient / Non-visitAdam C Cecy DOOR TO DOOR SALESMAN-[facility] [employer] Work Phone: Start: 11-23-2024 End: 75-84-8293vlrvuraapvLhfjyv E Braun MD Work Phone: [facility] Work Phone: Start: 11-23-2024 End: 85-94-9328Tmtsegg encounter procedureAngel Brown [facility] Work Phone: Start: 10-29-2024 End: 47-90-1073kbqxuqgrswBHZA [facility]: 10-27-2024 End: 39-16-8423lakqjbmhzbLjpevf E Braun MD Work Phone: [facility] Work Phone: Start: 10-27-2024 End: 89-28-4396Mzhykth encounter Rakan Huang MD-[facility] Work Phone: Start: 10-05-2024 End: 97-05-8279hjpbcenrwvRuqcdg E Braun MD Work Phone: [facility] Work Phone: Start: 10-05-2024 End: 64-88-7635Upnlcox encounter procedureAngel Brown APRN-[facility] Work Phone: Start: 09-17-2024 End: 02-83-4564Yibszne encounter Rakan Huang MD-[facility] Work Phone: Start: 08-25-2024 End: 91-36-0660ilimovqqlbEzaheggktC[facility] Work Phone: Start: 08-25-2024 End: 14-91-0869Pqgjucb encounter [facility] Work Phone: Start: 07-09-2024 End: 34-82-1336hjfergueqkAqgzvjkyqC[facility] Work Phone: Start: 07-09-2024 End: 52-45-3052Detvanm encounter procedureFirarnoldo Physician Group-[facility] Work Phone: Start: 05-26-2024 End: 32-78-4321bkvojotfqpZdpskagafC[facility] Clinic [facility] Work Phone: Start: 05-26-2024 End: 65-40-4474Dqwyaph encounter procedureNikkis Physician [facility] Work Phone: Start: 04-20-2024 End: 06-50-9723uzbiynzrkqUqsmrm E Braun MD Work Phone: [facility] Work Phone: Start: 04-20-2024 End: 77-29-4135Ecdikfd encounter Rakan Huang MD Work Phone: [facility] Work Phone: Start: 04-06-2024 End: 72-66-8890jeljpejuyyNnlmjn E Braun MD Work Phone: [facility] Work Phone: Start: 04-06-2024 End: 25-77-2477Lruxjle encounter Rakan Huang MD Work Phone: [facility] Work Phone: Start: 04-05-2024 End: 46-32-0631uapmzytrbiQhzgut E Braun MD Work Phone: [facility] Work Phone: Start: 04-05-2024 End: 89-43-2185Wtxwwkr encounter procedureSimone Huang MD Work Phone: [facility] Work Phone: Start: 03-02-2024 End: 83-20-3081Mnxobn outpatient new 30 minutesChristopher Zamzam DO Work Phone: n[facility] R[facility]TEComment on above:Paresthesia (Primary Dx)Start: 03-02-2024 End: 84-40-7021aabawaxgcbAUZSRVBQBGC HASSETTNot AvailableStart: 03-02-2024 End: 56-02-9348Fxksdg flowsheetChristopher Zamzam DO Work Phone: [facility]TEStart: 03-02-2024 End: 31-68-0834Ziukzh flowsheetChristopher Zamzam DO Work Phone: [facility] R[facility]TEStart: 02-10-2024 End: 27-50-1716unkubprjobQodfbh E Braun MD Work Phone: [facility] Work Phone: Start: 02-10-2024 End: 02-07-3155Dakyzzg encounter procedureSimone Huang MD Work Phone: [facility] Work Phone: Start: 01-26-2024 End: 99-06-9481Oysclvh encounter procedureMD Simone Huang Work Phone: [facility] [place] Work Phone: Start: 01-26-2024 End: 87-76-4173exnrasvivxCA Simone Huang Work Phone: [facility] Work Phone: Start: 01-70-1037Kaj-patient / Non-visitMD Simone Huang Work Phone: [facility] Work Phone: Start: 01-01-2024 End: 07-22-3366osbdqhxmvvHwyimaclcC[facility] Clinic [facility] Work Phone: Start: 01-01-2024 End: 96-93-8740Imlsnkl encounter procedureF[facility] Work Phone: Start: 12-30-2023 End: 84-87-6104jkpnsxhyvmUqskkcgkdCleveland Clinic [facility] Work Phone: Start: 12-30-2023 End: 84-67-4243Egjctbk encounter procedureF[facility] Work Phone: Start: 12-22-2023 End: 26-78-1559Aapxiv outpatient new 30 minutesEugene Irving Ba DPM Work Phone: noms [facility] PODIATRYComment on above:Pain of right foot (Primary Dx); Pain of left foot; Type 2 diabetes mellitus with diabetic neuropathy, unspecified whether lobsterman insulin use (CMS/HCC); Cramping of feet; Weakness of both lower extremities; Pre-ulcerative calluses; Peripheral arterial disease (CMS/HCC)Start: 12-22-2023 End: 48-41-1396Fznkcm flowsheetPrafulgene Irving Ba DPM Work Phone: noms [facility] PODIATRYStart: 12-22-2023 End: 53-71-3865Amgvce Kevon Ba DPM Work Phone: [facility] PODIATRYStart: 83-92-0127Uyd-patient / Non-visitMD Simone Huang Work Phone: [facility] [employer] Work Phone: Start: 12-03-2023 End: 26-84-7459mfgxgiqcoiAI Simone Huang Work Phone: [facility] Work Phone: Start: 12-03-2023 End: 19-04-1581Olfhyja encounter procedureMD Simone Huang Work Phone: [facility] [facility] Work Phone: Start: 11-05-2023 End: 29-05-0972qhjfgnnwdsTZ Simone Huang Work Phone: [facility] Work Phone: Start: 11-05-2023 End: 50-85-2957Lruuvgi encounter procedureMD Simone Huang Work Phone: [facility] [place] [facility] Work Phone: Start: 31-55-6623Hlz-patient / Non-visitMD Simone Huang Work Phone: [facility] Gastroenterology Work Phone: Start: 09-30-2023 End: 46-73-0072Kgoqcrwkb to same day surgery centerMD Simone Huang Work Phone: [facility] Work Phone: Start: 09-30-2023 End: 03-75-8420psxkobnctoYT Simone Huang Work Phone: [facility] Work Phone: Start: 09-23-2023 End: 24-84-0996keclzvzdpzLB Simone Haung Work Phone: [facility] Work Phone: Start: 09-23-2023 End: 52-84-9490Aoelzlmb ReferredMD Simone Huang Work Phone: [facility] Work Phone: Start: 09-23-2023 End: 74-72-3718nqmevariptAL Simone Huang Work Phone: [facility] Work Phone: Start: 09-23-2023 End: 43-71-9423Oehowjp encounter procedureMD Simone Huang Work Phone: [facility] Work Phone: Start: 76-94-5853Ryf-patient / Non-visitMD Simone Huang Work Phone: [facility] Gastroenterology Work Phone: Start: 08-21-2023 End: 41-40-1979Ywrkgoraf to same day surgery centerMD Simone Huang Work Phone: [facility] Work Phone: Start: 08-21-2023 End: 64-81-7770xojljzsvocGD Marcia E Braun Work Phone: [facility] Work Phone: Start: 07-28-2023 End: 80-77-9618rbkmerdtdyPlrmzfttlCleveland Clinic [facility] Work Phone: Start: 07-28-2023 End: 36-35-4997Nyzcpll encounter procedureF[facility]e [facility] GroupHE[facility] Work Phone: Start: 38-71-0650Epfjkzn encounter procedureFort Hamilton Hospitaltart: 07-02-2023 End: 36-66-3947ligjrhouurOumeuefauCleveland Clinic [facility] Work Phone: Start: 07-02-2023 End: 32-66-7036Wvyjiow encounter procedureFirelands Physician [facility] Work Phone: Start: 01-08-2023 End: 41-30-4950qotwayffhvFpniek Huang Other [employer] Other Start: 70-31-3065Tfjmkbjog encounterMarcisilvino VillasenorOnslow Memorial Hospitaltart: 12-31-2022 End: 24-91-2749sonbgqnuqxCdqwaf Huang Other [employer] Other Start: 25-35-1989Hbscpg outpatient visit 15 minutes Simone Christianson [facility]art: 10-16-2022 End: 76-41-7391igsiemvbfmDzjowk Huang Other [employer] Other Start: 24-90-1352Basqtnclw encounterMarfrancheska Christianson [facility] Resourcestart: 07-01-2022 End: 24-83-9807roozlhtnjrMdwqne Huang Other [employer] Other Start: 74-57-5214Mfqohw outpatient visit 15 minutes Simone Christianson [facility]art: 04-16-2022 End: 80-90-7910jtsaindsskAA SIMONE HUANGFacility:S7Hxdky: 04-08-2022 End: 56-71-9901sxanmtqfclQngyvp Huang Other [employer] Other Start: 38-10-8308Lgdcwbhto encounterMarcia Sammy [facility] ClinicStart: 04-03-2022 End: 69-70-1738hxkjgskfuaHWLMZWKB E PERRYFacility:EU BellevueStart: 04-03-2022 End: 33-91-9626Qdxwrkj encounter procedureJENNIFER E DESIREE [facility] start: 04-02-2022 End: 11-76-2900ncceaptwkzLunwwj Huang Other [employer] Other Start: 88-08-4675Zvyvxp outpatient visit 15 minutes Simone Sammy [facility] ClinicStart: 27-00-2781Jdshhgk encounter procedure Simone Sammy [facility] ClinicStart: 03-11-2022 End: 31-29-1449euolxjurmjYR MORA NUNEZ JRFacility:L5Frakt: 02-12-2022 End: 55-60-5753oznrktrzseON SIMONE HUANGFacility:K7Hmupv: 02-05-2022 End: 18-33-1972mjlpddoudeCI SIMONE HUANGFacility:H2Ynotj: 30-33-9762Xkiif health examinationSimone Huang Other [facility] Other Start: 39-70-2766Tilqsrk, abnormal examinationSimone Huang Other [employer] Other Start: 01-08-2022 End: 35-65-7659ofiqktbuqsYD SIMONE HUANGFacility:N6Kcnru: 10-22-2021 End: 37-97-4732ahocichjwoGL SIMONE HUANGFacility:L1Nthne: 04-28-2021 End: 96-92-8706lvdrkfncafOU SIMONE HUANGFacility:H1 Procedures DateProcedureProcedure DetailPerforming ClinicianStart: 01-44-1837Esciz volume recorder pneumoplethysmographySimone Huang MD Work Phone: Start: 99-71-4945LivcpybgmktcyygdqeibejyqllDI Marcia Braun Work Phone: Start: 92-30-0938HtkdmvtewwcybzpeyhrbhfvrmeNH Marcia Braun Work Phone: Start: 85-74-0585HUK screeningDR SIMONE HUANGComment on above:Performed By: #### LIPID, CMP #### [facility] [address] [address] [address] Calin AgarwalStart: 00-06-7603Wfxmvkw of transurethral prostatectomyStatus post transurethral resection of prostateEugene Jesenia GORE Work Phone: start: 09-84-8820Bjpodmrtwilxe prostatectomyTRESA ALAS Start: 03-92-5519GetaajyusrLVGNEMAU PERRY Comment on above:Evacuation of clots/fulgeration of bladderStart: 43-55-4418Zipoooswkc with IOL placement / iStent - OS.TRESA ALAS ColonoscopyTRESA ALAS Placement of stent in cardiac conduitTRESA ALAS Plan of Treatment DateCare ActivityDetailAuthorStart: 12-06-2025 End: 40-97-4841Brewtcx encounter znpmvypri20/08/2026 9:00 AM EDT Office Visit [facility] [address] [place] [phone] Vin Ba DPM [address] [place] [address] PRANAV Rose PodiatryStart: 12-31-2024 End: 24-29-5257yqwtmywcnuNWAF [place] Occupational MedicineComment on above: ArrivedStart: 12-29-2024 End: 94-25-4716xfxgqhunntRUVU [place] Occupational MedicineComment on above: Impairment of balance (Primary Dx)Start: 12-23-2024 End: 28-57-5975thugurrvgfBQMN [place] Occupational MedicineComment on above: Impairment of balance (Primary Dx)Start: 12-20-2024 End: 04-80-2063sxhlbmpwmrYQEB [place] Occupational MedicineComment on above: ArrivedStart: 12-16-2024 End: 89-95-5930clazssjcqoYWEI [place] Occupational MedicineComment on above: Impairment of balance (Primary Dx)Start: 12-13-2024 End: 63-46-8032cfkllgianqLKRQ [place] Occupational MedicineComment on above: ArrivedStart: 12-07-2024 End: 41-83-2182ynpfbjlbyq37/09/2025 9:00 AM EDT Evaluation NOMKrzysztof [place] [facility] [address] [place] [phone] Lexii Elena, PT [address] [place] [address] NOMKrzysztof Rose Occupational MedicineStart: 12-06-2024 End: 17-45-3477Iuiieep encounter vtffrbiut76/08/2025 8:30 AM EDT Office Visit NOMKrzysztof [place] [facility] [address] [place] [phone] Vin Ba, DPM [address] [place] [address] ArrivedNOMS Rose PodiatryComment on above:ArrivedStart: 12-01-2024 End: 72-25-5846Svfkksl encounter ktzjpnyzo36/03/2025 9:15 AM EDT Office Visit [facility] [address] [place] [phone] Vin Ba, DPM [address] [place] [address] NOMS SWS PODIATRYStart: 29-10-3475Efvuhsyaf vaccination Influenza Vaccine (#1)[facility] HealthcareStart: 03-02-2024 End: 70-20-6175Kiazprs encounter mukzakrmr39/03/2024 3:00 PM EST Office Visit [facility] [address] [place] [phone] Maru Wyman, [address] [place] [address] ArrivedNOMS [facility] STATE ROUTEComment on above:ArrivedStart: 16-30-5170Rfbtz volume recorder pneumoplethysmographyUS arterial pvr rest [facility] Centertart: 61-47-1885Lavrsbz [facility] Work Phone: Start: 68-55-8525Jyjqubvsr vaccinationInfluenza Vaccine (#1)[facility] SystemStart: 04-37-8973IjwbqemarSelect Medical Specialty Hospital [facility] Start: 93-34-0789GifvuewrtFort Hamilton Hospitaltart: 58-91-9982Xcdpikm [facility] Work Phone: Start: 22-16-4373Ixbxatevunye Vaccine: 65+ Years (2 of 2 - PCV)Pneumococcal Vaccine: 65+ Years (2 of 2 - PCV)[facility] Comprehensive metabolic 1999 panel - Serum or PlasmaSelect Medical Specialty Hospital - TrumbullComprehensive metabolic 1999 panel - Serum or [facility] CenterPatient EducationPrem[facility] Health [facility] Center Work Phone: Patient referralOhiohealth Work Phone: [facility] Immunizations Immunization DateImmunizationNotesCare NwllmhwfUizttagw12-17-3318zoefvncgd, high dose seasonal, preservative-freeSimone Huang MD Work Phone: [facility]10-29-2024influenza virus vaccine, unspecified formulationEugene Kubitz DPM Work Phone: [facility] Hkyeanbcar84-02-4536ykxabhjfw virus vaccine, unspecified formulationEugene Kubitz DPM Work Phone: [facility] Kbpvisjvcj00-16-7966MNVGO-50 Pfizer (bivalent) Simone Huang Other [facility]12-21-2021COVID-19 Vaccine Pfizer - Documentation Purposes OnlySimone Huang Other [facility]11-16-2021influenza virus vaccine, split virus (incl. purified surface antigen)Simone Huang Other [employer] Other 11162870-04-1974hvakubxkb virus vaccine, unspecified formulationSelect Medical Specialty Hospital - [facility]ull05-17-2021COVID-19 Vaccine Pfizer - Documentation Purposes OnlyMaryjaviersilvino Cyndi Other [facility]04-26-2021COVID-19 Vaccine Pfizer - Documentation Purposes OnlyCandysilvino Huang Other [facility]11-06-2019influenza virus vaccine, split virus (incl. purified surface antigen)Simone Huang Other [employer] Other [id number] virus vaccine, unspecified formulationSelect Medical Specialty Hospital - Trumbull09-12-2013pneumococcal Conjugate, unspecified formulation; Translations: [Need for prophylactic vaccination ag ainst Streptococcus pneumoniae (pneumococcus)]Simone Huang Other [employer] Other [id number] polysaccharide vaccine, 23 valentSimone Cyndi Other [facility] Payers DatePayer CategoryPayerPolicy [id number] Cross Blue ShieldBCBS Member Subscriber Plan / Payer (Effective 2012-Present) Name: Dillon Stephenson Relation to Subscriber: Self Name: Dillon Stephenson Payer ID: Not on file Type: Not on file Address: [facility] [address] [place] [id number] UnknownBCBS BCBS [id number] 2012-Present [phone] [address] [place] [id number] 2010Medicare [id number] [id number] [id number] 2.16.840.1.259774.3.57[id number] 2.840.1.325295.3.57[id number] 2.16840.1.105343.3.57[id number] 2.16.840.1.379412.3.57[id number] 2.16840.1.376238.3.57[id number] 2.16840.1.351584.3.57[id number] 2.16840.1.304541.3.57[id number] 2.16840.1.513476.3.57[id number] 2.16.840.1.664590.3.57[id number] 2.16840.1.289181.3.57[id number] 2.840.1.655220.3.57[id number] 2..840.1.477895.3.57[id number] 2.16.840.1.166012.3.57[id number] 2.16.840.1.823064.3.579.[id number] 2..840.1.624179.3.579.[id number] 2.16.840.1.734309.3.57[id number] 2.840.1.941876.3.579.2.1259Blue Cross Blue [id number] 2.1[id number] 2.16.840.1.6[id number] 2.16840.1.25938[id number] 2.840.1.328965.3.579.2.531 [id number] 2.840.1.670019.3.579.2.531 Social History DateTypeDetailFacilityStart: 12-17-2018 End: 53-55-8997Lfwfjug smoking statusEx-smoker (finding)[facility] HospitalTobacco smoking statusNeverSelect Medical [facility] Hospital, Avontart: 12-22-2023 End: 26-17-3487Lov [facility]igned At [facility] Centertart: 98-45-4913Nbk Assigned At [facility] Systemtart: 02-10-2024 End: 22-18-7180LhkQzep (finding)[facility] TrumbullHistory of tobacco useCurrent smokerNOMS HealthcareHistory of tobacco useCigarette Smoker [facility] HealthcareStart: 90-93-2907Fswyjmv use and exposureSmokeless tobacco non-userNOMS HealthcareStart: 12-22-2023 End: 09-54-8494Mcwctxdbj beverage intakeCurrent drinker of alcohol (finding)[facility] HealthcareStart: 12-22-2023 End: 01-68-6127Udkqqasxz beverage intakeNOMS HealthcareStart: 22-41-1956Khx assigned at birthNot on fileNOPA HealthcareTobacco smoking status NHISTobacco smoking consumption unknownSaint Luke's Health System Medical Equipment Procedure CodeEquipment CodeEquipment Original TextEquipment IdentifierDates LancetsStart: 54-68-3454IpkoyhcMpuxk: 07-28-2023 End: 87-38-6346DgcwqbeHucpz: 37-15-9288LwgruiuBvney: 07-28-2023 End: 02-98-3848DbrmonlZrhwl: 31-61-1612KhheujgTrqqs: 07-28-2023 End: 43-62-2997MlsruxvRfsaj: 25-94-3633UqzmajeJiidu: 07-28-2023 End: 72-76-5971HemzfzvZlphm: 40-51-4869KrsqzydKfiyl: 07-28-2023 End: 21-60-7233SsowczgEwzge: 16-13-0281QgodtaiViigy: 07-28-2023 End: 21-98-4403CacptefLcdab: 65-43-8463OneftbsHefoe: 07-28-2023 End: 25-18-3894VkuhvytJhnzk: 75-36-1511XhhdoxaWuuii: 07-28-2023 End: 71-06-1030UuhldysMyvnz: 27-59-1060OfspzpwAkzkj: 07-28-2023 End: 11-92-5704ZgiqncjThwmc: 63-68-6345QvdkizpNggez: 07-28-2023 End: 05-51-5836Mjpze Sugar Diagnostic stripStart: 43-23-0252Dzghpks miscStart: 69-83-8673Iqfrp Sugar Diagnostic stripStart: 07-28-2023 End: 38-13-4560Vqqfdqd miscStart: 07-28-2023 End: 68-20-3431Fioqb Sugar Diagnostic stripStart: 54-69-6142Nojjfjp miscStart: 86-08-7890Iclan Sugar Diagnostic stripStart: 07-28-2023 End: 13-66-4425Nrzewyr miscStart: 07-28-2023 End: 10-51-9205Zxkxx Sugar Diagnostic stripStart: 58-06-9514Paohhvc miscStart: 29-76-3456Pzrrn Sugar Diagnostic stripStart: 07-28-2023 End: 90-21-0489Ginxujs miscStart: 07-28-2023 End: 87-68-4004Xitmx Sugar Diagnostic stripStart: 15-97-4109Fwksrog miscStart: 99-64-8036Iklby Sugar Diagnostic stripStart: 07-28-2023 End: 61-47-6410Isooygu miscStart: 07-28-2023 End: 69-13-2610Edqbl Sugar Diagnostic stripStart: 51-30-2863Adonqxu miscStart: 32-88-6851Afopu Sugar Diagnostic stripStart: 07-28-2023 End: 55-85-5856Xionums miscStart: 07-28-2023 End: 89-38-2222Xhxqc Sugar Diagnostic stripStart: 76-58-7281Ccytvjt miscStart: 34-01-1900Ynejv Sugar Diagnostic stripStart: 07-28-2023 End: 50-66-4396Twjvtpu miscStart: 07-28-2023 End: 26-10-9785Dspsi Sugar Diagnostic stripStart: 68-20-2896Qbvfrka miscStart: 15-44-2358Rpxwl Sugar Diagnostic stripStart: 07-28-2023 End: 52-57-5495Bvojtpq miscStart: 07-28-2023 End: 80-26-5214Ajrgb Sugar Diagnostic stripStart: 11-67-5452Hlpnuyb miscStart: 19-54-7972Odvna Sugar Diagnostic stripStart: 07-28-2023 End: 83-94-7607Rgqwgko miscStart: 07-28-2023 End: 30-24-8023Jpsbp Sugar Diagnostic stripStart: 24-05-5589Muiushf miscStart: 60-22-3293Fslua Sugar Diagnostic stripStart: 07-28-2023 End: 41-05-2991Sdkojml miscStart: 07-28-2023 End: 15-65-6116Ofqwv Sugar Diagnostic stripStart: 44-48-2972Qcgowvy miscStart: 05-52-2301Dpiqd Sugar Diagnostic stripStart: 07-28-2023 End: 97-93-7251Oapgwjc miscStart: 07-28-2023 End: 35-46-6554Qorsy [facility] Diagnostic stripStart: 45-45-4143Qpqvkvq miscStart: 69-61-0994Kvkju Sugar Diagnostic stripStart: 07-28-2023 End: 89-71-1608Lxundgr miscStart: 07-28-2023 End: 56-26-0529Mqewz Sugar Diagnostic stripStart: 42-34-8994Iruuzhx miscStart: 89-38-2671Vqdcj Sugar Diagnostic stripStart: 07-28-2023 End: 72-15-0071Hliwtdc miscStart: 07-28-2023 End: 07-30-2023 Goals DatePatient GoalDesired Activity/State Functional Status OigaTjxunoejwaImsjiaIdlnvmez32-65-1014Ngyhqjtmlw StatusN/AExecutive [facility]rology [facility] Clinical Notes 04-02-2022 to 12-31-2024 Note Date & UawcIlheJyuegdeh46-97-7517 History of Present illness Narrative* Lexii Elena, PT - 12/31/2024 10:00 AM EDT Physical Therapy Physical Therapy Treatment Visit Patient Name: Dillon Royal Sachin Today's Date: 12/31/2024 Encounter Diagnoses Name Primary? Impairment of balance Yes Visit number: 7 Supervised time: 48 Total time: 56 Subjective Pain: 4/10 aching B LEs Overall progress: Improving. Reports having a near fall yesterday while cleaning his house and tripping over a bucket. Has increased ache in his legs upon arrival due to stumbling. Increased pain in his L knee compared to R knee due to past fracture in L LE. Treatment: Therapeutic Exercise: x30' supervised, x8' unsupervised per exercise grid for LE strength Neuro Re-Ed: x18' per exercise grid for static and dynamic balance on compliant and non compliant surfaces using CGA with gait belt for safety Assessment: Lacking spinal and pelvic mobility with ambulation and turning throughout clinic. Continues to showquick fatigue of LEs with weightbearing activity in PT. Denies feelings of legs giving way outside of PT. Sometimes feels and ache in his thighs when he sits to rest after completion of activity. He ambulates in the community twice/wk for about 1-2 hours without issues. Initiated barney flexion stretching this date to improve mobility and assess effect on LEs. Good tolerance, administered for HEP. Pt continues to demonstrate some balance deficits evident by difficulty on SLS on foam. [id number] seconds on L LE and 2- 3 seconds on R LE before requiring UE support. Pt admits non-compliance with balance HEP. Educated pt about completing HEP 3x/week for lobsterman carry over with pt in good understanding. Plan: On hold. Will return within 30 days if needed or will be automatically discharged. This treatment session was completed by student physical therapist Lili Shine under the direct supervision of licensed physical therapist Lexii Elena PT, DPT. documented in this encounterSaint Luke's Health [id number] History of Present illness Narrative* Lexii Elena PT - 12/29/2024 10:00 AM EDT Images from the original note were not included. Physical Therapy Physical Therapy Treatment Visit Patient Name: Dillon Stephenson Today's Date: 12/29/2024 Encounter Diagnoses Name Primary? Impairment of balance Yes Visit number: 6 Supervised time: 41 Total time: 52 Subjective Pain: 0/10 Overall progress: Improving. Reports having increased LE soreness due to helping his grandson move. Treatment: Therapeutic Exercise: x2' supervised, x11' unsupervised per exercise grid for LE strength Neuro Re-Ed: x39' per exercise grid for static and dynamic balance on compliant and non compliant surfaces using CGA-modA with gait belt for safety Assessment: Needed maxA to maintain balance upon stepping up on foam during last lap of obstacle course to prevent posterior fall. Also needed modA to chair after obstacle course due to legs giving out. Pt reports feeling his legs are getting a little stronger and has less feeling of LE giving up , but continues to need multiple seated rest breaks and min/modA to prevent fall throughout session. Increased lateral sway in tandem stance with R foot leading compared to L. Verbal and tactile cues needed to promote weight shifting through toes, able to self correct. Plan: Continue per POC This treatment session was completed by student physical therapist Lili Shine under the direct supervision of licensed physical therapist Lexii Elena PT, DPT. documented in this encounterSaint Luke's Health [id number] History of Present illness Narrative* Lexii Elena PT - 12/23/2024 9:00 AM EDT Images from the original note were not included. Physical Therapy Physical Therapy Treatment Visit Patient Name: Dillon Stephenson Today's Date: 12/23/2024 Encounter Diagnoses Name Primary? Impairment of balance Yes Visit number: 5 Supervised time: 55 Total time: 60 Subjective Pain: 0/10. Overall progress: Improving. Was sick the past 2 days so hasn't been very active. Treatment: Therapeutic Exercise: x8' supervised, x5' unsupervised per exercise grid for LE strength Neuro Re-Ed: x47' per exercise grid for static and dynamic balance on compliant and non compliant surfaces using CGA with gait belt for safety Assessment: Demo's posterior LOB with balance activities due to swayback posturing. Requires frequent verbal and tactile cueing to improve posture, as well as achieve symmetrical weightbearing throughout foot. Less LOB with repetition. Able to balance on foam with EC for 5 seconds with mild sway, self correctsindependently upon opening eyes. Plan: Continue per POC This treatment session was completed by student physical therapist Lili Shine under the direct supervision of licensed physical therapist Lexii Elena PT, DPT. [facility] History of Present illness Narrative* Lexii Elena PT - 12/16/2024 9:00 AM EDT Images from the original note were not included. Physical Therapy Physical Therapy Treatment Visit Patient Name: Dillon Stephenson Today's Date: 12/16/2024 Encounter Diagnoses Name Primary? Impairment of balance Yes Visit number: 3 Supervised time: 39 Total time: 50 Subjective Pain: 0/10 Overall progress: Improving. Pt reports feeling tired today due to working out in his yard yesterday. States I already feel stronger. Treatment: Therapeutic Exercise: x14' supervised, x11' unsupervised BLE SON per grid for improved strength Neuro Re-Ed: x25' static and dynamic balance to improve righting reactions, CGA for all dynamic balance. CGA/SBA with gait belt for static balance Assessment: Progressed strengthening and dynamic/static stability exercises with no increase in pain. PVC pipe used to decrease trunk lean during standing hip abduction. Needed a seated rest break 25 min into treatment session after strength exercises due to legs feeling weak . Pt needed modA to chair due to LEs starting to buckle. Pt challenged with 3 way cone tap with medial cone the most challenging causing 2x modA from therapist to avoid fall. Plan: Continue per POC This treatment session was completed by student physical therapist Lili Shine under the direct supervision of licensed physical therapist Lexii Elena PT, DPT. documented [facility] History of Present illness Narrative* Lexii Elena PT - 12/07/2024 9:00 AM EDT Images from the original note were not included. Physical Therapy Physical Therapy Evaluation Visit Patient Name: Dillon Stephenson Today's Date: 12/07/2024 Encounter Diagnoses Name Primary? Impairment of balance Yes Visit number: 1 Subjective Dillon Stephenson is a 79 y.o. male who presents to physical therapy upon recommendation of his commercial lending vice president. At his follow up appointment, he didn't score well on some functional balance assessments. Prior to this, he didn't have any idea he had balance issues. Denies LOB of falls. Occasionally stands too quickly from a seated position when he's in a hurry and will wobble a little but no LOB. Ambulates within the community without issues. Referred to PT to develop balance program for fall prevention. Hobbies: yard work Home Environment: Lives in single story home with one flight of stairs to the basement. Uses hand rail, sometimes step to and sometimes reciprocal. Occasionally has knee pain. Precautions: DMII, L knee pain Objective Strength B LEs 5/5 Balance Testing SLS: Requires UE support to prevent LOB. Demos excessive lateral sway with Madeline from therapist withgait belt to prevent fall when performing without UE support DL balance EC: 30 sec no sway Romberg EO: 30 sec min sway DL balance on foam EO: 30 sec with min sway DL balance on foam EC: 5 sec with mod sway, able to self correct FGA- 26/30 (14% impaired) Gait Ambulates independently with normal gait speed, decreased pelvic rotation, normal step lengths. No path deviations except cross over step x 1. Demonstrated min posterior and lateral trunk sway upon stopping ambulation. Requires hand rail support for stair negotiation with reciprocal pattern. No instability noted. Treatment Interventions Education: Posture, Home management strategies for pain control, HEP, POC Therapeutic Exercise: Cardiovascular Endurance, Strength, Endurance, Flexibility, ROM, HEP, Power, Core Stability Therapeutic Activity: Exercises to improve dynamic activities, functional tasks, functional mobility to return to prior activity level Neuromuscular re-education: Balance Training, Dynamic Stability Modalities: PRN for knee pain Gait Training: Cane sequencing to assist with long community distances. Pt verbalizes refusal to use device for functional mobility but will benefit from education. Today's intervention consisted of initial evaluation, education on exam findings and POC, and neuromuscular reeducation and HEP prescription x8' consisting of heel raises, toe raises, standing marches, and standing hip abduction. Pt verbalizes understanding to perform all exercises at a counter forUE support. Pt reported LE fatigue upon completion of today's session. Also evident by L LE giving way when walking to a chair for seated rest. Discussed benefit of SPC to improve endurance and balance with community negotiation however patient is unwilling to use a device. Assessment/Plan Patient Goals Short Term Goal #1: The patient will demonstrate independence with HEP within 1 week for increased balance and dynamic stability Short Term Goal #2: The patient will demonstrate proper cane sequencing when ambulating with SPC for improved endurance with long community ambulation within 2 weeks. Penitentiary Goal #1: The patient will demonstrate SLS for 10 seconds with no UE support within 4 weeks for increased dynamic stability for ambulation on uneven surfaces Couture Alterations Dressmaker Goal #2: The patient will demonstrate independent DL balance with EC on compliant surfacefor 15 with min sway or better within 4 weeks to strengthen the vestibular system and decrease therisk of falls Rehab potential: Good Recommend skilled PT to address the above impairments 2x/wk for 3-4 weeks pending pt progress and medical necessity. I hereby deem this POC medically necessary. Please sign below and fax back to [phone]. Date: This treatment session was completed by student physical therapist Lili hSine under the direct supervision of licensed physical therapist Lexii Elena PT, DPT. documented in this encounterSaint Luke's Health [id number] History of Present illness Narrative* Vin Ba, EUGENIAM - 12/06/2024 8:30 AM EDT Images from the original note were not included. Reason for Visit: Established Patient: Annual Comprehensive Diabetic Foot Examination HPI Established patient presents for Annual Comprehensive Diabetic Foot Examination. AM glucose: 97. Review of Systems General: Chills denies. Fatigue denies. Fever denies. Night sweats denies. Endocrine: Diabetes admits. Hyperpigmentation denies. Weakness denies. Cardiovascular: Chest pain [...] aware of surroundings, in no acute distress. Patient's is present through examination. Diabetic Foot Exam: Date: 12-06-2024 Sensations: diminished Strength: normal Pedal Pulses: +2 Vascular: DORSALIS PEDIS PULSE: Barely palpable bilateral: 1/4. POSTERIOR TIBIAL PULSE: barely palpable bilateral: 1/4. TEMPERATURE GRADIENT: warm to cool. EDEMA: minimal bilateral lower extremity. CAPILLARY FILLING TIME(sec): less than 2 seconds [...] skin turgor, no sign of infection. HYPERKERATOSIS: Minimal plantar medial left foot 1st MPJ NAIL PATHOLOGY: Intact toenails to 1-5 bilaterally. Orthopedic: JOINT RANGE OF MOTION: mild hallux limitus bilaterally with reduction of 1st MPJ motion. ORTHOPEDIC: mild hallux limitus bilaterally. PAIN ON PALPATION: none. PAIN ON ROM: None. SHOE GEAR EVALUATION: Skechers slip on athletic shoes bilateral foot. Imaging: Deferred. Assessments Diabetes mellitus type 2 with neuropathy Bilateral foot pain -neuropathic in nature Peripheral arterial disease Weakness bilateral lower extremity especially single leg stance - patient is a high fall risk. Pre-ulcerative callus left foot plantar medial 1st metatarsophalangeal joint Edema bilateral lower extremity -minimal Fall risk-high Plan Diabetes mellitus with neuropathy 1. NEW patient [...] observe for any signs of skin breakdown. Fall risk - high/bilateral lower extremity weakness 1. Patient was today for follow up examination patient on his examination shows significant fall risk with severe weakness single leg stance was bilaterally. Patient getting out of the chair for testing almost fell. He definitely benefit from home exercise program in physical therapy for fall prevention exercises. Patient voiced understanding. Prescription was dispensed. 2. Reappoint: when physical therapy is complete. documented in this encounterSaint Luke's Health [id number] NoteSUBJECTIVE Reason for Visit: Dillon Stephenson is a [...] lipid panel per record (more content not included)...[facility]07-30-2025 Evaluation note* Diagnosis Onset Date Resolution Status Admit Date Essential (primary) hypertension acuteJuly 2024 9:25amType 2 diabetes mellitus with diabetic polyneuropathy acuteJuly 2024 9:25amType 2 diabetes mellitus with other circulatory complicationsacuteJuly 2024 9:25amType 2 diabetes mellitus with other specified complicationacuteJuly 2024 9:25amConstipationacuteAugust 2024 9:38amGERD (gastroesophageal reflux disease)acuteAugust 2024 9:38am BMI 25.0-25.9,adultacuteSeptember 2024 10:48amDietary counseling and surveillanceacuteSeptember 2024 10:48amEssential (primary) hypertension acuteSeptember 2024 10:48amNeuropathyacuteSeptember 2024 10:48amType 2 diabetes mellitus with hyperglycemiaacuteSeptember 2024 10:48amVitamin D deficiency, unspecifiedacuteSeptember 2024 10:48amVitamin B 12 deficiency noneactiveSeptember 2024 10:48am [facility] Work Phone: 1(442) 637-632406-20-2025 Evaluation note* Diagnosis Onset Date Resolution Status Admit Date Type 2 diabetes mellitus with diabetic p olyneuropathy acuteJune 2024 11:14amConstipationacuteJuly 2024 9:23amGERD (gastroesophageal reflux disease)acuteJuly 2024 9:23amEssential (primary) hypertensionacuteJuly 2024 9:25amType 2 diabetes mellitus with diabetic polyneuropathyacuteJuly 2024 9:25amType 2 diabetes mellitus with other circulatory complicationsacuteJuly 2024 9:25amType 2 diabetes mellitus with other specified complicationacuteJuly 2024 9:25amConstipationacute [place] 2024 9:38amGERD (gastroesophageal reflux disease)acuteAugust 2024 9:38amBMI 25.0-25.9,adultacuteSeptember 2024 10:48amDietary counseling and surveillanceacuteSeptember 2024 10:48amEssential (primary) hypertensionacuteSeptember 2024 10:48amNeuropathyacuteSept2024 10:48amType 2 diabetes mellitus with hyperglycemiaacuteSept2024 10:48amVitamin D deficiency, unspecifiedacuteSeptember 2024 10:48amVitamin B 12 deficiencynoneactiveSeptember 2024 10:48am [facility] Work Phone: 1(400) 681-504105-28-2025 Evaluation note* Diagnosis Onset Date Resolution Status Admit Date BMI 25.0-25.9,adult acuteMay 2024 10:19amDietary counseling and surveillanceacuteMay 2024 10:19amEssential (primary) hypertensionacuteMay 2024 10:19am NeuropathyacuteMay 2024 10:19amType 2 diabetes mellitus with hyperglycemia acuteMay 2024 10:19amVitamin D deficiency, unspecifiedacuteMay 2024 10:19amVitamin B 12 deficiencynoneactiveMay 2024 10:19amType 2 diabetes mellitus with diabetic polyneuropathyacuteJune 2024 11:14amConstipation acuteJuly 2024 9:23amGERD (gastroesophageal reflux disease)acuteJuly 2024 9:23am [facility] Work Phone: 1(587) 761-654505-28-2025 Evaluation note* Diagnosis Onset Date Resolution Status Admit Date BMI 25.0-25.9,adult acuteMay 2024 10:19amDietary counseling and surveillanceacuteMay 2024 10:19amEssential (primary) hypertensionacuteMay 2024 10:19am NeuropathyacuteMay 2024 10:19amType 2 diabetes mellitus with hyperglycemia acuteMay 2024 10:19amVitamin D deficiency, unspecifiedacuteMay 2024 10:19amVitamin B 12 deficiencynoneactiveMay 2024 10:19amType 2 diabetes mellitus with diabetic polyneuropathyacuteJune 2024 11:14amConstipation acuteJuly 2024 9:23amGERD (gastroesophageal reflux disease)acuteJuly 2024 9:23amEssential (primary) hypertensionacuteJuly 2024 9:25amType 2 diabetes mellitus with diabetic polyneuropathyacuteJuly 2024 9:25amType 2 diabetes mellitus with other circulatory complicationsacuteJuly 2024 9:25amType 2 diabetes mellitus with other specified complicationacuteJuly 2024 9:25amConstipationacuteAugust 2024 9:38amGERD (gastroesophageal reflux disease)acuteAugust 2024 9:38am [facility] Work Phone: 1(751) 965-883104-11-2025 Evaluation note* Diagnosis Onset Date Resolution Status Admit Date Essential (primary) hypertension acuteApril 2024 9:27amType 2 diabetes mellitus with diabetic polyneuropathyacuteApril 2024 9:27amType 2 diabetes mellitus with other circulatory complicationsacuteApril 2024 9:27amType 2 diabetes mellitus with other specified complicationacuteApril 2024 9:27amBMI 25.0-25.9,adult acuteMay 2024 10:19amDietary counseling and surveillanceacuteMay 2024 10:19amEssential (primary) hypertensionacuteMay 2024 10:19am NeuropathyacuteMay 2024 10:19amType 2 diabetes mellitus with hyperglycemia acuteMay 2024 10:19amVitamin D deficiency, unspecifiedacuteMay 2024 10:19amVitamin B 12 deficiencynoneactiveMay 2024 10:19am [facility] Work Phone: 1(427) 916-346504-11-2025 Evaluation note* Diagnosis Onset Date Resolution Status Admit Date Essential (primary) hypertension acuteApril 2024 9:27amType 2 diabetes mellitus with diabetic polyneuropathyacuteApril 2024 9:27amType 2 diabetes mellitus with other circulatory complicationsacuteApril 2024 9:27amType 2 diabetes mellitus with other specified complicationacuteApril 2024 9:27amBMI 25.0-25.9,adult acuteMay 2024 10:19amDietary counseling and surveillanceacuteMay 2024 10:19amEssential (primary) hypertensionacuteMay 2024 10:19am NeuropathyacuteMay 2024 10:19amType 2 diabetes mellitus with hyperglycemia acuteMay 2024 10:19amVitamin D deficiency, unspecifiedacuteMay 2024 10:19amVitamin B 12 deficiencynoneactiveMay 2024 10:19amType 2 diabetes mellitus with diabetic polyneuropathyacuteJune 2024 11:14amConstipation acuteJuly 2024 9:23amGERD (gastroesophageal reflux disease)acuteJuly 2024 9:23am [facility] Work Phone: 1(774) 113-841101-21-2025 Evaluation note* Diagnosis Onset Date Resolution Status Admit Date Type 2 diabetes mellitus with hyperglyce tana acuteJanuary 2024 9:02amBMI 25.0-25.9,adultacuteFebruary 2024 10:14amDietary counseling and surveillanceacuteFebruary 2024 10:14am Essential (primary) hypertensionacuteFebruary 2024 10:14amNeuropathyacute February 2024 10:14amType 2 diabetes mellitus with hyperglycemiaacute May 26, 2024 10:14amVitamin D deficiency, unspecifiedacuteFebruary 2024 10:14amVitamin B 12 deficiencynoneactiveFebruary 2024 10:14am [facility] Work Phone: 1([phone]) 427-314201-06-2025 Evaluation note* Diagnosis Onset Date Resolution Status Admit Date Essential (primary) hypertension acuteJanuary 2024 8:57amNeuropathic pain of both feetacuteJanuary 2024 8:57amType 2 diabetes mellitus with hyperglycemiaacuteJanuary 2024 8:57am BMI 25.0-25.9,adultacuteJanuary 2024 12:55pmDietary counseling and surveillanceacuteJanuary 2024 12:55pmEssential (primary) hypertensionacute April 06, 2024 12:55pmNeuropathyacuteJanuary 2024 12:55pmType 2 diabetes mellitus with hyperglycemiaacuteJanuary 2024 12:55pmVitamin D deficiency, unspecifiedacuteJanuary 2024 12:55pmVitamin B 12 deficiencynoneactive April 06, 2024 12:55pmType 2 diabetes mellitus with hyperglycemiaacuteJanuary 2024 9:02amBMI 25.0-25.9,adultacuteFebruary 2024 10:14amDietary counseling and surveillanceacuteFebruary 2024 10:14amEssential (primary) hypertensionacuteFebruary 2024 10:14amNeuropathyacuteFebruary 2024 10:14amType 2 diabetes mellitus with hyperglycemiaacuteFebruary 2024 10:14amVitamin D deficiency, unspecifiedacuteFebruary 2024 10:14amVitamin B 12 deficiencynoneactiveFebruary 2024 10:14am [facility] Work Phone: 1(687) 599-976912-03-2024 History of Present illness Narrative* Maru Wyman, - 03/02/2024 3:00 PM EST Images from the original note were not included. Chief complaint: Paresthesia Subjective Dillon Genny Stephenson, 78 y.o., male Dillon presents today for [...] Patient states he went to see a commercial lending vice president who suggested foot inserts which he states [...] Medical History: Diagnosis Date Coronary artery disease ([facility]) Diabetes ([facility] High cholesterol ([facility]) Hypertension ([facility]) Past Surgical History: Procedure Laterality Date ANKLE [...] , wrist extensors , wrist flexor , gambling floor supervisor strength 5/5. LUE Strength deltoid , biceps , triceps , wrist extensors , wrist flexor , gambling floor supervisor strength 5/5. RLE Strength illopsoas, quadriceps, tibialis [...] knee reflex 0. Cobb's sign negative. Coordination: Beekkm-hq-frqs testing and rapid alternating movements are normal [...] plan, and return instructions documented in this encounterSaint Luke's Health [id number] Evaluation note* Diagnosis Onset Date Resolution Status Admit Date COVID-19 acuteNov2023 2:49pm [facility] Work Phone: 1(720) 238-608111-12-2024 Evaluation note* Diagnosis Onset Date Resolution Status Admit Date COVID-19 acuteNov2023 2:49pmBMI 25.0-25.9,adultacuteJanuary 2024 12:55pm Dietary counseling and surveillanceacuteJan2024 12:55pmEssential (primary) hypertensionacuteJanuary 2024 12:55pmNeuropathyacuteJanuary 2024 12:55pmType 2 diabetes mellitus with hyperglycemiaacuteJanuary 2024 12:55pmVitamin D deficiency, unspecifiedacuteJan2024 12:55pmVitamin B 12 deficiencynoneactiveJan2024 12:55pm [facility] Work Phone: 1(736) 573-122911-12-2024 Evaluation note* Diagnosis Onset Date Resolution Status Admit Date COVID-19 acuteNov2023 2:49pmEssential (primary) hypertensionacuteJanuary 2024 8:57amNeuropathic pain of both feetacuteJanuary 2024 8:57amType 2 diabetes mellitus with hyperglycemiaacuteJanuary 2024 8:57amBMI 25.0-25.9,adultacuteJanuary 2024 12:55pmDietary counseling and surveillance acuteJanuary 2024 12:55pmEssential (primary) hypertensionacuteJanuary 2024 12:55pmNeuropathyacuteJanuary 2024 12:55pmType 2 diabetes mellitus with hyperglycemiaacuteJanuary 2024 12:55pmVitamin D deficiency, unspecifiedacuteJanuary 2024 12:55pmVitamin B 12 deficiencynoneactive Unique 2025 12:55pmType 2 diabetes mellitus with hyperglycemiaacuteJanuary 2024 9:02am [facility] Work Phone: 1(334) 583-592109-23-2024 History of Present illness Narrative* Vin Ba, DPM - 12/22/2023 3:30 PM EDT Reason for [...] signs of skin breakdown. documented in this encounterSaint Luke's Health [id number] Evaluation note* Diagnosis Onset Date Resolution Status Admit Date Arthritis of finger acuteSeptember 2023 9:24amTrigger finger, left index fingeracuteSeptember 2023 9:24amTrigger finger, right index fingeracuteSeptember 2023 9:24amTrigger finger, right middle fingeracuteSeptember 2023 9:24amBMI 25.0-25.9,adultacuteOctober 2023 12:55pmDietary counseling and surveillance acuteOctober 2023 12:55pmEssential (primary) hypertensionacuteOctober 2023 12:55pmNeuropathyacuteOctober 2023 12:55pmType 2 diabetes mellitus with hyperglycemiaacuteOctober 2023 12:55pmVitamin D deficiency, unspecifiedacuteOctober 2023 12:55pmVitamin B 12 deficiencynoneactive December 30, 2023 12:55pmClaudicationacuteOctober 2023 8:58amNeuropathic pain of both feetacuteOctober 2023 8:58amNeuropathyacuteOctober 2023 8:58amContact with and (suspected) exposure to covid-19noneactiveNov2023 2:49pm [facility] Work Phone: 1(231) 816-862507-02-2024 [facility] History and physical note Author David Solano [facility] August 21, 2023 10:46amNote Date/TimeMay 2023 10:46am[place] [id number] Gastroenterology H&P Signed Patient: Dillon Stephenson MR#: [id number] : 1945 Acct:[id number] Age/Sex: 78 / M Adm Date: 4 Loc: Room: Type: [facility] Attending Dr: David Solano MD Copies to: MD Simone Lockwood MD~ Date of Service: 08/21/2023 HISTORY & PHYSICAL: Patient's history with special attention to the cardiovascular, pulmonary systems and the current problem was reviewed with the patient immediately prior to the procedure. Present medications and doses reviewed in the EMR. Allergies and pertinent laboratory tests were also re viewedat this time in the EMR. The physical [...] signed by David Solano MD> 08/21/23 1046 [facility] Work Phone: 1(975) 360-849605-23-2024 [facility] noteSelect [facility] Evaluation note* Encounter Date Diagnosis Assessment Notes Treatment Notes Treatment Clinical Notes Dec, Type 2 diabetes mellitus with hy perglycemia (ICD-10 - E11.65) Healthy diet and exercise [...] will continue to monitor every 3 months. Dec,Essential (primary) hypertension (ICD-10 - I10)Blood pressure remains well controlled at this time. Denies cardiac symptoms. Shows no signs or symptoms or poor control. Patient to continue with above medication and we will continue to monitor. Advised to pay attention to body and symptoms. Any developing patterns. Stay well hydrated. [facility] Other 04-03-2023 Evaluation note* Encounter Date Diagnosis Assessment Notes Treatment Notes Treatment Clinical Notes Jun, Essential (primary) hypertension (ICD-10 - I10) chronic, stable on present med Jun,Type 2 diabetes mellitus with hyperglycemia, without long-term current use of insulin (ICD-10 - E11.65)chronic, stable on present med Jun,Mixed hyperlipidemia (ICD-10 - E78.2)chronic, stable on present med [facility] Other 01-04-2023 Hospital Discharge instructions Patient Education [...] urethra. Follow these instructions at home: Take myxh-enr-gllflvs and prescription medicines only as told by [...] 03/17/2006 Document Revised: 02/09/2019 Document Reviewed: 04/21/2017 [place] Patient Education 2020 [employer]LEARN. Follow Up Care 01/23/2021 12:33:33 With:DESIREE SMITH, TRESA Weber, URL Address: [address] [facility] [place] [address] [phone] When: Unknown Comments:KARINA [facility] 01-03-2023 Evaluation note* Encounter Date Diagnosis Assessment Notes Treatment Notes Treatment Clinical Notes Mar, Essential (primary) hypertension (ICD-10 - I10) stable on present dose Mar,Type 2 diabetes mellitus with hyperglycemia, without long-term current use of insulin (ICD-10 - E11.65)will continue present doses. states that his glucose has been stable. Will assess with lab later this month. Mar,Mixed hyperlipidemia (ICD-10 - E78.2)Will assess lipid panel later this month. Encouraged healthy diet and exercise. Lipid panel reviewed at length with the patient. LDL, HDL and trig''s reviewed along with recommended goals. Treatment options discussed including convervative measures with diet and exercise vs. rx options Mar,nnual physical exam (ICD-10 - Z00.00) [employer] Other chief complaint+Reason for visit Narrative* Chief Complaint Medicare Wellness Referral Simone Huang/New DMN/ meterReason for VisitEsophageal abnormality Finger dysfunction Medicare annual wellness visit, subsequent Type 2 diabetes mellitus with hyperglycemia Type 2 diabetes mellitus with hyperglycemia Vitamin D deficiency, unspecified [facility] Work Phone: chief complaint+Reason for visit Narrative* Chief Complaint Medicare Wellness Referral Simone Huang/New DMN/ meter Dysphagia DysphagiaReason for VisitEsophageal abnormality Finger dysfunction Medicare annual wellness visit, subsequent Type 2 diabetes mellitus with hyperglycemia BMI 25.0-25.9,adult Dietary counseling and surveillance Essential (primary) hypertension Neuropathy Type 2 diabetes mellitus with hyperglycemia Vitamin D deficiency, unspecified [facility] Work Phone: chief complaint+Reason for visit Narrative* Chief Complaint Medicare Wellness Referral Simone Huang/Dewayne DMN/ meter Dysphagia Dysphagia DMN f/u-MeterReason for VisitEsophageal abnormality Finger dysfunction Medicare annual wellness visit, subsequent Type 2 diabetes mellitus with hyperglycemia BMI 25.0-25.9,adult Dietary counseling and surveillance Essential (primary) hypertension Neuropathy Type 2 diabetes mellitus with hyperglycemia Vitamin D deficiency, unspecified BMI 25.0-25.9,adult Dietary counseling and surveillance Essential (primary) hypertension Neuropathy Type 2 diabetes mellitus with hyperglycemia Vitamin D deficiency, unspecified [facility] Work Phone: chief complaint+Reason for visit Narrative* Chief Complaint Medicare Wellness Referral Simone Huang/Dewayne DMN/ meter Dysphagia Dysphagia DMN f/u-Meter Vitamin D deficiency Neuropathy Encounter for dietReason for VisitEsophageal abnormality Finger dysfunction Medicare annual wellness visit, subsequent Type 2 diabetes mellitus with hyperglycemia BMI 25.0-25.9,adult Dietary counseling and surveillance Essential (primary) hypertension Neuropathy Type 2 diabetes mellitus with hyperglycemia Vitamin D deficiency, unspecified BMI 25.0-25.9,adult Dietary counseling and surveillance Essential (primary) hypertension Neuropathy Type 2 diabetes mellitus with hyperglycemia Vitamin D deficiency, unspecified [facility] Work Phone: chief complaint+Reason for visit Narrative* Chief Complaint Medicare Wellness Referral Simone Huang/New DMN/ meter Dysphagia Dysphagia DMN f/u-Meter E55.9 G62.9 Z71.3 Z68.25 E11.65 I10 esophageal stricture esophageal strictureReason for VisitEsophageal abnormality Finger dysfunction Medicare annual wellness visit, subsequent Type 2 diabetes mellitus with hyperglycemia BMI 25.0-25.9,adult Dietary counseling and surveillance Essential (primary) hypertension Neuropathy Type 2 diabetes mellitus with hyperglycemia Vitamin D deficiency, unspecified BMI 25.0-25.9,adult Dietary counseling and surveillance Essential (primary) hypertension Neuropathy Type 2 diabetes mellitus with hyperglycemia Vitamin D deficiency, unspecified [facility] Work Phone: Evaluation + Plan note No data available for this section [facility] evaluation noteNo Rollbase (acquired by [employer])[place] [employer] Other Evaluation note* Diagnosis Onset Date Resolution Status Esophageal abnormality acuteFinger dysfunctionacuteType 2 diabetes mellitus with hyperglycemiaacute [facility] Work Phone: Evaluation note* Diagnosis Onset Date Resolution Status Esophageal abnormality acuteFinger dysfunctionacuteMedicare annual wellness visit, subsequentacuteType 2 diabetes mellitus with hyperglycemiaacuteType 2 diabetes mellitus with hyperglycemiaacuteVitamin D deficiency, unspecifiedacute [facility] Work Phone: Evaluation note* Diagnosis Onset Date Resolution Status Esophageal abnormality acuteFinger dysfunctionacuteMedicare annual wellness visit, subsequentacuteType 2 diabetes mellitus with hyperglycemiaacuteBMI 25.0-25.9,adultacuteDietary counseling and surveillanceacuteEssential (primary) hypertensionacuteNeuropathy acuteType 2 diabetes mellitus with hyperglycemiaacuteVitamin D deficiency, unspecifiedacute [facility] Work Phone: Evaluation note* Diagnosis Onset Date Resolution Status Esophageal abnormality acuteFinger dysfunctionacuteMedicare annual wellness visit, subsequentacuteType 2 diabetes mellitus with hyperglycemiaacuteBMI 25.0-25.9,adultacuteDietary counseling and surveillanceacuteEssential (primary) hypertensionacuteNeuropathy acuteType 2 diabetes mellitus with hyperglycemiaacuteVitamin D deficiency, unspecifiedacuteBMI 25.0-25.9,adultacuteDietary counseling and surveillanceacute Essential (primary) hypertensionacuteNeuropathyacuteType 2 diabetes mellitus with hyperglycemiaacuteVitamin D deficiency, unspecifiedacute [facility] Work Phone: evaluation note* Diagnosis Onset Date Resolution Status BMI 25.0-25.9,adult acuteDietary counseling and surveillanceacuteEssential (primary) hypertension acuteNeuropathyacuteType 2 diabetes mellitus with hyperglycemiaacuteVitamin D deficiency, unspecifiedacuteArthritis of fingeracuteTrigger finger, left index fingeracuteTrigger finger, right index fingeracuteTrigger finger, right middle fingeracute [facility] Work Phone: evaluation note* Diagnosis Onset Date Resolution Status BMI 25.0-25.9,adult acuteDietary counseling and surveillanceacuteEssential (primary) hypertension acuteNeuropathyacuteType 2 diabetes mellitus with hyperglycemiaacuteVitamin D deficiency, unspecifiedacuteArthritis of fingeracuteTrigger finger, left index fingeracuteTrigger finger, right index fingeracuteTrigger finger, right middle fingeracuteArthritis of fingeracuteTrigger finger, left index fingeracuteTrigger finger, right index fingeracuteTrigger finger, right middle fingeracute [facility] Work Phone: evaluation note* Diagnosis Onset Date Resolution Status Arthritis of finger acuteTrigger finger, left index fingeracuteTrigger finger, right index finger acuteTrigger finger, right middle fingeracuteArthritis of fingeracuteTrigger finger, left index fingeracuteTrigger finger, right index fingeracuteTrigger finger, right middle fingeracute [facility] Work Phone: evaluation note* Diagnosis Onset Date Resolution Status Arthritis of finger acuteTrigger finger, left index fingeracuteTrigger finger, right index finger acuteTrigger finger, right middle fingeracuteArthritis of fingeracuteTrigger finger, left index fingeracuteTrigger finger, right index fingeracuteTrigger finger, right middle fingeracuteBMI 25.0-25.9,adultacuteDietary counseling and surveillanceacuteEssential (primary) hypertensionacuteNeuropathyacuteType 2 diabetes mellitus with hyperglycemiaacuteVitamin D deficiency, unspecifiedacute [facility] Work Phone: evaluation note* Diagnosis Onset Date Resolution Status Arthritis of finger acuteTrigger finger, left index fingeracuteTrigger finger, right index finger acuteTrigger finger, right middle fingeracuteArthritis of fingeracuteTrigger finger, left index fingeracuteTrigger finger, right index fingeracuteTrigger finger, right middle fingeracuteBMI 25.0-25.9,adultacuteDietary counseling and surveillanceacuteEssential (primary) hypertensionacuteNeuropathyacuteType 2 diabetes mellitus with hyperglycemiaacuteVitamin D deficiency, unspecifiedacute Vitamin B 12 deficiencynoneactive [facility] Work Phone: Evaluation note* Diagnosis Onset Date Resolution Status Arthritis of finger acuteTrigger finger, left index fingeracuteTrigger finger, right index finger acuteTrigger finger, right middle fingeracuteArthritis of fingeracuteTrigger finger, left index fingeracuteTrigger finger, right index fingeracuteTrigger finger, right middle fingeracuteBMI 25.0-25.9,adultacuteDietary counseling and surveillanceacuteEssential (primary) hypertensionacuteNeuropathyacuteType 2 diabetes mellitus with hyperglycemiaacuteVitamin D deficiency, unspecifiedacute Vitamin B 12 deficiencynoneactiveClaudicationacuteNeuropathic pain of both feet acuteNeuropathyate [facility] Work Phone: Evaluation note* Diagnosis Paresthesia- Primary Disturbance of skin sensation documented [facility] encounter [facility]* Diagnosis Pain of right foot- Primary Pain of left foot Type 2 diabetes mellitus with diabetic neuropathy, unspecified whether halfway insulin use ([facility]) Cramping of feet Cramp of limb Weakness of both lower extremities Pre-ulcerative calluses Peripheral arterial disease ([facility]) Unspecified peripheral vascular disease documented in this encounter [facility]* Diagnosis Weakness of both lower extremities- Primary Type 2 diabetes mellitus with diabetic neuropathy, unspecified whether lobsterman insulin use (HCC) Peripheral arterial disease Unspecified peripheral vascular disease At maximum risk for fall documented [facility]* Diagnosis Impairment of balance- Primary documented in this [facility]* Diagnosis Impairment of balance- Primary documented [facility]* Diagnosis Impairment of balance- Primary documented in this encounter [facility] HealthcareHistory and physical note Author David Solano [facility] September 30, 2023 1:13pmNote Date/TimeJuly 2023 1:13pm[address] [address] Gastroenterology H&P Signed Patient: Dillon Stephenson MR#: [id number] : 1945 Acct:[id number] Age/Sex: 78 / M Adm Date: 4 Loc: Room: Type: [facility] Attending Dr: David Solano MD Copies to: MD Simone Lockwood MD~ Date of Service: 09/30/2023 HISTORY & PHYSICAL: Patient's history with special attention to the cardiovascular, pulmonary systems and the current problem was reviewed with the patient immediately prior to the procedure. Present medications and doses reviewed in the EMR. Allergies and pertinent laboratory tests were also re viewedat this time in the EMR. The physical [...] <Electronically signed by David Solano MD> 09/30/23 1313 [facility] Work Phone: History general Narrative - Reported* Type Description Date Medical History diabetes Surgical Historyleft leg surgeriesSurgical Historyprostate surgery Hospitalization Historysee above [employer] Other Hospital Discharge instructionsAmbulatory Orders* Referral to Diabetes Management Time Frame: 07/02/23, Location: None Selected * Referral to Gastroenterology Time Frame: 07/02/23, Location: None Selected * Referral to Orthopedics Time Frame: 07/02/23, Location: None Selected [facility] Work Phone: Hospital Discharge instructionsAmbulatory Orders* Referral to Podiatry Time Frame: 12/03/23, Location: None Selected [facility] Work Phone: Progress note No data available for this section [facility] reason for referral (narrative)No reason for referral information availableOhiohealth Work Phone: Reason for visit Narrative* Consultation (Routine) - ClosedSpecialtyDiagnoses / ProceduresReferred By ContactReferred To Contact Neurology Diagnoses Unspecified mononeuropathy of bilateral lower limbs Procedures [place] OFFICE/OUTPATIENT [facility] 30 MINUTES Simone Huang MD [address] [place] [address] Phone: tel: fax: Lena Ervin MD [address] [place] [address] Phone: tel: fax: Referral IDStatusReasonStart DateExpiration DateVisits RequestedVisits [id number] [facility] Narrative* Rehabilitation - Outpatient (Routine) - AuthorizedSpecialtyDiagnoses / ProceduresReferred By ContactReferred To ContactPhysical Therapy Diagnoses Other abnormalities of gait and mobility Other idiopathic peripheral autonomic neuropathy Procedures [place] PHYS THERAPY EVALUATION Vin Ba, DPM [address] [place] [address] Phone: tel: fax: Lexii Elena, PT [address] [place] [address] Phone: tel: fax: Referral IDStatusReasonLockeford DateExpiration DateVisits RequestedVisits [id number] [facility] HealthcareReason for visit Narrative* Rehabilitation - Outpatient (Routine) - AuthorizedSpecialtyDiagnoses / ProceduresReferred By ContactReferred To ContactPhysical Therapy Diagnoses Other abnormalities of gait and mobility Other idiopathic peripheral autonomic neuropathy Procedures [place] PHYS THERAPY EVALUATION Vin Ba, DPM [address] [place] [address] Phone: tel: fax: Lexii Elena, PT [address] [place] [address] Phone: tel: fax: Referral IDStatusReasonLockeford DateExpiration DateVisits RequestedVisits [id number] [facility] Summary Purpose Family History Relationship Condition Age at Onset Recorded Date/T [place] father Unknown Not SpecifiedDiabetes mellitusUnknownDeceasedUnknown Relationship Condition Age at Onset Recorded Date/T [place] father Unknown Not SpecifiedDiabetes mellitusUnknownDeceasedUnknownbrotherDiabetes mellitus Unknown Relationship Condition Age at Onset Recorded Date/T [place] father Unknown Malignant neoplasm of brainUnknownMalignant neoplasm of stomachUnknownNot SpecifiedDiabetes mellitusUnknownDeceasedUnknownMyocardial infarctionUnknown Cerebrovascular accident (CVA)UnknownHypertensionUnknownbrotherDiabetes mellitus Unknown Relationship Condition Age at Onset Recorded Date/T lincoln father Unknown Malignant neoplasm of brainUnknownMalignant neoplasm of stomachUnknownmother Diabetes mellitusUnknownDeceasedUnknownMyocardial infarctionUnknown Cerebrovascular accident (CVA)UnknownHypertensionUnknownbrotherDiabetes mellitus Unknown Advance Directives Advance Directive Response [...] esophageal stricture esophageal stricture CONSULT DR SIMONE Medina for VisitBMI 25.0-25.9,adult Dietary counseling and surveillance Essential (primary) hypertension Neuropathy Type 2 diabetes mellitus with hyperglycemia Vitamin D deficiency, unspecified Arthritis of finger Trigger finger, left index finger Trigger finger, right index finger Trigger finger, right middle finger Chief Complaint DMN f/u-Meter E55.9 G62.9 Z71.3 Z68.25 E11.65 I10 esophageal stricture esophageal stricture CONSULT DR SIMONE HUANG 4 WEEKSReason for VisitBMI 25.0-25.9,adult Dietary counseling and surveillance Essential (primary) hypertension Neuropathy Type 2 diabetes mellitus with hyperglycemia Vitamin D deficiency, unspecified Arthritis of finger Trigger finger, left index finger Trigger finger, right index finger Trigger finger, right middle finger Arthritis of finger Trigger finger, left index finger Trigger finger, right index finger Trigger finger, right middle finger Chief Complaint esophageal stricture esophageal stricture CONSULT DR ISMONE HUANG 4 WEEKSReason for VisitArthritis of finger Trigger finger, left index finger Trigger finger, right index finger Trigger finger, right middle finger Arthritis of finger Trigger finger, left index finger Trigger finger, right index finger Trigger finger, right middle finger Chief Complaint CONSULT DR SIMONE COKER 4 WEEKS 3 month f/u DMN f/uReason for VisitArthritis of finger Trigger finger, left index finger [...] month f/u DMN f/u 6 month follow upReason for VisitArthritis of finger Trigger finger, left index finger [...] month follow up CC Adult Risk Stratification i73.9Reason for VisitArthritis of finger Trigger finger, left index finger [...] 2023 9:24am Trigger finger, left index finger Septem 2023 9:24am Trigger finger, right index finger Septe mber 2023 9:24am Trigger finger, right middle finger Sept ember 2023 9:24am BMI 25.0-25.9,adult December 30, 2023 12 :55pm Dietary counseling and surveillance Octo 2023 12:55pm Essential (primary) hypertension December 30, 2023 12:55pm Neuropathy December 30, 2023 12 :55pm Type 2 diabetes mellitus with hyperglyce tana December 30, 2023 12:55pm Vitamin D deficiency, unspecified Octobe r 2023 12:55pm Vitamin B 12 deficiency December [...] 12 :55pm Dietary counseling and surveillance Jamir violeta 2024 12:55pm Essential (primary) hypertension April 06, 2024 12:55pm Neuropathy April 06, 2024 12 :55pm Type 2 diabetes mellitus with hyperglyce [facility] April 06, 2024 12:55pm Vitamin D deficiency, [...] 8:57am Type 2 diabetes mellitus with hyperglyce [facility] April 05, 2024 8:57am BMI 25.0-25.9,adult April 06, 2024 12 :55pm [facility] 12:55pm Essential (primary) hypertension April 06, [...] 2024 12 :55pm Dietary counseling and surveillance [facility] 2024 12:55pm Essential (primary) hypertension April 06, [...] Febr uary 2024 10:14am Essential (primary) hypertension r y 2024 10:14am Neuropathy May 26, 2024 10:14am Type 2 diabetes mellitus with hyperglyce tana May 26, 2024 10:14am Vitamin D deficiency, unspecified Februa ry 2024 10:14am Vitamin B 12 deficiency May 26, 025 10:14am Chief Complaint Admit Date 2 week April 20, 2024 9 :02am DMN f/u / meters May 26, 2024 10:14am 3 month f/u July 09, 2024 9:2 7am Reason for Visit Admit Date Type 2 diabetes mellitus with hyperglyce tana April 20, 2024 9:02am BMI 25.0-25.9,adult May 26, 2024 10:14am Dietary counseling and surveillance Febr uary 2024 10:14am Essential (primary) hypertension uar 2024 10:14am Neuropathy May 26, 2024 10:14am Type 2 diabetes mellitus with hyperglyce tana May 26, 2024 10:14am Vitamin D deficiency, unspecified Februa ry 2024 10:14am Vitamin B 12 deficiency May 26, 025 10:14am Chief Complaint Admit Date 3 month [...] am Type 2 diabetes mellitus with hyperglyce [facility] August 25, 2024 10:19am Vitamin D deficiency, [...] am Type 2 diabetes mellitus with hyperglyce [facility] August 25, 2024 10:19am Vitamin D deficiency, unspecified August 252024 10:19am Vitamin B 12 deficiency August 25, 2024 1 0:19am Type 2 diabetes mellitus with diabetic p olyneuropathy September 17, 2024 11:14am Constipation October 05, 2024 9:23a m GERD (gastroesophageal reflux disease) J sabina 2024 9:23am Chief Complaint Admit Date [...] am Type 2 diabetes mellitus with hyperglyce [facility] August 25, 2024 10:19am Vitamin D deficiency, unspecified August 252024 10:19am Vitamin B 12 deficiency August 25, 2024 1 0:19am Type 2 diabetes mellitus with diabetic p olyneuropathy September 17, 2024 11:14am Constipation October 05, 2024 9:23a m GERD (gastroesophageal reflux disease) J sabina 2024 9:23am Chief Complaint Admit Date [...] 9:23a m GERD (gastroesophageal reflux disease) William muhammad 2024 9:23am Essential (primary) hypertension October 272024 9:25am Type 2 diabetes mellitus with diabetic p olyneuropathy October 27, 2024 9:25am Type 2 diabetes mellitus wit h other circulatory complications October 27, 2024 9:25am Type 2 diabetes mellitus with other spec ified complication October 27, 2024 9:25am Constipation November 23, 2024 9: 38am GERD (gastroesophageal reflux disease) A ugust 2024 9:38am Chief Complaint Admit Date Sore Feet/Wants Diabetic Shoes August 11:14am 1 year follow up / Gerd October 05, 2024 9 :23am 3 mo f/u October 27, 2024 9:25 am 7wk Constipation/gerd November 23, 2024 9:38am 3 month-DMN f/u / dexcom December 01, 2024 10:48am Reason for Visit Admit Date Type 2 diabetes mellitus with diabetic p olyneuropathy September 17, 2024 11:14am Constipation October 05, 2024 9:23a m GERD (gastroesophageal reflux disease) William muhammad 2024 9:23am Essential (primary) hypertension October 272024 9:25am Type 2 diabetes mellitus with diabetic p olyneuropathy October 27, 2024 9:25am Type 2 diabetes mellitus wit h other circulatory complications October 27, 2024 9:25am Type 2 diabetes mellitus wit h other specified complication October 27, 2024 9:25am Constipation November 23, 2024 9: 38am GERD (gastroesophageal reflux disease) A ugust 2024 9:38am BMI 25.0-25.9,adult December 01, 2024 10:48am Dietary counseling and surveillance Nov 10:48am Essential (primary) hypertension [facility] 2024 10:48am Neuropathy December 01, 2024 10:48am Type 2 diabetes mellitus with hyperglyce tana December 01, 2024 10:48am Vitamin D deficiency, unspecified Septem 2024 10:48am Vitamin B 12 deficiency December 01 10:48am Chief Complaint Admit Date 3 mo f/u October 27, 2024 9:25 am 7wk Constipation/gerd November 23, 2024 9:38am 3 month-DMN f/u / dexcom December 01, 2024 10:48am 3 month f/u January 10, 2025 9 :28am Reason for Visit Admit Date Essential (primary) hypertension October 272024 9:25am Type 2 diabetes mellitus with diabetic p olyneuropathy October 27, 2024 9:25am Type 2 diabetes mellitus wit h other circulatory complications October 27, 2024 9:25am Type 2 diabetes mellitus wit h other specified complication October 27, 2024 9:25am Constipation November 23, 2024 9: 38am GERD (gastroesophageal reflux disease) A ugust 2024 9:38am BMI 25.0-25.9,adult December 01, 2024 10:48am Dietary counseling and surveillance Nov 10:48am Essential (primary) hypertension [facility] 2024 10:48am Neuropathy December 01, 2024 10:48am Type 2 diabetes mellitus with hyperglyce tana December 01, 2024 10:48am Vitamin D deficiency, unspecified Sept2024 10:48am Vitamin B 12 deficiency December 01 10:48am Additional Source Comments Patient Care team informatio [...] Active Start: July 28, 2023 End: July 27ebpk C Misaelly , APRNAttending ProviderActiveStart: July 28, 2023 End: July 28, 2023 Team Status: Inactive Member Role Status Dates Simone Huang MD Primary Care Provider Active Start: August 21, 2023 End: August 20darryl Solano , JUSttending ProviderActiveStart: August 21, 2023 End: August 21, 2023 Team Status: Active Member Role Status Dates Simone Huang MD Primary Care Provider Active Start: August 21, 2023 David Solano MDAttending Provider, Other ProviderActiveStart: August 21, 2023 Team Status: Inactive Member Role Status Dates Simone Huang MD Primary Care Provider Active Start: September 23, 2023 End: September 22ebpk C Misaelly , APRNAttending ProviderActiveStart: September 23, 2023 End: September 23, 2023 Team Status: Inactive Member Role Status Dates Ragini Mar , GIS TECHNICIAN Attending Provider Active Start: September 23, 2023 End: September 23, 2023 Team Status: Inactive Member Role Status Dates Simone Huang MD Primary Care Provider Active Start: September 30, 2023 End: September 29darryl Solano MDAttending ProviderActiveStart: September 30, 2023 End: September 30, 2023 Team Status: Active Member Role Status Dates Simone Huang MD Primary Care Provider Active Start: September 30, 2023 David Solano MDAttending Provider, Other ProviderActiveStart: September 30, 2023 Team Status: Inactive Member Role Status Dates Simone Huang MD Primary Care Provider Active Start: November 05, 2023 End: November 04cezar Coleman MDAttending ProviderActiveStart: November 05, 2023 End: November 05, 2023 Team Status: Inactive Member Role Status Dates Simone Huang MD Primary Care Provider Active Start: December 03, 2023 End: December 02Amaya Cuevasending ProviderActiveStart: December 03, 2023 End: December 03, 2023 Team Status: Active Member Role Status Dates Simone Huang MD Primary Care Provider Active Start: December 22, 2023 Ragini Mar , APRNAttenskye ProviderActiveStart: December 22, 2023 Team Status: Inactive Member Role Status Dates Simone Huang MD Primary Care Provider Active Start: December 30, 2023 End: December 29jami Mar , APRNAttenskye ProviderActiveStart: December 30, 2023 End: December 30, 2023 [...] Start: February 10, 2024 End: February 10, 2024Alex Snow ProviderActiveStart: February 10, 2024 End: February 10, 2024Team MemberRelationshipSpecialtyStart DateEnd Date Simone Huang MD [address] [place] [id number] PCP - GeneralFamily Vatkyrfm72/5/24Team MemberRelationshipSpecialtyStart DateEnd Date Simone Huang MD [address] [facility] [phone] PCP - GeneralFamily Kteihzye33/5/24Team MemberRelationshipSpecialtyStart DateEnd Date Simone Huang MD [address] [facility] [phone] PCP - GeneralFamily Medicine12/22/23Team MemberRelationshipSpecialtyStart DateEnd Date Simone Huang MD [address] [place] [address] [facility] Team Status: Inactive Member Role Status Dates Simone Huang MD Primary Care Provide r, Attending Provider Active Start: April 05, 2024 End: April 05, 2024 Team Status: Inactive Member Role Status Dates Simone Huang MD Primary Care Provider Active Start: April 06, 2024 End: April 06, 2024Delemuel Mra , APRNAttending ProviderActiveStart: April 06, 2024 End: April 06, 2024 Team Status: Inactive Member Role Status Dates Simone Huang MD Primary Care Provider Active Start: April 20, 2024 End: April 20rittany Frangella , RNActiveStart: April 20, 2024 End: April 20, 2024Delemuel Mar , APRNActiveStart: April 20, 2024 End: April 20, 2024Natshen Crowe , RNAttending ProviderActiveStart: April 20, 2024 End: April 20, 2024 Team Status: Inactive Member Role Status Dates Simone Huang MD Primary Care Provider Active Start: May 26, 2024 End: May 26, 2024Delemuel Mar , APRNAttending ProviderActiveStart: May 26, 2024 End: May 26, 2024 Team Status: Inactive Member Role Status Dates Simone Huang MD Primary Care Provide r, Attending Provider Active Start: July 09, 2024 End: July 09, 2024 Team Status: Inactive Member Role Status Dates Simone Huang MD Primary Care Provider Active Start: August 25, 2024 End: August 25, 2024Delemuel Mar , APRNAttending ProviderActiveStart: August 25, 2024 End: August 25, 2024 Team Status: Inactive Member Role Status Dates Simone Huang MD Primary Care Provider Active Start: July 09, 2024 End: July 09, 2024Simone Huang MDAttending ProviderActiveStart: July 09, 2024 End: July 09, 2024 Team Status: Inactive Member Role Status Dates Simone Huang MD Primary Care Provider Active Start: September 17, 2024 End: September 17, 2024Amaya Blantonending ProviderActiveStart: September 17, 2024 End: September 17, 2024 Team Status: Inactive Member Role Status Dates Simone Huang MD Primary Care Provider Active Start: October 05, 2024 End: October 05, 2024Angel Palencia , APRNAttending ProviderActiveStart: October 05, 2024 End: October 05, 2024 Team Status: Inactive Member Role Status Dates Simone Huang MD Primary Care Provider Active Start: October 27, 2024 End: October 27, 2024Simone Huang MDAttending ProviderActiveStart: October 27, 2024 End: October 27, 2024 Team Status: Inactive Member Role Status Dates Simone Huang MD Primary Care Provider Active Start: November 23, 2024 End: November 23, 2024Angel Palencia , CEENAttending ProviderActiveStart: November 23, 2024 End: November 23, 2024 Team Status: Active Member Role Status Dates Simone Huang MD Primary Care Provider Active Start: November 24, 2024 Prashant Camacho , DOOR TO DOOR SALESMAN-CAttending ProviderActiveStart: November 24, 2024 Team Status: Inactive Member Role Status Dates Simone Huang MD Primary Care Provider Active Start: December 01, 2024 End: December 01, 2024Delemuel Mar , APRNAttending ProviderActiveStart: December 01, 2024 End: December 01, 2024Team MemberRelationshipSpecialtyStart DateEnd Date Simone Huang MD [address] [place] [address] [facility] - [facility]/25/24Team MemberRelationshipSpecialtyStart DateEnd Date Simone Huang MD [address] [place] [phone] [facility] - [facility]11/25/24Team MemberRelationshipSpecialtyStart DateEnd Date Simone Huang MD [address] [facility] [address] PCP - GeneralFamily Medicine11/25/24Team MemberRelationshipSpecialtyStart DateEnd Date Simone Huang MD [address] [place] [facility] [address] PCP - GeneralFamily Medicine11/25/24Team MemberRelationshipSpecialtyStart DateEnd Date Simone Huang MD [address] [place] [facility] [address] PCP - GeneralFamily Medicine11/25/24Team MemberRelationshipSpecialtyStart DateEnd Date Simone Huang MD [address] [place] [facility] [address] PCP - GeneralFamily Medicine11/25/24Team MemberRelationshipSpecialtyStart DateEnd Date Simone Huang MD [address] [place] [facility] [address] PCP - GeneralFamily Medicine11/25/24Team MemberRelationshipSpecialtyStart DateEnd Date Simone Huang MD [address] [place] [facility] [address] PCP - GeneralFamily Medicine11/25/24Team MemberRelationshipSpecialtyStart DateEnd Date Simone Huang MD [address] [place] [facility] [address] PCP - GeneralFamily Medicine11/25/24Team MemberRelationshipSpecialtyStart DateEnd Date Simone Huang MD [facility] [place] [phone] PCP - GeneralFamily Medicine11/25/24 Team Status: Inactive Member Role Status Dates Simone Huang MD Primary Care Provider Active Start: January 10, 2025 End: January 10, 2025Simone Huang MDAttending ProviderActiveStart: January 10, 2025 End: January 10, 2025 (unrecognized sect ion and content) No Status Records FoundNo Status Records FoundNo Status Records FoundNo Status Records FoundNo Status Records Found INFORMATION SOURCE (unrecogn ized section and content) DATE CREATED AUTHOR 04/10/2022 [facility] DATE CREATED AUTHOR AUTHOR'S ORGANIZ ATION 04/17/[address] [facility] DATE CREATED AUTHOR AUTHOR'S ORGANIZ ATION 01/28/2024 [facility] DATE CREATED AUTHOR AUTHOR'S ORGANIZ ATION 10/31/2024 [facility] DATE CREATED AUTHOR AUTHOR'S ORGANIZ ATION 01/03/2025 [facility] EPIC REASON FOR VISIT (unrecogniz ed section and [...] BE BASED ON THE PRIMARY CLINICAL RECORDS. [facility]. provides no warranty or guarantee of the accuracy or completeness of information in this document.
[2025-03-02 11:16] LABS: Microalbum Creatinine Ratio Ur 24.9 mg/g (0.0-29.9)
[2025-03-02 11:30] LABS: Alanine Aminotransferase 32 U/L (16-63); Albumin Globulin Ratio 1.2; Albumin Level 4.4 g/dL (3.4-5.0); Alkaline Phosphatase 78 U/L (46-116); Anion Gap 15.2; Aspartate Amino Transferase 21 U/L (15-37); Blood Urea Nitrogen 24.0 mg/dL (7.0-18.0); Calcium 9.7 mg/dL (8.5-10.1); Carbon Dioxide 26.2 mmol/L (21.0-32.0); Chloride 104 mmol/L (98-107); Estimated GFR (African America >60 (>=60 mL/min/1.73m^2); Estimated GFR (Non-African Ame >60 (>=60 mL/min/1.73m^2); Globulin 3.6 g/dL; Glucose 147 mg/dL (74-106); Potassium 4.4 mmol/L (3.5-5.1); Sodium 141 mmol/L (136-145); Total Protein 8.0 g/dL (6.4-8.2)
[2025-03-03 06:08] LABS: Vitamin B12 1016 pg/mL (232-1245)
== END 2025-03-02 09:57 | disposition home or self-care (01) ==
LOC: LAB 10:07
PROVIDERS: PCP Family Medicine; Visit Provider Nurse Practitioner Family
DX: E11.69 Type 2 diabetes mellitus with other specified complication (principal); G57.93 Unspecified mononeuropathy of bilateral lower limbs; G62.9 Polyneuropathy, unspecified; E55.9 Vitamin D deficiency, unspecified
CPT/HCPCS: 36415; 80053; 82043; 82306; 82570; 82607